=== PATIENT | male | born 1945 | race Two or more races ===

== ENCOUNTER 2020-11-26 11:10 | Emergency (ER) | payer MEDICARE, MEDICAID, SELFPAY ==
[2020-11-26 11:24] VITALS: BP 137/68; PULSE 73; RESP 16; TEMP 37.2; O2SAT 99; BMI 25.0
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
== END 2020-11-26 12:02 | disposition home or self-care (01) ==
LOC: HO.ED 11:59
PROVIDERS: Emergency Provider Emergency Medicine
DX: H10.89 Other conjunctivitis (principal)
CPT/HCPCS: 99283

== ENCOUNTER 2020-12-14 00:34 | Inpatient (IN) | payer MEDICARE, MEDICAID, SELFPAY ==
[2020-12-14] VITALS (8 sets, daily range): BP systolic 135–165; BP diastolic 55–82; PULSE 62–74; RESP 18–21; TEMP 36.4–37.4; O2SAT 97–99; BMI 22.4
--- NOTE | ~2020-12-14 | CT_ITS ---
EXAMINATION: CT ABDOMEN AND PELVIS WITH CONTRAST CLINICAL INFORMATION: Lower abdominal pain. COMPARISON: Ultrasound abdomen 07/25/2017. TECHNIQUE: Multidetector volumetric images were obtained from the superior aspect of the liver through the pubic symphysis following administration 85 mL of Omnipaque 350 intravenous contrast. Sagittal and coronal reformatted images were obtained on the technologist's workstation. Oral contrast: No This CT examination was performed using dose optimization techniques as appropriate, variously including the following: *Automated exposure control *Adjustment of mA and/or kV according to patient size (this includes techniques or standardized protocols for targeted exams where dose is matched to indication/reason for exam; i.e. extremities or head) *Use of iterative reconstruction technique DLP: 358 mGy-cm FINDINGS: LUNG BASES: The visualized lung bases are unremarkable. LIVER, GALLBLADDER, AND BILIARY TREE: The liver is normal in size, shape, and attenuation. There are multiple hypodense liver lesions measuring water density consistent with cysts. The largest right hepatic lobe cyst measures 1.6 cm axial image 18/3. The gallbladder is unremarkable with no evidence of radiopaque gallstones, gallbladder wall thickening, or obvious pericholecystic inflammatory changes. PANCREAS: Unremarkable. SPLEEN: Unremarkable. ADRENAL GLANDS: Unremarkable. KIDNEYS AND URETERS: The kidneys are normal in size, shape, and attenuation. No hydronephrosis, hydroureter, or calculi seen. No perinephric stranding. There is a 5 mm hypodense nodule upper pole cortex right kidney. BLADDER: Unremarkable. GASTROINTESTINAL TRACT: There is significant stool seen throughout the colon suggestive of severe constipation. There are multiple dilated small bowel loops with air-fluid levels, most likely secondary to constipation. The small bowel feces sign. No inflammatory process seen in the abdomen. There is no free air or free fluid. The appendix is normal caliber. ABDOMINAL WALL: No significant hernia is appreciated. LYMPH NODES: Normal. VASCULAR: Mild atherosclerotic changes of abdominal aorta are noted. No aneurysmal dilatation. PELVIC VISCERA: The prostate gland is enlarged with hyperdense appearing central gland. OSSEOUS STRUCTURES: There is mild ventral spondylosis L3-L4 L2-L3 disc levels. Bilateral facet joint arthropathy seen at L3-L4 and L4-L5 disc levels. CT/CT abdomen pelvis w con IMPRESSION: Small bowel obstruction most likely secondary to significant constipation. There is no free air or free fluid seen. The appendix is normal caliber. Multiple liver cysts.
[2020-12-14] MEDS: 0.9 % Sodium Chloride 1,000 ML 999 ML IVCONT (00:50)
--- NOTE | 2020-12-14 00:58 | ED_ITS ---
HPI - Abdominal Pain General Chief Complaint: Abdominal Pain Stated Complaint: ABD PAIN ,VOMITING Time Seen by Provider: 12/14/20 00:57 Related Data Home Medications Medication Instructions Recorded Confirmed Unobtainable 12/14/20 12/14/20 Allergies Allergy/AdvReac Type Severity Reaction Status Date / Time No Known Allergies Allergy Unknown NONE Verified 12/14/20 00:42 [No Known Allergies*] Physical Exam Vital Signs: Vital Signs: Last Vital Signs Temp 99.4 F 12/14/20 05:53 Pulse 70 12/14/20 05:53 Resp 18 12/14/20 05:53 BP 145/65 H 12/14/20 05:53 Pulse Ox 97 12/14/20 05:53 Body Mass Index 22.4 Course Reevaluation(s) Reevaluation #1: Patient with acute small-bowel obstruction etiology not very clear patient never had any surgery in the past NG tube was tried 3 times patient pull it out immediately refusing us to put the NG tube. Patient vomited 2-3 times in the ER case discussed Dr. Fuchs will admit patient to surgical service Time: 05:36 MDM - Abdominal Pain Differential Diagnosis Differential diagnosis: Likely abdominal pain and small bowel obstruction Medical Records Attestation: I reviewed the patient's medical records. Lab Data Attestation: I reviewed the patient's lab results. Result diagrams: 12/14/20 01:29 12/14/20 01:29 Labs: Lab Results 12/14/20 Range/Units 01:29 WBC 11.2 H (4.8-10.8) X10*3/uL RBC 4.43 L (4.60-5.80) X10*6/uL Hgb 14.2 (14.0-18.0) g/dl Hct 42.9 (42-52) % MCV 96.8 (80-98) fL MCH 32.1 (27.0-33.0) pg MCHC 33.1 (31.0-36.0) g/dl RDW 13.3 (11.0-16.0) % Plt Count 235 (160-400) X10*3/uL MPV 11.2 (9.4-12.4) fL Immature Gran % (Auto) 0.4 (0.0-0.4) % Neut % (Auto) 85.9 H (45-73) % Lymph % (Auto) 7.4 L (20-40) % [place] % (Auto) 5.0 (2-11) % Eos % (Auto) 0.9 (0-4) % Baso % (Auto) 0.4 (0-2) % Lymph # (Auto) 0.8 L (1.2-4.9) X10*3/uL [place] # (Auto) 0.6 (0.1-1.2) X10*3/uL Eos # (Auto) 0.1 (0.0-0.4) X10*3/uL Baso # (Auto) 0.1 (0.0-0.2) X10*3/uL Abs Immat Gran (auto) 0.04 H (0.00-0.03) X10*3/uL Absolute Neuts (auto) 9.6 H (2.0-8.3) X10*3/uL Absolute Nucleated RBC 0.000 (0.0-0.012) X10*3/uL Nucleated RBC % (auto) 0.0 (0.0-0.2) /100WBC Discharge Plan Discharge Clinical Impression: SBO (small bowel obstruction) Patient Disposition: Admitted As Inpatient [facility] Past Medical History Medical History No known health problems Social History Social History Alcohol intake: never Smoking Status: Current every day smoker Smoked in Last 30 Days: Yes Use of substances other than those prescribed or required for medical reasons: No Advance Directives: No
[2020-12-14] MEDS: ondansetron HCL 4 MG/2 ML VIAL IVPUSH (01:00)
[2020-12-14] MEDS: Famotidine/PF 20 MG/2 ML VIAL IVPUSH (01:00)
[2020-12-14] MEDS: Lidocaine HCl 4 % Laryng-O-Jet 4 ML 1 APPL TOPICAL (05:50)
--- NOTE | 2020-12-14 06:01 | PC.NURSE ---
pt comes from home via ems for abdominal pain with vomiting after eating melon. alert and oriented. japanese speaker only. per md, line and lab completed. ct abdomen done with contrast. ct confirmed sbo. ng tube unable to put in. 2 RNs and 1 MD tired but pt fighting and pull off tube right away. per md, okay not to put in. Hospitalist team will take over. pt to be NPO. unable to get home med info. pt had a vomiting episode x3 while attempting to put ng tube. coffee ground emesis seen with odor. pt sleeping comfortable. rr even and unlabored. vss. awaiting for hospitalist eval. will continue to monitor.
[2020-12-14 06:13] LABS: MANUAL DIFF FLAG NO
[2020-12-14 06:15] LABS: Basophils Absolute Auto 0.1 X10*3/uL (0.0-0.2); Basophils Percent Auto 0.4 % (0-2); Eosinophils Absolute Auto 0.1 X10*3/uL (0.0-0.4); Eosinophils Percent Auto 0.9 % (0-4); Hematocrit 42.9 % (42-52); Hemoglobin 14.2 g/dl (14.0-18.0); Imm Gran Abs Auto 0.04 X10*3/uL (0.00-0.03); Imm Gran Pct Auto 0.4 % (0.0-0.4); Lymphocytes Absolute Auto 0.8 X10*3/uL (1.2-4.9); Lymphocytes Percent Auto 7.4 % (20-40); Mean Corpuscular HGB Conc 33.1 g/dl (31.0-36.0); Mean Corpuscular Hemoglobin 32.1 pg (27.0-33.0); Mean Corpuscular Volume 96.8 fL (80-98); Mean Platelet Volume 11.2 fL (9.4-12.4); Monocytes Absolute Auto 0.6 X10*3/uL (0.1-1.2); Neutrophils Absolute Auto 9.6 X10*3/uL (2.0-8.3); Neutrophils Percent Auto 85.9 % (45-73); Platelet Count 235 X10*3/uL (160-400); Red Blood Count 4.43 X10*6/uL (4.60-5.80); Red Cell Distribution Width 13.3 % (11.0-16.0); White Blood Count 11.2 X10*3/uL (4.8-10.8)
[2020-12-14 06:19] LABS: COVID-19 Test Negative (Negative); IDNOW Serial# 9DD0AD1C
[2020-12-14 06:40] LABS: Anion Gap 15 (12-20); Blood Urea Nitrogen 19 mg/dL (9-16); Carbon Dioxide 30 mmol/L (22-29); Chloride 99 mmol/L (96-108); Potassium 5.1 mmol/L (3.3-5.1); Sodium 139 mmol/L (135-145)
[2020-12-14 06:41] LABS: Alanine Aminotransferase 15 U/L (0-40); Albumin Level 4.6 g/dL (3.5-5.0); Alkaline Phosphatase 49 U/L (39-117); Aspartate Amino Transferase 20 U/L (5-37); Bilirubin Direct 0.2 mg/dL (0.0-0.5); Bilirubin Total 0.3 mg/dL (0.0-1.0); Creatinine Clr Calc Pharmacy 62.1; Estimated Glomerular Filt Rate > 60; Glucose Random 162 mg/dL (60-115); Lipase 21 U/L (8-78); Total Protein 7.2 g/dL (6.5-8.0)
[2020-12-14 06:48] LABS: Calcium 9.4 mg/dL (8.4-10.2)
--- NOTE | 2020-12-14 06:53 | PC.NURSE ---
REPORT TAKEN FROM TOREY RN PT ADMITTED FOR SBO, PER PREVIOUS SHIFT RN, HAS REMOVED NG TUBE MULTIPLE TIMES. PT APPEARS TO BE SLEEPING IN SITTING POSITION, RR EVEN/UNLABORED. NO OBVIOUS SIGNS OF DISTRESS. AWAITING BED ASSIGNMENT. WCTM.
--- NOTE | 2020-12-14 07:05 | PC.NURSE ---
REPORT GIVEN TO S3 TAVARES OLIVO
--- NOTE | 2020-12-14 07:15 | PC.NURSE ---
PT AMBULATED TO AND FROM BATHROOM W STEADY GAIT.
[2020-12-14] MEDS: Dextrose 5 % and Lactated Ring 1,000 ML 125 ML IVCONT ×3 (07:48→23:02)
[2020-12-14] MEDS: 0.9 % Sodium Chloride Flush 3 ML SYRINGE IVFLUSH (07:49)
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
--- NOTE | 2020-12-14 12:10 | MHC.CM.PN ---
CM met with patient at the bedside with a staff interpreter who reports he lives alone and is independent. Patient states he has a HCP friend Christiano Mares [phone], copy requested. Discussed discharge plan, home no services. Patient will need transport home. IMM addressed with patient using human resources associate. CM will continue to follow patient for discharge needs.
--- NOTE | 2020-12-14 13:24 | PC.NURSE ---
Pt admitted 0730, denies pain, no nausea or vomiting. tolerated 100% clear liquid lunch. continues to deny pain. slept in naps
--- NOTE | 2020-12-14 16:29 | PM.EVENT ---
Event Note Date of Service: 12/14/20 Event Note: Continues to deny abdominal pain Has had no nausea or vomiting says he feels well Tolerating clear liquids CT images reviewed again - diffuse dilatation of small bowel loops, question of transition in the left lower quadrant No inflammatory changes seen Good air distally including the colon and rectum Clinical exam at this time does not suggest small-bowel obstruction Keep on clear liquids for now
[2020-12-15 03:46] VITALS: BP 147/75; PULSE 63; RESP 18; TEMP 36.6; O2SAT 99
[2020-12-15 06:16] LABS: MANUAL DIFF FLAG NO
[2020-12-15 06:23] LABS: Basophils Percent Auto 0.4 % (0-2); Eosinophils Absolute Auto 0.5 X10*3/uL (0.0-0.4); Eosinophils Percent Auto 6.7 % (0-4); Hematocrit 36.6 % (42-52); Hemoglobin 12.1 g/dl (14.0-18.0); Imm Gran Abs Auto 0.02 X10*3/uL (0.00-0.03); Imm Gran Pct Auto 0.3 % (0.0-0.4); Lymphocytes Absolute Auto 1.4 X10*3/uL (1.2-4.9); Lymphocytes Percent Auto 20.8 % (20-40); Mean Corpuscular HGB Conc 33.1 g/dl (31.0-36.0); Mean Corpuscular Hemoglobin 32.1 pg (27.0-33.0); Mean Corpuscular Volume 97.1 fL (80-98); Mean Platelet Volume 10.9 fL (9.4-12.4); Monocytes Absolute Auto 0.6 X10*3/uL (0.1-1.2); Monocytes Percent Auto 8.3 % (2-11); Neutrophils Absolute Auto 4.4 X10*3/uL (2.0-8.3); Neutrophils Percent Auto 63.5 % (45-73); Platelet Count 203 X10*3/uL (160-400); Red Blood Count 3.77 X10*6/uL (4.60-5.80); Red Cell Distribution Width 13.4 % (11.0-16.0); White Blood Count 6.9 X10*3/uL (4.8-10.8)
[2020-12-15 06:53] LABS: Anion Gap 8 (12-20); Blood Urea Nitrogen 10 mg/dL (9-16); Calcium 8.3 mg/dL (8.4-10.2); Carbon Dioxide 30 mmol/L (22-29); Chloride 106 mmol/L (96-108); Creatinine Clr Calc Pharmacy 75.3; Estimated Glomerular Filt Rate > 60; Glucose Random 133 mg/dL (60-115); Potassium 4.6 mmol/L (3.3-5.1); Sodium 139 mmol/L (135-145)
[2020-12-15 07:49] VITALS: BP 140/73; PULSE 60; RESP 17; TEMP 36.3; O2SAT 98
[2020-12-15] MEDS: Dextrose 5 % and Lactated Ring 1,000 ML 125 ML IVCONT ×2 (09:17→23:10)
--- NOTE | 2020-12-15 11:20 | PM.PNGS ---
Subjective Subjective Date of Service: 12/15/20 <Karen Alvarado PA-C - Last Filed: 12/16/20 12:46> 12/16/20 <Pako Fuchs MD - Last Filed: 12/16/20 13:49> Interval history: LATE ENTRY FROM 12/15/20. Feels well. Had some mild pain but relieved with medication. Tolerating clears. Denies nausea. Now passing flatus. Feels hungry and wants a sandwich. <Karen Alvarado PA-C - Last Filed: 12/16/20 12:46> Physical Exam Vital Signs: Vital Signs: Last Vital Signs Temp 97.4 F 12/15/20 07:49 Pulse 60 12/15/20 07:49 Resp 17 12/15/20 07:49 BP 140/73 H 12/15/20 07:49 Pulse Ox 98 12/15/20 07:49 Body Mass Index 22.4 <Karen Alvarado PA-C - Last Filed: 12/16/20 12:46> Const: General: comfortable, no acute distress and alert <Karen Alvarado PA-C - Last Filed: 12/16/20 12:46> Orientation/consciousness: patient oriented x3 <Karen Alvarado PA-C - Last Filed: 12/16/20 12:46> Eyes: Sclerae: sclerae normal <Karen Alvarado PA-C - Last Filed: 12/16/20 12:46> Resp: Effort & Inspection: normal respiratory effort <Karen Alvarado PA-C - Last Filed: 12/16/20 12:46> GI: Inspection: Yes normal to inspection and No distended <Karen Alvarado PA-C - Last Filed: 12/16/20 12:46> Palpation (GI): Soft to palpation, nontender, no guarding, not rigid and No Rebound tenderness present <KEVIN Downs Last Filed: 12/16/20 12:46> Percussion: Yes normal to percussion <Karen Alvarado PA-C - Last Filed: 12/16/20 12:46> Skin: Other: normal color, warm and dry <Karen Alvarado PA-C - Last Filed: 12/16/20 12:46> General skin exam: no rashes or lesions noted <Karen Alvarado PA-C - Last Filed: 12/16/20 12:46> Neuro: General: patient oriented x3 <Karen Alvarado PA-C - Last Filed: 12/16/20 12:46> Extrem: General: Yes no clubbing, cyanosis or edema <Karen Alvarado PA-C - Last Filed: 12/16/20 12:46> Progress Note: A&P Assessment and plan (1) Ileus: Status: Acute <Karen Alvarado PA-C - Last Filed: 12/16/20 12:46> Assessment and Plan: Appears resolved. He is tolerating clears and passing flatus. VSS. Abd exam very benign, soft, NTND. Will advance to solid diet. Home possibly tomorrow if tolerating. Patient comfortable with plan. <Karen Alvarado PA-C - Last Filed: 12/16/20 12:46> Late entry: Patient seen and examined, abdominal pain is much improved is abdomen is soft and nontender. Agree with the above assessment and plan. Advanced to regular diet. <Pako Fuchs MD - Last Filed: 12/16/20 13:49> Fall Risk Details Current Medications: Current Medications Generic Name Dose Route Start Last Admin Trade Name Freq PRN Reason Stop Dose Admin Acetaminophen 650 mg 12/14/20 07:03 Acetaminophen 325 Mg Tablet PO Q6H PRN Pain, Mild (Pain Scale 1-3) Hydromorphone HCl 0.5 mg 12/14/20 07:03 Hydromorphone Hcl 0.5 Mg/0.5 Ml Syringe IVPUSH Q4H PRN Pain, Severe (Pain Scale 7-10) Dextrose/Lactated Ringer's 1,000 mls @ 125 mls/hr 12/14/20 07:03 12/15/20 09:17 D5lr IVCONT 125 mls/hr .Q8H KELLY Administration Ondansetron HCl 4 mg 12/14/20 07:03 Ondansetron Hcl 4 Mg/2 Ml Vial IVPUSH Q8H PRN Nausea and Vomiting Sodium Chloride 3 ml 12/14/20 08:00 12/15/20 08:20 0.9 % Sodium Chloride Flush 3 Ml Syringe IVFLUSH Not Given QSHIFT [facility] <Karen Alvarado PA-C - Last Filed: 12/16/20 12:46> Time Spent With Patient Time: Total time spent is greater than 50% in coordination of care (as documented) at patient's floor/unit and/or counseling patient: <Karen Alvarado PA-C - Last Filed: 12/16/20 12:46> Time with patient: less than 15 minutes <Karen Alvarado PA-C - Last Filed: 12/16/20 12:46>
[2020-12-15 11:40] VITALS: BP 143/65; PULSE 63; RESP 19; TEMP 36.4; O2SAT 100
[2020-12-15 16:00] VITALS: BP 150/75; PULSE 65; RESP 18; TEMP 36.7; O2SAT 99
[2020-12-15 19:26] VITALS: BP 147/71; PULSE 69; RESP 20; TEMP 36.2; O2SAT 96
[2020-12-15 23:47] VITALS: BP 124/61; PULSE 58; RESP 18; TEMP 36.4; O2SAT 96
[2020-12-16 03:48] VITALS: BP 137/67; PULSE 56; RESP 18; TEMP 36.8; O2SAT 97
[2020-12-16 07:54] VITALS: BP 146/77; PULSE 62; RESP 19; TEMP 36.6; O2SAT 100
--- NOTE | 2020-12-16 08:04 | PM.PNGS ---
Subjective Subjective Date of Service: 12/16/20 Interval history: Patient feels much improved with no further nausea or vomiting. He is tolerating the regular diet without increased symptoms. His bowels are moving as well. He feels ready for discharge to home. Physical Exam Vital Signs: Vital Signs: Last Vital Signs Temp 97.8 F 12/16/20 07:54 Pulse 62 12/16/20 07:54 Resp 19 12/16/20 07:54 BP 146/77 H 12/16/20 07:54 Pulse Ox 100 12/16/20 07:54 Body Mass Index 22.4 Const: General: no acute distress, alert and awake Neck: Neck: Yes normal visual inspection, Yes full ROM and Yes no JVD Resp: Other: Breathing comfortably on room air, no respiratory distress GI: Other: Soft, flat, nondistended, nontender, no rebound, no tympany Skin: Other: Warm, dry, no rash Extrem: General: Yes no clubbing, cyanosis or edema Progress Note: A&P Assessment and plan (1) SBO (small bowel obstruction): Problem details: Resolving Status: Acute Assessment and Plan: 75-year-old male patient presenting with a partial small-bowel obstruction. Patient has no prior history of abdominal surgery and is never undergone a colonoscopy. His symptoms have now resolved and he is tolerating a regular diet. He will need follow-up with gastroenterology for a colonoscopy. He may be discharged to home today with follow-up in our office in approximately 1-2 weeks. Fall Risk Details Current Medications: Current Medications Generic Name Dose Route Start Last Admin Trade Name Freq PRN Reason Stop Dose Admin Acetaminophen 650 mg 12/14/20 07:03 Acetaminophen 325 Mg Tablet PO Q6H PRN Pain, Mild (Pain Scale 1-3) Hydromorphone HCl 0.5 mg 12/14/20 07:03 Hydromorphone Hcl 0.5 Mg/0.5 Ml Syringe IVPUSH Q4H PRN Pain, Severe (Pain Scale 7-10) Dextrose/Lactated Ringer's 1,000 mls @ 125 mls/hr 12/14/20 07:03 12/16/20 07:24 D5lr IVCONT Infused .Q8H KELLY Infusion Ondansetron HCl 4 mg 12/14/20 07:03 Ondansetron Hcl 4 Mg/2 Ml Vial IVPUSH Q8H PRN Nausea and Vomiting Oxycodone HCl 5 mg 12/15/20 11:24 Oxycodone Hcl Immed Release 5 Mg Tablet PO Q4H PRN Pain, Moderate (Pain Scale 4-6 Sodium Chloride 3 ml 12/14/20 08:00 12/16/20 07:24 0.9 % Sodium Chloride Flush 3 Ml Syringe IVFLUSH Not Given QSHIFT KELLY Time Spent With Patient Time: Total time spent is greater than 50% in coordination of care (as documented) at patient's floor/unit and/or counseling patient: Time with patient: 15 - 24 minutes
--- NOTE | 2020-12-16 08:18 | MHC.CM.PN ---
PATIENT IS RETURNING HOME WITH NO NEED FOR SERVICES. RN AWARE OF PLAN. IMM 12/14 IN CHART.
--- NOTE | 2020-12-16 12:46 | P.DS_ITS ---
DS: Providers Provider Date of Service: 12/16/20 Date of admission: 12/14/20 05:25 Primary care physician: Unknown Physician DS: Diagnosis Discharge Diagnosis (1) Ileus: Status: Acute DS: Medications Discharge Medications Home Medications: Home Medications Medication Instructions Recorded Confirmed No Known Home Meds 12/14/20 12/14/20 DS: Summary Hospital Course Hospital Course: BRIEF HPI: Hieu Dixon is a 75 year old male with no reported significant PMH who presented to the ED last night with complaints of abdominal pain and vomiting. He reports he ate melon last night and soon after developed strong pain in his lower abdomen. This was followed by nausea and multiple episodes of vomiting. He denies a similar episode of pain before. He reports his last BM was yesterday and was passing flatus up to this point. He denies any surgery on his abdomen. Due to the severity of the pain he presented to the ED for evaluation. CT scan of the abdomen/pelvis was obtained which revealed dilated small bowel loops with a possible transition point in the left abdomen. HOSPITAL COURSE: The patient was admitted to the surgical service for further treatment of the PSBO versus ileus. He felt much improved at that time and denied any abdominal pain. He was clinically appearing well and with a benign abdominal exam. He was started on clear liquids. The following day he was tolerating clears without N/V or abdominal pain. He was passing flatus. He was advanced to a solid diet. He began to move his bowels. He felt ready for discharge the following day. On the day of discharge, he was tolerating a solid diet without any symptoms and had good GI function. His abdomen remained benign. He was discharged to home on 12/16/20 in stable condition. He will need follow-up with gastroenterology for a colonoscopy and follow-up with Dr. Fuchs in office in approximately 1-2 weeks. Status at Discharge Functional status at discharge: independent ambulation Overall status at discharge: patient is back to baseline Time Spent with Patient Time attestation: Total time spent providing and/or coordinating discharge services: Discharge coordination time: Less than 30 minutes Physical Exam Vital Signs: Vital Signs: Last Vital Signs Temp 97.8 F 12/16/20 07:54 Pulse 62 12/16/20 07:54 Resp 19 12/16/20 07:54 BP 146/77 H 12/16/20 07:54 Pulse Ox 100 12/16/20 07:54 Body Mass Index 22.4 Const: General: comfortable, no acute distress and alert O rientation/consciousness: patient oriented x3 Eyes: Sclerae: sclerae normal Resp: Effort & Inspection: normal respiratory effort GI: Inspection: Yes normal to inspection and No distended Palpation (GI): Soft to palpation, nontender, no guarding and not rigid Skin: General skin exam: no rashes or lesions noted Neuro: General: patient oriented x3 Extrem: General: Yes no clubbing, cyanosis or edema Discharge Plan Discharge Patient Disposition: Home, Self-Care Referrals: Vijay Ryan MD [Physician] - 1 Week (needs colonoscopy) Pako Fuchs MD [Physician] - 2 Weeks Physician,Unknown [Primary Care Provider] - Discharge Medications: Continued No Known Home Meds RF: 0 Discharge Orders: Discharge Order (Routine); Ordered 12/16/20 Ordered By: Pako Fuchs Diet: advance to usual diet Activity on Discharge: As tolerated Stand Alone Forms: Patient Portal Discharge page Care Plan Goals: Return to normal diet Health Concerns: Recent partial small-bowel obstruction, no previous colonoscopy Plan of Treatment: Follow-up recommended with gastroenterology to arrange colonoscopy Discharge Date/Time: 12/16/20 09:29
== END 2020-12-16 09:29 | disposition home or self-care (01) | DRG 390 ==
LOC: HO.ED 05:17 → HO.EDOVER 05:31 → HO.IMC 06:30 → HO.S3 13:37
PROVIDERS: Internal Medicine; Admitting Provider Surgery; Emergency Provider Emergency Medicine; PCP Internal Medicine Geriatric Medicine; Visit Provider Surgery
DX: K56.7 Ileus, unspecified (principal); K56.600 Partial intestinal obstruction, unspecified as to cause; Z20.822 Contact with and (suspected) exposure to COVID-19
CPT/HCPCS: 36415; 74177; 80048; 80076; 83690; 85025; 87635; 96374; 96375; 99285; J2405; Q9967

== ENCOUNTER 2021-08-14 16:34 | Emergency (ER) | payer MEDICARE, MEDICAID, SELFPAY ==
--- NOTE | 2021-08-14 17:46 | ED.GENADULT ---
HPI - General Adult General Chief complaint: Skin/Abscess/Foreign Body Stated complaint: mild headache Time Seen by Provider: 08/14/21 17:06 Source: patient Mode of arrival: ambulatory Limitations: no limitations History of Present Illness HPI narrative: Patient presents to ED for generalized pruritus. Patient denies any chest pain, shortness of breath, abdominal pain, nausea, vomiting, fever, chills, rashes, swelling of lips, slurred speech, facial droop, paralysis of extremities, or any recent trauma. Patient denies any medical problems. Patient states since living in a hotel he has had generalized pruritus and may be positive for bug bites. 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 Patient lives on his own and has no family. Patient unaware of any medical problems. Patient denies any alcohol or drug abuse. Patient is not suicidal or homicidal ideation Related Data Previous Rx's Medication Instructions Recorded diphenhydramine HCl 25 mg capsule 25 mg PO Q6H PRN 10 Days #30 cap 08/14/21 (Benadryl) hydrocortisone 1 % topical cream 1 appl TOPICAL BID PRN 14 Days 08/14/21 #28.4 g Allergies Allergy/AdvReac Type Severity Reaction Status Date / Time No Known Allergies Allergy Unknown NONE Verified 12/14/20 00:42 [No Known Allergies*] Review of Systems Review of Systems: Yes all other systems are reviewed and are negative Constitutional: Constitutional: Reports as per HPI and Reports no additional constitutional complaints Eyes: Eyes: Reports as per HPI and Reports no additional eye complaints ENT: Reports system reviewed and no additional complaints, except as documented and Reports as per HPI Cardiovascular: Cardiovascular: Reports as per HPI and Reports no additional cardiovascular complaints Respiratory: Respiratory: Reports as per HPI and Reports no additional respiratory complaints Gastrointestinal: Gastrointestinal: Reports as per HPI and Reports no additional gastrointestinal complaints Genitourinary: Genitourinary: Reports no additional male genitourinary complaints and Reports as per HPI Musculoskeletal: Musculoskeletal: Reports no additional musculoskeletal complaints and Reports as per HPI Integumentary/Breasts: Comments: Pruritus Neurologic: Reports system reviewed and no additional complaints, except as documented and Reports as per HPI Psychiatric: Psychiatric: Reports no additional psychiatric complaints and Reports as per HPI [facility] Past Medical History Medical History (Updated 08/15/21 @ 00:02 by Background Daemon) Ileus No known health problems Social History Social History Household Members: None Housing: Apartment Alcohol intake: never Advance Directives: No Advance Directives Information Provided: No service: No Current occupational status: retired Physical Exam Vital Signs: Vital Signs: Last Vital Signs Pulse 61 08/14/21 17:54 Resp 13 08/14/21 17:54 BP 118/61 08/14/21 17:54 Pulse Ox 100 08/14/21 17:54 Body Mass Index 25.0 Const: General: cooperative, healthy appearing, comfortable, no acute distress, well developed, alert, awake and Physically active Orientation/consciousness: patient oriented x3 HENMT: Other: Negative for lip swelling, tongue swelling, or uvular swelling. Negative for eyes of facial swelling. Head: Yes normal to inspection, Yes No palpable skull fracture present, Yes normocephalic, Yes atraumatic, Yes abrasion, No Acrocyanosis present, No West's sign, No contusion, No cranial bruits, No hematoma, No laceration, No occipital foramen tenderness, No palpable skull fracture, No raccoon eyes, No scalp lesion, No scalp tenderness, No Temporal artery tenderness present and No periorbital ecchymosis Neck: Neck: Yes normal visual inspection, Yes full ROM, Yes no lymphadenopathy, Yes no meningeal signs, Yes trachea midline, Yes supple, No anterior neck swelling and No tender Chest: Chest palpation & inspection: normal inspection of the chest and normal palpation of entire chest wall Resp: Effort & Inspection: normal respiratory effort and able to speak in complete sentences Auscultation: clear to auscultation bilaterally Cardio: Jugular venous distension: no JVD Heart sounds: S1 normal heart sound present and S2 normal heart sound present GI: Inspection: Yes normal to inspection and No abdominal wall ecchymosis Palpation (GI): Soft to palpation, not firm, nontender, no guarding and not rigid : General: No CVA tenderness and Yes no CVA tenderness Back/Spine/Pelvis: Back: no CVA tenderness, No CVA tenderness and No back tenderness Skin: Other: Negative for rash General skin exam: no rashes or lesions noted and elasticity normal Neuro: General: patient oriented x3, gait normal, no meningeal signs and CN's II-XI intact bilaterally Cranial nerves: Yes CN's II-XII intact bilaterally Extrem: General: Yes normal to inspection and Yes full ROM Psych: Appearance: grossly normal, well kempt and not disheveled Course Course Course Narrative: Patient will have labs drawn. Patient evaluated by rifle case repairer Tierney. Reevaluation(s) Reevaluation #1: gathering worker tierney evaluated patient and states that patient is safe for discharge once medically cleared. 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 Patient looks well fed and is clean. Patient labs are normal. Patient will be discharged with hydrocortisone cream and Benadryl. Patient informed to change in his bed sheets and change his clothes due to possibility of bug bites causing pruritus although there is no rash. Time: 22:21 Medical Decision Making [facility] Narrative Medical decision making narrative: Pruritus Lab Data Result diagrams: 08/14/21 17:57 08/14/21 17:57 Labs: Lab Results 08/14/21 08/14/21 Range/Units 17:57 17:57 WBC 5.4 (4.8-10.8) X10*3/uL RBC 4.30 L (4.60-5.80) X10*6/uL Hgb 13.9 L (14.0-18.0) g/dl Hct 41.7 L (42.0-52.0) % MCV 97.0 (80.0-98.0) fL MCH 32.3 (27.0-33.0) pg MCHC 33.3 (31.0-36.0) g/dl RDW 13.6 (11.0-16.0) % Plt Count 171 (160-400) X10*3/uL MPV 11.0 (9.4-12.4) fL Immature Gran % (Auto) 0.2 (0.0-0.4) % Neut % (Auto) 54.7 (45-73) % Lymph % (Auto) 25.0 (20-40) % Prairie % (Auto) 10.6 (2-11) % Eos % (Auto) 8.6 H (0-4) % Baso % (Auto) 0.9 (0-2) % Lymph # (Auto) 1.3 (1.2-4.9) X10*3/uL Prairie # (Auto) 0.6 (0.1-1.2) X10*3/uL Eos # (Auto) 0.5 H (0.0-0.4) X10*3/uL Baso # (Auto) 0.1 (0.0-0.2) X10*3/uL Abs Immat Gran (auto) 0.01 (0.00-0.03) X10*3/uL Absolute Neuts (auto) 2.9 (2.0-8.3) x10*3/uL Absolute Nucleated RBC 0.000 (0.0-0.012) X10*3/uL Nucleated RBC % (auto) 0.0 (0.0-0.2) /100WBC Sodium 140 (135-145) mmol/L Potassium 5.0 (3.3-5.1) mmol/L Chloride 102 (96-108) mmol/L Carbon Dioxide 32 H (22-29) mmol/L Anion Gap 11 L (12-20) BUN 16 D (9-16) mg/dL Creatinine 1.06 (0.5-1.4) mg/dL Estim Creat Clear Calc 51.5 Estimated GFR > 60 Random Glucose 124 H (60-115) mg/dL Calcium 9.3 D (8.4-10.2) mg/dL Magnesium 2.3 (1.6-2.6) mg/dL Total Bilirubin 0.5 (0.0-1.0) mg/dL AST 19 (5-37) U/L ALT 15 (0-40) U/L Alkaline Phosphatase 45 (39-117) U/L Total Creatine Kinase 124 (38-174) U/L Total Protein 6.6 (6.5-8.0) g/dL Albumin 4.2 (3.5-5.0) g/dL Lipase 46 (8-78) U/L Discharge Plan Discharge Clinical Impression: Pruritus Patient Disposition: Home, Self-Care Instructions: Itchy Skin (ED) Additional Instructions: Whelan an?lisis de penny volvi? a la normalidad. Whelan prurito puede deberse a chinches, cambie las s?caden y lave la ropa. Se le reji? de roddy con Benadryl e hidrocortisona en crema. Sterling un seguimiento con whelan proveedor de atenci?n primaria. Regrese al servicio de urgencias si tiene dolor de pecho, dificultad para respirar, dolor abdominal, dolor de nelson, mareos, hinchaz?n de los labios, hinchaz?n de la lengua, hinchaz?n de la ?vula, sensaci?n de cierre de la garganta, sarpullido o cualquier otro s?ntoma preocupante. Prescriptions: New diphenhydramine HCl [Benadryl] 25 mg capsule 25 mg PO Q6H PRN (Reason: itching) 10 Days Qty: 30 RF: 0 hydrocortisone 1 % cream 1 appl topical BID PRN (Reason: itching) 14 Days Qty: 28.4 RF: 0 Interventions: ED Discharge Assessment Last Done: 08/14/21 23:05 Discharge Date/Time: 08/14/21 23:06 Print Language: Turkish
[2021-08-14 17:52] VITALS: BMI 25.0
[2021-08-14 17:54] VITALS: BP 118/61; PULSE 61; RESP 13; O2SAT 100
[2021-08-14 18:00] LABS: MANUAL DIFF FLAG NO
[2021-08-14 18:02] LABS: Basophils Absolute Auto 0.1 X10*3/uL (0.0-0.2); Basophils Percent Auto 0.9 % (0-2); Eosinophils Absolute Auto 0.5 X10*3/uL (0.0-0.4); Eosinophils Percent Auto 8.6 % (0-4); Hematocrit 41.7 % (42.0-52.0); Hemoglobin 13.9 g/dl (14.0-18.0); Imm Gran Abs Auto 0.01 X10*3/uL (0.00-0.03); Imm Gran Pct Auto 0.2 % (0.0-0.4); Lymphocytes Absolute Auto 1.3 X10*3/uL (1.2-4.9); Mean Corpuscular HGB Conc 33.3 g/dl (31.0-36.0); Mean Corpuscular Hemoglobin 32.3 pg (27.0-33.0); Monocytes Absolute Auto 0.6 X10*3/uL (0.1-1.2); Monocytes Percent Auto 10.6 % (2-11); Neutrophils Absolute Auto 2.9 x10*3/uL (2.0-8.3); Neutrophils Percent Auto 54.7 % (45-73); Platelet Count 171 X10*3/uL (160-400); Red Cell Distribution Width 13.6 % (11.0-16.0); White Blood Count 5.4 X10*3/uL (4.8-10.8)
[2021-08-14 18:29] LABS: Alanine Aminotransferase 15 U/L (0-40); Albumin Level 4.2 g/dL (3.5-5.0); Alkaline Phosphatase 45 U/L (39-117); Anion Gap 11 (12-20); Aspartate Amino Transferase 19 U/L (5-37); Bilirubin Total 0.5 mg/dL (0.0-1.0); Blood Urea Nitrogen 16 mg/dL (9-16); Calcium 9.3 mg/dL (8.4-10.2); Carbon Dioxide 32 mmol/L (22-29); Chloride 102 mmol/L (96-108); Creatinine Clr Calc Pharmacy 51.5; Estimated Glomerular Filt Rate > 60; Glucose Random 124 mg/dL (60-115); Lipase 46 U/L (8-78); Magnesium 2.3 mg/dL (1.6-2.6); Sodium 140 mmol/L (135-145); Total Protein 6.6 g/dL (6.5-8.0)
--- NOTE | 2021-08-14 18:32 | MHC.CM.ED ---
Met with CM patient with medical center representative, as pt is Irish speaking only. Pt was BIBA for generalized puritis. CM met with patient at request of Freddy KRAMER. Pt [address] [facility]. Pt states that several people help him and are working to get him an apartment. They provide food. Pt cannot tell CM who helps him or the name of the organization, just that it's a program. Pt tells CM that he feels safe at home. PCP is [facility]. 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 States he got the vaccine at the [facility]. No HCP on file. Pt work-up is pending. CM called [facility] to obtain the address where the patient was picked up. Pt feels safe to go home. Freddy Su aware of above. CM to follow for d/c needs.
== END 2021-08-14 23:06 | disposition home or self-care (01) ==
PROVIDERS: Physician Assistant; Emergency Provider Internal Medicine
DX: L29.9 Pruritus, unspecified (principal); R51.9 Headache, unspecified; Z79.899 Other long term (current) drug therapy
CPT/HCPCS: 36415; 80053; 82550; 83690; 83735; 85025; 99283

== ENCOUNTER 2021-08-20 19:35 | Emergency (ER) | payer MEDICARE, MEDICAID, SELFPAY ==
[2021-08-20 19:46] VITALS: BP 132/74; PULSE 72; RESP 18; TEMP 36.6; O2SAT 98; BMI 25.9
--- NOTE | 2021-08-20 19:54 | ED_ITS ---
HPI - Psych General Chief Complaint: Psychiatric Symptoms Stated Complaint: bugs crawling up his body Time Seen by Provider: 08/20/21 19:43 Source: patient and EMS Mode of arrival: EMS Limitations: no limitations History of Present Illness HPI Narrative: 76 y/o male with history of diabetes on no medications who has not been to a doctor in years presents to the ER via EMS from the [place] where he lives for evaluation of the sensation of bugs and animals crawling up his legs and on his head. Patient reports he cannot recall when this started but has been going on for ?a long time. ?He states he has memory issues. He lives home alone in a motel. The employee of the motel is 1 the called 911 for him to get a ?whole-body evaluation ?for the sensation of bugs and animals crawling all over his body. When asked this has been happening for years he says yes. It has been worsening. When he feels the bugs he has the urge to walk outside in the cold and get the bugs come off him. He admits to never seeing the bugs but the sensation persists. He denies any alcohol or drug use. He is on no medications. MD complaint: anxiety and hallucinations Onset (ago): unknown Duration: intermittent History of same: Yes Relieving factors: none Exacerbating factors: none Associated psychiatric symptoms: other (Tactile hallucinations and severe anxiety) Associated symptoms: confusion (Memory issues) Treatments prior to arrival: none Related Data Previous Rx's Medication Instructions Recorded diphenhydramine HCl 25 mg capsule 25 mg PO Q6H PRN 10 Days #30 cap 08/14/21 (Benadryl) hydrocortisone 1 % topical cream 1 appl TOPICAL BID PRN 14 Days 08/14/21 #28.4 g Allergies Allergy/AdvReac Type Severity Reaction Status Date / Time No Known Allergies Allergy Unknown NONE Verified 12/14/20 00:42 [No Known Allergies*] Review of Systems Review of Systems: Constitutional: No Fever, No Chills ENT/Mouth: No sore throat, No Rhinorrhea, No Swallowing Difficulty Eyes: No Eye Pain, No Swelling, No Redness, no vision changes Cardiovascular: No Chest Pain, No SOB, No Orthopnea, No Edema Respiratory: No Cough, No Sputum, No Wheezing, No dyspnea Gastrointestinal: No Nausea, No Vomiting, No Diarrhea, No abdominal Pain, No Hematochezia, No Melena Genitourinary: No Dysuria, No Urinary Frequency, No Hematuria Musculoskeletal: No joint pain, No Myalgias Skin: No Skin Lesions, No rash Neuro: No Weakness, No Numbness, No Dizziness, No Headache Psych: + Anxiety/Panic, + Depression, no suicidal thoughts, no homicidal thoughts, no audio or visual hallucinations. Heme/Lymph: No Bruising, No Lymphadenopathy PMFSH Past Medical History Medical History (Updated 08/20/21 @ 21:16 by NIA Cruz) Ileus No known health problems Social History Social History Household Members: None Housing: Apartment Alcohol intake: never Advance Directives: No service: No Current occupational status: retired Physical Exam 2 Vital Signs: Vital Signs: Last Vital Signs Temp 98 F 08/20/21 19:46 Pulse 72 08/20/21 19:46 Resp 18 08/20/21 19:46 BP 132/74 08/20/21 19:46 Pulse Ox 98 08/20/21 19:46 Body Mass Index 25.9 Appearance: Alert elderly male sitting up in no distress, orientedX3. Eyes: Pupils equal, round and reactive to light. ENT: Pharynx normal. Neck: Normal inspection. Neck supple. CVS: Normal heart rate and rhythm. Pulses normal. Respiratory: No respiratory distress. Breath sounds normal. Abdomen: Soft and nontender. +BS x4 Skin: Skin warm and dry. Normal skin color. Normal skin turgor. No rashes. No bugs visualized. No excoriations Extremities: No lower extremity edema. Neuro: Oriented X 3. No motor deficit. No sensory deficit. Cranial nerves II- XII were intact, ambulates with steady gait. Course Course Course Narrative: 76-year-old male with history of untreated diabetes per his report and no other medical problems presents to the ER with worsening anxiety and tactile hallucinations of bugs crawling on his legs and head. He admits to not seeing them but can feel them. I found that this has been going on for years but is worsening as of late. He denies any alcohol or substance abuse. Will get lab workup and have him see PHN. He is agreeable. He wants to get help. Reevaluation(s) Reevaluation #1: Medical workup is unremarkable. He is medically cleared to be seen by CHRISTOPH kaufman. Will place and physician observation at this time. Physician observation started at 9:15pm. Patient placed in physician observation because patient is awaiting [facility] evaluation for the possible need of inpatient psych admission. At the time observation was started patient's vital signs were stable. Patient is alert and oriented. Neuro exam is non-focal. CV: RRR and lungs are clear. Will continue to monitor. [facility] - Psych Lab Data Result diagrams: 08/20/21 20:21 08/20/21 20:21 Labs: Lab Results 08/20/21 08/20/21 08/20/21 Range/Units 20: 20: 20:21 WBC 7.0 (4.8-10.8) X10*3/uL RBC 4.18 L (4.60-5.80) X10*6/uL Hgb 13.4 L (14.0-18.0) g/dl Hct 40.3 L (42.0-52.0) % MCV 96.4 (80.0-98.0) fL MCH 32.1 (27.0-33.0) pg MCHC 33.3 (31.0-36.0) g/dl RDW 13.1 (11.0-16.0) % Plt Count 170 (160-400) X10*3/uL MPV 11.2 (9.4-12.4) fL Immature Gran % (Auto) 0.1 (0.0-0.4) % Neut % (Auto) 58.9 (45-73) % Lymph % (Auto) 27.1 (20-40) % [place] % (Auto) 8.4 (2-11) % Eos % (Auto) 4.6 H (0-4) % Baso % (Auto) 0.9 (0-2) % Lymph # (Auto) 1.9 (1.2-4.9) X10*3/uL [place] # (Auto) 0.6 (0.1-1.2) X10*3/uL Eos # (Auto) 0.3 (0.0-0.4) X10*3/uL Baso # (Auto) 0.1 (0.0-0.2) X10*3/uL Abs Immat Gran (auto) 0.01 (0.00-0.03) X10*3/uL Absolute Neuts (auto) 4.1 (2.0-8.3) x10*3/uL Absolute Nucleated RBC 0.000 (0.0-0.012) X10*3/uL Nucleated RBC % (auto) 0.0 (0.0-0.2) /100WBC Sodium 138 (135-145) mmol/L Potassium 4.2 (3.3-5.1) mmol/L Chloride 103 (96-108) mmol/L Carbon Dioxide 31 H (22-29) mmol/L Anion Gap 8 L (12-20) BUN 19 H (9-16) mg/dL Creatinine 1.23 (0.5-1.4) mg/dL Estim Creat Clear Calc 47.7 Estimated GFR 57 Random Glucose 108 (60-115) mg/dL Calcium 9.3 (8.4-10.2) mg/dL Magnesium 2.2 (1.6-2.6) mg/dL Total Bilirubin 0.5 (0.0-1.0) mg/dL Direct Bilirubin 0.2 (0.0-0.5) mg/dL AST 18 (5-37) U/L ALT 12 (0-40) U/L Alkaline Phosphatase 45 (39-117) U/L Total Protein 6.6 (6.5-8.0) g/dL Albumin 4.3 (3.5-5.0) g/dL Urine Color Urine Appearance Urine pH (5.0-8.0) Ur Specific [place] (1.005-1.025) Urine Protein (NEG-TRACE) MG/DL Urine Glucose (UA) (NEG) MG/DL Urine Ketones (NEG) MG/DL Urine Blood (NEG) Urine Nitrite (NEG) Ur Leukocyte Esterase (NEG) Urine RBC (0) /HPF Urine WBC (0-4) /HPF Ur Squamous Epith Cells /LPF Amorphous Sediment /LPF Urine Bacteria /LPF Urine Mucus /LPF Urine Opiates Screen (Not Detect) Urine Fentanyl Screen (Not Detect) Ur Barbiturates Screen (Not Detect) Ur Phencyclidine Scrn (Not Detect) Ur Amphetamines Screen (Not Detect) U Benzodiazepines Scrn (Not Detect) Urine Cocaine Screen (Not Detect) U Marijuana (THC) Screen (Not Detect) Ethyl Alcohol mg/dL COVID-19 (RUSTY) Negative (Negative) COVID-19 Clin Com See Note 08/20/21 08/20/21 08/20/21 Range/Units 20:21 20:23 20:23 WBC (4.8-10.8) X10*3/uL RBC (4.60-5.80) X10*6/uL Hgb (14.0-18.0) g/dl Hct (42.0-52.0) % MCV (80.0-98.0) fL MCH (27.0-33.0) pg MCHC (31.0-36.0) g/dl RDW (11.0-16.0) % Plt Count (160-400) X10*3/uL MPV (9.4-12.4) fL Immature Gran % (Auto) (0.0-0.4) % Neut % (Auto) (45-73) % Lymph % (Auto) (20-40) % [place] % (Auto) (2-11) % Eos % (Auto) (0-4) % Baso % (Auto) (0-2) % Lymph # (Auto) (1.2-4.9) X10*3/uL [place] # (Auto) (0.1-1.2) X10*3/uL Eos # (Auto) (0.0-0.4) X10*3/uL Baso # (Auto) (0.0-0.2) X10*3/uL Abs Immat Gran (auto) (0.00-0.03) X10*3/uL Absolute Neuts (auto) (2.0-8.3) x10*3/uL Absolute Nucleated RBC (0.0-0.012) X10*3/uL Nucleated RBC % (auto) (0.0-0.2) /100WBC Sodium (135-145) mmol/L Potassium (3.3-5.1) mmol/L Chloride (96-108) mmol/L Carbon Dioxide (22-29) mmol/L Anion Gap (12-20) BUN (9-16) mg/dL Creatinine (0.5-1.4) mg/dL Estim Creat Clear Calc Estimated GFR Random Glucose (60-115) mg/dL Calcium (8.4-10.2) mg/dL Magnesium (1.6-2.6) mg/dL Total Bilirubin (0.0-1.0) mg/dL Direct Bilirubin (0.0-0.5) mg/dL AST (5-37) U/L ALT (0-40) U/L Alkaline Phosphatase (39-117) U/L Total Protein (6.5-8.0) g/dL Albumin (3.5-5.0) g/dL Urine Color YELLOW Urine Appearance CLEAR Urine pH 6.5 (5.0-8.0) Ur Specific [place] 1.020 (1.005-1.025) Urine Protein NEG (NEG-TRACE) MG/DL Urine Glucose (UA) NEG (NEG) MG/DL Urine Ketones NEG (NEG) MG/DL Urine Blood 2+ H (NEG) Urine Nitrite NEG (NEG) Ur Leukocyte Esterase NEG (NEG) Urine RBC 5-9 H (0) /HPF Urine WBC 0 (0-4) /HPF Ur Squamous Epith Cells 1+ /LPF Amorphous Sediment TRACE /LPF Urine Bacteria TRACE /LPF Urine Mucus 1+ /LPF Urine Opiates Screen Not Detected (Not Detect) Urine Fentanyl Screen Not Detected (Not Detect) Ur Barbiturates Screen Not Detected (Not Detect) Ur Phencyclidine Scrn Not Detected (Not Detect) Ur Amphetamines Screen Not Detected (Not Detect) U Benzodiazepines Scrn Not Detected (Not Detect) Urine Cocaine Screen Not Detected (Not Detect) U Marijuana (THC) Screen Not Detected (Not Detect) Ethyl Alcohol < 10 mg/dL COVID-19 ([facility]) (Negative) COVID-19 Clin Com Discharge Plan Discharge Clinical Impression: Anxiety, Tactile hallucinations Prescriptions: No Action diphenhydramine HCl [Benadryl] 25 mg capsule 25 mg PO Q6H PRN (Reason: itching) 10 Days Qty: 30 RF: 0 hydrocortisone 1 % cream 1 appl topical BID PRN (Reason: itching) 14 Days Qty: 28.4 RF: 0
--- NOTE | 2021-08-20 20:04 | PC.NURSE ---
pt with note in pocket that reads he feels like little animals are running up and down heat to toe, he would like a full body check-up with phone number listed
[2021-08-20 20:28] LABS: MANUAL DIFF FLAG NO
[2021-08-20 20:30] LABS: Basophils Absolute Auto 0.1 X10*3/uL (0.0-0.2); Basophils Percent Auto 0.9 % (0-2); Eosinophils Absolute Auto 0.3 X10*3/uL (0.0-0.4); Eosinophils Percent Auto 4.6 % (0-4); Hematocrit 40.3 % (42.0-52.0); Hemoglobin 13.4 g/dl (14.0-18.0); Imm Gran Abs Auto 0.01 X10*3/uL (0.00-0.03); Imm Gran Pct Auto 0.1 % (0.0-0.4); Lymphocytes Absolute Auto 1.9 X10*3/uL (1.2-4.9); Lymphocytes Percent Auto 27.1 % (20-40); Mean Corpuscular HGB Conc 33.3 g/dl (31.0-36.0); Mean Corpuscular Hemoglobin 32.1 pg (27.0-33.0); Mean Corpuscular Volume 96.4 fL (80.0-98.0); Mean Platelet Volume 11.2 fL (9.4-12.4); Monocytes Absolute Auto 0.6 X10*3/uL (0.1-1.2); Monocytes Percent Auto 8.4 % (2-11); Neutrophils Absolute Auto 4.1 x10*3/uL (2.0-8.3); Neutrophils Percent Auto 58.9 % (45-73); Platelet Count 170 X10*3/uL (160-400); Red Blood Count 4.18 X10*6/uL (4.60-5.80); Red Cell Distribution Width 13.1 % (11.0-16.0)
[2021-08-20 20:31] LABS: Appearance Urine CLEAR; Color Urine YELLOW; Glucose Urine UA NEG (NEG); Leukocyte Esterase Urine NEG (NEG); Nitrite Urine NEG (NEG); PH 6.5 (5.0-8.0); UACC Culture Trigger NO; Urine Blood 2+ (NEG); Urine Ketones NEG (NEG); Urine Protein NEG (NEG-TRACE)
[2021-08-20 20:38] LABS: Bacteria Urine TRACE /LPF; Mucus Urine 1+ /LPF; Squamous Epithelial Cell Urine 1+ /LPF; WBC Urine 0 /HPF (0-4)
[2021-08-20 20:39] LABS: Amorphous Sediment Urine TRACE /LPF
[2021-08-20 20:49] LABS: COVID-19 Test Negative (Negative)
[2021-08-20 20:52] LABS: Ethanol < 10 mg/dL
[2021-08-20 20:53] LABS: Amphetamine Screen Urine Not Detected (Not Detect); Barbiturates, Urine Not Detected (Not Detect); Benzodiazepines Screen Urine Not Detected (Not Detect); Cannabinoid Screen Urine Not Detected (Not Detect); Cocaine Screen Urine Not Detected (Not Detect); Fentanyl, urine Not Detected (Not Detect); Opiate Screen Urine Not Detected (Not Detect); Phencyclidine Screen Urine Not Detected (Not Detect)
[2021-08-20 20:57] LABS: Alanine Aminotransferase 12 U/L (0-40); Albumin Level 4.3 g/dL (3.5-5.0); Alkaline Phosphatase 45 U/L (39-117); Anion Gap 8 (12-20); Aspartate Amino Transferase 18 U/L (5-37); Bilirubin Direct 0.2 mg/dL (0.0-0.5); Bilirubin Total 0.5 mg/dL (0.0-1.0); Blood Urea Nitrogen 19 mg/dL (9-16); Calcium 9.3 mg/dL (8.4-10.2); Carbon Dioxide 31 mmol/L (22-29); Chloride 103 mmol/L (96-108); Creatinine Clr Calc Pharmacy 47.7; Estimated Glomerular Filt Rate 57; Glucose Random 108 mg/dL (60-115); Magnesium 2.2 mg/dL (1.6-2.6); Potassium 4.2 mmol/L (3.3-5.1); Sodium 138 mmol/L (135-145); Total Protein 6.6 g/dL (6.5-8.0)
--- NOTE | 2021-08-20 22:29 | PC.NURSE ---
pt referred to N for eval. N contacted for expected time of arrival and informed t/w they have no clinicians this evening. CARE team notified and asked to see the pt and CARE team also will have no clinicians after 11 pm . pt will be seen tomorrow.
--- NOTE | 2021-08-20 22:33 | PC.NURSE ---
pt sleeping this time, pt breathing even and unlabored
[2021-08-20 22:48] VITALS: RESP 15
--- NOTE | 2021-08-21 01:49 | PC.NURSE ---
[facility] called to confirm the receipt of referral, per N no referral was made, referral was sent once again/confirmed by Aranza at 0150, patient is currently appears sleeping, no distress observed/reported, will continue to monitor.
[2021-08-21 02:14] VITALS: BP 136/76; PULSE 63; RESP 16; TEMP 36.6; O2SAT 96
--- NOTE | 2021-08-21 06:41 | PC.NURSE ---
Patient slept through the night, no distress observed/reported, behavior calm and quiet, patient continues to report that he has bugs on his head, patient is delusional, VSS, independent ambulation, [facility] referral completed and confirmed by Aranza, patient will be assessed in the morning, will continue to monitor.
--- NOTE | 2021-08-21 07:37 | PC.NURSE ---
patient appears to remain at rest at present respirations are even and unlabored, patient appears in no distress
[2021-08-21 09:13] VITALS: BP 147/62; PULSE 62; RESP 16; TEMP 36.7; O2SAT 100
== END 2021-08-21 17:51 | disposition home or self-care (01) ==
PROVIDERS: Physician Assistant; Emergency Provider Emergency Medicine
DX: F41.9 Anxiety disorder, unspecified (principal); R44.2 Other hallucinations; E11.9 Type 2 diabetes mellitus without complications; Z20.822 Contact with and (suspected) exposure to COVID-19
CPT/HCPCS: 36415; 80048; 80076; 80307; 81001; 82077; 83735; 85025; 87635; 99284

== ENCOUNTER 2021-09-20 14:50 | Inpatient (IN) | payer MEDICARE, MEDICAID, SELFPAY ==
--- NOTE | ~2021-09-20 | XR_ITS ---
EXAMINATION: XR CHEST CLINICAL INFORMATION: Unknown metal for MRI. COMPARISON: Chest radiograph dated 02/08/2012. TECHNIQUE: 2 views of the chest were obtained. FINDINGS: No radiopaque foreign body. No airspace consolidation. No pleural effusion or pneumothorax. Stable cardiomediastinal silhouette. No acute osseous abnormality. XR/XR chest 2V IMPRESSION: No radiopaque foreign body. No acute cardiopulmonary findings.
--- NOTE | ~2021-09-20 | MR_ITS ---
EXAMINATION: MR BRAIN WITHOUT CONTRAST CLINICAL INFORMATION: Dementia versus mass. COMPARISON: Head CT dated 09/13/2019. TECHNIQUE: Multiplanar, multisequence imaging of the brain was performed without contrast. FINDINGS: No diffusion abnormalities are identified to suggest an acute or subacute infarct. The ventricles are normal in size. No mass effect or midline shift is seen. Nonspecific mild scattered white matter signal changes noted. No extra-axial fluid collections are seen. The brainstem and cerebellum are normal. The gradient refocused acquisition is normal. The craniovertebral junction, marrow signal, and midline structures are normal. The major intracranial flow voids at the level of the [place] of [place] are preserved. The dural venous sinus flow voids are maintained. There is a mild amount of fluid in the right mastoid air cells. Mild to moderate ethmoid sinus mucosal thickening noted. MR/MR head/brain wo con IMPRESSION: No acute intracranial process. Nonspecific mild scattered white matter signal changes which may be due to microangiopathy.
--- NOTE | ~2021-09-20 | MR_ITS ---
EXAMINATION: MR CERVICAL SPINE WITHOUT CONTRAST CLINICAL INFORMATION: Evaluate for cervical radiculopathy. COMPARISON: Remote CT scan of the cervical spine 04/19/2010. TECHNIQUE: MRI of the cervical spine was obtained using routine sequences without contrast. FINDINGS: VERTEBRAL BODIES AND PARASPINAL SOFT TISSUES: There is straightening of the normal cervical lordosis. There is a mild retrolisthesis of C3 on C4. There is multilevel narrowing of intervertebral disc height at C4-C5, C5-C6 and C6-C7. There are prominent anterior flowing osteophytes with fatty signal at C4-C5 and C5-C6. Vertebral body heights are maintained and no fractures are demonstrated. There are degenerative endplate contour changes with edema at C7-T1, particularly toward the left. There are no acute fractures. Overall, marrow signal is homogenous. The regional soft tissues are unremarkable. CERVICOMEDULLARY JUNCTION AND VISUALIZED POSTERIOR FOSSA: The craniocervical and posterior fossa structures are normal. Accounting for artifact, spinal cord signal appears normal. SPINAL LEVELS: C2-C3: There is a small soft disc protrusion posteriorly. There is no spinal cord compression or central stenosis. The neural foramina are patent bilaterally. C3-C4: There is mild right facet arthropathy. There is a broad-based posterior soft disc protrusion which effaces CSF ventral to the spinal cord with mild flattening of the cord. There is mild to moderate central stenosis. There are uncovertebral osteophytes, and there is mild bilateral foraminal narrowing. C4-C5: The facet joints appear normal. There is a small posterior disc protrusion which effaces CSF ventral to the spinal cord, but there is no spinal cord compression or central stenosis. The neural foramina are patent bilaterally. C5-C6: There is a posterior disc osteophyte complex which is most prominent to the left of midline with effacement of CSF ventral to the spinal cord. There is no spinal cord compression, but there is mild central stenosis. There are uncovertebral osteophytes and there is mild bilateral foraminal narrowing. C6-C7: The facet joints appear normal. There is a broad-based posterior disc protrusion which effaces CSF around the spinal cord and compresses the cord. There is moderate to severe central stenosis. There are uncovertebral osteophytes, and there is severe left and moderate right foraminal narrowing. C7-T1: There is mild bilateral facet arthropathy. There is a broad-based posterior disc protrusion which effaces CSF ventral to the spinal cord with minimal flattening of the cord. There is mild central stenosis. There are uncovertebral osteophytes and there is moderate bilateral foraminal narrowing. MR/MR cervical spine wo con IMPRESSION: 1. At C6-C7 there is a broad-based posterior disc protrusion with compression of the cord and there is moderate to severe central stenosis. There is severe left and moderate right foraminal narrowing. 2. At C3-C4 there is a broad-based posterior soft disc protrusion with mild flattening of the cord and there is mild to moderate central stenosis. There is mild bilateral foraminal narrowing. 3. At C5-C6 there is a posterior disc osteophyte complex with effacement of CSF ventral to the spinal cord but there is no spinal cord compression. There is mild central stenosis. Mild bilateral foraminal narrowing. 4. At C7-T1 there is a broad-based posterior disc protrusion. There is mild central stenosis is moderate bilateral foraminal narrowing. 5. There are prominent flowing osteophytes with fatty signal anteriorly at C4-C5 and C5-C6.
--- NOTE | ~2021-09-20 | XR_ITS ---
EXAMINATION: XR SKULL CLINICAL INFORMATION: Pre-MRI screening COMPARISON: None TECHNIQUE: 2 views of the skull were obtained. FINDINGS: No radiopaque foreign body is seen. Visualized sinuses are well aerated and unremarkable. Patient has extension of this. No acute bony abnormality. XR/XR skull <4V IMPRESSION: No radiopaque foreign body.
--- NOTE | 2021-09-20 15:07 | ED_ITS ---
HPI - Psych General Chief Complaint: Psychiatric Symptoms <NIA Cruz Last Filed: 09/20/21 22:28> Stated Complaint: SECTION 12, HALLUCINATIONS, SI <NIA Cruz Last Filed: 09/20/21 22:28> Time Seen by Provider: 09/20/21 15:00 <NIA Cruz Last Filed: 09/20/21 22:28> Source: patient, EMS and old records reviewed <NIA Cruz Last Filed: 09/20/21 22:28> Mode of arrival: EMS <NIA Cruz Last Filed: 09/20/21 22:28> Limitations: no limitations <NIA Cruz Last Filed: 09/20/21 22:28> History of Present Illness HPI Narrative: 76-year-old male with a history of diabetes not on medications, history of chronic delusions with sensation of bugs and animals crawling all over his body with recent ER visits in August for the same who presents to the ER via EMS with ongoing tactile hallucinations and new suicidal thoughts. When patient was seen in the emergency room in August he was seen by crisis team, determined to have assistance at home however he is known to reside in a hotel alone and has no living family. He has not been to a doctor in years. He reports the bugs crawling all over his body is negative want to cut his hands off so he stops itching. It is so severe he does wants to . He was treated with a trial of cortisone and Benadryl with no improvement in the itching sensation. <NIA Cruz Last Filed: 09/20/21 22:28> MD complaint: suicidal ideation, anxiety and hallucinations <NIA Cruz Last Filed: 09/20/21 22:28> Onset (ago): unknown <NIA Cruz Last Filed: 09/20/21:28> Duration: constant <NIA Cruz Last Filed: 09/20/21 22:28> History of same: Yes <NIA Cruz Last Filed: 09/20/21 22:28> Relieving factors: none <NIA Cruz Last Filed: 09/20/21 22:28> Exacerbating factors: none <NIA Cruz - Last Filed: 09/20/21 22:28> Related Data Home Medications: Home Medications Medication Instructions Recorded Confirmed cyanocobalamin (vitamin B-12) 1 tab PO DAILY 09/20/21 09/20/21 1,000 mcg tablet <NIA Cruz - Last Filed: 09/20/21 22:28> Allergies/Adverse Reactions: Allergies Allergy/AdvReac Type Severity Reaction Status Date / Time No Known Allergies Allergy Unknown NONE Verified 12/14/20 00:42 [No Known Allergies*] <NIA Cruz - Last Filed: 09/20/21 22:28> Review of Systems Review of Systems: Constitutional: No Fever, No Chills ENT/Mouth: No sore throat, No Rhinorrhea, No Swallowing Difficulty Cardiovascular: No Chest Pain, No SOB, No Orthopnea, No Edema Respiratory: No Cough, No Sputum, No Wheezing, No dyspnea Gastrointestinal: No Nausea, No Vomiting, No Diarrhea, No abdominal Pain Musculoskeletal: No joint pain, No Myalgias Skin: + Skin Lesions, No rash Neuro: No Weakness, No Numbness, No Dizziness, No Headache Psych: +Anxiety/Panic, + Depression, +SI, No AH, +VH, +tactile hallucinations Heme/Lymph: No Bruising, No Lymphadenopathy Endocrine: No Polyuria, No Polydipsia <NIA Cruz - Last Filed: 09/20/21 22:28> [facility] Past Medical History Medical History: Medical History (Updated 09/20/21 @ 20:32 by NIA Cruz) Ileus No known health problems <NIA Cruz - Last Filed: 09/20/21 22:28> Social History Social History: Social History Household Members: None Housing: Apartment Alcohol intake: never Patient Tobacco Use Status: Tobacco use Unknown Use of substances other than those prescribed or required for medical reasons: Unknown Last Used Substance: Unknown Advance Directives: No Advance Directives Information Provided: Yes service: No Current occupational status: retired <NIA Cruz - Last Filed: 09/20/21 22:28> Physical Exam Vital Signs: Vital Signs: Last Vital Signs Temp 98.0 F 09/21/21 06:39 Pulse 66 09/21/21 06:39 Resp 16 09/21/21 06:39 BP 160/78 H 09/21/21 06:39 Pulse Ox 97 09/21/21 06:39 BMI result Body Mass Index 23.0 <NIA Cruz - Last Filed: 09/20/21 22:28> Vital Signs: Last Vital Signs Temp 98.0 F 09/21/21 06:39 Pulse 66 09/21/21 06:39 Resp 16 09/21/21 06:39 BP 160/78 H 09/21/21 06:39 Pulse Ox 97 09/21/21 06:39 BMI result Body Mass Index 23.0 <Melinda Fuentes NP - Last Filed: 09/21/21 08:16> Appearance: Alert elderly male sitting up in bed. No acute distress. Eyes: Pupils equal, round and reactive to light. ENT: Pharynx normal. Neck: Normal inspection. Neck supple. CVS: Normal heart rate and rhythm. Pulses normal. Respiratory: No respiratory distress. Breath sounds normal. Abdomen: Soft and nontender. +BS x4 Skin: Skin warm and dry. Normal skin color. Normal skin turgor. No rashes. Extremities: No lower extremity edema. No excoriations or bug bites seen Neuro: Oriented X 3. No motor deficit. No sensory deficit. Steady gait. CN II- XII. Psych: conversant, flat affect, poor judgment and insight, fixed and per severating on bugs crawling on him <NIA Cruz - Last Filed: 09/20/21 22:28> Course Course Course Narrative: 76-year-old male presenting to the ER with tactile and visual hallucinations. This is associated with insomnia and inability to care for himself at home. He has been here for this in the past and discharged home with ?support at home.? Patient is not followed by any doctors and has no family. He is currently living in a motel. Anticipate he require inpatient level of care given concerns for his safety. Lab workup and COVID swab ordered for medical clearance. Will have be a chin evaluate him. <NIA Cruz - Last Filed: 09/20/21 22:28> Reevaluation(s) Reevaluation #1: Lab workup is unremarkable. Patient medically cleared at this time. Given report the patient is a Section 12 inpatient bed search as was seen in the community. Will place psychiatric consult for medication recommendations. Will place patient and physician observation at this time. Physician observation started at 8:31. Patient placed in physician observation because patient is awaiting inpatient psych admission. At the time observation was started patient's vital signs were stable. Patient is alert and oriented. Neuro exam is non-focal, fixed on skin issues. CV: RRR and lungs are clear. Will continue to monitor. <NIA Cruz - Last Filed: 09/20/21 22:28> Time: 20:31 <NIA Cruz - Last Filed: 09/20/21 22:28> Reevaluation #2: 09/21 0815 Patient is currently a section 12 bed search. Vital signs reviewed and stable. No complaints per nursing overnight. Respiratory even and labored. Will continue physician observation pending disposition. <Melinda Fuentes NP - Last Filed: 09/21/21 08:16> MDM - Psych Lab Data Result diagrams: : 09/20/21 15:32 09/20/21 15:32 <NIA Cruz - Last Filed: 09/20/21 22:28> Labs: Lab Results 09/20/21 09/20/21 09/20/21 Range/Units 15:22 15:22 15:22 WBC (4.8-10.8) X10*3/uL RBC (4.60-5.80) X10*6/uL Hgb (14.0-18.0) g/dl Hct (42.0-52.0) % MCV (80.0-98.0) fL MCH (27.0-33.0) pg MCHC (31.0-36.0) g/dl RDW (11.0-16.0) % Plt Count (160-400) X10*3/uL MPV (9.4-12.4) fL Immature Gran % (Auto) (0.0-0.4) % Neut % (Auto) (45-73) % Lymph % (Auto) (20-40) % [place] % (Auto) (2-11) % Eos % (Auto) (0-4) % Baso % (Auto) (0-2) % Lymph # (Auto) (1.2-4.9) X10*3/uL [place] # (Auto) (0.1-1.2) X10*3/uL Eos # (Auto) (0.0-0.4) X10*3/uL Baso # (Auto) (0.0-0.2) X10*3/uL Abs Immat Gran (auto) (0.00-0.03) X10*3/uL Absolute Neuts (auto) (2.0-8.3) x10*3/uL Absolute Nucleated RBC (0.0-0.012) X10*3/uL Nucleated RBC % (auto) (0.0-0.2) /100WBC Sodium (135-145) mmol/L Potassium (3.3-5.1) mmol/L Chloride (96-108) mmol/L Carbon Dioxide (22-29) mmol/L Anion Gap (12-20) BUN (9-16) mg/dL Creatinine (0.5-1.4) mg/dL Estim Creat Clear Calc Estimated GFR Random Glucose (60-115) mg/dL Calcium (8.4-10.2) mg/dL Magnesium (1.6-2.6) mg/dL Total Bilirubin (0.0-1.0) mg/dL Direct Bilirubin (0.0-0.5) mg/dL AST (5-37) U/L ALT (0-40) U/L Alkaline Phosphatase (39-117) U/L Total Protein (6.5-8.0) g/dL Albumin (3.5-5.0) g/dL Urine Color YELLOW Urine Appearance CLEAR Urine pH 6.0 (5.0-8.0) Ur Specific [place] <= 1.005 (1.005-1.025) Urine Protein NEG (NEG-TRACE) MG/DL Urine Glucose (UA) NEG (NEG) MG/DL Urine Ketones NEG (NEG) MG/DL Urine Blood 1+ H (NEG) Urine Nitrite NEG (NEG) Ur Leukocyte Esterase NEG (NEG) Urine RBC 0-2 (0) /HPF Urine WBC 0 (0-4) /HPF Ur Squamous Epith Cells TRACE /LPF Urine Bacteria TRACE /LPF Urine Opiates Screen Not Detected (Not Detect) Urine Fentanyl Screen Not Detected (Not Detect) Ur Barbiturates Screen Not Detected (Not Detect) Ur Phencyclidine Scrn Not Detected (Not Detect) Ur Amphetamines Screen Not Detected (Not Detect) U Benzodiazepines Scrn Not Detected (Not Detect) Urine Cocaine Screen Not Detected (Not Detect) U Marijuana (THC) Screen Not Detected (Not Detect) Ethyl Alcohol mg/dL COVID-19 (RUSTY) Negative (Negative) COVID-19 Clin Com See Note 09/20/21 09/20/21 09/20/21 Range/Units 15:32 15:32 15:32 WBC 5.7 (4.8-10.8) X10*3/uL RBC 4.36 L (4.60-5.80) X10*6/uL Hgb 13.9 L (14.0-18.0) g/dl Hct 41.8 L (42.0-52.0) % MCV 95.9 (80.0-98.0) fL MCH 31.9 (27.0-33.0) pg MCHC 33.3 (31.0-36.0) g/dl RDW 12.9 (11.0-16.0) % Plt Count 190 (160-400) X10*3/uL MPV 11.3 (9.4-12.4) fL Immature Gran % (Auto) 0.2 (0.0-0.4) % Neut % (Auto) 60.5 (45-73) % Lymph % (Auto) 24.2 (20-40) % [place] % (Auto) 9.1 (2-11) % Eos % (Auto) 4.9 H (0-4) % Baso % (Auto) 1.1 (0-2) % Lymph # (Auto) 1.4 (1.2-4.9) X10*3/uL [place] # (Auto) 0.5 (0.1-1.2) X10*3/uL Eos # (Auto) 0.3 (0.0-0.4) X10*3/uL Baso # (Auto) 0.1 (0.0-0.2) X10*3/uL Abs Immat Gran (auto) 0.01 (0.00-0.03) X10*3/uL Absolute Neuts (auto) 3.5 (2.0-8.3) x10*3/uL Absolute Nucleated RBC 0.000 (0.0-0.012) X10*3/uL Nucleated RBC % (auto) 0.0 (0.0-0.2) /100WBC Sodium 139 (135-145) mmol/L Potassium 4.8 (3.3-5.1) mmol/L Chloride 104 (96-108) mmol/L Carbon Dioxide 29 (22-29) mmol/L Anion Gap 11 L (12-20) BUN 13 (9-16) mg/dL Creatinine 1.09 (0.5-1.4) mg/dL Estim Creat Clear Calc 46.4 Estimated GFR > 60 Random Glucose 117 H (60-115) mg/dL Calcium 10.2 D (8.4-10.2) mg/dL Magnesium 2.2 (1.6-2.6) mg/dL Total Bilirubin 0.8 (0.0-1.0) mg/dL Direct Bilirubin 0.3 (0.0-0.5) mg/dL AST 21 (5-37) U/L ALT 13 (0-40) U/L Alkaline Phosphatase 43 (39-117) U/L Total Protein 7.2 (6.5-8.0) g/dL Albumin 4.6 (3.5-5.0) g/dL Urine Color Urine Appearance Urine pH (5.0-8.0) Ur Specific [place] (1.005-1.025) Urine Protein (NEG-TRACE) MG/DL Urine Glucose (UA) (NEG) MG/DL Urine Ketones (NEG) MG/DL Urine Blood (NEG) Urine Nitrite (NEG) Ur Leukocyte Esterase (NEG) Urine RBC (0) /HPF Urine WBC (0-4) /HPF Ur Squamous Epith Cells /LPF Urine Bacteria /LPF Urine Opiates Screen (Not Detect) Urine Fentanyl Screen (Not Detect) Ur Barbiturates Screen (Not Detect) Ur Phencyclidine Scrn (Not Detect) Ur Amphetamines Screen (Not Detect) U Benzodiazepines Scrn (Not Detect) Urine Cocaine Screen (Not Detect) U Marijuana (THC) Screen (Not Detect) Ethyl Alcohol < 10 mg/dL COVID-19 (RUSTY) (Negative) COVID-19 Clin Com <NIA Cruz - Last Filed: 09/20/21 22:28> Lab Results 09/20/21 09/20/21 09/20/21 Range/Units 15:22 15:22 15:22 WBC (4.8-10.8) X10*3/uL RBC (4.60-5.80) X10*6/uL Hgb (14.0-18.0) g/dl Hct (42.0-52.0) % MCV (80.0-98.0) fL MCH (27.0-33.0) pg MCHC (31.0-36.0) g/dl RDW (11.0-16.0) % Plt Count (160-400) X10*3/uL MPV (9.4-12.4) fL Immature Gran % (Auto) (0.0-0.4) % Neut % (Auto) (45-73) % Lymph % (Auto) (20-40) % [place] % (Auto) (2-11) % Eos % (Auto) (0-4) % Baso % (Auto) (0-2) % Lymph # (Auto) (1.2-4.9) X10*3/uL [place] # (Auto) (0.1-1.2) X10*3/uL Eos # (Auto) (0.0-0.4) X10*3/uL Baso # (Auto) (0.0-0.2) X10*3/uL Abs Immat Gran (auto) (0.00-0.03) X10*3/uL Absolute Neuts (auto) (2.0-8.3) x10*3/uL Absolute Nucleated RBC (0.0-0.012) X10*3/uL Nucleated RBC % (auto) (0.0-0.2) /100WBC Sodium (135-145) mmol/L Potassium (3.3-5.1) mmol/L Chloride (96-108) mmol/L Carbon Dioxide (22-29) mmol/L Anion Gap (12-20) BUN (9-16) mg/dL Creatinine (0.5-1.4) mg/dL Estim Creat Clear Calc Estimated GFR Random Glucose (60-115) mg/dL Calcium (8.4-10.2) mg/dL Magnesium (1.6-2.6) mg/dL Total Bilirubin (0.0-1.0) mg/dL Direct Bilirubin (0.0-0.5) mg/dL AST (5-37) U/L ALT (0-40) U/L Alkaline Phosphatase (39-117) U/L Total Protein (6.5-8.0) g/dL Albumin (3.5-5.0) g/dL Urine Color YELLOW Urine Appearance CLEAR Urine pH 6.0 (5.0-8.0) Ur Specific [place] <= 1.005 (1.005-1.025) Urine Protein NEG (NEG-TRACE) MG/DL Urine Glucose (UA) NEG (NEG) MG/DL Urine Ketones NEG (NEG) MG/DL Urine Blood 1+ H (NEG) Urine Nitrite NEG (NEG) Ur Leukocyte Esterase NEG (NEG) Urine RBC 0-2 (0) /HPF Urine WBC 0 (0-4) /HPF Ur Squamous Epith Cells TRACE /LPF Urine Bacteria TRACE /LPF Urine Opiates Screen Not Detected (Not Detect) Urine Fentanyl Screen Not Detected (Not Detect) Ur Barbiturates Screen Not Detected (Not Detect) Ur Phencyclidine Scrn Not Detected (Not Detect) Ur Amphetamines Screen Not Detected (Not Detect) U Benzodiazepines Scrn Not Detected (Not Detect) Urine Cocaine Screen Not Detected (Not Detect) U Marijuana (THC) Screen Not Detected (Not Detect) Ethyl Alcohol mg/dL COVID-19 (RUSTY) Negative (Negative) COVID-19 Clin Com See Note 09/20/21 09/20/21 09/20/21 Range/Units 15:32 15:32 15:32 WBC 5.7 (4.8-10.8) X10*3/uL RBC 4.36 L (4.60-5.80) X10*6/uL Hgb 13.9 L (14.0-18.0) g/dl Hct 41.8 L (42.0-52.0) % MCV 95.9 (80.0-98.0) fL MCH 31.9 (27.0-33.0) pg MCHC 33.3 (31.0-36.0) g/dl RDW 12.9 (11.0-16.0) % Plt Count 190 (160-400) X10*3/uL MPV 11.3 (9.4-12.4) fL Immature Gran % (Auto) 0.2 (0.0-0.4) % Neut % (Auto) 60.5 (45-73) % Lymph % (Auto) 24.2 (20-40) % [place] % (Auto) 9.1 (2-11) % Eos % (Auto) 4.9 H (0-4) % Baso % (Auto) 1.1 (0-2) % Lymph # (Auto) 1.4 (1.2-4.9) X10*3/uL [place] # (Auto) 0.5 (0.1-1.2) X10*3/uL Eos # (Auto) 0.3 (0.0-0.4) X10*3/uL Baso # (Auto) 0.1 (0.0-0.2) X10*3/uL Abs Immat Gran (auto) 0.01 (0.00-0.03) X10*3/uL Absolute Neuts (auto) 3.5 (2.0-8.3) x10*3/uL Absolute Nucleated RBC 0.000 (0.0-0.012) X10*3/uL Nucleated RBC % (auto) 0.0 (0.0-0.2) /100WBC Sodium 139 (135-145) mmol/L Potassium 4.8 (3.3-5.1) mmol/L Chloride 104 (96-108) mmol/L Carbon Dioxide 29 (22-29) mmol/L Anion Gap 11 L (12-20) BUN 13 (9-16) mg/dL Creatinine 1.09 (0.5-1.4) mg/dL Estim Creat Clear Calc 46.4 Estimated GFR > 60 Random Glucose 117 H (60-115) mg/dL Calcium 10.2 D (8.4-10.2) mg/dL Magnesium 2.2 (1.6-2.6) mg/dL Total Bilirubin 0.8 (0.0-1.0) mg/dL Direct Bilirubin 0.3 (0.0-0.5) mg/dL AST 21 (5-37) U/L ALT 13 (0-40) U/L Alkaline Phosphatase 43 (39-117) U/L Total Protein 7.2 (6.5-8.0) g/dL Albumin 4.6 (3.5-5.0) g/dL Urine Color Urine Appearance Urine pH (5.0-8.0) Ur Specific [place] (1.005-1.025) Urine Protein (NEG-TRACE) MG/DL Urine Glucose (UA) (NEG) MG/DL Urine Ketones (NEG) MG/DL Urine Blood (NEG) Urine Nitrite (NEG) Ur Leukocyte Esterase (NEG) Urine RBC (0) /HPF Urine WBC (0-4) /HPF Ur Squamous Epith Cells /LPF Urine Bacteria /LPF Urine Opiates Screen (Not Detect) Urine Fentanyl Screen (Not Detect) Ur Barbiturates Screen (Not Detect) Ur Phencyclidine Scrn (Not Detect) Ur Amphetamines Screen (Not Detect) U Benzodiazepines Scrn (Not Detect) Urine Cocaine Screen (Not Detect) U Marijuana (THC) Screen (Not Detect) Ethyl Alcohol < 10 mg/dL COVID-19 ([facility]USTY) (Negative) COVID-19 Clin Com <Melinda Fuentes NP - Last Filed: 09/21/21 08:16> Critical Care Time Critical Care Time Critical Care Time: No <NIA Cruz - Last Filed: 09/20/21 22:28> Discharge Plan Discharge Clinical Impression: Tactile hallucinations <NIA Cruz - Last Filed: 09/20/21 22:28> Prescriptions: No Action cyanocobalamin (vitamin B-12) 1,000 mcg tablet 1 tab PO DAILY RF: 0 <NIA Cruz - Last Filed: 09/20/21 22:28>
[2021-09-20 15:11] VITALS: BP 151/70; BP 167/80; PULSE 69; PULSE 70; RESP 16; TEMP 36.6; O2SAT 96; O2SAT 98; BMI 23.0
--- NOTE | 2021-09-20 15:29 | PHA.MEDREC ---
Pharmacy Consult ? Medication Reconciliation Pharmacy has completed the medication reconciliation.
[2021-09-20 15:36] LABS: MANUAL DIFF FLAG NO
[2021-09-20 15:38] LABS: Basophils Absolute Auto 0.1 X10*3/uL (0.0-0.2); Basophils Percent Auto 1.1 % (0-2); Eosinophils Absolute Auto 0.3 X10*3/uL (0.0-0.4); Eosinophils Percent Auto 4.9 % (0-4); Hematocrit 41.8 % (42.0-52.0); Hemoglobin 13.9 g/dl (14.0-18.0); Imm Gran Abs Auto 0.01 X10*3/uL (0.00-0.03); Imm Gran Pct Auto 0.2 % (0.0-0.4); Lymphocytes Absolute Auto 1.4 X10*3/uL (1.2-4.9); Lymphocytes Percent Auto 24.2 % (20-40); Mean Corpuscular HGB Conc 33.3 g/dl (31.0-36.0); Mean Corpuscular Hemoglobin 31.9 pg (27.0-33.0); Mean Corpuscular Volume 95.9 fL (80.0-98.0); Mean Platelet Volume 11.3 fL (9.4-12.4); Monocytes Absolute Auto 0.5 X10*3/uL (0.1-1.2); Monocytes Percent Auto 9.1 % (2-11); Neutrophils Absolute Auto 3.5 x10*3/uL (2.0-8.3); Neutrophils Percent Auto 60.5 % (45-73); Platelet Count 190 X10*3/uL (160-400); Red Blood Count 4.36 X10*6/uL (4.60-5.80); Red Cell Distribution Width 12.9 % (11.0-16.0); White Blood Count 5.7 X10*3/uL (4.8-10.8)
[2021-09-20 15:46] LABS: COVID-19 Test Negative (Negative)
[2021-09-20 15:48] LABS: Amphetamine Screen Urine Not Detected (Not Detect); Barbiturates, Urine Not Detected (Not Detect); Benzodiazepines Screen Urine Not Detected (Not Detect); Cannabinoid Screen Urine Not Detected (Not Detect); Cocaine Screen Urine Not Detected (Not Detect); Fentanyl, urine Not Detected (Not Detect); Opiate Screen Urine Not Detected (Not Detect); Phencyclidine Screen Urine Not Detected (Not Detect)
[2021-09-20 15:50] LABS: Appearance Urine CLEAR; Color Urine YELLOW; Glucose Urine UA NEG (NEG); Leukocyte Esterase Urine NEG (NEG); Nitrite Urine NEG (NEG); Specific Gravity - Urine <= 1.005 (1.005-1.025); UACC Culture Trigger NO; Urine Blood 1+ (NEG); Urine Ketones NEG (NEG); Urine Protein NEG (NEG-TRACE)
[2021-09-20 15:54] LABS: Alanine Aminotransferase 13 U/L (0-40); Albumin Level 4.6 g/dL (3.5-5.0); Alkaline Phosphatase 43 U/L (39-117); Anion Gap 11 (12-20); Aspartate Amino Transferase 21 U/L (5-37); Bilirubin Direct 0.3 mg/dL (0.0-0.5); Bilirubin Total 0.8 mg/dL (0.0-1.0); Blood Urea Nitrogen 13 mg/dL (9-16); Calcium 10.2 mg/dL (8.4-10.2); Carbon Dioxide 29 mmol/L (22-29); Chloride 104 mmol/L (96-108); Creatinine Clr Calc Pharmacy 46.4; Estimated Glomerular Filt Rate > 60; Glucose Random 117 mg/dL (60-115); Magnesium 2.2 mg/dL (1.6-2.6); Potassium 4.8 mmol/L (3.3-5.1); Sodium 139 mmol/L (135-145); Total Protein 7.2 g/dL (6.5-8.0)
[2021-09-20 15:57] LABS: Ethanol < 10 mg/dL
[2021-09-20 16:25] LABS: Bacteria Urine TRACE /LPF; RBC Urine 0-2 /HPF (0); Squamous Epithelial Cell Urine TRACE /LPF; WBC Urine 0 /HPF (0-4)
[2021-09-20] MEDS: diphenhydrAMINE HCL 25 MG TABLET 50 MG PO (20:28)
[2021-09-21 06:39] VITALS: BP 160/78; PULSE 66; RESP 16; TEMP 36.7; O2SAT 97
--- NOTE | 2021-09-21 06:41 | PC.NURSE ---
Patient slept through the night, no distress observed/reported, patient requested medication for sleep, Benadryl 50 mg administered at 2027 with positive effect, patient was screened by Seth in the community, disposition section 12 inpatient bed search, behavior cooperative and non concerning, medication compliant, will continue to monitor.
--- NOTE | 2021-09-21 07:24 | PC.NURSE ---
patient appears to remain asleep at present, respirations are even and unlabored patient appears in no distress
--- NOTE | 2021-09-21 12:06 | PC.NURSE ---
encouraged to wear eladio top in milieu, patient presently refusing.
--- NOTE | 2021-09-21 19:00 | PC.NURSE ---
pt ambulating freely in pod, interacts approprialty with staff. meal tray tolerated.
--- NOTE | 2021-09-21 19:01 | PM.PSYCN ---
History of Present Illness Date of Service: 09/21/21 Chief Complaint: SECTION 12, HALLUCINATIONS, SI Reason for Consult: Medication Requesting physician: Giovanna Dickens Sources of Information: patient interviewed, chart reviewed and crisis/core team assessment reviewed HPI Narrative: Pt is a 76 y.o. male who presented to [facility] ED on 09/20/21 reporting tactile hallucinations. Pt reporting feeling plagued by a physical sensation of bugs crawling all over his body with recent ED visits in 08/27 with similar presentation. Today pt reports worsening sx of suicidal thoughts and poor sleep due to tactile hallucinations. Pt reported he wants to cut his hands off so he stops itching and went as far as holding a knife to his arm but did not engage in SIB. He has no OP psych providers and saw PCP who prescribed a trial of cortisone and Benadryl, with no relief. Utox negative and pt denies illicit substance use or alcohol abuse. [facility] crisis eval was done and pt is a voluntary bed search. I evaluated the pt this evening and upon interview he reports he does not know when the tactile hallucinations started but that he feels like he has bugs ?moving all through my legs, all the time? and feels like they are ?touching my hair.? Sensation are worse x 2 weeks, exacerbated at night. Says he has been unable to work, sleep, or function at baseline due to this sensation. He denies A/VH. He denies mood sx. Denies anxiety but does say he is ?nervous? that the sensation will not go away. Denies pain. Nervous. Energy is okay. Denies issues with memory or cognitive changes, however per crisis eval he has CHD services and staff reported he has been repeating himself x 2 weeks. He is able to attend to basic ADLs and hygiene is good. Pt is tearful discussing his sx and says he would like to be able to sleep. Past Psychiatric History: -Pt has remote hx of OP psych services at [facility] 2015 - 2016. -Hx of previous crisis eval 08/21/21 due to delusions of bug coming out of his body. Disposition was current providers. Per crisis eval, pt has a hx of SI, anxiety, and depression. No reported history of any inpatient psychiatric hospitalizations, CCS, or PHP. Medical Evaluation Reviewed: Yes Personal & Social History: -Pt resides at a [employer] [facility] Medical History (Updated 09/22/21 @ 09:19 by Ann Osborn NP) Ileus No known health problems Diagnostics Vital Signs (24Hr): Vital Signs - 24 hr 09/21/21 06:39 Temperature 98.0 F Pulse Rate 66 Respiratory Rate 16 Blood Pressure 160/78 H Pulse Oximetry 97 BMI result Body Mass Index 23.0 Labs Results: 09/20/21 15:32 09/20/21 15:32 Labs: Laboratory Results - last 48 hr 09/20/21 09/20/21 09/20/21 15:22 15:22 15:22 WBC RBC Hgb Hct MCV MCH MCHC RDW Plt Count MPV Immature Gran % (Auto) Neut % (Auto) Lymph % (Auto) [place] % (Auto) Eos % (Auto) Baso % (Auto) Lymph # (Auto) [place] # (Auto) Eos # (Auto) Baso # (Auto) Abs Immat Gran (auto) Absolute Neuts (auto) Absolute Nucleated RBC Nucleated RBC % (auto) Sodium Potassium Chloride Carbon Dioxide Anion Gap BUN Creatinine Estim Creat Clear Calc Estimated GFR Random Glucose Calcium Magnesium Total Bilirubin Direct Bilirubin AST ALT Alkaline Phosphatase Total Protein Albumin Urine Color YELLOW Urine Appearance CLEAR Urine pH 6.0 Ur Specific Goldsmith <= 1.005 Urine Protein NEG Urine Glucose (UA) NEG Urine Ketones NEG Urine Blood 1+ H Urine Nitrite NEG Ur Leukocyte Esterase NEG Urine RBC 0-2 Urine WBC 0 Ur Squamous Epith Cells TRACE Urine Bacteria TRACE Urine Opiates Screen Not Detected Urine Fentanyl Screen Not Detected Ur Barbiturates Screen Not Detected Ur Phencyclidine Scrn Not Detected Ur Amphetamines Screen Not Detected U Benzodiazepines Scrn Not Detected Urine Cocaine Screen Not Detected U Marijuana (THC) Screen Not Detected Ethyl Alcohol COVID-19 (RUSTY) Negative COVID-19 Clin Com See Note 09/20/21 09/20/21 09/20/21 15:32 15:32 15:32 WBC 5.7 RBC 4.36 L Hgb 13.9 L Hct 41.8 L MCV 95.9 MCH 31.9 MCHC 33.3 RDW 12.9 Plt Count 190 MPV 11.3 Immature Gran % (Auto) 0.2 Neut % (Auto) 60.5 Lymph % (Auto) 24.2 [place] % (Auto) 9.1 Eos % (Auto) 4.9 H Baso % (Auto) 1.1 Lymph # (Auto) 1.4 [place] # (Auto) 0.5 Eos # (Auto) 0.3 Baso # (Auto) 0.1 Abs Immat Gran (auto) 0.01 Absolute Neuts (auto) 3.5 Absolute Nucleated RBC 0.000 Nucleated RBC % (auto) 0.0 Sodium 139 Potassium 4.8 Chloride 104 Carbon Dioxide 29 Anion Gap 11 L BUN 13 Creatinine 1.09 Estim Creat Clear Calc 46.4 Estimated GFR > 60 Random Glucose 117 H Calcium 10.2 D Magnesium 2.2 Total Bilirubin 0.8 Direct Bilirubin 0.3 AST 21 ALT 13 Alkaline Phosphatase 43 Total Protein 7.2 Albumin 4.6 Urine Color Urine Appearance Urine pH Ur Specific Goldsmith Urine Protein Urine Glucose (UA) Urine Ketones Urine Blood Urine Nitrite Ur Leukocyte Esterase Urine RBC Urine WBC Ur Squamous Epith Cells Urine Bacteria Urine Opiates Screen Urine Fentanyl Screen Ur Barbiturates Screen Ur Phencyclidine Scrn Ur Amphetamines Screen U Benzodiazepines Scrn Urine Cocaine Screen U Marijuana (THC) Screen Ethyl Alcohol < 10 COVID-19 (RUSTY) COVID-19 Clin Com Mental Status Exam Mental Status Exam Narrative: A&Ox3. In hospital attire, well groomed, normal body habitus. Good eye contact, attentive. No Tics or Tremors. No abnormal involuntary movements. Calm, cooperative, engaged. Non-pressured speech, spontaneous with regular rate and rhythm, normal volume and prosody. No prolonged speech latency or dysarthria. Mood is ?nervous,? affect is tearful at times. Denies SI/SIB/HI upon inquiry. Denies A/VH. Endorses tactile hallucinations. Denies delusional thought content. Thoughts are coherent, organized. No known cognitive or memory impairment. Insight/ Judgment fair and adequate. Medications Medications Current Medications Pharmacy Consult (Consult Rx Perform Med Rec) 1 each MISCELLANE ONCE PRN PRN Reason: Consult order Allergies Allergies Allergy/AdvReac Type Severity Reaction Status Date / Time No Known Allergies Allergy Unknown NONE Verified 12/14/20 00:42 [No Known Allergies*] Assessment & Plan Assessment & Plan (1) Tactile hallucinations: Status: Acute Code(s): R44.2 - Other hallucinations (2) BARBARA (generalized anxiety disorder): Status: Acute Code(s): F41.1 - Generalized anxiety disorder Assessment and Plan: Pt is a 76 y.o. male who presented to [facility] ED on 09/20/21 reporting tactile hallucinations. Pt reporting feeling plagued by a physical sensation of bugs crawling all over his body with recent ED visits in 08/27 with similar presentation. Pt is denying mood sx or A/VH. Denies delusional thought content/ paranoia. No hx of manic or hypomanic episodes endorsed. No substance or alcohol abuse. Pt is clearly distressed over sx and is tearful, reports increasingly poor sleep. Has had lack of benefit on PO benadryl or hydrocortisone. Plan: Start zyprexa 2.5 mg QHS and may repeat 1x to target poor sleep, anxious distress, and tactile hallucination. -Continue monitoring medically. Patient is currently medically cleared. -Consult requested for med management -Patient cannot leave AGAINST MEDICAL ADVICE. -Care Team evaluation for bed search. Patient will be a CV initial treatments ordered collateral history needed ? I spent minutes with the patient and/or on the patient floor today, greater than?50% of which was spent counseling/coordinating care.
--- NOTE | 2021-09-21 19:41 | MHC.CARE ---
CARE team and psych provider met with pt to check in. Provider ordered meds for pt and pt was receptive to this. Pt preseverates on tactile hallucinations and how this is causing him discomfort and can't sleep. Pt reports he is very depressed and was tearful throughout evaluation. He reports I am sad, I don't have anyone, I just want to get back to work . Unclear it pt works.
[2021-09-21] MEDS: OLANZapine 2.5 MG TABLET PO (19:47)
[2021-09-21 21:33] VITALS: BP 132/78; PULSE 74; TEMP 36.2; O2SAT 96
[2021-09-21] MEDS: diphenhydrAMINE HCL 25 MG TABLET 50 MG PO (21:35)
--- NOTE | 2021-09-22 | ECG_ITS ---
Test Reason : MED CLEARANCE Blood Pressure : / mmHG Vent. Rate : 064 BPM Atrial Rate : 064 BPM P-R Int : 288 ms QRS Dur : 092 ms QT Int : 376 ms P-R-T Axes : 026 054 038 degrees QTc Int : 387 ms Sinus rhythm with 1st degree A-V block Minimal voltage criteria for LVH, may be normal variant ( Sokolow-Macdonald ) Nonspecific T wave abnormality Abnormal ECG When compared with ECG of 13-SEP-2019 19:00, Non-specific change in ST segment in Anterior leads Nonspecific T wave abnormality now evident in Inferior leads Nonspecific T wave abnormality, worse in Lateral leads Referred By: Ann Osborn Electronically Signed By:MARKOS NELSON MD
--- NOTE | 2021-09-22 06:32 | PC.NURSE ---
Patient slept through the night, patient received first dose olanzapine 2.5 mg at 1946 without any effect, requested Benadryl, at 2134 received Benadryl 50 mg with effect, VS at baseline, disposition section 12 inpatient bed search, will continue to monitor.
[2021-09-22 06:42] VITALS: BP 127/74; PULSE 78; RESP 16; TEMP 36.3; O2SAT 98
--- NOTE | 2021-09-22 07:29 | PC.NURSE ---
patient appears to remain at rest at present, respirations even and unlabored, patient appears in no distress.
[2021-09-22 08:51] VITALS: BP 125/71; PULSE 67; RESP 17; TEMP 36.6; O2SAT 98
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
[2021-09-22 21:37] VITALS: BP 166/76; PULSE 68; RESP 16; TEMP 36.2; O2SAT 100
[2021-09-22 21:39] VITALS: BMI 22.4
--- NOTE | 2021-09-23 02:28 | PC.ADMIT ---
Pt is a single 76-yr old Dutch speaking homeless male admitted from the ED to the floor by 2105 on a wheelchair for tactile hallucination. He is CV legal status and on routine 15 minutes check. No known allergy or any reported medical history. COVID-19 negative. Negative drug screen. He has both upper and lower dentures. He was alert and oriented to person and place. He stated that he understands time when written. At the time of this admission, patient was on hospital attire, had a bright affect, cooperative, and making eye contact. He reported being unable to sleep. Patient was not observed showing any signs of tactile hallucination. He denied SI/HI/hallucination.Tobacco cessation started per policy. Most of the interview was done with skip miner blasting cart. No trauma history reported.
[2021-09-23] MEDS: traZODone HCL 50 MG TABLET PO ×2 (03:10→22:50)
[2021-09-23] MEDS: diphenhydrAMINE HCL 25 MG TABLET 50 MG PO ×2 (03:20→22:50)
[2021-09-23] MEDS: OLANZapine 5 MG TABLET PO ×2 (03:21→22:50)
[2021-09-23 09:04] LABS: Cholesterol 173 mg/dL; HDL Cholesterol 49 mg/dL; LDL Cholesterol Calculated 112 mg/dl; Magnesium 2.1 mg/dL (1.6-2.6); Triglycerides 61 mg/dL
[2021-09-23 09:17] VITALS: BP 157/72; PULSE 61; RESP 16; TEMP 36.3; O2SAT 100
[2021-09-23 09:25] LABS: Free T4 (Free Thyroxine) 1.04 ng/dL (0.71-1.85); Thyroid Stimulating Hormone 2.17 uIU/mL (0.32-4.0)
[2021-09-23] MEDS: Cyanocobalamin (Vitamin B-12) 1,000 MCG TABLET 1000 MCG PO (10:09)
[2021-09-23] MEDS: Mineral Oil/Petrolatum,White 106 GM Tube 1 APPL TOPICAL ×2 (10:12→22:51)
--- NOTE | 2021-09-23 11:38 | P.PNPSI_ITS ---
Subjective Subjective Date of Service: 09/23/21 Reason For Visit: Tactile Hallucinations Subjective Notes: Conditional Voluntary Interim History: The patient was assessed in Qatari and he complained of tactile hallucinations that has bothered him last night. He denies suicidal ideation, he has been cooperative and pleasant. We discussed treatment options and he agreed to continue Zyprexa and Benadryl Mental Status Exam Mental Status Exam Patient Appearance: Unkempt Patient Orientation: Person Level of Consciousness: Alert Patient Behavior: Cooperative and Passive Mood Description: Depressed Affect Description: Constricted Ability to Follow Directions: Good Speech Pattern: Clear Hallucinations: Tactile Delusions: Not Present Thought Process: Distracted Thought Content: positive for Circumstantial and positive for Poverty of Content Judgement: Fair Diagnostics Vital Signs (24Hr): Vital Signs - 24 hr 09/22/21 21:37 09/23/21 09:17 Temperature 97.2 F 97.4 F Pulse Rate 68 61 Respiratory Rate 16 16 Blood Pressure 166/76 H 157/72 H Pulse Oximetry 100 100 BMI result Body Mass Index 22.4 Labs Results: 09/20/21 15:32 09/20/21 15:32 Labs: Laboratory Results - last 48 hr 09/23/21 08:08 Magnesium 2.1 Triglycerides 61 Cholesterol 173 LDL Cholesterol, Calc 112 HDL Cholesterol 49 TSH 2.17 Free T4 1.04 Medications Medications Current Medications Acetaminophen (Acetaminophen 325 Mg Tablet) 650 mg PO Q6H PRN PRN Reason: Headache/Pain Mild Scale (1-3) Al Hydroxide/Mg Hydroxide (Magnesium Hydrox/Alum Hydrox 30 Ml Oral.Susp) 30 ml PO Q6H PRN PRN Reason: Heartburn/Nausea Cyanocobalamin (Cyanocobalamin (Vitamin B-12) 1,000 Mcg Tablet) 1,000 mcg PO DAILY [facility] Last Admin: 09/23/21 10:09 Dose: 1,000 mcg Documented by: Diphenhydramine HCl (Diphenhydramine Hcl 25 Mg Tablet) 50 mg PO BEDTIME [facility] Last Admin: 09/23/21 03:20 Dose: 50 mg Documented by: Magnesium Hydroxide (Milk Of Magnesia 30 Ml Oral.Susp) 30 ml PO DAILY PRN PRN Reason: Constipation Multi-Ingred Cream/Lotion/Oil/Oint (Mineral Oil/Petrolatum,White 106 Gm Tube) 1 appl TOPICAL BID [facility] Last Admin: 12/18/21 10:12 Dose: 1 appl Documented by: Olanzapine (Olanzapine 5 Mg Tablet) 5 mg PO BEDTIME [facility]LLY Last Admin: 09/23/21 03:21 Dose: 5 mg Documented by: Trazodone HCl (Trazodone Hcl 50 Mg Tablet) 50 mg PO BEDTIME PRN PRN Reason: Insomnia Last Admin: 09/23/21 03:10 Dose: 50 mg Documented by: Allergies Allergies Allergy/AdvReac Type Severity Reaction Status Date / Time No Known Allergies Allergy Unknown NONE Verified 12/14/20 00:42 [No Known Allergies*] Assessment & Plan Assessment & Plan (1) BARBARA (generalized anxiety disorder): Status: Acute Code(s): F41.1 - Generalized anxiety disorder (2) Tactile hallucinations: Status: Acute Code(s): R44.2 - Other hallucinations Assessment and Plan: Pt is a 76 y.o. male who presented to [facility] ED on 09/20/21 reporting tactile hallucinations. Pt reporting feeling plagued by a physical sensation of bugs crawling all over his body with recent ED visits in 08/27 with similar presentation. Pt is denying mood sx or A/VH. Denies delusional thought content/ paranoia. No hx of manic or hypomanic episodes endorsed. No substance or alcohol abuse. Pt is clearly distressed over sx and is tearful, reports increasingly poor sleep. Has had lack of benefit on PO benadryl or hydrocortisone. Plan: Increase zyprexa to 5 mg QHS (started in [facility] ED at 2.5 mg on 09/21) to target poor sleep, anxious distress, and tactile hallucination. Continue benadryl 50 mg QHS, as pt is now saying this mildly helps and he would like to continue. I suspect pt has undiagnosed dementia process that may be contributing to hallucinations, would benefit from MOCA assessment, possible MRI. Monitor response to medications. Monitor for safety in the milieu. Discharge on stabilization. Patient seen. Chart reviewed. Discussed with team. Obtain collateral contact info?as needed I spent minutes with the patient and/or on the patient floor today, greater than?50% of which was spent counseling/coordinating care. Reason for contiued inpatient stay Substantial Risk for: harm to self, inability to function, rapid decompensation and med/psych decompensation
--- NOTE | 2021-09-23 11:43 | P.CNNE_ITS ---
History of Present Illness Data of Consult Service Date: 09/23/21 Primary Care Provider: Unknown Physician HPI Reason for consult: Bugs crawling all over 76 yr man with 1+ month h/o bugs crawling all over , inability to sleep and suicidal ideation.. It is unclear if it is just paresthesia or he is convinced there are bugs inside and sees them etc. 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 c/o dizziness, headache GI: No c/o Nausea, Vomiting, diarrhea, constipation or heartburn -Denies hx of seizures -Denies hx of TBI/ concussion -Denies hx of cardiac issues PMFSH Past Medical History Medical History (Updated 09/22/21 @ 20:47 by Brennan Jacobs MD) Ileus No known health problems Social History Social History Household Members: None Housing: Homeless Do you presently have visiting nurse or other home services: No Alcohol intake: never Patient Tobacco Use Status: Current everyday Tobacco user Tobacco use type: Cigarette Smoked in Last 30 Days: Yes e-Cigarette/Vaping Use: Never Used Patient Interested in Nicotine Replacement: Yes Patient Given Instructions on How to Stop Smoking: Yes Date Education Initiated: 09/22/21 Second Hand Smoke Exposure: Yes Use of substances other than those prescribed or required for medical reasons: No Last Used Substance: Unknown Currently Displaying Signs/Symptoms of Drug Intoxication Withdrawal: No Have you been hit, kicked, punched, or otherwise hurt by someone within the past year? If so, by whom?: No Do you feel safe in your current relationship?: No Current Relationship Is there a partner from a previous relationship who is making you feel unsafe now?: No Are you made to feel afraid or neglected: No Spiritual Healthcare Practices: None Restorationism Healthcare Practices: Reads the bible Cultural Healthcare Practices: None Advance Directives: No Advance Directives Information Provided: No Advance Directives on File: No Do you have thoughts of harming others: None Do you have a plan to hurt others: No Plan Recently lost weight without trying: Yes How much weight loss: Unsure Eating poorly because of decreased appetite: Yes Nutrition screen score: 5 Nutrition Risks: No Nutritional Risk Poor oral hygiene: Yes service: No Current occupational status: retired Meds Allergies Allergy/AdvReac Type Severity Reaction Status Date / Time No Known Allergies Allergy Unknown NONE Verified 12/14/20 00:42 [No Known Allergies*] Active Medications: Current Medications Acetaminophen (Acetaminophen 325 Mg Tablet) 650 mg PO Q6H PRN PRN Reason: Headache/Pain Mild Scale (1-3) Al Hydroxide/Mg Hydroxide (Magnesium Hydrox/Alum Hydrox 30 Ml Oral.Susp) 30 ml PO Q6H PRN PRN Reason: Heartburn/Nausea Cyanocobalamin (Cyanocobalamin (Vitamin B-12) 1,000 Mcg Tablet) 1,000 mcg PO DAILY KELLY Last Admin: 09/23/21 10:09 Dose: 1,000 mcg Documented by: Diphenhydramine HCl (Diphenhydramine Hcl 25 Mg Tablet) 50 mg PO BEDTIME KELLY Last Admin: 09/23/21 03:20 Dose: 50 mg Documented by: Magnesium Hydroxide (Milk Of Magnesia 30 Ml Oral.Susp) 30 ml PO DAILY PRN PRN Reason: Constipation Multi-Ingred Cream/Lotion/Oil/Oint (Mineral Oil/Petrolatum,White 106 Gm Tube) 1 appl TOPICAL BID KELLY Last Admin: 09/23/21 10:12 Dose: 1 appl Documented by: Olanzapine (Olanzapine 5 Mg Tablet) 5 mg PO BEDTIME KELLY Last Admin: 09/23/21 03:21 Dose: 5 mg Documented by: Trazodone HCl (Trazodone Hcl 50 Mg Tablet) 50 mg PO BEDTIME PRN PRN Reason: Insomnia Last Admin: 09/23/21 03:10 Dose: 50 mg Documented by: Home Medications Medication Instructions Recorded Confirmed Last Taken Type cyanocobalamin (vitamin B-12) 1 tab PO DAILY 09/20/21 09/20/21 Unknown History 1,000 mcg tablet Physical Exam Vital Signs: Vital Signs: Last Vital Signs Temp 97.4 F 09/23/21 09:17 Pulse 61 09/23/21 09:17 Resp 16 09/23/21 09:17 BP 157/72 H 09/23/21 09:17 Pulse Ox 100 09/23/21 09:17 BMI result Body Mass Index 22.4 Neuro: Other: normal neuro exam Results Labs CBC & Chem 7: 09/20/21 15:32 09/20/21 15:32 Assessment and Plan (1) BARBARA (generalized anxiety disorder): Status: Acute (2) Tactile hallucinations: Status: Acute it is unclear if he has itching and crawling paresthesia or actually believes there are bugs inside doing this. Recom.: Gabapentin 300mg hs and hydroxyzine 25 mg tid. Control sugar. OP nerve conduction study of one arm and one leg Pt is a 76 y.o. male who presented to [facility] on 09/20/21 reporting tactile hallucinations. Pt reporting feeling plagued by a physical sensation of bugs crawling all over his body with recent ED visits in 08/27 with similar presentation. Pt is denying mood sx or A/VH. Denies delusional thought content/ paranoia. No hx of manic or hypomanic episodes endorsed. No substance or alcohol abuse. Pt is clearly distressed over sx and is tearful, reports increasingly poor sleep. Has had lack of benefit on PO benadryl or hydrocortisone. Plan: Increase zyprexa to 5 mg QHS (started in [facility] at 2.5 mg on 09/21) to target poor sleep, anxious distress, and tactile hallucination. Continue benadryl 50 mg QHS, as pt is now saying this mildly helps and he would like to continue. I suspect pt has undiagnosed dementia process that may be contributing to hallucinations, would benefit from MOCA assessment, possible MRI. Monitor response to medications. Monitor for safety in the milieu. Discharge on stabilization. Patient seen. Chart reviewed. Discussed with team. Obtain collateral contact info?as needed Procedures Date of Service Date of Service: 09/23/21
[2021-09-23 22:00] VITALS: RESP 16
[2021-09-23 22:37] VITALS: BP 135/61; PULSE 73; TEMP 36.7; O2SAT 98
[2021-09-24 06:00] VITALS: BP 167/74; PULSE 60; RESP 18; TEMP 36.6; O2SAT 100
--- NOTE | 2021-09-24 06:18 | PC.NURSE ---
Pt woke at approx. 0615 stating that the floor in his room was dirty. He reported seeing bugs on the floor and stated that they would crawl and jump on him and bite him. Pt reassured there were no bugs in his room or on the floor and housekeeping would be in in the morning to clean. Pt returned to bed.
[2021-09-24] MEDS: Mineral Oil/Petrolatum,White 106 GM Tube 1 APPL TOPICAL ×2 (09:04→20:46)
[2021-09-24] MEDS: Cyanocobalamin (Vitamin B-12) 1,000 MCG TABLET 1000 MCG PO (09:09)
--- NOTE | 2021-09-24 11:01 | HO.PSYCHPN ---
Subjective Subjective Date of Service: 09/24/21 Reason For Visit: Tactile Hallucinations Interim History: The patient has been isolative, nursing staffed reported that he has complained of bugs on the floor and still having formication. On interview, he reported improvement of itchiness, feeling better. But mostly in his bed isolative. Mental Status Exam Mental Status Exam Patient Appearance: Disheveled and Unkempt Patient Orientation: Person Level of Consciousness: Awake Patient Behavior: Passive Mood Description: Withdrawn Affect Description: Constricted Ability to Follow Directions: Good Speech Pattern: Clear Hallucinations: Tactile Delusions: Paranoid Ideation Thought Process: Distracted Thought Content: positive for Circumstantial Judgement: Fair Diagnostics Vital Signs (24Hr): Vital Signs - 24 hr 09/23/21 22:00 09/23/21 22:37 09/24/21 06:00 Temperature 98.0 F 97.9 F Pulse Rate 73 60 Respiratory Rate 16 18 Blood Pressure 135/61 167/74 H Pulse Oximetry 98 100 BMI result Body Mass Index 22.4 Labs Results: 09/20/21 15:32 09/20/21 15:32 Labs: Laboratory Results - last 48 hr 09/23/21 08:08 Magnesium 2.1 Triglycerides 61 Cholesterol 173 LDL Cholesterol, Calc 112 HDL Cholesterol 49 TSH 2.17 Free T4 1.04 Medications Medications Current Medications Acetaminophen (Acetaminophen 325 Mg Tablet) 650 mg PO Q6H PRN PRN Reason: Headache/Pain Mild Scale (1-3) Al Hydroxide/Mg Hydroxide (Magnesium Hydrox/Alum Hydrox 30 Ml Oral.Susp) 30 ml PO Q6H PRN PRN Reason: Heartburn/Nausea Cyanocobalamin (Cyanocobalamin (Vitamin B-12) 1,000 Mcg Tablet) 1,000 mcg PO DAILY [facility] Last Admin: 09/24/21 09:09 Dose: 1,000 mcg Documented by: Diphenhydramine HCl (Diphenhydramine Hcl 25 Mg Tablet) 50 mg PO BEDTIME [facility] Last Admin: 09/23/21 22:50 Dose: 50 mg Documented by: Magnesium Hydroxide (Milk Of Magnesia 30 Ml Oral.Susp) 30 ml PO DAILY PRN PRN Reason: Constipation Multi-Ingred Cream/Lotion/Oil/Oint (Mineral Oil/Petrolatum,White 106 Gm Tube) 1 appl TOPICAL BID [facility] Last Admin: 09/24/21 09:04 Dose: 1 appl Documented by: Olanzapine (Olanzapine 5 Mg Tablet) 5 mg PO BEDTIME KELLY Last Admin: 09/23/21 22:50 Dose: 5 mg Documented by: Trazodone HCl (Trazodone Hcl 50 Mg Tablet) 50 mg PO BEDTIME PRN PRN Reason: Insomnia Last Admin: 09/23/21 22:50 Dose: 50 mg Documented by: Allergies Allergies Allergy/AdvReac Type Severity Reaction Status Date / Time No Known Allergies Allergy Unknown NONE Verified 12/14/20 00:42 [No Known Allergies*] Assessment & Plan Assessment & Plan (1) BARBARA (generalized anxiety disorder): Status: Acute Code(s): F41.1 - Generalized anxiety disorder (2) Tactile hallucinations: Status: Acute Code(s): R44.2 - Other hallucinations Assessment and Plan: it is unclear if he has itching and crawling paresthesia or actually believes there are bugs inside doing this. Recom.: Gabapentin 300mg hs and hydroxyzine 25 mg tid. Control sugar. OP nerve conduction study of one arm and one leg Assessment and Plan: Pt is a 76 y.o. male who presented to [facility] on 09/20/21 reporting tactile hallucinations. Pt reporting feeling plagued by a physical sensation of bugs crawling all over his body with recent ED visits in 08/27 with similar presentation. Pt is denying mood sx or A/VH. Denies delusional thought content/ paranoia. No hx of manic or hypomanic episodes endorsed. No substance or alcohol abuse. Pt is clearly distressed over sx and is tearful, reports increasingly poor sleep. Has had lack of benefit on PO benadryl or hydrocortisone. Plan: Increase zyprexa to 5 mg QHS (started in [facility] at 2.5 mg on 09/21) to target poor sleep, anxious distress, and tactile hallucination. Continue benadryl 50 mg QHS, as pt is now saying this mildly helps and he would like to continue. I suspect pt has undiagnosed dementia process that may be contributing to hallucinations, would benefit from MOCA assessment, possible MRI. Monitor response to medications. Monitor for safety in the milieu. Discharge on stabilization. Patient seen. Chart reviewed. Discussed with team. Obtain collateral contact info?as needed I spent minutes with the patient and/or on the patient floor today, greater than?50% of which was spent counseling/coordinating care. Reason for contiued inpatient stay Substantial Risk for: inability to function, rapid decompensation and med/psych decompensation
[2021-09-24 18:00] VITALS: BP 164/74; PULSE 73; RESP 16; TEMP 36.8; O2SAT 98
[2021-09-24] MEDS: diphenhydrAMINE HCL 25 MG TABLET 50 MG PO (19:34)
[2021-09-24] MEDS: OLANZapine 5 MG TABLET PO ×2 (19:34→20:46)
[2021-09-24] MEDS: traZODone HCL 50 MG TABLET PO (19:34)
[2021-09-25] MEDS: traZODone HCL 50 MG TABLET PO ×2 (00:06→21:40)
[2021-09-25] MEDS: HaloperidoL 5 MG TABLET PO (02:24)
[2021-09-25 04:21] LABS: Folate 13.9 ng/mL (> or = 4.0); Vitamin B12 303 pg/mL (200-900)
[2021-09-25] MEDS: Cyanocobalamin (Vitamin B-12) 1,000 MCG TABLET 1000 MCG PO (08:29)
[2021-09-25 08:31] VITALS: BP 148/71; PULSE 74; RESP 16; TEMP 36.5; O2SAT 94
--- NOTE | 2021-09-25 14:18 | HO.PSYCHPN ---
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 pt reports he feels as if things were crawling inside his legs, as well as in his hands and arms B/L. he does not believe there is anything there, but he has this sensation. likewise for the top of his head and his forearms and hands. he has bladder and bowel control. he has a substantial drinking history. he reports he has been experiencing these symptoms for 10 years or so. he is tangential. 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 per staff, poor sleep. slept only about one hour last night. c/o cockroaches in his room. eating well. took scheduled and PRN zyprexa. Mental Status Exam Mental Status Exam Narrative: A&Ox3. In hospital attire, well groomed, normal body habitus. Good eye contact, attentive. No Tics or Tremors. No abnormal involuntary movements. Calm, cooperative, engaged. mildly pressured speech, spontaneous with regular rate and rhythm, normal volume and prosody. increased amount and decreased latency. No dysarthria. affect is full range, hyper-intense, non-labile. Endorses tactile hallucinations. thoughts are tangential spontaneously but is able to answer questions directly as well. Diagnostics Vital Signs (24Hr): Vital Signs - 24 hr 09/24/21 18:00 09/25/21 08:31 Temperature 98.3 F 97.7 F Pulse Rate 73 74 Respiratory Rate 16 16 Blood Pressure 164/74 H 148/71 H Pulse Oximetry 98 94 BMI result Body Mass Index 22.4 Labs Results: 09/20/21 15:32 09/20/21 15:32 Labs: Laboratory Results - last 48 hr 09/23/21 08:08 Vitamin B12 303 Folate 13.9 Medications Medications Current Medications Acetaminophen (Acetaminophen 325 Mg Tablet) 650 mg PO Q6H PRN PRN Reason: Headache/Pain Mild Scale (1-3) Al Hydroxide/Mg Hydroxide (Magnesium Hydrox/Alum Hydrox 30 Ml Oral.Susp) 30 ml PO Q6H PRN PRN Reason: Heartburn/Nausea Cyanocobalamin (Cyanocobalamin (Vitamin B-12) 1,000 Mcg Tablet) 1,000 mcg PO DAILY KELLY Last Admin: 09/25/21 08:29 Dose: 1,000 mcg Documented by: Diphenhydramine HCl (Diphenhydramine Hcl 25 Mg Tablet) 50 mg PO BEDTIME KELLY Last Admin: 09/24/21 19:34 Dose: 50 mg Documented by: Gabapentin (Gabapentin 100 Mg Capsule) 100 mg PO TID KELLY Lorazepam (Lorazepam 1 Mg Tablet) 1 mg PO DAILY PRN PRN Reason: anxiety for procedure Magnesium Hydroxide (Milk Of Magnesia 30 Ml Oral.Susp) 30 ml PO DAILY PRN PRN Reason: Constipation Multi-Ingred Cream/Lotion/Oil/Oint (Mineral Oil/Petrolatum,White 106 Gm Tube) 1 appl TOPICAL BID KELLY Last Admin: 09/25/21 08:34 Dose: Not Given Documented by: Nicotine Polacrilex (Nicotine Polacrilex 2 Mg Gum) 2 mg BUCCAL Q1H PRN PRN Reason: nicotine craving Olanzapine (Olanzapine 5 Mg Tablet) 5 mg PO BEDTIME KELLY Last Admin: 09/24/21 19:34 Dose: 5 mg Documented by: Trazodone HCl (Trazodone Hcl 50 Mg Tablet) 50 mg PO BEDTIME PRN PRN Reason: Insomnia Last Admin: 09/25/21 00:06 Dose: 50 mg Documented by: Allergies Allergies Allergy/AdvReac Type Severity Reaction Status Date / Time No Known Allergies Allergy Unknown NONE Verified 12/14/20 00:42 [No Known Allergies*] Assessment & Plan Assessment & Plan (1) BARBARA (generalized anxiety disorder): Status: Acute Code(s): F41.1 - Generalized anxiety disorder (2) Tactile hallucinations: Status: Acute Code(s): R44.2 - Other hallucinations Assessment and Plan: it is unclear if he has itching and crawling paresthesia or actually believes there are bugs inside doing this. Recom.: Gabapentin 300mg hs and hydroxyzine 25 mg tid. Control sugar. OP nerve conduction study of one arm and one leg Assessment and Plan: Pt is a 76 y.o. male who presented to [facility] on 09/20/21 reporting tactile hallucinations. Pt reporting feeling plagued by a physical sensation of bugs crawling all over his body with recent ED visits in 08/27 with similar presentation. Pt is denying mood sx or A/VH. Denies delusional thought content/ paranoia. No hx of manic or hypomanic episodes endorsed. No substance or alcohol abuse. Pt is clearly distressed over sx and is tearful, reports increasingly poor sleep. Has had lack of benefit on PO benadryl or hydrocortisone. Plan: Increase zyprexa to 5 mg QHS (started in [facility] at 2.5 mg on 09/21) to target poor sleep, anxious distress, and tactile hallucination. Continue benadryl 50 mg QHS, as pt is now saying this mildly helps and he would like to continue. I suspect pt has undiagnosed dementia process that may be contributing to hallucinations, would benefit from MOCA assessment MRI pending. 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 Monitor response to medications. Monitor for safety in the milieu. Discharge on stabilization. Patient seen. Chart reviewed. Discussed with team. Obtain collateral contact info?as needed I spent minutes with the patient and/or on the patient floor today, greater than?50% of which was spent counseling/coordinating care. Reason for contiued inpatient stay Substantial Risk for: inability to function and med/psych decompensation
--- NOTE | 2021-09-25 14:38 | MHC.CLN ---
NUTRITION CONSULT FOR WEIGHT LOSS. SIGNIFICANT WEIGHT LOSS X 10 MONTHS, -20.7%. ASKED VIA BLANKET WASHER IF HE WOULD LIKE ENSURE. AGREES TO TRY. ADDING ENSURE TID TO PROVIDE 1050 KCAL, 39 G PROTEIN. CONTINUE TO FOLLOW INTAKE.
[2021-09-25] MEDS: Gabapentin 100 MG CAPSULE PO ×2 (14:40→21:39)
[2021-09-25 14:41] VITALS: BMI 22.4
[2021-09-25 18:26] VITALS: BP 200/84; PULSE 74; RESP 16; TEMP 36.9; O2SAT 100
[2021-09-25 21:39] VITALS: BP 145/75; PULSE 75
[2021-09-25] MEDS: OLANZapine 5 MG TABLET PO ×2 (21:39)
[2021-09-25] MEDS: cloNIDine HCL 0.1 MG TABLET PO (21:39)
[2021-09-25] MEDS: diphenhydrAMINE HCL 25 MG TABLET 50 MG PO (21:40)
[2021-09-25] MEDS: Nicotine Polacrilex 2 MG GUM BUCCAL (22:02)
[2021-09-26] MEDS: traZODone HCL 50 MG TABLET PO ×2 (00:30→21:52)
[2021-09-26 01:09] VITALS: BP 140/80; PULSE 78
[2021-09-26] MEDS: cloNIDine HCL 0.1 MG TABLET PO (01:09)
[2021-09-26] MEDS: clonazePAM 0.5 MG TABLET PO ×2 (01:48→11:58)
[2021-09-26 02:18] VITALS: BP 110/56; PULSE 115; RESP 18; O2SAT 96
[2021-09-26 11:50] VITALS: BP 144/65; PULSE 73; RESP 18; TEMP 36.7; O2SAT 99
[2021-09-26] MEDS: Gabapentin 100 MG CAPSULE PO ×3 (11:54→21:52)
[2021-09-26] MEDS: Cyanocobalamin (Vitamin B-12) 1,000 MCG TABLET 1000 MCG PO (11:54)
--- NOTE | 2021-09-26 14:39 | HO.PSYCHPN ---
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 pt found sleeping in his bed. rousable, but somnolent. states the sensations in his legs and hands are better. reports he is sleeping well at night. MD informs him that it appears he does not need klonopin but that the addition of depakote to his HS meds is warranted due to reports he has not slept most of 2 nights and his bizarre behaviors. per staff, slept about 3 hours last night. seeing snakes. spending time aroudn exit doors saying he needs to go to work. needs frequent redirection. pleasant but hallucinating. Mental Status Exam Mental Status Exam Narrative: A&Ox3. In hospital attire, well groomed, normal body habitus. somnolent, inattentive. No Tics or Tremors; some fasciculations of the neck muscles. No abnormal involuntary movements. Calm, cooperative. dearth of speech. moderate dysarthria. affect is constricted. tactile hallucinations improved. Diagnostics Vital Signs (24Hr): Vital Signs - 24 hr 09/25/21 18:26 09/25/21 21:39 09/26/21 01:09 Temperature 98.4 F Pulse Rate 74 75 78 Respiratory Rate 16 Blood Pressure 200/84 H 145/75 H 140/80 H Pulse Oximetry 100 09/26/21 02:18 09/26/21 11:50 Temperature 98.0 F Pulse Rate 115 H 73 Respiratory Rate 18 18 Blood Pressure 110/56 L 144/65 H Pulse Oximetry 96 99 BMI result Body Mass Index 22.4 Labs Results: 09/20/21 15:32 09/20/21 15:32 Labs: Laboratory Results - last 48 hr 09/23/21 08:08 Vitamin B12 303 Folate 13.9 Imaging Radiology Impressions: ITS Impressions Chest X-Ray 09/25/21 18:56 IMPRESSION: No radiopaque foreign body. No acute cardiopulmonary findings. Skull X-Ray 09/25/21 18:56 IMPRESSION: No radiopaque foreign body. Brain MRI 09/25/21 19:30 IMPRESSION: No acute intracranial process. Nonspecific mild scattered white matter signal changes which may be due to microangiopathy. Medications Medications Current Medications Acetaminophen (Acetaminophen 325 Mg Tablet) 650 mg PO Q6H PRN PRN Reason: Headache/Pain Mild Scale (1-3) Al Hydroxide/Mg Hydroxide (Magnesium Hydrox/Alum Hydrox 30 Ml Oral.Susp) 30 ml PO Q6H PRN PRN Reason: Heartburn/Nausea Clonazepam (Clonazepam 0.5 Mg Tablet) 0.5 mg PO BEDTIME PRN PRN Reason: anxiety, insomnia Last Admin: 09/26/21 01:48 Dose: 0.5 mg Documented by: Cyanocobalamin (Cyanocobalamin (Vitamin B-12) 1,000 Mcg Tablet) 1,000 mcg PO DAILY KELLY Last Admin: 09/26/21 11:54 Dose: 1,000 mcg Documented by: Diphenhydramine HCl (Diphenhydramine Hcl 25 Mg Tablet) 50 mg PO BEDTIME KELLY Last Admin: 09/25/21 21:40 Dose: 50 mg Documented by: Gabapentin (Gabapentin 100 Mg Capsule) 100 mg PO TID [facility] Last Admin: 09/26/21 11:54 Dose: 100 mg Documented by: Magnesium Hydroxide (Milk Of Magnesia 30 Ml Oral.Susp) 30 ml PO DAILY PRN PRN Reason: Constipation Multi-Ingred Cream/Lotion/Oil/Oint (Mineral Oil/Petrolatum,White 106 Gm Tube) 1 appl TOPICAL BID [facility] Last Admin: 09/26/21 11:52 Dose: Not Given Documented by: Nicotine Polacrilex (Nicotine Polacrilex 2 Mg Gum) 2 mg BUCCAL Q1H PRN PRN Reason: nicotine craving Last Admin: 09/25/21 22:02 Dose: 2 mg Documented by: Olanzapine (Olanzapine 5 Mg Tablet) 5 mg PO BEDTIME KELLY Last Admin: 09/25/21 21:39 Dose: 5 mg Documented by: Olanzapine (Olanzapine 5 Mg Tablet) 5 mg PO BID PRN PRN Reason: psychosis, agitation, anxiety Last Admin: 09/25/21 21:39 Dose: 5 mg Documented by: Trazodone HCl (Trazodone Hcl 50 Mg Tablet) 50 mg PO BEDTIME PRN PRN Reason: Insomnia Last Admin: 09/26/21 00:30 Dose: 50 mg Documented by: Allergies Allergies Allergy/AdvReac Type Severity Reaction Status Date / Time No Known Allergies Allergy Unknown NONE Verified 12/14/20 00:42 [No Known Allergies*] Assessment & Plan Assessment & Plan (1) BARBARA (generalized anxiety disorder): Status: Acute Code(s): F41.1 - Generalized anxiety disorder (2) Tactile hallucinations: Status: Acute Code(s): R44.2 - Other hallucinations Assessment and Plan: it is unclear if he has itching and crawling paresthesia or actually believes there are bugs inside doing this. Recom.: Gabapentin 300mg hs and hydroxyzine 25 mg tid. Control sugar. OP nerve conduction study of one arm and one leg Assessment and Plan: Pt is a 76 y.o. male who presented to [facility] on 09/20/21 reporting tactile hallucinations. Pt reporting feeling plagued by a physical sensation of bugs crawling all over his body with recent ED visits in 08/27 with similar presentation. Pt is denying mood sx or A/VH. Denies delusional thought content/ paranoia. No hx of manic or hypomanic episodes endorsed. No substance or alcohol abuse. Pt is clearly distressed over sx and is tearful, reports increasingly poor sleep. Has had lack of benefit on PO benadryl or hydrocortisone. Plan: Increase zyprexa to 5 mg QHS (started in [facility] at 2.5 mg on 09/21) to target poor sleep, anxious distress, and tactile hallucination. Continue benadryl 50 mg QHS, as pt is now saying this mildly helps and he would like to continue. I suspect pt has undiagnosed dementia process that may be contributing to hallucinations, would benefit from MOCA assessment MRI showing possible microvascular disease. 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 will cut olanzapine and anti-cholinergics other than gabapentin for the time being to decrease likelihood of delirium or exacerbation if LBD. I spent minutes with the patient and/or on the patient floor today, greater than?50% of which was spent counseling/coordinating care. Reason for contiued inpatient stay Substantial Risk for: inability to function and rapid decompensation
[2021-09-26 21:45] VITALS: BP 144/78; PULSE 76; RESP 18; TEMP 36.4; O2SAT 97
[2021-09-26] MEDS: Divalproex Sodium ER 500 MG TAB.ER.24H PO (21:52)
[2021-09-27 09:21] VITALS: BP 141/65; PULSE 68; RESP 16; TEMP 36.6; O2SAT 96
[2021-09-27] MEDS: Gabapentin 100 MG CAPSULE PO ×3 (09:28→20:10)
[2021-09-27] MEDS: Cyanocobalamin (Vitamin B-12) 1,000 MCG TABLET 1000 MCG PO (09:28)
--- NOTE | 2021-09-27 13:32 | P.PNPSI_ITS ---
Subjective Subjective Date of Service: 09/27/21 Reason For Visit: Tactile Hallucinations Interim History: pt seen in his room, sleeping, easily rousable. motor vehicle parts interpreter present. pt appears far more clear and less pressured/agitated than during previous evaluations. he reports the sensations in his extremities and on his head are resolving, and that he has not seen any snakes recently. he has no complaints. he is amenable to neurologist visit. cogwheeling rigidity unclear - some volitional resistance may have been occurring. gait does not appear festinating, pt is not unsteady on his feet. Mental Status Exam Mental Status Exam Narrative: A&Ox3. In hospital attire, well groomed, normal body habitus. easily rousable, attentive. No Tics or Tremors. No abnormal involuntary movements. Calm, cooperative. responsive to inquiries. moderate dysarthria. affect is constricted. tactile hallucinations improved, visual hallucinations as well. Diagnostics Vital Signs (24Hr): Vital Signs - 24 hr 09/26/21 21:45 09/27/21 09:21 Temperature 97.6 F 97.8 F Pulse Rate 76 68 Respiratory Rate 18 16 Blood Pressure 144/78 H 141/65 H Pulse Oximetry 97 96 BMI result Body Mass Index 22.4 Labs Results: 09/20/21 15:32 09/20/21 15:32 Imaging Radiology Impressions: ITS Impressions Chest X-Ray 09/25/21 18:56 IMPRESSION: No radiopaque foreign body. No acute cardiopulmonary findings. Skull X-Ray 09/25/21 18:56 IMPRESSION: No radiopaque foreign body. Brain MRI 09/25/21 19:30 IMPRESSION: No acute intracranial process. Nonspecific mild scattered white matter signal changes which may be due to microangiopathy. Medications Medications Current Medications Acetaminophen (Acetaminophen 325 Mg Tablet) 650 mg PO Q6H PRN PRN Reason: Headache/Pain Mild Scale (1-3) Al Hydroxide/Mg Hydroxide (Magnesium Hydrox/Alum Hydrox 30 Ml Oral.Susp) 30 ml PO Q6H PRN PRN Reason: Heartburn/Nausea Cyanocobalamin (Cyanocobalamin (Vitamin B-12) 1,000 Mcg Tablet) 1,000 mcg PO DAILY [facility] Last Admin: 09/27/21 09:28 Dose: 1,000 mcg Documented by: Divalproex Sodium (Divalproex Sodium Er 500 Mg Tab.Er.24h) 500 mg PO BEDTIME [facility] Last Admin: 09/26/21 21:52 Dose: 500 mg Documented by: Gabapentin (Gabapentin 100 Mg Capsule) 100 mg PO TID [facility] Last Admin: 09/27/21 09:28 Dose: 100 mg Documented by: Magnesium Hydroxide (Milk Of Magnesia 30 Ml Oral.Susp) 30 ml PO DAILY PRN PRN Reason: Constipation Multi-Ingred Cream/Lotion/Oil/Oint (Mineral Oil/Petrolatum,White 106 Gm Tube) 1 appl TOPICAL BID [facility] Last Admin: 09/27/21 09:29 Dose: Not Given Documented by: Nicotine Polacrilex (Nicotine Polacrilex 2 Mg Gum) 2 mg BUCCAL Q1H PRN PRN Reason: nicotine craving Last Admin: 09/25/21 22:02 Dose: 2 mg Documented by: Olanzapine (Olanzapine 5 Mg Tablet) 5 mg PO BID PRN PRN Reason: psychosis, agitation, anxiety Last Admin: 09/25/21 21:39 Dose: 5 mg Documented by: Trazodone HCl (Trazodone Hcl 50 Mg Tablet) 50 mg PO BEDTIME PRN PRN Reason: Insomnia Last Admin: 09/26/21 21:52 Dose: 50 mg Documented by: Allergies Allergies Allergy/AdvReac Type Severity Reaction Status Date / Time No Known Allergies Allergy Unknown NONE Verified 12/14/20 00:42 [No Known Allergies*] Assessment & Plan Assessment & Plan (1) BARBARA (generalized anxiety disorder): Status: Acute Code(s): F41.1 - Generalized anxiety disorder (2) Tactile hallucinations: Status: Acute Code(s): R44.2 - Other hallucinations Assessment and Plan: it is unclear if he has itching and crawling paresthesia or actually believes there are bugs inside doing this. Recom.: Gabapentin 300mg hs and hydroxyzine 25 mg tid. Control sugar. OP nerve conduction study of one arm and one leg. seem to have improved with DC oz zyprexa and addition of VPA at HS. Assessment and Plan: Pt is a 76 y.o. male who presented to [facility] on 09/20/21 reporting tactile hallucinations. Pt reporting feeling plagued by a physical sensation of bugs crawling all over his body with recent ED visits in 08/27 with similar presentation. Pt is denying mood sx or A/VH. Denies delusional thought content/ paranoia. No hx of manic or hypomanic episodes endorsed. No substance or alcohol abuse. Pt is clearly distressed over sx and is tearful, reports increasingly poor sleep. Has had lack of benefit on PO benadryl or hydrocortisone. Plan: Increase zyprexa to 5 mg QHS (started in [facility] at 2.5 mg on 09/21) to target poor sleep, anxious distress, and tactile hallucination. Continue sharla adryl 50 mg QHS, as pt is now saying this mildly helps and he would like to continue. I suspect pt has undiagnosed dementia process that may be contributing to hallucinations, would benefit from MOCA assessment MRI showing possible microvascular disease. 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 will cut olanzapine and anti-cholinergics other than gabapentin for the time being to decrease likelihood of delirium or exacerbation if LBD. DC of olanzapine and addition of VPA seems to have resulted in better orientation, resolution of VH, improvement of paresthesias. asking neuro to see pt for R/O LBD. I spent minutes with the patient and/or on the patient floor today, greater than?50% of which was spent counseling/coordinating care. Reason for contiued inpatient stay Substantial Risk for: inability to function and rapid decompensation
[2021-09-27 19:45] VITALS: BP 135/63; PULSE 76; RESP 14; TEMP 36.7; O2SAT 97
[2021-09-27] MEDS: Mineral Oil/Petrolatum,White 106 GM Tube 1 APPL TOPICAL (20:09)
[2021-09-27] MEDS: Divalproex Sodium ER 500 MG TAB.ER.24H PO (20:10)
[2021-09-27] MEDS: traZODone HCL 50 MG TABLET PO (20:10)
[2021-09-27] MEDS: OLANZapine 5 MG TABLET PO (20:10)
[2021-09-28 06:00] VITALS: BP 134/63; PULSE 82; RESP 16; TEMP 36.7; O2SAT 98
[2021-09-28] MEDS: Gabapentin 100 MG CAPSULE PO ×3 (10:18→20:48)
[2021-09-28] MEDS: Cyanocobalamin (Vitamin B-12) 1,000 MCG TABLET 1000 MCG PO (10:18)
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
[2021-09-28 13:00] VITALS: BMI 23.1
--- NOTE | 2021-09-28 15:03 | HO.PSYCHPN ---
Subjective Subjective Date of Service: 09/28/21 Reason For Visit: Tactile Hallucinations Interim History: seen with canal equipment maintenance supervisor. reports sensations in his legs much improved. still feels like (and seems to believe) that lice are jumping around on his head. denies VH. feeling well enough to discharge from the hospital and return to the hotel where he was living. informed we will need some more time to help him find housing and services. seemed to have a very difficult time keeping track of the uses of various small bottles of liquids despite multiple explanations. no other complaints or requests. per staff, variably expressing having seen VH or not. periods of confusion. got trazodone and zyprexa at 850. Mental Status Exam Mental Status Exam Narrative: awake well groomed, normal body habitus. attentive. No Tics or Tremors. No abnormal involuntary movements. Calm, cooperative. responsive to inquiries. moderate dysarthria. affect is flexible. tactile hallucinations improved in legs, visual hallucinations resolved. Diagnostics Vital Signs (24Hr): Vital Signs - 24 hr 09/27/21 19:45 09/28/21 06:00 Temperature 98.0 F 98.0 F Pulse Rate 76 82 Respiratory Rate 14 16 Blood Pressure 135/63 134/63 Pulse Oximetry 97 98 BMI result Body Mass Index 23.1 Labs Results: 09/20/21 15:32 09/20/21 15:32 Imaging Radiology Impressions: ITS Impressions Chest X-Ray 09/25/21 18:56 IMPRESSION: No radiopaque foreign body. No acute cardiopulmonary findings. Skull X-Ray 09/25/21 18:56 IMPRESSION: No radiopaque foreign body. Brain MRI 09/25/21 19:30 IMPRESSION: No acute intracranial process. Nonspecific mild scattered white matter signal changes which may be due to microangiopathy. Medications Medications Current Medications Acetaminophen (Acetaminophen 325 Mg Tablet) 650 mg PO Q6H PRN PRN Reason: Headache/Pain Mild Scale (1-3) Al Hydroxide/Mg Hydroxide (Magnesium Hydrox/Alum Hydrox 30 Ml Oral.Susp) 30 ml PO Q6H PRN PRN Reason: Heartburn/Nausea Cyanocobalamin (Cyanocobalamin (Vitamin B-12) 1,000 Mcg Tablet) 1,000 mcg PO DAILY [facility] Last Admin: 09/28/21 10:18 Dose: 1,000 mcg Documented by: Divalproex Sodium (Divalproex Sodium Er 500 Mg Tab.Er.24h) 500 mg PO BEDTIME [facility] Last Admin: 09/27/21 20:10 Dose: 500 mg Documented by: Gabapentin (Gabapentin 100 Mg Capsule) 100 mg PO TID [facility] Last Admin: 09/28/21 14:41 Dose: 100 mg Documented by: Magnesium Hydroxide (Milk Of Magnesia 30 Ml Oral.Susp) 30 ml PO DAILY PRN PRN Reason: Constipation Multi-Ingred Cream/Lotion/Oil/Oint (Mineral Oil/Petrolatum,White 106 Gm Tube) 1 appl TOPICAL BID [facility] Last Admin: 09/28/21 10:18 Dose: Not Given Documented by: Nicotine Polacrilex (Nicotine Polacrilex 2 Mg Gum) 2 mg BUCCAL Q1H PRN PRN Reason: nicotine craving Last Admin: 09/25/21 22:02 Dose: 2 mg Documented by: Olanzapine (Olanzapine 5 Mg Tablet) 5 mg PO BID PRN PRN Reason: psychosis, agitation, anxiety Last Admin: 09/27/21 20:10 Dose: 5 mg Documented by: Trazodone HCl (Trazodone Hcl 50 Mg Tablet) 50 mg PO BEDTIME PRN PRN Reason: Insomnia Last Admin: 09/27/21 20:10 Dose: 50 mg Documented by: Allergies Allergies Allergy/AdvReac Type Severity Reaction Status Date / Time No Known Allergies Allergy Unknown NONE Verified 12/14/20 00:42 [No Known Allergies*] Assessment & Plan Assessment & Plan (1) Tactile hallucinations: Status: Acute Code(s): R44.2 - Other hallucinations Assessment and Plan: Pt is a 76 y.o. male who presented to [facility] on 09/20/21 reporting tactile hallucinations. Pt reporting feeling plagued by a physical sensation of bugs crawling all over his body with recent ED visits in 08/27 with similar presentation. Pt is denying mood sx or A/VH. Denies delusional thought content/ paranoia. No hx of manic or hypomanic episodes endorsed. No substance or alcohol abuse. Pt is clearly distressed over sx and is tearful, reports increasingly poor sleep. Has had lack of benefit on PO benadryl or hydrocortisone. Plan: Increase zyprexa to 5 mg QHS (started in [facility] at 2.5 mg on 12/16) to target poor sleep, anxious distress, and tactile hallucination. Continue benadryl 50 mg QHS, as pt is now saying this mildly helps and he would like to continue. I suspect pt has undiagnosed dementia process that may be contributing to hallucinations, would benefit from MOCA assessment MRI showing possible microvascular disease. 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 will cut olanzapine and anti-cholinergics other than gabapentin for the time being to decrease likelihood of delirium or exacerbation if LBD. DC of olanzapine and addition of VPA seems to have resulted in better orientation, resolution of VH, improvement of paresthesias.? neuro saw pt for R/O LBD (see their assessment below). will reinstate zyprexa 2.5 mg at HS after review of neurology consult findings. neuro-recommended labs and imaging ordered 09/28. B12/folate, TSH/T4 WNL. per neuro eval 09/28: 76 years old man with new onset of what has been described as tactile hallucinations. He has been talking about uncomfortable bug crawling type of feeling or itching on his body and head. Hallucination was 1 way to describe this. Sometime patients with so-called neurodermatitis can also present this way with itching cause but no obvious physical reason. His overall presentation was not typical of Lewy body dementia. Some other rapidly progressive dementia as could be a consideration but a diagnosis was not possible at this time. In this category, 1 Creutz-Feldt Neel disease but his MRI, which can help in this condition to make a diagnosis, did not reveal any such finding. Apparently he has responded well to Zyprexa and my recommendations would be continue relatively small dose of an antipsychotic like Zyprexa. Clinical follow-up should continue to help refine diagnosis further during next 6-12 months. A brief dementia workup including serum B12 level, test for syphilis and Lyme, sed rate and MICHELLE are also recommended. There is no obvious indication of an infection and I am not suggesting CSF analysis at this time other than that, he has significant findings of lower motor neuron pathology in upper extremities, especially in left upper extremity, with relative hyper reflexia of knees. 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 An MRI of cervical spine is recommended for further evaluation. I spent minutes with the patient and/or on the patient floor today, greater than?50% of which was spent counseling/coordinating care. Reason for contiued inpatient stay Substantial Risk for: inability to function
--- NOTE | 2021-09-28 15:04 | MHC.CLN ---
F/U VARIABLE INTAKE. CONTINUE REGULAR DIET AND ENSURE SUPPLEMENT TID.
[2021-09-28 16:34] LABS: Estimated Average Glucose 117 mg/dL; Hemoglobin A1c % 5.7 %
[2021-09-28 17:12] LABS: Erythrocyte Sedimentation Rate 5 MM/HR (0-15)
[2021-09-28 18:00] VITALS: BP 158/86; PULSE 90; RESP 16; TEMP 37.7; O2SAT 100
[2021-09-28] MEDS: OLANZapine 2.5 MG TABLET PO (20:48)
[2021-09-28] MEDS: Divalproex Sodium ER 500 MG TAB.ER.24H PO (20:48)
[2021-09-28] MEDS: Mineral Oil/Petrolatum,White 106 GM Tube 1 APPL TOPICAL (20:48)
[2021-09-28 22:34] VITALS: BP 147/58; PULSE 83; RESP 16; TEMP 37.3; O2SAT 99
--- NOTE | 2021-09-29 08:12 | HO.PSYCHPN ---
Subjective Subjective Date of Service: 09/29/21 Reason For Visit: Tactile Hallucinations Subjective Notes: Conditional Voluntary Interim History: Patient was seen and discussed in rounds today. Records were reviewed. He continues to struggle with anxiety, cognitive issues in deficits. He was seen by neurologist an MRI was ordered for workup of dementia to rule out Lewy body dementia. He has been med compliant. Attending some groups. He has been exhibiting some possible signs of paranoia. He is more social interactive. He denies any hallucinations. He is med compliant. He denies any side effects. No changes were made today Review of Systems Review of Systems Yes all other systems are reviewed and are negative Mental Status Exam Mental Status Exam Narrative: Patient was seen in rounds today. He is alert, pleasant and minimally interactive. Some speech issues observed. He denies any auditory or visual hallucinations which were present earlier. No SI. No HI. Reports of some cognitive deficits but was not examined formally. Judgment is intact. Diagnostics Vital Signs (24Hr): Vital Signs - 24 hr 09/28/21 18:00 09/28/21 22:34 Temperature 99.9 F 99.2 F Pulse Rate 90 83 Respiratory Rate 16 16 Blood Pressure 158/86 H 147/58 H Pulse Oximetry 100 99 BMI result Body Mass Index 23.1 Labs Results: 09/20/21 15:32 09/20/21 15:32 Labs: Laboratory Results - last 48 hr 09/28/21 09/28/21 16:06 16:06 ESR 5 Estimat Average Glucose 117 Hemoglobin A1c % 5.7 Imaging Radiology Impressions: ITS Impressions Chest X-Ray 09/25/21 18:56 IMPRESSION: No radiopaque foreign body. No acute cardiopulmonary findings. Skull X-Ray 09/25/21 18:56 IMPRESSION: No radiopaque foreign body. Brain MRI 09/25/21 19:30 IMPRESSION: No acute intracranial process. Nonspecific mild scattered white matter signal changes which may be due to microangiopathy. Cervical Spine MRI 09/28/21 20:25 IMPRESSION: 1. At C6-C7 there is a broad-based posterior disc protrusion with compression of the cord and there is moderate to severe central stenosis. There is severe left and moderate right foraminal narrowing. 2. At C3-C4 there is a broad-based posterior soft disc protrusion with mild flattening of the cord and there is mild to moderate central stenosis. There is mild bilateral foraminal narrowing. 3. At C5-C6 there is a posterior disc osteophyte complex with effacement of CSF ventral to the spinal cord but there is no spinal cord compression. There is mild central stenosis. Mild bilateral foraminal narrowing. 4. At C7-T1 there is a broad-based posterior disc protrusion. There is mild central stenosis is moderate bilateral foraminal narrowing. 5. There are prominent flowing osteophytes with fatty signal anteriorly at C4-C5 and C5-C6. Medications Medications Current Medications Acetaminophen (Acetaminophen 325 Mg Tablet) 650 mg PO Q6H PRN PRN Reason: Headache/Pain Mild Scale (1-3) Al Hydroxide/Mg Hydroxide (Magnesium Hydrox/Alum Hydrox 30 Ml Oral.Susp) 30 ml PO Q6H PRN PRN Reason: Heartburn/Nausea Cyanocobalamin (Cyanocobalamin (Vitamin B-12) 1,000 Mcg Tablet) 1,000 mcg PO DAILY [facility] Last Admin: 09/28/21 10:18 Dose: 1,000 mcg Documented by: Divalproex Sodium (Divalproex Sodium Er 500 Mg Tab.Er.24h) 500 mg PO BEDTIME [facility] Last Admin: 09/28/21 20:48 Dose: 500 mg Documented by: Gabapentin (Gabapentin 100 Mg Capsule) 100 mg PO TID [facility] Last Admin: 09/28/21 20:48 Dose: 100 mg Documented by: Magnesium Hydroxide (Milk Of Magnesia 30 Ml Oral.Susp) 30 ml PO DAILY PRN PRN Reason: Constipation Multi-Ingred Cream/Lotion/Oil/Oint (Mineral Oil/Petrolatum,White 106 Gm Tube) 1 appl TOPICAL BID [facility] Last Admin: 09/28/21 20:48 Dose: 1 appl Documented by: Nicotine Polacrilex (Nicotine Polacrilex 2 Mg Gum) 2 mg BUCCAL Q1H PRN PRN Reason: nicotine craving Last Admin: 09/25/21 22:02 Dose: 2 mg Documented by: Olanzapine (Olanzapine 5 Mg Tablet) 5 mg PO BID PRN PRN Reason: psychosis, agitation, anxiety Last Admin: 09/27/21 20:10 Dose: 5 mg Documented by: Olanzapine (Olanzapine 2.5 Mg Tablet) 2.5 mg PO BEDTIME [facility] Last Admin: 09/28/21 20:48 Dose: 2.5 mg Documented by: Trazodone HCl (Trazodone Hcl 50 Mg Tablet) 50 mg PO BEDTIME PRN PRN Reason: Insomnia Last Admin: 09/27/21 20:10 Dose: 50 mg Documented by: Allergies Allergies Allergy/AdvReac Type Severity Reaction Status Date / Time No Known Allergies Allergy Unknown NONE Verified 12/14/20 00:42 [No Known Allergies*] Assessment & Plan Assessment & Plan (1) Tactile hallucinations: Status: Acute Code(s): R44.2 - Other hallucinations Assessment and Plan: Pt is a 76 y.o. male who presented to [facility] ED on 09/20/21 reporting tactile hallucinations. Pt reporting feeling plagued by a physical sensation of bugs crawling all over his body with recent ED visits in 08/27 with similar presentation. Pt is denying mood sx or A/VH. Denies delusional thought content/ paranoia. No hx of manic or hypomanic episodes endorsed. No substance or alcohol abuse. Pt is clearly distressed over sx and is tearful, reports increasingly poor sleep. Has had lack of benefit on PO benadryl or hydrocortisone. Plan: Increase zyprexa to 5 mg QHS (started in [facility] ED at 2.5 mg on 09/21) to target poor sleep, anxious distress, and tactile hallucination. Continue benadryl 50 mg QHS, as pt is now saying this mildly helps and he would like to continue. I suspect pt has undiagnosed dementia process that may be contributing to hallucinations, would benefit from MOCA assessment MRI showing possible microvascular disease. 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 will cut olanzapine and anti-cholinergics other than gabapentin for the time being to decrease likelihood of delirium or exacerbation if LBD. DC of olanzapine and addition of VPA seems to have resulted in better orientation, resolution of VH, improvement of paresthesias.? neuro saw pt for R/O LBD (see their assessment below). will reinstate zyprexa 2.5 mg at HS after review of neurology consult findings. neuro-recommended labs and imaging ordered 09/28. B12/folate, TSH/T4 WNL. per neuro eval 09/28: 76 years old man with new onset of what has been described as tactile hallucinations. He has been talking about uncomfortable bug crawling type of feeling or itching on his body and head. Hallucination was 1 way to describe this. Sometime patients with so-called neurodermatitis can also present this way with itching cause but no obvious physical reason. His overall presentation was not typical of Lewy body dementia. Some other rapidly progressive dementia as could be a consideration but a diagnosis was not possible at this time. In this category, 1 Creutz-Feldt Neel disease but his MRI, which can help in this condition to make a diagnosis, did not reveal any such finding. Apparently he has responded well to Zyprexa and my recommendations would be continue relatively small dose of an antipsychotic like Zyprexa. Clinical follow-up should continue to help refine diagnosis further during next 6-12 months. A brief dementia workup including serum B12 level, test for syphilis and Lyme, sed rate and MICHELLE are also recommended. There is no obvious indication of an infection and I am not suggesting CSF analysis at this time other than that, he has significant findings of lower motor neuron pathology in upper extremities, especially in left upper extremity, with relative hyper reflexia of knees. 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 An MRI of cervical spine is recommended for further evaluation. 09/29: Showing signs of improvement. Continue current regimen. No changes were made today I spent minutes with the patient and/or on the patient floor today, greater than?50% of which was spent counseling/coordinating care. Reason for contiued inpatient stay Substantial Risk for: other
--- NOTE | 2021-09-29 08:20 | HO.PSYCHPN ---
Subjective Subjective Reason For Visit: Tactile Hallucinations Diagnostics Vital Signs (24Hr): Vital Signs - 24 hr 09/28/21 18:00 09/28/21 22:34 Temperature 99.9 F 99.2 F Pulse Rate 90 83 Respiratory Rate 16 16 Blood Pressure 158/86 H 147/58 H Pulse Oximetry 100 99 BMI result Body Mass Index 23.1 Labs Results: 09/20/21 15:32 09/20/21 15:32 Labs: Laboratory Results - last 48 hr 09/28/21 09/28/21 16:06 16:06 ESR 5 Estimat Average Glucose 117 Hemoglobin A1c % 5.7 Imaging Radiology Impressions: ITS Impressions Chest X-Ray 09/25/21 18:56 IMPRESSION: No radiopaque foreign body. No acute cardiopulmonary findings. Skull X-Ray 09/25/21 18:56 IMPRESSION: No radiopaque foreign body. Brain MRI 09/25/21 19:30 IMPRESSION: No acute intracranial process. Nonspecific mild scattered white matter signal changes which may be due to microangiopathy. Cervical Spine MRI 09/28/21 20:25 IMPRESSION: 1. At C6-C7 there is a broad-based posterior disc protrusion with compression of the cord and there is moderate to severe central stenosis. There is severe left and moderate right foraminal narrowing. 2. At C3-C4 there is a broad-based posterior soft disc protrusion with mild flattening of the cord and there is mild to moderate central stenosis. There is mild bilateral foraminal narrowing. 3. At C5-C6 there is a posterior disc osteophyte complex with effacement of CSF ventral to the spinal cord but there is no spinal cord compression. There is mild central stenosis. Mild bilateral foraminal narrowing. 4. At C7-T1 there is a broad-based posterior disc protrusion. There is mild central stenosis is moderate bilateral foraminal narrowing. 5. There are prominent flowing osteophytes with fatty signal anteriorly at C4-C5 and C5-C6. Medications Medications Current Medications Acetaminophen (Acetaminophen 325 Mg Tablet) 650 mg PO Q6H PRN PRN Reason: Headache/Pain Mild Scale (1-3) Al Hydroxide/Mg Hydroxide (Magnesium Hydrox/Alum Hydrox 30 Ml Oral.Susp) 30 ml PO Q6H PRN PRN Reason: Heartburn/Nausea Cyanocobalamin (Cyanocobalamin (Vitamin B-12) 1,000 Mcg Tablet) 1,000 mcg PO DAILY [facility] Last Admin: 09/28/21 10:18 Dose: 1,000 mcg Documented by: Divalproex Sodium (Divalproex Sodium Er 500 Mg Tab.Er.24h) 500 mg PO BEDTIME [facility] Last Admin: 09/28/21 20:48 Dose: 500 mg Documented by: Gabapentin (Gabapentin 100 Mg Capsule) 100 mg PO TID [facility] Last Admin: 09/28/21 20:48 Dose: 100 mg Documented by: Magnesium Hydroxide (Milk Of Magnesia 30 Ml Oral.Susp) 30 ml PO DAILY PRN PRN Reason: Constipation Multi-Ingred Cream/Lotion/Oil/Oint (Mineral Oil/Petrolatum,White 106 Gm Tube) 1 appl TOPICAL BID [facility]CLUD[facility] Last Admin: 09/28/21 20:48 Dose: 1 appl Documented by: Nicotine Polacrilex (Nicotine Polacrilex 2 Mg Gum) 2 mg BUCCAL Q1H PRN PRN Reason: nicotine craving Last Admin: 09/25/21 22:02 Dose: 2 mg Documented by: Olanzapine (Olanzapine 5 Mg Tablet) 5 mg PO BID PRN PRN Reason: psychosis, agitation, anxiety Last Admin: 09/27/21 20:10 Dose: 5 mg Documented by: Olanzapine (Olanzapine 2.5 Mg Tablet) 2.5 mg PO BEDTIME [facility]CLUD[facility] Last Admin: 09/28/21 20:48 Dose: 2.5 mg Documented by: Trazodone HCl (Trazodone Hcl 50 Mg Tablet) 50 mg PO BEDTIME PRN PRN Reason: Insomnia Last Admin: 09/27/21 20:10 Dose: 50 mg Documented by: Allergies Allergies Allergy/AdvReac Type Severity Reaction Status Date / Time No Known Allergies Allergy Unknown NONE Verified 12/14/20 00:42 [No Known Allergies*] Assessment & Plan Assessment & Plan (1) Tactile hallucinations: Status: Acute Code(s): R44.2 - Other hallucinations Assessment and Plan: Pt is a 76 y.o. male who presented to [facility] ED on 09/20/21 reporting tactile hallucinations. Pt reporting feeling plagued by a physical sensation of bugs crawling all over his body with recent ED visits in 08/27 with similar presentation. Pt is denying mood sx or A/VH. Denies delusional thought content/ paranoia. No hx of manic or hypomanic episodes endorsed. No substance or alcohol abuse. Pt is clearly distressed over sx and is tearful, reports increasingly poor sleep. Has had lack of benefit on PO benadryl or hydrocortisone. Plan: Increase zyprexa to 5 mg QHS (started in [facility] ED at 2.5 mg on 09/21) to target poor sleep, anxious distress, and tactile hallucination. Continue benadryl 50 mg QHS, as pt is now saying this mildly helps and he would like to continue. I suspect pt has undiagnosed dementia process that may be contributing to hallucinations, would benefit from MOCA assessment MRI showing possible microvascular disease. 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 will cut olanzapine and anti-cholinergics other than gabapentin for the time being to decrease likelihood of delirium or exacerbation if LBD. DC of olanzapine and addition of VPA seems to have resulted in better orientation, resolution of VH, improvement of paresthesias.? neuro saw pt for R/O LBD (see their assessment below). will reinstate zyprexa 2.5 mg at HS after review of neurology consult findings. neuro-recommended labs and imaging ordered 09/28. B12/folate, TSH/T4 WNL. per neuro eval 09/28: 76 years old man with new onset of what has been described as tactile hallucinations. He has been talking about uncomfortable bug crawling type of feeling or itching on his body and head. Hallucination was 1 way to describe this. Sometime patients with so-called neurodermatitis can also present this way with itching cause but no obvious physical reason. His overall presentation was not typical of Lewy body dementia. Some other rapidly progressive dementia as could be a consideration but a diagnosis was not possible at this time. In this category, 1 Creutz-Feldt Neel disease but his MRI, which can help in this condition to make a diagnosis, did not reveal any such finding. Apparently he has responded well to Zyprexa and my recommendations would be continue relatively small dose of an antipsychotic like Zyprexa. Clinical follow-up should continue to help refine diagnosis further during next 6-12 months. A brief dementia workup including serum B12 level, test for syphilis and Lyme, sed rate and MICHELLE are also recommended. There is no obvious indication of an infection and I am not suggesting CSF analysis at this time other than that, he has significant findings of lower motor neuron pathology in upper extremities, especially in left upper extremity, with relative hyper reflexia of knees. 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 An MRI of cervical spine is recommended for further evaluation. 09/29: Showing signs of improvement. Continue current regimen. No changes were made today I spent minutes with the patient and/or on the patient floor today, greater than?50% of which was spent counseling/coordinating care.
[2021-09-29 08:27] LABS: Syphilis Screen Nonreactive (Nonreactive)
[2021-09-29] MEDS: Cyanocobalamin (Vitamin B-12) 1,000 MCG TABLET 1000 MCG PO (09:12)
[2021-09-29] MEDS: Gabapentin 100 MG CAPSULE PO ×3 (09:12→21:27)
[2021-09-29 09:15] VITALS: BP 178/77; PULSE 76; RESP 18; TEMP 36.8; O2SAT 98
[2021-09-29 10:00] VITALS: BP 179/79; PULSE 76
[2021-09-29 10:55] VITALS: BP 179/79; PULSE 76
[2021-09-29] MEDS: cloNIDine HCL 0.1 MG TABLET PO (10:55)
[2021-09-29 12:00] VITALS: BP 116/56; PULSE 71
--- NOTE | 2021-09-29 13:53 | MHC.CLN ---
F/U VARIABLE INTAKE. CONTINUE REGULAR DIET AND ENSURE SUPPLEMENT TID. RD TO FOLLOW WEEKLY.
[2021-09-29 18:00] VITALS: BP 128/74; PULSE 104; TEMP 36.7; O2SAT 97
[2021-09-29] MEDS: OLANZapine 2.5 MG TABLET PO (21:27)
[2021-09-29] MEDS: Divalproex Sodium ER 500 MG TAB.ER.24H PO (21:27)
[2021-09-30 08:00] VITALS: BP 164/72; PULSE 73; TEMP 36; O2SAT 99
--- NOTE | 2021-09-30 08:49 | P.PNPSI_ITS ---
Subjective Subjective Date of Service: 09/30/21 Reason For Visit: Tactile Hallucinations Subjective Notes: Conditional Voluntary Medical Problems Affecting Mental Status: No Interim History: Patient was seen in rounds today. He was laying in bed. Minimally interactive. Soft-spoken speech. Good eye contact. Affect is constricted. Continues to be quite isolative and in bed a lot. Appears to be less depressed. Soft. He is med compliant. He continues to have some visual hallucinations. He is social with Ukrainian-speaking patient's. No complaints or side effects. No changes were made Medication Compliance: Yes Side effects from medications: No Attending Groups: No Review of Systems Review of Systems Yes all other systems are reviewed and are negative Diagnostics Vital Signs (24Hr): Vital Signs - 24 hr 09/29/21 09:15 09/29/21 10:00 09/29/21 10:55 Temperature 98.3 F Pulse Rate 76 76 76 Respiratory Rate 18 Blood Pressure 178/77 H 179/79 H 179/79 H Pulse Oximetry 98 09/29/21 12:00 09/29/21 18:00 Temperature 98.0 F Pulse Rate 71 104 H Respiratory Rate Blood Pressure 116/56 L 128/74 Pulse Oximetry 97 BMI result Body Mass Index 23.1 Labs Results: 09/20/21 15:32 09/20/21 15:32 Labs: Laboratory Results - last 48 hr 09/28/21 09/28/21 09/28/21 16:06 16:06 16:06 ESR 5 Estimat Average Glucose 117 Hemoglobin A1c % 5.7 T.pallidum Ab (EIA) Nonreactive Imaging Radiology Impressions: ITS Impressions Chest X-Ray 09/25/21 18:56 IMPRESSION: No radiopaque foreign body. No acute cardiopulmonary findings. Skull X-Ray 09/25/21 18:56 IMPRESSION: No radiopaque foreign body. Brain MRI 09/25/21 19:30 IMPRESSION: No acute intracranial process. Nonspecific mild scattered white matter signal changes which may be due to microangiopathy. Cervical Spine MRI 09/28/21 20:25 IMPRESSION: 1. At C6-C7 there is a broad-based posterior disc protrusion with compression of the cord and there is moderate to severe central stenosis. There is severe left and moderate right foraminal narrowing. 2. At C3-C4 there is a broad-based posterior soft disc protrusion with mild flattening of the cord and there is mild to moderate central stenosis. There is mild bilateral foraminal narrowing. 3. At C5-C6 there is a posterior disc osteophyte complex with effacement of CSF ventral to the spinal cord but there is no spinal cord compression. There is mild central stenosis. Mild bilateral foraminal narrowing. 4. At C7-T1 there is a broad-based posterior disc protrusion. There is mild central stenosis is moderate bilateral foraminal narrowing. 5. There are prominent flowing osteophytes with fatty signal anteriorly at C4-C5 and C5-C6. Medications Medications Current Medications Acetaminophen (Acetaminophen 325 Mg Tablet) 650 mg PO Q6H PRN PRN Reason: Headache/Pain Mild Scale (1-3) Al Hydroxide/Mg Hydroxide (Magnesium Hydrox/Alum Hydrox 30 Ml Oral.Susp) 30 ml PO Q6H PRN PRN Reason: Heartburn/Nausea Clonidine HCl (Clonidine Hcl 0.1 Mg Tablet) 0.1 mg PO BID PRN; Protocol PRN Reason: SBP >145 Last Admin: 09/29/21 10:55 Dose: 0.1 mg Documented by: Cyanocobalamin (Cyanocobalamin (Vitamin B-12) 1,000 Mcg Tablet) 1,000 mcg PO DAILY [facility] Last Admin: 09/29/21 09:12 Dose: 1,000 mcg Documented by: Divalproex Sodium (Divalproex Sodium Er 500 Mg Tab.Er.24h) 500 mg PO BEDTIME [facility] Last Admin: 09/29/21 21:27 Dose: 500 mg Documented by: Gabapentin (Gabapentin 100 Mg Capsule) 100 mg PO TID [facility] Last Admin: 09/29/21 21:27 Dose: 100 mg Documented by: Magnesium Hydroxide (Milk Of Magnesia 30 Ml Oral.Susp) 30 ml PO DAILY PRN PRN Reason: Constipation Multi-Ingred Cream/Lotion/Oil/Oint (Mineral Oil/Petrolatum,White 106 Gm Tube) 1 appl TOPICAL BID [facility] Last Admin: 09/30/21 02:10 Dose: Not Given Documented by: Nicotine Polacrilex (Nicotine Polacrilex 2 Mg Gum) 2 mg BUCCAL Q1H PRN PRN Reason: nicotine craving Last Admin: 09/25/21 22:02 Dose: 2 mg Documented by: Olanzapine (Olanzapine 5 Mg Tablet) 5 mg PO BID PRN PRN Reason: psychosis, agitation, anxiety Last Admin: 09/27/21 20:10 Dose: 5 mg Documented by: Olanzapine (Olanzapine 2.5 Mg Tablet) 2.5 mg PO BEDTIME [facility] Last Admin: 09/29/21 21:27 Dose: 2.5 mg Documented by: Trazodone HCl (Trazodone Hcl 50 Mg Tablet) 50 mg PO BEDTIME PRN PRN Reason: Insomnia Last Admin: 09/27/21 20:10 Dose: 50 mg Documented by: Allergies Allergies Allergy/AdvReac Type Severity Reaction Status Date / Time No Known Allergies Allergy Unknown NONE Verified 12/14/20 00:42 [No Known Allergies*] Assessment & Plan Assessment & Plan (1) Tactile hallucinations: Status: Acute Code(s): R44.2 - Other hallucinations Assessment and Plan: Pt is a 76 y.o. male who presented to [facility] ED on 09/20/21 reporting tactile h allucinations. Pt reporting feeling plagued by a physical sensation of bugs crawling all over his body with recent ED visits in 08/27 with similar presentation. Pt is denying mood sx or A/VH. Denies delusional thought content/ paranoia. No hx of manic or hypomanic episodes endorsed. No substance or alcohol abuse. Pt is clearly distressed over sx and is tearful, reports increasingly poor sleep. Has had lack of benefit on PO benadryl or hydrocortisone. Plan: Increase zyprexa to 5 mg QHS (started in [facility] ED at 2.5 mg on 09/21) to target poor sleep, anxious distress, and tactile hallucination. Continue benadryl 50 mg QHS, as pt is now saying this mildly helps and he would like to continue. I suspect pt has undiagnosed dementia process that may be contributing to hallucinations, would benefit from MOCA assessment MRI showing possible microvascular disease. 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 will cut olanzapine and anti-cholinergics other than gabapentin for the time being to decrease likelihood of delirium or exacerbation if LBD. DC of olanzapine and addition of VPA seems to have resulted in better orientation, resolution of VH, improvement of paresthesias.? neuro saw pt for R/O LBD (see their assessment below). will reinstate zyprexa 2.5 mg at HS after review of neurology consult findings. neuro-recommended labs and imaging ordered 09/28. B12/folate, TSH/T4 WNL. per neuro eval 09/28: 76 years old man with new onset of what has been described as tactile hallucina tions. He has been talking about uncomfortable bug crawling type of feeling or itching on his body and head. Hallucination was 1 way to describe this. Sometime patients with so-called neurodermatitis can also present this way with itching cause but no obvious physical reason. His overall presentation was not typical of Lewy body dementia. Some other rapidly progressive dementia as could be a consideration but a diagnosis was not possible at this time. In this category, 1 Creutz-Feldt Neel disease but his MRI, which can help in this condition to make a diagnosis, did not reveal any such finding. Apparently he has responded well to Zyprexa and my recommendations would be continue relat ively small dose of an antipsychotic like Zyprexa. Clinical follow-up should continue to help refine diagnosis further during next 6-12 months. A brief dementia workup including serum B12 level, test for syphilis and Lyme, sed rate and MICHELLE are also recommended. There is no obvious indication of an infection and I am not suggesting CSF analysis at this time other than that, he has significant findings of lower motor neuron pathology in upper extremities, especially in left upper extremity, with relative hyper reflexia of knees. 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 An MRI of cervical spine is recommended for further evaluation. 09/29: Showing signs of improvement. Continue current regimen. No changes were made today 09/30: Continue current plans and regimen I spent minutes with the patient and/or on the patient floor today, greater than?50% of which was spent counseling/coordinating care. Reason for contiued inpatient stay Substantial Risk for: other
[2021-09-30] MEDS: Gabapentin 100 MG CAPSULE PO ×3 (09:13→22:55)
[2021-09-30] MEDS: Mineral Oil/Petrolatum,White 106 GM Tube 1 APPL TOPICAL (09:13)
[2021-09-30] MEDS: Cyanocobalamin (Vitamin B-12) 1,000 MCG TABLET 1000 MCG PO (09:13)
[2021-09-30] MEDS: Divalproex Sodium ER 500 MG TAB.ER.24H PO (22:55)
[2021-09-30] MEDS: OLANZapine 2.5 MG TABLET PO (22:55)
[2021-09-30 23:12] VITALS: BP 174/75; PULSE 71; TEMP 36.8; O2SAT 100
--- NOTE | 2021-10-01 09:24 | HO.PSYCHPN ---
Subjective Subjective Date of Service: 10/01/21 Reason For Visit: Tactile Hallucinations Medical Problems Affecting Mental Status: No (Was seen in rounds today. He continues to be mostly isolative in his room.) Interim History: Patient was seen in rounds today. Discussed in rounds and records were reviewed. He continues to be mostly isolative in his room. He is med compliant. Eating and sleeping adequately. No longer having tactile hallucinations. No changes were made today and current regimen is maintained Medication Compliance: Yes Side effects from medications: No Review of Systems Review of Systems Yes all other systems are reviewed and are negative Mental Status Exam Mental Status Exam Narrative: Patient was seen in rounds today. He is alert, pleasant and minimally interactive. Some speech issues observed. He denies any auditory or visual hallucinations which were present earlier. No SI. No HI. Reports of some cognitive deficits but was not examined formally. Judgment is intact. Diagnostics Vital Signs (24Hr): Vital Signs - 24 hr 09/30/21 23:12 Temperature 98.3 F Pulse Rate 71 Blood Pressure 174/75 H Pulse Oximetry 100 BMI result Body Mass Index 23.1 Labs Results: 09/20/21 15:32 09/20/21 15:32 Imaging Radiology Impressions: ITS Impressions Chest X-Ray 09/25/21 18:56 IMPRESSION: No radiopaque foreign body. No acute cardiopulmonary findings. Skull X-Ray 09/25/21 18:56 IMPRESSION: No radiopaque foreign body. Brain MRI 09/25/21 19:30 IMPRESSION: No acute intracranial process. Nonspecific mild scattered white matter signal changes which may be due to microangiopathy. Cervical Spine MRI 09/28/21 20:25 IMPRESSION: 1. At C6-C7 there is a broad-based posterior disc protrusion with compression of the cord and there is moderate to severe central stenosis. There is severe left and moderate right foraminal narrowing. 2. At C3-C4 there is a broad-based posterior soft disc protrusion with mild flattening of the cord and there is mild to moderate central stenosis. There is mild bilateral foraminal narrowing. 3. At C5-C6 there is a posterior disc osteophyte complex with effacement of CSF ventral to the spinal cord but there is no spinal cord compression. There is mild central stenosis. Mild bilateral foraminal narrowing. 4. At C7-T1 there is a broad-based posterior disc protrusion. There is mild central stenosis is moderate bilateral foraminal narrowing. 5. There are prominent flowing osteophytes with fatty signal anteriorly at C4-C5 and C5-C6. Medications Medications Current Medications Acetaminophen (Acetaminophen 325 Mg Tablet) 650 mg PO Q6H PRN PRN Reason: Headache/Pain Mild Scale (1-3) Al Hydroxide/Mg Hydroxide (Magnesium Hydrox/Alum Hydrox 30 Ml Oral.Susp) 30 ml PO Q6H PRN PRN Reason: Heartburn/Nausea Clonidine HCl (Clonidine Hcl 0.1 Mg Tablet) 0.1 mg PO BID PRN; Protocol PRN Reason: SBP >145 Last Admin: 09/29/21 10:55 Dose: 0.1 mg Documented by: Cyanocobalamin (Cyanocobalamin (Vitamin B-12) 1,000 Mcg Tablet) 1,000 mcg PO DAILY [facility] Last Admin: 09/30/21 09:13 Dose: 1,000 mcg Documented by: Divalproex Sodium (Divalproex Sodium Er 500 Mg Tab.Er.24h) 500 mg PO BEDTIME KELLY Last Admin: 09/30/21 22:55 Dose: 500 mg Documented by: Gabapentin (Gabapentin 100 Mg Capsule) 100 mg PO TID [facility] Last Admin: 09/30/21 22:55 Dose: 100 mg Documented by: Magnesium Hydroxide (Milk Of Magnesia 30 Ml Oral.Susp) 30 ml PO DAILY PRN PRN Reason: Constipation Multi-Ingred Cream/Lotion/Oil/Oint (Mineral Oil/Petrolatum,White 106 Gm Tube) 1 appl TOPICAL BID [facility] Last Admin: 10/01/21 00:40 Dose: Not Given Documented by: Nicotine Polacrilex (Nicotine Polacrilex 2 Mg Gum) 2 mg BUCCAL Q1H PRN PRN Reason: nicotine craving Last Admin: 09/25/21 22:02 Dose: 2 mg Documented by: Olanzapine (Olanzapine 5 Mg Tablet) 5 mg PO BID PRN PRN Reason: psychosis, agitation, anxiety Last Admin: 09/27/21 20:10 Dose: 5 mg Documented by: Olanzapine (Olanzapine 2.5 Mg Tablet) 2.5 mg PO BEDTIME KELLY Last Admin: 09/30/21 22:55 Dose: 2.5 mg Documented by: Trazodone HCl (Trazodone Hcl 50 Mg Tablet) 50 mg PO BEDTIME PRN PRN Reason: Insomnia Last Admin: 09/27/21 20:10 Dose: 50 mg Documented by: Allergies Allergies Allergy/AdvReac Type Severity Reaction Status Date / Time No Known Allergies Allergy Unknown NONE Verified 12/14/20 00:42 [No Known Allergies*] Assessment & Plan Assessment & Plan (1) Tactile hallucinations: Status: Acute Code(s): R44.2 - Other hallucinations Assessment and Plan: Pt is a 76 y.o. male who presented to [facility] ED on 09/20/21 reporting tactile hallucinations. Pt reporting feeling plagued by a physical sensation of bugs crawling all over his body with recent ED visits in 08/27 with similar presentation. Pt is denying mood sx or A/VH. Denies delusional thought content/ paranoia. No hx of manic or hypomanic episodes endorsed. No substance or alcohol abuse. Pt is clearly distressed over sx and is tearful, reports increasingly poor sleep. Has had lack of benefit on PO benadryl or hydrocortisone. Plan: Increase zyprexa to 5 mg QHS (started in [facility] at 2.5 mg on 09/21) to target poor sleep, anxious distress, and tactile hallucination. Continue benadryl 50 mg QHS, as pt is now saying this mildly helps and he would like to continue. I suspect pt has undiagnosed dementia process that may be contributing to hallucinations, would benefit from MOCA assessment MRI showing possible microvascular disease. 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 will cut olanzapine and anti-cholinergics other than gabapentin for the time being to decrease likelihood of delirium or exacerbation if LBD. DC of olanzapine and addition of VPA seems to have resulted in better orientation, resolution of VH, improvement of paresthesias.? neuro saw pt for R/O LBD (see their assessment below). will reinstate zyprexa 2.5 mg at HS after review of neurology consult findings. neuro-recommended labs and imaging ordered 09/28. B12/folate, TSH/T4 WNL. per neuro eval 09/28: 76 years old man with new onset of what has been described as tactile hallucinations. He has been talking about uncomfortable bug crawling type of feeling or itching on his body and head. Hallucination was 1 way to describe this. Sometime patients with so-called neurodermatitis can also present this way with itching cause but no obvious physical reason. His overall presentation was not typical of Lewy body dementia. Some other rapidly progressive dementia as could be a consideration but a diagnosis was not possible at this time. In this category, 1 Creutz-Feldt Neel disease but his MRI, which can help in this condition to make a diagnosis, did not reveal any such finding. Apparently he has responded well to Zyprexa and my recommendations would be continue relatively small dose of an antipsychotic like Zyprexa. Clinical follow-up should continue to help refine diagnosis further during next 6-12 months. A brief dementia workup including serum B12 level, test for syphilis and Lyme, sed rate and MICHELLE are also recommended. There is no obvious indication of an infection and I am not suggesting CSF analysis at this time other than that, he has significant findings of lower motor neuron pathology in upper extremities, especially in left upper extremity, with relative hyper reflexia of knees. 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 An MRI of cervical spine is recommended for further evaluation. 09/29: Showing signs of improvement. Continue current regimen. No changes were made today 09/30: Continue current plans and regimen 10/01: Continue current regimen and plans I spent minutes with the patient and/or on the patient floor today, greater than?50% of which was spent counseling/coordinating care. Reason for contiued inpatient stay Substantial Risk for: other
[2021-10-01 09:45] VITALS: BP 144/66; PULSE 72; RESP 16; TEMP 36.8; O2SAT 99
[2021-10-01] MEDS: Cyanocobalamin (Vitamin B-12) 1,000 MCG TABLET 1000 MCG PO (10:42)
[2021-10-01] MEDS: Gabapentin 100 MG CAPSULE PO ×3 (10:42→21:01)
[2021-10-01] MEDS: Mineral Oil/Petrolatum,White 106 GM Tube 1 APPL TOPICAL (12:22)
[2021-10-01 18:00] VITALS: BP 166/72; PULSE 88; RESP 18; TEMP 36.9; O2SAT 100
[2021-10-01] MEDS: OLANZapine 2.5 MG TABLET PO (21:01)
[2021-10-01] MEDS: Divalproex Sodium ER 500 MG TAB.ER.24H PO (21:01)
[2021-10-01 22:02] LABS: Anti Nuclear Antibody Screen NEGATIVE (NEGATIVE)
--- NOTE | 2021-10-02 08:49 | P.PNPSI_ITS ---
Subjective Subjective Date of Service: 10/02/21 Reason For Visit: Tactile Hallucinations Subjective Notes: 3 Day Interim History: Pt presents with bright affect, reports feeling much better than whe he first came in that he is no longer experiencing leg pain/discomfort, which pt had attributed to thinking there were bugs crawling on his skin. Pt denies symptoms of depression and anxiety. Pt reports living in hotel which he claimes he does not have to pay. he reports having very limited social supports. He reports there is one friend who is close to him. There has been significant concerns in terms of pt ability to care for himself due to cognitive impairments. Today we completed MOCA, pt scored /30- significant impairment in executive function, naming, attention, language repetition, fluency, abstraction and orientation. Pt does not know the year or month. Medication Compliance: Yes Side effects from medications: No Attending Groups: No Review of Systems Review of Systems Yes all other systems are reviewed and are negative Mental Status Exam Mental Status Exam Narrative: Pt is wearing hospital gown, ambulating on his own, steady gait, no acute distress. Pt is cooperative and friendly, easily engages in conversation with this science writer. Speech is clear, normal rate/rhythm, soft spoken, spontaneous. TP: mostly linear. TC: no signs of psychosis. Mood: good, affect is bright, congruent, non labile. AH/VH: none. Insight/judgment: limited x 2. MOCA on 10/02- 06/05 most impairment in executive function, naming, attention, or ientation, language repetition/fluency and abstraction. Diagnostics Vital Signs (24Hr): Vital Signs - 24 hr 10/02/21 09:10 10/02/21 09:11 10/02/21 10:30 Temperature 97.8 F Pulse Rate 88 88 76 Respiratory Rate 18 Blood Pressure 180/91 H 180/91 H 165/74 H Pulse Oximetry 100 10/02/21 14:36 10/02/21 18:00 Temperature 97.9 F Pulse Rate 78 76 Respiratory Rate 18 Blood Pressure 121/65 156/76 H Pulse Oximetry 98 BMI result Body Mass Index 23.1 Labs Results: 09/20/21 15:32 10/02/21 11:48 Labs: Laboratory Results - last 48 hr 09/28/21 09/28/21 10/02/21 16:06 16:06 11:48 Sodium 141 Potassium 4.7 Chloride 100 Carbon Dioxide 37 H Anion Gap 9 L BUN 23 H D Creatinine 1.03 Estim Creat Clear Calc 49.1 Estimated GFR > 60 Random Glucose 149 H Calcium 10.2 Iron 111 TIBC 305 % Saturation 36 Unsat Iron Binding 194 Total Bilirubin 0.4 AST 24 ALT 28 Alkaline Phosphatase 44 Total Protein 7.1 Albumin 4.3 MICHELLE Screen NEGATIVE MICHELLE Titer TNP MICHELLE Titer 2 TNP MICHELLE Titer 3 TNP MICHELLE Pattern TNP MICHELLE Pattern 2 TNP MICHELLE Pattern 3 TNP Lyme Screen IgG & IgM <0.90 Imaging Radiology Impressions: ITS Impressions Chest X-Ray 09/25/21 18:56 IMPRESSION: No radiopaque foreign body. No acute cardiopulmonary findings. Skull X-Ray 09/25/21 18:56 IMPRESSION: No radiopaque foreign body. Brain MRI 09/25/21 19:30 IMPRESSION: No acute intracranial process. Nonspecific mild scattered white matter signal changes which may be due to microangiopathy. Cervical Spine MRI 09/28/21 20:25 IMPRESSION: 1. At C6-C7 there is a broad-based posterior disc protrusion with compression of the cord and there is moderate to severe central stenosis. There is severe left and moderate right foraminal narrowing. 2. At C3-C4 there is a broad-based posterior soft disc protrusion with mild flattening of the cord and there is mild to moderate central stenosis. There is mild bilateral foraminal narrowing. 3. At C5-C6 there is a posterior disc osteophyte complex with effacement of CSF ventral to the spinal cord but there is no spinal cord compression. There is mild central stenosis. Mild bilateral foraminal narrowing. 4. At C7-T1 there is a broad-based posterior disc protrusion. There is mild central stenosis is moderate bilateral foraminal narrowing. 5. There are prominent flowing osteophytes with fatty signal anteriorly at C4-C5 and C5-C6. Medications Medications Current Medications Acetaminophen (Acetaminophen 325 Mg Tablet) 650 mg PO Q6H PRN PRN Reason: Headache/Pain Mild Scale (1-3) Al Hydroxide/Mg Hydroxide (Magnesium Hydrox/Alum Hydrox 30 Ml Oral.Susp) 30 ml PO Q6H PRN PRN Reason: Heartburn/Nausea Amlodipine Besylate (Amlodipine Besylate 2.5 Mg Tablet) 2.5 mg PO DAILY KELLY; Protocol Last Admin: 10/02/21 10:30 Dose: 2.5 mg Documented by: Clonidine HCl (Clonidine Hcl 0.1 Mg Tablet) 0.1 mg PO BID PRN; Protocol PRN Reason: SBP >145 Last Admin: 10/02/21 09:11 Dose: 0.1 mg Documented by: Cyanocobalamin (Cyanocobalamin (Vitamin B-12) 1,000 Mcg Tablet) 1,000 mcg PO DAILY [facility] Last Admin: 10/02/21 09:12 Dose: 1,000 mcg Documented by: Divalproex Sodium (Divalproex Sodium Er 500 Mg Tab.Er.24h) 500 mg PO BEDTIME KELLY Last Admin: 10/02/21 22:28 Dose: 500 mg Documented by: Gabapentin (Gabapentin 100 Mg Capsule) 100 mg PO TID [facility] Last Admin: 10/02/21 22:28 Dose: 100 mg Documented by: Magnesium Hydroxide (Milk Of Magnesia 30 Ml Oral.Susp) 30 ml PO DAILY PRN PRN Reason: Constipation Multi-Ingred Cream/Lotion/Oil/Oint (Mineral Oil/Petrolatum,White 106 Gm Tube) 1 appl TOPICAL BID [facility] Last Admin: 10/02/21 22:28 Dose: 1 appl Documented by: Nicotine Polacrilex (Nicotine Polacrilex 2 Mg Gum) 2 mg BUCCAL Q1H PRN PRN Reason: nicotine craving Last Admin: 09/25/21 22:02 Dose: 2 mg Documented by: Olanzapine (Olanzapine 5 Mg Tablet) 5 mg PO BID PRN PRN Reason: psychosis, agitation, anxiety Last Admin: 09/27/21 20:10 Dose: 5 mg Documented by: Olanzapine (Olanzapine 2.5 Mg Tablet) 2.5 mg PO BEDTIME [facility] Last Admin: 10/02/21 22:28 Dose: 2.5 mg Documented by: Trazodone HCl (Trazodone Hcl 50 Mg Tablet) 50 mg PO BEDTIME PRN PRN Reason: Insomnia Last Admin: 09/27/21 20:10 Dose: 50 mg Documented by: Allergies Allergies Allergy/AdvReac Type Severity Reaction Status Date / Time No Known Allergies Allergy Unknown NONE Verified 12/14/20 00:42 [No Known Allergies*] Assessment & Plan Assessment & Plan (1) Tactile hallucinations: Status: Acute Code(s): R44.2 - Other hallucinations Assessment and Plan: Pt is a 76 y.o. male who presented to [facility] ED on 09/20/21 reporting tactile hallucinations. Pt reporting feeling plagued by a physical sensation of bugs crawling all over his body with recent ED visits in 08/27 with similar presentation. Pt is denying mood sx or A/VH. Denies delusional thought content/ paranoia. No hx of manic or hypomanic episodes endorsed. No substance or alcohol abuse. Pt is clearly distressed over sx and is tearful, reports increasingly poor sleep. Has had lack of benefit on PO benadryl or hydrocortisone. Plan: Increase zyprexa to 5 mg QHS (started in [facility] at 2.5 mg on 09/21) to target poor sleep, anxious distress, and tactile hallucination. Continue benadryl 50 mg QHS, as pt is now saying this mildly helps and he would like to continue. I suspect pt has undiagnosed dementia process that may be contributing to hallucinations, would benefit from MOCA assessment MRI showing possible microvascular disease. 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 will cut olanzapine and anti-cholinergics other than gabapentin for the time being to decrease likelihood of delirium or exacerbation if LBD. DC of olanzapine and addition of VPA seems to have resulted in better shellie entation, resolution of VH, improvement of paresthesias.? neuro saw pt for R/O LBD (see their assessment below). will reinstate zyprexa 2.5 mg at HS after review of neurology consult findings. neuro-recommended labs and imaging ordered 09/28. B12/folate, TSH/T4 WNL. per neuro eval 09/28: 76 years old man with new onset of what has been described as tactile hallucinations. He has been talking about uncomfortable bug crawling type of feeling or itching on his body and head. Hallucination was 1 way to describe this. Sometime patients with so-called neurodermatitis can also present this way with itching cause but no obvious physical reason. His overall presentation was not typical of Lewy body dementia. Some other rapidly progressive dementia as could be a consideration but a diagnosis was not possible at this time. In this category, 1 Creutz-Feldt Neel disease but his MRI, which can help in this condition to make a diagnosis, did not reveal any such finding. Apparently he has responded well to Zyprexa and my recommendations would be continue relatively small dose of an antipsychotic like Zyprexa. Clinical follow-up should continue to help refine diagnosis further during next 6-12 months. A brief dementia workup including serum B12 level, test for syphilis and Lyme, sed rate and MICHELLE are also recommended. There is no obvious indication of an infection and I am not suggesting CSF analysis at this time other than that, he has significant findings of lower motor neuron pathology in upper extremities, especially in left upper extremity, with relative hyper reflexia of knees. 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 An MRI of cervical spine is recommended for further evaluation. 09/29: Showing signs of improvement. Continue current regimen. No changes were made today 09/30: Continue current plans and regimen 10/01: Continue current regimen and plans 10/02: pt with significant memory/cognitive impairments. MOCA today 06/05, severe impairments in executive function, orientation, language repetition, naming, attention, abstraction. Pt mood stable and no signs of psychosis to consider invalid results or not adequate effort. I spent minutes with the patient and/or on the patient floor today, greater than?50% of which was spent counseling/coordinating care. Reason for contiued inpatient stay Substantial Risk for: inability to function
[2021-10-02 09:10] VITALS: BP 180/91; PULSE 88; RESP 18; TEMP 36.6; O2SAT 100
[2021-10-02 09:11] VITALS: BP 180/91; PULSE 88
[2021-10-02] MEDS: cloNIDine HCL 0.1 MG TABLET PO (09:11)
[2021-10-02] MEDS: Gabapentin 100 MG CAPSULE PO ×3 (09:11→22:28)
[2021-10-02] MEDS: Cyanocobalamin (Vitamin B-12) 1,000 MCG TABLET 1000 MCG PO (09:12)
[2021-10-02 10:30] VITALS: BP 165/74; PULSE 76
[2021-10-02] MEDS: amLODIPine Besylate 2.5 MG TABLET PO (10:30)
[2021-10-02 12:17] LABS: Alanine Aminotransferase 28 U/L (0-40); Albumin Level 4.3 g/dL (3.5-5.0); Alkaline Phosphatase 44 U/L (39-117); Anion Gap 9 (12-20); Aspartate Amino Transferase 24 U/L (5-37); Blood Urea Nitrogen 23 mg/dL (9-16); Calcium 10.2 mg/dL (8.4-10.2); Carbon Dioxide 37 mmol/L (22-29); Chloride 100 mmol/L (96-108); Creatinine Clr Calc Pharmacy 49.1; Estimated Glomerular Filt Rate > 60; Glucose Random 149 mg/dL (60-115); Iron 111 mcg/dL (45-160); Percent Iron Saturation 36 % (15-50); Potassium 4.7 mmol/L (3.3-5.1); Sodium 141 mmol/L (135-145); Total Iron Binding Capacity 305 mcg/dL (228-428); Total Protein 7.1 g/dL (6.5-8.0); Unsaturated Iron Binding 194 ug/dL
[2021-10-02 12:24] LABS: Bilirubin Total 0.4 mg/dL (0.0-1.0)
[2021-10-02 14:36] VITALS: BP 121/65; PULSE 78
[2021-10-02 17:45] LABS: Lyme Abs Screen <0.90 index
[2021-10-02 18:00] VITALS: BP 156/76; PULSE 76; RESP 18; TEMP 36.6; O2SAT 98
[2021-10-02] MEDS: OLANZapine 2.5 MG TABLET PO (22:28)
[2021-10-02] MEDS: Mineral Oil/Petrolatum,White 106 GM Tube 1 APPL TOPICAL (22:28)
[2021-10-02] MEDS: Divalproex Sodium ER 500 MG TAB.ER.24H PO (22:28)
--- NOTE | 2021-10-03 08:39 | HO.PSYCHPN ---
Subjective Subjective Date of Service: 10/03/21 Reason For Visit: Tactile Hallucinations Subjective Notes: Conditional Voluntary Interim History: Pt continues to present with bright affect. Pt reports he is not depressed nor anxious. He reports leg pain/discomfort subsided. Less rumination on having bugs crawling on legs. Pt reports eating and sleeping well. He is intermittently visible in the unit. No behavioral concerns. Medication Compliance: Yes Side effects from medications: No Review of Systems Review of Systems Yes all other systems are reviewed and are negative Mental Status Exam Mental Status Exam Narrative: Pt is wearing hospital gown, ambulating on his own, steady gait, no acute distress. Pt is cooperative and friendly, easily engages in conversation with this race and sports book writer. Speech is clear, normal rate/rhythm, soft spoken, spontaneous. TP: mostly linear. TC: no signs of psychosis. Mood: good, affect is bright, congruent, non labile. AH/VH: none. Insight/judgment: limited x 2. MOCA on 10/02- 06/05 most impairment in executive function, naming, attention, orientation, language repetition/fluency and abstraction. Diagnostics Vital Signs (24Hr): Vital Signs - 24 hr 10/03/21 09:27 10/03/21 20:52 Temperature 98.2 F 98.2 F Pulse Rate 82 82 Respiratory Rate 17 Blood Pressure 149/67 H 177/74 H Pulse Oximetry 99 99 BMI result Body Mass Index 23.1 Labs Results: 09/20/21 15:32 10/02/21 11:48 Labs: Laboratory Results - last 48 hr 09/28/21 09/28/21 10/02/21 16:06 16:06 11:48 Sodium 141 Potassium 4.7 Chloride 100 Carbon Dioxide 37 H Anion Gap 9 L BUN 23 H D Creatinine 1.03 Estim Creat Clear Calc 49.1 Estimated GFR > 60 Random Glucose 149 H Calcium 10.2 Iron 111 TIBC 305 % Saturation 36 Unsat Iron Binding 194 Total Bilirubin 0.4 AST 24 ALT 28 Alkaline Phosphatase 44 Total Protein 7.1 Albumin 4.3 MICHELLE Titer TNP MICHELLE Titer 2 TNP MICHELLE Titer 3 TNP MICHELLE Pattern TNP MICHELLE Pattern 2 TNP MICHELLE Pattern 3 TNP Lyme Screen IgG & IgM <0.90 Lyme Progressive Test TNP Imaging Radiology Impressions: ITS Impressions Chest X-Ray 09/25/21 18:56 IMPRESSION: No radiopaque foreign body. No acute cardiopulmonary findings. Skull X-Ray 09/25/21 18:56 IMPRESSION: No radiopaque foreign body. Brain MRI 09/25/21 19:30 IMPRESSION: No acute intracranial process. Nonspecific mild scattered white matter signal changes which may be due to microangiopathy. Cervical Spine MRI 09/28/21 20:25 IMPRESSION: 1. At C6-C7 there is a broad-based posterior disc protrusion with compression of the cord and there is moderate to severe central stenosis. There is severe left and moderate right foraminal narrowing. 2. At C3-C4 there is a broad-based posterior soft disc protrusion with mild flattening of the cord and there is mild to moderate central stenosis. There is mild bilateral foraminal narrowing. 3. At C5-C6 there is a posterior disc osteophyte complex with effacement of CSF ventral to the spinal cord but there is no spinal cord compression. There is mild central stenosis. Mild bilateral foraminal narrowing. 4. At C7-T1 there is a broad-based posterior disc protrusion. There is mild central stenosis is moderate bilateral foraminal narrowing. 5. There are prominent flowing osteophytes with fatty signal anteriorly at C4-C5 and C5-C6. Medications Medications Current Medications Acetaminophen (Acetaminophen 325 Mg Tablet) 650 mg PO Q6H PRN PRN Reason: Headache/Pain Mild Scale (1-3) Al Hydroxide/Mg Hydroxide (Magnesium Hydrox/Alum Hydrox 30 Ml Oral.Susp) 30 ml PO Q6H PRN PRN Reason: Heartburn/Nausea Amlodipine Besylate (Amlodipine Besylate 2.5 Mg Tablet) 2.5 mg PO DAILY KELLY; Protocol Last Admin: 10/03/21 09:27 Dose: 2.5 mg Documented by: Clonidine HCl (Clonidine Hcl 0.1 Mg Tablet) 0.1 mg PO BID PRN; Protocol PRN Reason: SBP >145 Last Admin: 10/02/21 09:11 Dose: 0.1 mg Documented by: Cyanocobalamin (Cyanocobalamin (Vitamin B-12) 1,000 Mcg Tablet) 1,000 mcg PO DAILY [facility] Last Admin: 10/03/21 09:28 Dose: 1,000 mcg Documented by: Divalproex Sodium (Divalproex Sodium Er 500 Mg Tab.Er.24h) 500 mg PO BEDTIME [facility] Last Admin: 10/03/21 20:45 Dose: 500 mg Documented by: Gabapentin (Gabapentin 100 Mg Capsule) 100 mg PO TID [facility] Last Admin: 10/03/21 20:45 Dose: 100 mg Documented by: Magnesium Hydroxide (Milk Of Magnesia 30 Ml Oral.Susp) 30 ml PO DAILY PRN PRN Reason: Constipation Multi-Ingred Cream/Lotion/Oil/Oint (Mineral Oil/Petrolatum,White 106 Gm Tube) 1 appl TOPICAL BID KELLY Last Admin: 10/03/21 20:47 Dose: 1 appl Documented by: Nicotine Polacrilex (Nicotine Polacrilex 2 Mg Gum) 2 mg BUCCAL Q1H PRN PRN Reason: nicotine craving Last Admin: 09/25/21 22:02 Dose: 2 mg Documented by: Olanzapine (Olanzapine 5 Mg Tablet) 5 mg PO BID PRN PRN Reason: psychosis, agitation, anxiety Last Admin: 09/27/21 20:10 Dose: 5 mg Documented by: Olanzapine (Olanzapine 2.5 Mg Tablet) 2.5 mg PO BEDTIME [facility] Last Admin: 10/03/21 20:45 Dose: 2.5 mg Documented by: Trazodone HCl (Trazodone Hcl 50 Mg Tablet) 50 mg PO BEDTIME PRN PRN Reason: Insomnia Last Admin: 09/27/21 20:10 Dose: 50 mg Documented by: Allergies Allergies Allergy/AdvReac Type Severity Reaction Status Date / Time No Known Allergies Allergy Unknown NONE Verified 12/14/20 00:42 [No Known Allergies*] Assessment & Plan Assessment & Plan (1) Tactile hallucinations: Status: Acute Code(s): R44.2 - Other hallucinations Assessment and Plan: Pt is a 76 y.o. male who presented to [facility] ED on 09/20/21 reporting tactile hallucinations. Pt reporting feeling plagued by a physical sensation of bugs crawling all over his body with recent ED visits in 08/27 with similar presentation. Pt is denying mood sx or A/VH. Denies delusional thought content/ paranoia. No hx of manic or hypomanic episodes endorsed. No substance or alcohol abuse. Pt is clearly distressed over sx and is tearful, reports increasingly poor sleep. Has had lack of benefit on PO benadryl or hydrocortisone. Plan: Increase zyprexa to 5 mg QHS (started in [facility] ED at 2.5 mg on 09/21) to target poor sleep, anxious distress, and tactile hallucination. Continue benadryl 50 mg QHS, as pt is now saying this mildly helps and he would like to continue. I suspect pt has undiagnosed dementia process that may be contributing to hallucinations, would benefit from MOCA assessment MRI showing possible microvascular disease. 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 will cut olanzapine and anti-cholinergics other than gabapentin for the time being to decrease likelihood of delirium or exacerbation if LBD. DC of olanzapine and addition of VPA seems to have resulted in better orientation, resolution of VH, improvement of paresthesias.? neuro saw pt for R/O LBD (see their assessment below). will reinstate zyprexa 2.5 mg at HS after review of neurology consult findings. neuro-recommended labs and imaging ordered 09/28. B12/folate, TSH/T4 WNL. per neuro eval 09/28: 76 years old man with new onset of what has been described as tactile hallucinations. He has been talking about uncomfortable bug crawling type of feeling or itching on his body and head. Hallucination was 1 way to describe this. Sometime patients with so-called neurodermatitis can also present this way with itching cause but no obvious physical reason. His overall presentation was not typical of Lewy body dementia. Some other rapidly progressive dementia as could be a consideration but a diagnosis was not possible at this time. In this category, 1 Creutz-Feldt Neel disease but his MRI, which can help in this condition to make a diagnosis, did not reveal any such finding. Apparently he has responded well to Zyprexa and my recommendations would be continue relatively small dose of an antipsychotic like Zyprexa. Clinical follow-up should continue to help refine diagnosis further during next 6-12 months. A brief dementia workup including serum B12 level, test for syphilis and Lyme, sed rate and MICHELLE are also recommended. There is no obvious indication of an infection and I am not suggesting CSF analysis at this time other than that, he has significant findings of lower motor neuron pathology in upper extremities, especially in left upper extremity, with relative hyper reflexia of knees. 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 An MRI of cervical spine is recommended for further evaluation. 09/29: Showing signs of improvement. Continue current regimen. No changes were made today 09/30: Continue current plans and regimen 10/01: Continue current regimen and plans 10/02: pt with significant memory/cognitive impairments. MOCA today 06/05, severe impairments in executive function, orientation, language repetition, naming, attention, abstraction. Pt mood stable and no signs of psychosis to consider invalid results or not adequate effort. I spent minutes with the patient and/or on the patient floor today, greater than?50% of which was spent counseling/coordinating care. Reason for contiued inpatient stay Substantial Risk for: inability to function
[2021-10-03 09:27] VITALS: BP 149/67; PULSE 82; RESP 17; TEMP 36.8; O2SAT 99
[2021-10-03] MEDS: amLODIPine Besylate 2.5 MG TABLET PO (09:27)
[2021-10-03] MEDS: Cyanocobalamin (Vitamin B-12) 1,000 MCG TABLET 1000 MCG PO (09:28)
[2021-10-03] MEDS: Gabapentin 100 MG CAPSULE PO ×3 (09:28→20:45)
[2021-10-03] MEDS: Divalproex Sodium ER 500 MG TAB.ER.24H PO (20:45)
[2021-10-03] MEDS: OLANZapine 2.5 MG TABLET PO (20:45)
[2021-10-03] MEDS: Mineral Oil/Petrolatum,White 106 GM Tube 1 APPL TOPICAL (20:47)
[2021-10-03 20:52] VITALS: BP 177/74; PULSE 82; TEMP 36.8; O2SAT 99
[2021-10-04 09:00] VITALS: BP 163/77; PULSE 74; RESP 16; TEMP 36.3; O2SAT 98
[2021-10-04 09:04] VITALS: BP 163/77; PULSE 74
[2021-10-04] MEDS: amLODIPine Besylate 2.5 MG TABLET PO (09:04)
[2021-10-04] MEDS: Gabapentin 100 MG CAPSULE PO ×2 (09:04→14:35)
[2021-10-04] MEDS: Cyanocobalamin (Vitamin B-12) 1,000 MCG TABLET 1000 MCG PO (09:04)
[2021-10-04] MEDS: Mineral Oil/Petrolatum,White 106 GM Tube 1 APPL TOPICAL ×2 (09:09→20:57)
--- NOTE | 2021-10-04 15:08 | HO.PSYCHPN ---
Subjective Subjective Date of Service: 10/04/21 Reason For Visit: Tactile Hallucinations Subjective Notes: Conditional Voluntary Interim History: Pt seen in cafeteria. Pt pleasant on approach. Pt reports he is not depressed nor anxious. He reports leg pain/discomfort subsided. Less rumination on having bugs crawling on legs. Pt reports eating and sleeping well. He is intermittently visible in the unit. No behavioral concerns. Collateral from rn case mgr from temporary housing- pt awaiting bed at [facility]. He can return there and rn case mgr will continue working on housing and they offer transportation for appointment. Medication Compliance: Yes Review of Systems Review of Systems Yes all other systems are reviewed and are negative Mental Status Exam Mental Status Exam Narrative: Pt is wearing hospital gown, ambulating on his own, steady gait, no acute distress. Pt is cooperative and friendly, easily engages in conversation with this director underwriter sales. Speech is clear, normal rate/rhythm, soft spoken, spontaneous. TP: mostly linear. TC: no signs of psychosis. Mood: good, affect is bright, congruent, non labile. AH/VH: none. Insight/judgment: limited x 2. MOCA on 10/02- 06/05 most impairment in executive function, naming, attention, orientation, language repetition/fluency and abstraction. Diagnostics Vital Signs (24Hr): Vital Signs - 24 hr 10/03/21 20:52 10/04/21 09:00 10/04/21 09:04 Temperature 98.2 F 97.3 F Pulse Rate 82 74 74 Respiratory Rate 16 Blood Pressure 177/74 H 163/77 H 163/77 H Pulse Oximetry 99 98 BMI result Body Mass Index 23.1 Labs Results: 09/20/21 15:32 10/02/21 11:48 Labs: Laboratory Results - last 48 hr 09/28/21 16:06 Lyme Screen IgG & IgM <0.90 Lyme Progressive Test TNP Imaging Radiology Impressions: ITS Impressions Chest X-Ray 09/25/21 18:56 IMPRESSION: No radiopaque foreign body. No acute cardiopulmonary findings. Skull X-Ray 09/25/21 18:56 IMPRESSION: No radiopaque foreign body. Brain MRI 09/25/21 19:30 IMPRESSION: No acute intracranial process. Nonspecific mild scattered white matter signal changes which may be due to microangiopathy. Cervical Spine MRI 09/28/21 20:25 IMPRESSION: 1. At C6-C7 there is a broad-based posterior disc protrusion with compression of the cord and there is moderate to severe central stenosis. There is severe left and moderate right foraminal narrowing. 2. At C3-C4 there is a broad-based posterior soft disc protrusion with mild flattening of the cord and there is mild to moderate central stenosis. There is mild bilateral foraminal narrowing. 3. At C5-C6 there is a posterior disc osteophyte complex with effacement of CSF ventral to the spinal cord but there is no spinal cord compression. There is mild central stenosis. Mild bilateral foraminal narrowing. 4. At C7-T1 there is a broad-based posterior disc protrusion. There is mild central stenosis is moderate bilateral foraminal narrowing. 5. There are prominent flowing osteophytes with fatty signal anteriorly at C4-C5 and C5-C6. Medications Medications Current Medications Acetaminophen (Acetaminophen 325 Mg Tablet) 650 mg PO Q6H PRN PRN Reason: Headache/Pain Mild Scale (1-3) Al Hydroxide/Mg Hydroxide (Magnesium Hydrox/Alum Hydrox 30 Ml Oral.Susp) 30 ml PO Q6H PRN PRN Reason: Heartburn/Nausea Amlodipine Besylate (Amlodipine Besylate 2.5 Mg Tablet) 2.5 mg PO DAILY KELLY; Protocol Last Admin: 10/04/21 09:04 Dose: 2.5 mg Documented by: Clonidine HCl (Clonidine Hcl 0.1 Mg Tablet) 0.1 mg PO BID PRN; Protocol PRN Reason: SBP >145 Last Admin: 10/02/21 09:11 Dose: 0.1 mg Documented by: Cyanocobalamin (Cyanocobalamin (Vitamin B-12) 1,000 Mcg Tablet) 1,000 mcg PO DAILY KELLY Last Admin: 10/04/21 09:04 Dose: 1,000 mcg Documented by: Divalproex Sodium (Divalproex Sodium Er 500 Mg Tab.Er.24h) 500 mg PO BEDTIME [facility] Last Admin: 10/03/21 20:45 Dose: 500 mg Documented by: Gabapentin (Gabapentin 100 Mg Capsule) 100 mg PO TID KELLY Last Admin: 10/04/21 14:35 Dose: 100 mg Documented by: Magnesium Hydroxide (Milk Of Magnesia 30 Ml Oral.Susp) 30 ml PO DAILY PRN PRN Reason: Constipation Multi-Ingred Cream/Lotion/Oil/Oint (Mineral Oil/Petrolatum,White 106 Gm Tube) 1 appl TOPICAL BID KELLY Last Admin: 10/04/21 09:09 Dose: 1 appl Documented by: Nicotine Polacrilex (Nicotine Polacrilex 2 Mg Gum) 2 mg BUCCAL Q1H PRN PRN Reason: nicotine craving Last Admin: 09/25/21 22:02 Dose: 2 mg Documented by: Olanzapine (Olanzapine 5 Mg Tablet) 5 mg PO BID PRN PRN Reason: psychosis, agitation, anxiety Last Admin: 09/27/21 20:10 Dose: 5 mg Documented by: Olanzapine (Olanzapine 2.5 Mg Tablet) 2.5 mg PO BEDTIME KE[facility] Last Admin: 10/03/21 20:45 Dose: 2.5 mg Documented by: Trazodone HCl (Trazodone Hcl 50 Mg Tablet) 50 mg PO BEDTIME PRN PRN Reason: Insomnia Last Admin: 09/27/21 20:10 Dose: 50 mg Documented by: Allergies Allergies Allergy/AdvReac Type Severity Reaction Status Date / Time No Known Allergies Allergy Unknown NONE Verified 12/14/20 00:42 [No Known Allergies*] Assessment & Plan Assessment & Plan (1) Tactile hallucinations: Status: Acute Code(s): R44.2 - Other hallucinations Assessment and Plan: Pt is a 76 y.o. male who presented to [facility] ED on 09/20/21 reporting tactile hallucinations. Pt reporting feeling plagued by a physical sensation of bugs crawling all over his body with recent ED visits in 08/27 with similar presentation. Pt is denying mood sx or A/VH. Denies delusional thought content/ paranoia. No hx of manic or hypomanic episodes endorsed. No substance or alcohol abuse. Pt is clearly distressed over sx and is tearful, reports increasingly poor sleep. Has had lack of benefit on PO benadryl or hydrocortisone. Plan: Increase zyprexa to 5 mg QHS (started in [facility] at 2.5 mg on 09/21) to target poor sleep, anxious distress, and tactile hallucination. Continue benadryl 50 mg QHS, as pt is now saying this mildly helps and he would like to continue. I suspect pt has undiagnosed dementia process that may be contributing to hallucinations, would benefit from MOCA assessment MRI showing possible microvascular disease. 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 will cut olanzapine and anti-cholinergics other than gabapentin for the time being to decrease likelihood of delirium or exacerbation if LBD. DC of olanzapine and addition of VPA seems to have resulted in better orientation, resolution of VH, improvement of paresthesias.? neuro saw pt for R/O LBD (see their assessment below). will reinstate zyprexa 2.5 mg at HS after review of neurology consult findings. neuro-recommended labs and imaging ordered 09/28. B12/folate, TSH/T4 WNL. per neuro eval 09/28: 76 years old man with new onset of what has been described as tactile hallucinations. He has been talking about uncomfortable bug crawling type of feeling or itching on his body and head. Hallucination was 1 way to describe this. Sometime patients with so-called neurodermatitis can also present this way with itching cause but no obvious physical reason. His overall presentation was not typical of Lewy body dementia. Some other rapidly progressive dementia as could be a consideration but a diagnosis was not possible at this time. In this category, 1 Creutz-Feldt Neel disease but his MRI, which can help in this condition to make a diagnosis, did not reveal any such finding. Apparently he has responded well to Zyprexa and my recommendations would be continue relatively small dose of an antipsychotic like Zyprexa. Clinical follow-up should continue to help refine diagnosis further during next 6-12 months. A brief dementia workup including serum B12 level, test for syphilis and Lyme, sed rate and MICHELLE are also recommended. There is no obvious indication of an infection and I am not suggesting CSF analysis at this time other than that, he has significant findings of lower motor neuron pathology in upper extremities, especially in left upper extremity, with relative hyper reflexia of knees. 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 An MRI of cervical spine is recommended for further evaluation. 09/29: Showing signs of improvement. Continue current regimen. No changes were made today 09/30: Continue current plans and regimen 10/01: Continue current regimen and plans 10/02: pt with significant memory/cognitive impairments. MOCA today 06/05, severe impairments in executive function, orientation, language repetition, naming, attention, abstraction. Pt mood stable and no signs of psychosis to consider invalid results or not adequate effort. I spent minutes with the patient and/or on the patient floor today, greater than?50% of which was spent counseling/coordinating care. Reason for contiued inpatient stay Substantial Risk for: inability to function
[2021-10-04 18:00] VITALS: BP 138/67; PULSE 84; RESP 14; TEMP 36.7; O2SAT 97
[2021-10-04] MEDS: OLANZapine 2.5 MG TABLET PO (20:57)
[2021-10-04] MEDS: Gabapentin 100 MG CAPSULE 200 MG PO (20:58)
[2021-10-04] MEDS: Divalproex Sodium ER 500 MG TAB.ER.24H PO (20:58)
[2021-10-05 07:00] VITALS: BMI 23.4
[2021-10-05 08:19] LABS: Alanine Aminotransferase 28 U/L (0-40); Albumin Level 3.8 g/dL (3.5-5.0); Alkaline Phosphatase 35 U/L (39-117); Anion Gap 9 (12-20); Aspartate Amino Transferase 20 U/L (5-37); Bilirubin Total 0.2 mg/dL (0.0-1.0); Blood Urea Nitrogen 27 mg/dL (9-16); Calcium 9.6 mg/dL (8.4-10.2); Carbon Dioxide 32 mmol/L (22-29); Chloride 103 mmol/L (96-108); Creatinine Clr Calc Pharmacy 53.8; Estimated Glomerular Filt Rate > 60; Glucose Random 114 mg/dL (60-115); Potassium 4.3 mmol/L (3.3-5.1); Sodium 140 mmol/L (135-145)
[2021-10-05 09:27] VITALS: BP 120/62; PULSE 72; RESP 16; TEMP 36.5; O2SAT 97
[2021-10-05 09:57] VITALS: BP 120/62; PULSE 72
[2021-10-05] MEDS: amLODIPine Besylate 5 MG TABLET PO (09:57)
[2021-10-05] MEDS: Gabapentin 100 MG CAPSULE 200 MG PO ×2 (09:58→20:42)
[2021-10-05] MEDS: Cyanocobalamin (Vitamin B-12) 1,000 MCG TABLET 1000 MCG PO (09:58)
[2021-10-05 10:32] LABS: Methylmalonic Acid 117 nmol/L (87-318)
--- NOTE | 2021-10-05 14:27 | P.PNPSI_ITS ---
Subjective Subjective Date of Service: 10/05/21 Reason For Visit: Tactile Hallucinations Subjective Notes: Conditional Voluntary Interim History: Pt is pleasant on approach. Pt reports that he is doing well. His affect is bright. 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 Pt seemed pleased about this. Pt also informed that he will be picked up by leather case finisher next Saturday. pt denies symptoms of depression and anxiety. Pt denies bugs crawling down his legs or in head. BP- more stable, SBP<140. Pt denies headaches, no tingling sensation as he had reported before. Medication Compliance: Yes Side effects from medications: No Attending Groups: No Review of Systems Review of Systems Yes all other systems are reviewed and are negative Mental Status Exam Mental Status Exam Narrative: Pt is wearing hospital gown, ambulating on his own, steady gait, no acute distress. Pt is cooperative and friendly, easily engages in conversation with this data analyst report writer. Speech is clear, normal rate/rhythm, soft spoken, spontaneous. TP: mostly linear. TC: no signs of psychosis. Mood: good, affect is bright, congruent, non labile. AH/VH: none. Insight/judgment: limited x 2. MOCA on 10/02- 06/05 most impairment in executive function, naming, attention, orientation, language repetition/fluency and abstraction. Diagnostics Vital Signs (24Hr): Vital Signs - 24 hr 10/04/21 18:00 10/05/21 09:27 10/05/21 09:57 Temperature 98.0 F 97.7 F Pulse Rate 84 72 72 Respiratory Rate 14 16 Blood Pressure 138/67 120/62 120/62 Pulse Oximetry 97 97 BMI result Body Mass Index 23.4 Labs Results: 09/20/21 15:32 10/05/21 07:37 Labs: Laboratory Results - last 48 hr 10/02/21 10/05/21 11:48 07:37 Sodium 140 Potassium 4.3 Chloride 103 Carbon Dioxide 32 H Anion Gap 9 L BUN 27 H Creatinine 0.94 Estim Creat Clear Calc 53.8 Estimated GFR > 60 Random Glucose 114 Calcium 9.6 Total Bilirubin 0.2 AST 20 ALT 28 Alkaline Phosphatase 35 L D Total Protein 6.0 L Albumin 3.8 Methylmalonic Acid 117 Imaging Radiology Impressions: ITS Impressions Chest X-Ray 09/25/21 18:56 IMPRESSION: No radiopaque foreign body. No acute cardiopulmonary findings. Skull X-Ray 09/25/21 18:56 IMPRESSION: No radiopaque foreign body. Brain MRI 09/25/21 19:30 IMPRESSION: No acute intracranial process. Nonspecific mild scattered white matter signal changes which may be due to microangiopathy. Cervical Spine MRI 09/28/21 20:25 IMPRESSION: 1. At C6-C7 there is a broad-based posterior disc protrusion with compression of the cord and there is moderate to severe central stenosis. There is severe left and moderate right foraminal narrowing. 2. At C3-C4 there is a broad-based posterior soft disc protrusion with mild flattening of the cord and there is mild to moderate central stenosis. There is mild bilateral foraminal narrowing. 3. At C5-C6 there is a posterior disc osteophyte complex with effacement of CSF ventral to the spinal cord but there is no spinal cord compression. There is mild central stenosis. Mild bilateral foraminal narrowing. 4. At C7-T1 there is a broad-based posterior disc protrusion. There is mild central stenosis is moderate bilateral foraminal narrowing. 5. There are prominent flowing osteophytes with fatty signal anteriorly at C4-C5 and C5-C6. Medications Medications Current Medications Acetaminophen (Acetaminophen 325 Mg Tablet) 650 mg PO Q6H PRN PRN Reason: Headache/Pain Mild Scale (1-3) Al Hydroxide/Mg Hydroxide (Magnesium Hydrox/Alum Hydrox 30 Ml Oral.Susp) 30 ml PO Q6H PRN PRN Reason: Heartburn/Nausea Amlodipine Besylate (Amlodipine Besylate 5 Mg Tablet) 5 mg PO DAILY [facility]; Protocol Last Admin: 10/05/21 09:57 Dose: 5 mg Documented by: Clonidine HCl (Clonidine Hcl 0.1 Mg Tablet) 0.1 mg PO BID PRN; Protocol PRN Reason: SBP >170 Cyanocobalamin (Cyanocobalamin (Vitamin B-12) 1,000 Mcg Tablet) 1,000 mcg PO DAILY [facility] Last Admin: 10/05/21 09:58 Dose: 1,000 mcg Documented by: Divalproex Sodium (Divalproex Sodium Er 500 Mg Tab.Er.24h) 500 mg PO BEDTIME [facility] Last Admin: 10/04/21 20:58 Dose: 500 mg Documented by: Gabapentin (Gabapentin 100 Mg Capsule) 200 mg PO BID [facility] Last Admin: 10/05/21 09:58 Dose: 200 mg Documented by: Magnesium Hydroxide (Milk Of Magnesia 30 Ml Oral.Susp) 30 ml PO DAILY PRN PRN Reason: Constipation Multi-Ingred Cream/Lotion/Oil/Oint (Mineral Oil/Petrolatum,White 106 Gm Tube) 1 appl TOPICAL BID [facility] Last Admin: 10/04/21 20:57 Dose: 1 appl Documented by: Nicotine Polacrilex (Nicotine Polacrilex 2 Mg Gum) 2 mg BUCCAL Q1H PRN PRN Reason: nicotine craving Last Admin: 09/25/21 22:02 Dose: 2 mg Documented by: Olanzapine (Olanzapine 5 Mg Tablet) 5 mg PO BID PRN PRN Reason: psychosis, agitation, anxiety Last Admin: 09/27/21 20:10 Dose: 5 mg Documented by: Olanzapine (Olanzapine 2.5 Mg Tablet) 2.5 mg PO BEDTIME KELLY Last Admin: 10/04/21 20:57 Dose: 2.5 mg Documented by: Trazodone HCl (Trazodone Hcl 50 Mg Tablet) 50 mg PO BEDTIME PRN PRN Reason: Insomnia Last Admin: 09/27/21 20:10 Dose: 50 mg Documented by: Allergies Allergies Allergy/AdvReac Type Severity Reaction Status Date / Time No Known Allergies Allergy Unknown NONE Verified 12/14/20 00:42 [No Known Allergies*] Assessment & Plan Assessment & Plan (1) Tactile hallucinations: Status: Acute Code(s): R44.2 - Other hallucinations Assessment and Plan: Pt is a 76 y.o. male who [place] [facility] [place] reporting tactile hallucinations. Pt reporting feeling plagued by a physical sensation of bugs crawling all over his body with recent ED visits in 08/27 with similar presentation. Pt is denying mood sx or A/VH. Denies delusional thought content/ paranoia. No hx of manic or hypomanic episodes endorsed. No substance or alcohol abuse. Pt is clearly distressed over sx and is tearful, reports increasingly po or sleep. Has had lack of benefit on PO benadryl or hydrocortisone. Plan: Increase zyprexa to 5 mg QHS (started in [facility] at 2.5 mg on 09/21) to target poor sleep, anxious distress, and tactile hallucination. Continue benadryl 50 mg QHS, as pt is now saying this mildly helps and he would like to continue. I suspect pt has undiagnosed dementia process that may be contributing to hallucinations, would benefit from MOCA assessment MRI showing possible microvascular disease. 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 will cut olanzapine and anti-cholinergics other than gabapentin for the time being to decrease likelihood of delirium or exacerbation if LBD. DC of olanzapine and addition of VPA seems to have resulted in better orientation, resolution of VH, improvement of paresthesias.? neuro saw pt for R/O LBD (see their assessment below). will reinstate zyprexa 2.5 mg at HS after review of neurology consult findings. neuro-recommended labs and imaging ordered 09/28. B12/folate, TSH/T4 WNL. per neuro eval 09/28: 76 years old man with new onset of what has been described as tactile hallucinations. He has been talking about uncomfortable bug crawling type of feeling or itching on his body and head. Hallucination was 1 way to describe this. Sometime patients with so-called neurodermatitis can also present this way with itching cause but no obvious physical reason. His overall presentation was not typical of Lewy body dementia. Some other rapidly progressive dementia as could be a consideration but a diagnosis was not possible at this time. In this category, 1 Creutz-Feldt Neel disease but his MRI, which can help in this condition to make a diagnosis, did not reveal any such finding. Apparently he has responded well to Zyprexa and my recommendations would be continue relatively small dose of an antipsychotic like Zyprexa. Clinical follow-up should continue to help refine diagnosis further during next 6-12 months. A brief dementia workup including serum B12 level, test for syphilis and Lyme, sed rate and MICHELLE are also recommended. There is no obvious indication of an infection and I am not suggesting CSF analysis at this time other than that, he has significant findings of lower motor neuron pathology in upper extremities, especially in left upper extremity, with relative hyper reflexia of knees. 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 An MRI of cervical spine is recommended for further evaluation. 09/29: Showing signs of improvement. Continue current regimen. No changes were made today 09/30: Continue current plans and regimen 10/01: Continue current regimen and plans 10/02: pt with significant memory/cognitive impairments. MOCA today 06/05, severe impairments in executive function, orientation, language repetition, naming, attention, abstraction. Pt mood stable and no signs of psychosis to consider invalid results or not adequate effort. I spent minutes with the patient and/or on the patient floor today, greater than?50% of which was spent counseling/coordinating care. Reason for contiued inpatient stay Substantial Risk for: inability to function
[2021-10-05] MEDS: Mineral Oil/Petrolatum,White 106 GM Tube 1 APPL TOPICAL (17:51)
[2021-10-05 18:00] VITALS: BP 136/62; PULSE 78; TEMP 36.7; O2SAT 99
[2021-10-05] MEDS: Divalproex Sodium ER 500 MG TAB.ER.24H PO (20:42)
[2021-10-05] MEDS: OLANZapine 2.5 MG TABLET PO (20:42)
[2021-10-06 08:00] VITALS: BP 142/67; PULSE 74; TEMP 36.3; O2SAT 99
[2021-10-06 09:07] VITALS: BP 142/67; PULSE 74
[2021-10-06] MEDS: Cyanocobalamin (Vitamin B-12) 1,000 MCG TABLET 1000 MCG PO (09:07)
[2021-10-06] MEDS: amLODIPine Besylate 5 MG TABLET PO (09:07)
[2021-10-06] MEDS: Mineral Oil/Petrolatum,White 106 GM Tube 1 APPL TOPICAL ×2 (09:08→20:51)
[2021-10-06] MEDS: Gabapentin 100 MG CAPSULE 200 MG PO ×2 (09:08→20:50)
--- NOTE | 2021-10-06 12:50 | MHC.CLN ---
F/U SHOWS FAVORABLE WEIGHT GAIN X 2 WEEKS, +5.7#, 4.5%. CONTINUE REGULAR DIET AND SUPPLEMENT TID.
[2021-10-06 20:39] VITALS: BP 121/67; PULSE 74; RESP 16; TEMP 36.3; O2SAT 97
[2021-10-06] MEDS: OLANZapine 2.5 MG TABLET PO (20:50)
[2021-10-06] MEDS: Divalproex Sodium ER 500 MG TAB.ER.24H PO (20:50)
--- NOTE | 2021-10-06 22:12 | HO.PSYCHPN ---
Subjective Subjective Date of Service: 10/06/21 Reason For Visit: Tactile Hallucinations Subjective Notes: Conditional Voluntary Interim History: pt calm cooperative pleasant no complaints on exam Medication Compliance: Yes Attending Groups: No Mental Status Exam Mental Status Exam Narrative: Patient superficially come when seen not overly anxious or depressed not aggressive not overly depressed no SI no hallucinations cooperative Diagnostics Vital Signs (24Hr): Vital Signs - 24 hr 10/06/21 08:00 10/06/21 09:07 10/06/21 20:39 Temperature 97.3 F 97.4 F Pulse Rate 74 74 74 Respiratory Rate 16 Blood Pressure 142/67 H 142/67 H 121/67 Pulse Oximetry 99 97 BMI result Body Mass Index 23.4 Labs Results: 09/20/21 15:32 10/05/21 07:37 Labs: Laboratory Results - last 48 hr 10/02/21 10/05/21 11:48 07:37 Sodium 140 Potassium 4.3 Chloride 103 Carbon Dioxide 32 H Anion Gap 9 L BUN 27 H Creatinine 0.94 Estim Creat Clear Calc 53.8 Estimated GFR > 60 Random Glucose 114 Calcium 9.6 Total Bilirubin 0.2 AST 20 ALT 28 Alkaline Phosphatase 35 L D Total Protein 6.0 L Albumin 3.8 Methylmalonic Acid 117 Imaging Radiology Impressions: ITS Impressions Chest X-Ray 09/25/21 18:56 IMPRESSION: No radiopaque foreign body. No acute cardiopulmonary findings. Skull X-Ray 09/25/21 18:56 IMPRESSION: No radiopaque foreign body. Brain MRI 09/25/21 19:30 IMPRESSION: No acute intracranial process. Nonspecific mild scattered white matter signal changes which may be due to microangiopathy. Cervical Spine MRI 09/28/21 20:25 IMPRESSION: 1. At C6-C7 there is a broad-based posterior disc protrusion with compression of the cord and there is moderate to severe central stenosis. There is severe left and moderate right foraminal narrowing. 2. At C3-C4 there is a broad-based posterior soft disc protrusion with mild flattening of the cord and there is mild to moderate central stenosis. There is mild bilateral foraminal narrowing. 3. At C5-C6 there is a posterior disc osteophyte complex with effacement of CSF ventral to the spinal cord but there is no spinal cord compression. There is mild central stenosis. Mild bilateral foraminal narrowing. 4. At C7-T1 there is a broad-based posterior disc protrusion. There is mild central stenosis is moderate bilateral foraminal narrowing. 5. There are prominent flowing osteophytes with fatty signal anteriorly at C4-C5 and C5-C6. Medications Medications Current Medications Acetaminophen (Acetaminophen 325 Mg Tablet) 650 mg PO Q6H PRN PRN Reason: Headache/Pain Mild Scale (1-3) Al Hydroxide/Mg Hydroxide (Magnesium Hydrox/Alum Hydrox 30 Ml Oral.Susp) 30 ml PO Q6H PRN PRN Reason: Heartburn/Nausea Amlodipine Besylate (Amlodipine Besylate 5 Mg Tablet) 5 mg PO DAILY [facility]; Protocol Last Admin: 10/06/21 09:07 Dose: 5 mg Documented by: Cyanocobalamin (Cyanocobalamin (Vitamin B-12) 1,000 Mcg Tablet) 1,000 mcg PO DAILY [facility] Last Admin: 10/06/21 09:07 Dose: 1,000 mcg Documented by: Divalproex Sodium (Divalproex Sodium Er 500 Mg Tab.Er.24h) 500 mg PO BEDTIME KELLY Last Admin: 10/06/21 20:50 Dose: 500 mg Documented by: Gabapentin (Gabapentin 100 Mg Capsule) 200 mg PO BID [facility] Last Admin: 10/06/21 20:50 Dose: 200 mg Documented by: Magnesium Hydroxide (Milk Of Magnesia 30 Ml Oral.Susp) 30 ml PO DAILY PRN PRN Reason: Constipation Multi-Ingred Cream/Lotion/Oil/Oint (Mineral Oil/Petrolatum,White 106 Gm Tube) 1 appl TOPICAL BID [facility] Last Admin: 10/06/21 20:51 Dose: 1 appl Documented by: Nicotine Polacrilex (Nicotine Polacrilex 2 Mg Gum) 2 mg BUCCAL Q1H PRN PRN Reason: nicotine craving Last Admin: 09/25/21 22:02 Dose: 2 mg Documented by: Olanzapine (Olanzapine 5 Mg Tablet) 5 mg PO BID PRN PRN Reason: psychosis, agitation, anxiety Last Admin: 09/27/21 20:10 Dose: 5 mg Documented by: Olanzapine (Olanzapine 2.5 Mg Tablet) 2.5 mg PO BEDTIME KELLY Last Admin: 10/06/21 20:50 Dose: 2.5 mg Documented by: Trazodone HCl (Trazodone Hcl 50 Mg Tablet) 50 mg PO BEDTIME PRN PRN Reason: Insomnia Last Admin: 09/27/21 20:10 Dose: 50 mg Documented by: Allergies Allergies Allergy/AdvReac Type Severity Reaction Status Date / Time No Known Allergies Allergy Unknown NONE Verified 12/14/20 00:42 [No Known Allergies*] Assessment & Plan Assessment & Plan (1) Tactile hallucinations: Status: Acute Code(s): R44.2 - Other hallucinations Assessment and Plan: Pt is a 76 y.o. male who presented to [facility] [place] [facility] on 09/20/21 reporting tactile hallucinations. Pt reporting feeling plagued by a physical sensation of bugs crawling all over his body with recent ED visits in 08/27 with similar presentation. Pt is denying mood sx or A/VH. Denies delusional thought content/ paranoia. No hx of manic or hypomanic episodes endorsed. No substance or alcohol abuse. Pt is clearly distressed over sx and is tearful, reports increasingly poor sleep. Has had lack of benefit on PO benadryl or hydrocortisone. Plan: Increase zyprexa to 5 mg QHS (started in [facility] at 2.5 mg on 09/21) to target poor sleep, anxious distress, and tactile hallucination. Continue benadryl 50 mg QHS, as pt is now saying this mildly helps and he would like to continue. I suspect pt has undiagnosed dementia process that may be contributing to hallucinations, would benefit from MOCA assessment MRI showing possible microvascular disease. 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 will cut olanzapine and anti-cholinergics other than gabapentin for the time being to decrease likelihood of delirium or exacerbation if LBD. DC of olanzapine and addition of VPA seems to have resulted in better orientation, resolution of VH, improvement of paresthesias.? neuro saw pt for R/O LBD (see their assessment below). will reinstate zyprexa 2.5 mg at HS after review of neurology consult findings. neuro-recommended labs and imaging ordered 09/28. B12/folate, TSH/T4 WNL. per neuro eval 09/28: 76 years old man with new onset of what has been described as tactile hallucinations. He has been talking about uncomfortable bug crawling type of feeling or itching on his body and head. Hallucination was 1 way to describe this. Sometime patients with so-called neurodermatitis can also present this way with itching cause but no obvious physical reason. His overall presentation was not typical of Lewy body dementia. Some other rapidly progressive dementia as could be a consideration but a diagnosis was not possible at this time. In this category, 1 Creutz-Feldt Neel disease but his MRI, which can help in this condition to make a diagnosis, did not reveal any such finding. Apparently he has responded well to Zyprexa and my recommendations would be continue relatively small dose of an antipsychotic like Zyprexa. Clinical follow-up should continue to help refine diagnosis further during next 6-12 months. A brief dementia workup including serum B12 level, test for syphilis and Lyme, sed rate and MICHELLE are also recommended. There is no obvious indication of an infection and I am not suggesting CSF analysis at this time other than that, he has significant findings of lower motor neuron pathology in upper extremities, especially in left upper extremity, with relative hyper reflexia of knees. 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 An MRI of cervical spine is recommended for further evaluation. 09/29: Showing signs of improvement. Continue current regimen. No changes were made today 09/30: Continue current plans and regimen 10/01: Continue current regimen and plans 10/02: pt with significant memory/cognitive impairments. MOCA today 06/05, severe impairments in executive function, orientation, language naming, attention, abstraction. Pt mood stable and no signs of psychosis to consider invalid results or not adequate effort. 10/06/2021 Patient seen in psychiatric follow-up chart reviewed patient was seen patient had significant findings on cervical MRI unclear if these have been followed up will try and clarify continue olanzapine and Depakote I spent minutes with the patient and/or on the patient floor today, greater than?50% of which was spent counseling/coordinating care. Reason for contiued inpatient stay Substantial Risk for: inability to function and rapid decompensation
[2021-10-07 09:00] VITALS: BP 148/65; PULSE 65; RESP 16; TEMP 36.6; O2SAT 98
[2021-10-07 09:01] VITALS: BP 148/65; PULSE 95
[2021-10-07] MEDS: Gabapentin 100 MG CAPSULE 200 MG PO ×2 (09:01→20:29)
[2021-10-07] MEDS: Cyanocobalamin (Vitamin B-12) 1,000 MCG TABLET 1000 MCG PO (09:01)
[2021-10-07] MEDS: amLODIPine Besylate 5 MG TABLET PO (09:01)
[2021-10-07] MEDS: Mineral Oil/Petrolatum,White 106 GM Tube 1 APPL TOPICAL ×2 (10:00→20:29)
--- NOTE | 2021-10-07 17:16 | HO.PSYCHPN ---
Subjective Subjective Date of Service: 10/07/21 Reason For Visit: Tactile Hallucinations Subjective Notes: Conditional Voluntary Interim History: Case reviewed with nursing staff chart reviewed patient seen Patient has been calm cooperative generally some complaints of tongue heaviness no swallowing problems. Not grossly agitated. Has been out of his room more. Mental Status Exam Mental Status Exam Narrative: Patient superficially calm when seen not overly anxious or depressed not aggressive not overly depressed no SI vague hallucinations cooperative not aggressive impulsive no self-harming thoughts of or thoughts of harm to others Diagnostics Vital Signs (24Hr): Vital Signs - 24 hr 10/06/21 20:39 10/07/21 09:00 10/07/21 09:01 Temperature 97.4 F 97.9 F Pulse Rate 74 65 95 Respiratory Rate 16 16 Blood Pressure 121/67 148/65 H 148/65 H Pulse Oximetry 97 98 BMI result Body Mass Index 23.4 Labs Results: 09/20/21 15:32 10/05/21 07:37 Imaging Radiology Impressions: ITS Impressions Chest X-Ray 09/25/21 18:56 IMPRESSION: No radiopaque foreign body. No acute cardiopulmonary findings. Skull X-Ray 09/25/21 18:56 IMPRESSION: No radiopaque foreign body. Brain MRI 09/25/21 19:30 IMPRESSION: No acute intracranial process. Nonspecific mild scattered white matter signal changes which may be due to microangiopathy. Cervical Spine MRI 09/28/21 20:25 IMPRESSION: 1. At C6-C7 there is a broad-based posterior disc protrusion with compression of the cord and there is moderate to severe central stenosis. There is severe left and moderate right foraminal narrowing. 2. At C3-C4 there is a broad-based posterior soft disc protrusion with mild flattening of the cord and there is mild to moderate central stenosis. There is mild bilateral foraminal narrowing. 3. At C5-C6 there is a posterior disc osteophyte complex with effacement of CSF ventral to the spinal cord but there is no spinal cord compression. There is mild central stenosis. Mild bilateral foraminal narrowing. 4. At C7-T1 there is a broad-based posterior disc protrusion. There is mild central stenosis is moderate bilateral foraminal narrowing. 5. There are prominent flowing osteophytes with fatty signal anteriorly at C4-C5 and C5-C6. Medications Medications Current Medications Acetaminophen (Acetaminophen 325 Mg Tablet) 650 mg PO Q6H PRN PRN Reason: Headache/Pain Mild Scale (1-3) Al Hydroxide/Mg Hydroxide (Magnesium Hydrox/Alum Hydrox 30 Ml Oral.Susp) 30 ml PO Q6H PRN PRN Reason: Heartburn/Nausea Amlodipine Besylate (Amlodipine Besylate 5 Mg Tablet) 5 mg PO DAILY [facility]; Protocol Last Admin: 10/07/21 09:01 Dose: 5 mg Documented by: Cyanocobalamin (Cyanocobalamin (Vitamin B-12) 1,000 Mcg Tablet) 1,000 mcg PO DAILY [facility] Last Admin: 10/07/21 09:01 Dose: 1,000 mcg Documented by: Divalproex Sodium (Divalproex Sodium Er 500 Mg Tab.Er.24h) 500 mg PO BEDTIME [facility] Last Admin: 10/06/21 20:50 Dose: 500 mg Documented by: Gabapentin (Gabapentin 100 Mg Capsule) 200 mg PO BID [facility] Last Admin: 10/07/21 09:01 Dose: 200 mg Documented by: Magnesium Hydroxide (Milk Of Magnesia 30 Ml Oral.Susp) 30 ml PO DAILY PRN PRN Reason: Constipation Multi-Ingred Cream/Lotion/Oil/Oint (Mineral Oil/Petrolatum,White 106 Gm Tube) 1 appl TOPICAL BID [facility] Last Admin: 10/07/21 10:00 Dose: 1 appl Documented by: Nicotine Polacrilex (Nicotine Polacrilex 2 Mg Gum) 2 mg BUCCAL Q1H PRN PRN Reason: nicotine craving Last Admin: 09/25/21 22:02 Dose: 2 mg Documented by: Olanzapine (Olanzapine 5 Mg Tablet) 5 mg PO BID PRN PRN Reason: psychosis, agitation, anxiety Last Admin: 09/27/21 20:10 Dose: 5 mg Documented by: Olanzapine (Olanzapine 2.5 Mg Tablet) 2.5 mg PO BEDTIME [facility] Last Admin: 10/06/21 20:50 Dose: 2.5 mg Documented by: Trazodone HCl (Trazodone Hcl 50 Mg Tablet) 50 mg PO BEDTIME PRN PRN Reason: Insomnia Last Admin: 09/27/21 20:10 Dose: 50 mg Documented by: Allergies Allergies Allergy/AdvReac Type Severity Reaction Status Date / Time No Known Allergies Allergy Unknown NONE Verified 12/14/20 00:42 [No Known Allergies*] Assessment & Plan Assessment & Plan (1) Tactile hallucinations: Status: Acute Code(s): R44.2 - Other hallucinations Assessment and Plan: Pt is a 76 y.o. male who presented to [facility] ED on 09/20/21 reporting tactile hallucinations. Pt reporting feeling plagued by a physical sensation of bugs crawling all over his body with recent ED visits in 08/27 with similar presentation. Pt is denying mood sx or A/VH. Denies delusional thought content/ paranoia. No hx of manic or hypomanic episodes endorsed. No substance or alcohol abuse. Pt is clearly distressed over sx and is tearful, reports increasingly poor sleep. Has had lack of benefit on PO benadryl or hydrocortisone. Plan: Increase zyprexa to 5 mg QHS (started in [facility] ED at 2.5 mg on 09/21) to target poor sleep, anxious distress, and tactile hallucination. Continue benadryl 50 mg QHS, as pt is now saying this mildly helps and he would like to continue. I suspect pt has undiagnosed dementia process that may be contributing to hallucinations, would benefit from MOCA assessment MRI showing possible microvascular disease. 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 will cut olanzapine and anti-cholinergics other than gabapentin for the time being to decrease likelihood of delirium or exacerbation if LBD. DC of olanzapine and addition of VPA seems to have resulted in better orientation, resolution of VH, improvement of paresthesias.? neuro saw pt for R/O LBD (see their assessment below). will reinstate zyprexa 2.5 mg at HS after review of neurology consult findings. neuro-recommended labs and imaging ordered 09/28. B12/folate, TSH/T4 WNL. per neuro eval 09/28: 76 years old man with new onset of what has been described as tactile hallucinations. He has been talking about uncomfortable bug crawling type of feeling or itching on his body and head. Hallucination was 1 way to describe this. Sometime patients with so-called neurodermatitis can also present this way with itching cause but no obvious physical reason. His overall presentation was not typical of Lewy body dementia. Some other rapidly progressive dementia as could be a consideration but a diagnosis was not possible at this time. In this category, 1 Creutz-Feldt Neel disease but his MRI, which can help in this condition to make a diagnosis, did not reveal any such finding. Apparently he has responded well to Zyprexa and my recommendations would be continue relatively small dose of an antipsychotic like Zyprexa. Clinical follow-up should continue to help refine diagnosis further during next 6-12 months. A brief dementia workup including serum B12 level, test for syphilis and Lyme, sed rate and MICHELLE are also recommended. There is no obvious indication of an infection and I am not suggesting CSF analysis at this time other than that, he has significant findings of lower motor neuron pathology in upper extremities, especially in left upper extremity, with relative hyper reflexia of knees. 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 An MRI of cervical spine is recommended for further evaluation. 09/29: Showing signs of improvement. Continue current regimen. No changes were made today 09/30: Continue current plans and regimen 10/01: Continue current regimen and plans 10/02: pt with significant memory/cognitive impairments. MOCA today 06/05, severe impairments in executive function, orientation, language naming, attention, abstraction. Pt mood stable and no signs of psychosis to consider invalid results or not adequate effort. 10/06/2021 Patient seen in psychiatric follow-up chart reviewed patient was seen patient had significant findings on cervical MRI unclear if these have been followed up will try and clarify continue olanzapine and Depakote 10/07/2021 Continue plan of care. Case reviewed briefly with Dr. Jeffrey. Check Depakote level check fasting blood sugar good contribute to current symptoms. Cervical MRI not commented on by Neurology ambulating independently Need to clarify discharge plans living situation I spent minutes with the patient and/or on the patient floor today, greater than?50% of which was spent counseling/coordinating care. Reason for contiued inpatient stay Substantial Risk for: rapid decompensation and med/psych decompensation
[2021-10-07 20:26] VITALS: BP 133/65; PULSE 75; RESP 18; TEMP 36.8; O2SAT 98
[2021-10-07] MEDS: OLANZapine 2.5 MG TABLET PO (20:29)
[2021-10-07] MEDS: Divalproex Sodium ER 500 MG TAB.ER.24H PO (20:29)
[2021-10-08] MEDS: traZODone HCL 50 MG TABLET PO (01:11)
[2021-10-08 06:00] VITALS: BP 138/67; PULSE 75; RESP 16; TEMP 36.6; O2SAT 99
[2021-10-08 09:04] LABS: Glucose, Whole Blood 91 mg/dL (60-115)
[2021-10-08 09:36] VITALS: BP 138/67; PULSE 75
[2021-10-08] MEDS: Gabapentin 100 MG CAPSULE 200 MG PO ×2 (09:36→20:41)
[2021-10-08] MEDS: amLODIPine Besylate 5 MG TABLET PO (09:36)
[2021-10-08] MEDS: Mineral Oil/Petrolatum,White 106 GM Tube 1 APPL TOPICAL ×2 (09:37→20:45)
[2021-10-08] MEDS: Cyanocobalamin (Vitamin B-12) 1,000 MCG TABLET 1000 MCG PO (09:37)
--- NOTE | 2021-10-08 14:28 | HO.PSYCHPN ---
Subjective Subjective Date of Service: 10/08/21 Reason For Visit: Tactile Hallucinations Subjective Notes: Conditional Voluntary Interim History: PT oob more social with peers ambulating minimal parry no physical complaints feels better on olanzapine Medication Compliance: Yes Side effects from medications: No Review of Systems see cervical mri Mental Status Exam Mental Status Exam Narrative: Patient superficially calm when seen not overly anxious or depressed not aggressive not overly depressed no SI vague hallucinations cooperative not aggressive impulsive no self-harming thoughts of or thoughts of harm to others knows name 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 No acute cardiopulmonary findings. Skull X-Ray 09/25/21 18:56 IMPRESSION: No radiopaque foreign body. Brain MRI 09/25/21 19:30 IMPRESSION: No acute intracranial process. Nonspecific mild scattered white matter signal changes which may be due to microangiopathy. Cervical Spine MRI 09/28/21 20:25 IMPRESSION: 1. At C6-C7 there is a broad-based posterior disc protrusion with compression of the cord and there is moderate to severe central stenosis. There is severe left and moderate right foraminal narrowing. 2. At C3-C4 there is a broad-based posterior soft disc protrusion with mild flattening of the cord and there is mild to moderate central stenosis. There is mild bilateral foraminal narrowing. 3. At C5-C6 there is a posterior disc osteophyte complex with effacement of CSF ventral to the spinal cord but there is no spinal cord compression. There is mild central stenosis. Mild bilateral foraminal narrowing. 4. At C7-T1 there is a broad-based posterior disc protrusion. There is mild central stenosis is moderate bilateral foraminal narrowing. 5. There are prominent flowing osteophytes with fatty signal anteriorly at C4-C5 and C5-C6. Medications Medications Current Medications Acetaminophen (Acetaminophen 325 Mg Tablet) 650 mg PO Q6H PRN PRN Reason: Headache/Pain Mild Scale (1-3) Al Hydroxide/Mg Hydroxide (Magnesium Hydrox/Alum Hydrox 30 Ml Oral.Susp) 30 ml PO Q6H PRN PRN Reason: Heartburn/Nausea Amlodipine Besylate (Amlodipine Besylate 5 Mg Tablet) 5 mg PO DAILY [facility]; Protocol Last Admin: 10/08/21 09:36 Dose: 5 mg Documented by: Cyanocobalamin (Cyanocobalamin (Vitamin B-12) 1,000 Mcg Tablet) 1,000 mcg PO DAILY [facility] Last Admin: 10/08/21 09:37 Dose: 1,000 mcg Documented by: Divalproex Sodium (Divalproex Sodium Er 500 Mg Tab.Er.24h) 500 mg PO BEDTIME [facility] Last Admin: 10/07/21 20:29 Dose: 500 mg Documented by: Gabapentin (Gabapentin 100 Mg Capsule) 200 mg PO BID [facility] Last Admin: 10/08/21 09:36 Dose: 200 mg Documented by: Magnesium Hydroxide (Milk Of Magnesia 30 Ml Oral.Susp) 30 ml PO DAILY PRN PRN Reason: Constipation Multi-Ingred Cream/Lotion/Oil/Oint (Mineral Oil/Petrolatum,White 106 Gm Tube) 1 appl TOPICAL BID [facility] Last Admin: 10/08/21 09:37 Dose: 1 appl Documented by: Nicotine Polacrilex (Nicotine Polacrilex 2 Mg Gum) 2 mg BUCCAL Q1H PRN PRN Reason: nicotine craving Last Admin: 09/25/21 22:02 Dose: 2 mg Documented by: Olanzapine (Olanzapine 5 Mg Tablet) 5 mg PO BID PRN PRN Reason: psychosis, agitation, anxiety Last Admin: 09/27/21 20:10 Dose: 5 mg Documented by: Olanzapine (Olanzapine 2.5 Mg Tablet) 2.5 mg PO BEDTIME [facility] Last Admin: 10/07/21 20:29 Dose: 2.5 mg Documented by: Trazodone HCl (Trazodone Hcl 50 Mg Tablet) 50 mg PO BEDTIME PRN PRN Reason: Insomnia Last Admin: 10/08/21 01:11 Dose: 50 mg Documented by: Allergies Allergies Allergy/AdvReac Type Severity Reaction Status Date / Time No Known Allergies Allergy Unknown NONE Verified 12/14/20 00:42 [No Known Allergies*] Assessment & Plan Assessment & Plan (1) Tactile hallucinations: Status: Acute Code(s): R44.2 - Other hallucinations Assessment and Plan: Pt is a 76 y.o. male who presented to [facility] ED on 09/20/21 reporting tactile hallucinations. Pt reporting feeling plagued by a physical sensation of bugs crawling all over his body with recent ED visits in 08/27 with similar presentation. Pt is denying mood sx or A/VH. Denies delusional thought content/ paranoia. No hx of manic or hypomanic episodes endorsed. No substance or alcohol abuse. Pt is clearly distressed over sx and is tearful, reports increasingly poor sleep. Has had lack of benefit on PO benadryl or hydrocortisone. Plan: Increase zyprexa to 5 mg QHS (started in [facility] at 2.5 mg on 09/21) to target poor sleep, anxious distress, and tactile hallucination. Continue benadryl 50 mg QHS, as pt is now saying this mildly helps and he would like to continue. I suspect pt has undiagnosed dementia process that may be contributing to hallucinations, would benefit from MOCA assessment MRI showing possible microvascular disease. 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 will cut olanzapine and anti-cholinergics other than gabapentin for the time being to decrease likelihood of delirium or exacerbation if LBD. DC of olanzapine and addition of VPA seems to have resulted in better orientation, resolution of VH, improvement of paresthesias.? neuro saw pt for R/O LBD (see their assessment below). will reinstate zyprexa 2.5 mg at HS after review of neurology consult findings. neuro-recommended labs and imaging ordered 09/28. B12/folate, TSH/T4 WNL. per neuro eval 09/28: 76 years old man with new onset of what has been described as tactile hallucinations. He has been talking about uncomfortable bug crawling type of feeling or itching on his body and head. Hallucination was 1 way to describe this. Sometime patients with so-called neurodermatitis can also present this way with itching cause but no obvious physical reason. His overall presentation was not typical of Lewy body dementia. Some other rapidly progressive dementia as could be a consideration but a diagnosis was not possible at this time. In this category, 1 Creutz-Feldt Neel disease but his MRI, which can help in this condition to make a diagnosis, did not reveal any such finding. Apparently he has responded well to Zyprexa and my recommendations would be continue relatively small dose of an antipsychotic like Zyprexa. Clinical follow-up should continue to help refine diagnosis further during next 6-12 months. A brief dementia workup including serum B12 level, test for syphilis and Lyme, sed rate and MICHELLE are also recommended. There is no obvious indication of an infection and I am not suggesting CSF analysis at this time other than that, he has significant findings of lower motor neuron pathology in upper extremities, especially in left upper extremity, with relative hyper reflexia of knees. 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 An MRI of cervical spine is recommended for further evaluation. 09/29: Showing signs of improvement. Continue current regimen. No changes were made today 09/30: Continue current plans and regimen 10/01: Continue current regimen and plans 10/02: pt with significant memory/cognitive impairments. MOCA today 06/05, severe impairments in executive function, orientation, language naming, attention, abstraction. Pt mood stable and no signs of psychosis to consider invalid results or not adequate effort. 10/06/2021 Patient seen in psychiatric follow-up chart reviewed patient was seen patient had significant findings on cervical MRI unclear if these have been followed up will try and clarify continue olanzapine and Depakote 10/07/2021 Continue plan of care. Case reviewed briefly with Dr. Jeffrey. Check Depakote level check fasting blood sugar good contribute to current symptoms. Cervical MRI not commented on by Neurology ambulating independently Need to clarify discharge plans living situation 10/08/21 Pt seems like improving future oriented I spent minutes with the patient and/or on the patient floor today, greater than?50% of which was spent counseling/coordinating care. Reason for contiued inpatient stay Substantial Risk for: rapid decompensation and med/psych decompensation
[2021-10-08 18:00] VITALS: BP 126/65; PULSE 76; RESP 16; TEMP 36.7; O2SAT 96
[2021-10-08] MEDS: OLANZapine 2.5 MG TABLET PO (20:41)
[2021-10-08] MEDS: Divalproex Sodium ER 500 MG TAB.ER.24H PO (20:41)
[2021-10-09 06:00] VITALS: BP 163/73; PULSE 73; RESP 18; TEMP 36.8; O2SAT 99
[2021-10-09 07:59] VITALS: BP 163/74; PULSE 73
[2021-10-09] MEDS: amLODIPine Besylate 5 MG TABLET PO (07:59)
[2021-10-09] MEDS: Cyanocobalamin (Vitamin B-12) 1,000 MCG TABLET 1000 MCG PO (08:00)
[2021-10-09] MEDS: Gabapentin 100 MG CAPSULE 200 MG PO (08:00)
[2021-10-09] MEDS: Mineral Oil/Petrolatum,White 106 GM Tube 1 APPL TOPICAL (08:02)
[2021-10-09 08:15] LABS: Glucose, Whole Blood 123 mg/dL (60-115)
[2021-10-09 09:15] LABS: Valproate 46.8 mcg/mL (50.0-100.0)
--- NOTE | 2021-10-09 10:41 | P.DS_ITS ---
DS: Providers Provider Date of Service: 10/09/21 Date of admission: 09/22/21 20:06 Primary care physician: Unknown Physician Consults: 09/27/21 13:31 Consult to Neurology Routine Consulting Provider: [facility] Reason for consultation: concern for LBD; diagnostic evaluation, please. Has provider been notified: No DS: Diagnosis Discharge Diagnosis (1) Tactile hallucinations: Status: Acute DS: Medications Discharge Medications Home Medications: Previous Rx's Medication Instructions Recorded amlodipine 5 mg tablet 5 mg PO DAILY #30 tab 10/09/21 cyanocobalamin (vitamin B-12) 1,000 mcg PO DAILY #30 tab 10/09/21 1,000 mcg tablet (Vitamin B-12) divalproex 500 mg tablet,extended 500 mg PO BEDTIME #30 tab 10/09/21 release 24 hr gabapentin 100 mg capsule 200 mg PO BID #120 cap 10/09/21 olanzapine 2.5 mg tablet 2.5 mg PO BEDTIME #30 tab 10/09/21 trazodone 50 mg tablet 50 mg PO BEDTIME PRN #30 tab 10/09/21 Mental Status Exam Mental Status Exam Narrative: Pt is wearing hospital gown, ambulating on his own, steady gait, no acute distress. Pt is cooperative and friendly, easily engages in conversation with this process description writer. Speech is clear, normal rate/rhythm, soft spoken, spontaneous. TP: mostly linear. TC: no signs? of psychosis. Mood: good, affect is bright, congruent, non labile. AH/VH: none. Insight/judgment: limited x 2. MOCA on 10/02- 06/05 most impairment in executive function, naming, attention, or ientation, language repetition/fluency and abstraction Data Data Completed and Pending Completed studies during hospitalization [Text1]: 09/28/21 10/02/21 10/02/21 16:06 11:48 11:48 Sodium 141 Potassium 4.7 Chloride 100 Carbon Dioxide 37 H Anion Gap 9 L BUN 23 H D Creatinine 1.03 Estim Creat Clear Calc 49.1 Estimated GFR > 60 POC Glucose Random Glucose 149 H Calcium 10.2 Iron 111 TIBC 305 % Saturation 36 Unsat Iron Binding 194 Total Bilirubin 0.4 AST 24 ALT 28 Alkaline Phosphatase 44 Total Protein 7.1 Albumin 4.3 Methylmalonic Acid 117 Valproic Acid Lyme Screen IgG & IgM <0.90 Lyme Progressive Test TNP 10/05/21 10/08/21 10/09/21 07:37 09:00 08:10 Sodium 140 Potassium 4.3 Chloride 103 Carbon Dioxide 32 H Anion Gap 9 L BUN 27 H Creatinine 0.94 Estim Creat Clear Calc 53.8 Estimated GFR > 60 POC Glucose 91 123 H Random Glucose 114 Calcium 9.6 Iron TIBC % Saturation Unsat Iron Binding Total Bilirubin 0.2 AST 20 ALT 28 Alkaline Phosphatase 35 L D Total Protein 6.0 L Albumin 3.8 Methylmalonic Acid Valproic Acid Lyme Screen IgG & IgM Lyme Progressive Test 10/09/21 08:31 Sodium Potassium Chloride Carbon Dioxide Anion Gap BUN Creatinine Estim Creat Clear Calc Estimated GFR POC Glucose Random Glucose Calcium Iron TIBC % Saturation Unsat Iron Binding Total Bilirubin AST ALT Alkaline Phosphatase Total Protein Albumin Methylmalonic Acid Valproic Acid 46.8 L Lyme Screen IgG & IgM Lyme Progressive Test Imaging Diagnostic Imaging Impressions Chest X-Ray 09/25/21 18:56 IMPRESSION: No radiopaque foreign body. No acute cardiopulmonary findings. Skull X-Ray 09/25/21 18:56 IMPRESSION: No radiopaque foreign body. Brain MRI 09/25/21 19:30 IMPRESSION: No acute intracranial process. Nonspecific mild scattered white matter signal changes which may be due to microangiopathy. Cervical Spine MRI 09/28/21 20:25 IMPRESSION: 1. At C6-C7 there is a broad-based posterior disc protrusion with compression of the cord and there is moderate to severe central stenosis. There is severe left and moderate right foraminal narrowing. 2. At C3-C4 there is a broad-based posterior soft disc protrusion with mild flattening of the cord and there is mild to moderate central stenosis. There is mild bilateral foraminal narrowing. 3. At C5-C6 there is a posterior disc osteophyte complex with effacement of CSF ventral to the spinal cord but there is no spinal cord compression. There is mild central stenosis. Mild bilateral foraminal narrowing. 4. At C7-T1 there is a broad-based posterior disc protrusion. There is mild central stenosis is moderate bilateral foraminal narrowing. 5. There are prominent flowing osteophytes with fatty signal anteriorly at C4-C5 and C5-C6. DS: Summary Hospital Course Hospital Course: HPI: Mr. Dixon is a 76 year-old male [place] Speaking only who presented to [facility] on 09/20/21 reporting feeling plagued by a physical sensation of bugs crawling all over his body with recent ED visits in 08/27 with similar presentation. Pt reported that due to unberable pain he was having suicidal thoughts and poor sleep. Pt reported he wanted to cut his hands off so he stops itching and went as far as holding a knife to his arm but did not engage in SIB. Utox negative and pt denies illicit substance use or alcohol abuse.? HOSPITAL COURSE Mr. Dixon was admitted on a CV and placed on 15 minutes checks for safety. On the unit, pt reported sensation of bugs crawling on both legs but he denied seeing the bugs. Pt did have cervical MRI which showed c7-T1 moderate to severe central stenosis- started on Gabapentin which pt reported significantly decreased his pain/physical discomfort on bilat lower extremities and neck-head. It was noted that pt had significant memory/cognitive impairments. MOCA was completed and he scored 6/30- most difficulties on executive function, visual spatial, naming, language repetition and fluency, recall after 5 minutes (0/5), orientation, abstraction. It was clear that pt's ability to retain information, manage medications or finances is very impaired. After discussing risks, benefits and alternative treatment options, pt was also started on depakote and olanzapine for mood as initialy it was thought pt had delusional/psychotic process, but I suspect it is more related to his own explanation for pain he was suffering rather than him seeing things that were not there. His affect gradually brighten. He was sleeping through the night. He denied symptoms of depression or anxiety. He did not appear internally preoccupied. He did not show any signs of aggression towards self or others. He denied suicidal or homicidal ideation. He is currently working with test case developer from [facility], agency that currently provides housing for pt at [facility] they contract with. His test case developer is Karin. She is working with pt along with [facility] to find PATI for him. Staff at [facility] informed of cognitive impairments and advised to support pt managing medications. Status at Discharge Cognitive/behavioral status at discharge: Pt with bright affect, denies pain. He is sleeping and eating well. No SI/HI. No signs of psychosis or delusional content. No signs of aggression towards self or others. Pt will return to [place] [id number] where he is working with [facility] test case developer Karin to assist him with [facility] placement. Cognitively severely impaired. Functional status at discharge: independent ambulation Overall status at discharge: patient is progressing back to baseline Time Spent with Patient Time attestation: Total time spent providing and/or coordinating discharge services: Discharge Plan Discharge Patient Disposition: Home, Self-Care Discharge Diagnosis: Major Neurocognitive Disorder BARBARA Referrals: Karin - [facility] [Other] - 1 Week (Please follow up with your vice president industrial relations regarding appointments and housing referrals. ) [facility] [Physician] - 1 Week (Follow up within 1 week of dsicharge) Discharge Medications: New amlodipine 5 mg Tablet 5 mg PO DAILY Qty: 30 0RF Protocol: Hold for SBP< HOLD for SBP < : 90 divalproex 500 mg Tablet Extended Release 24 Hr 500 mg PO BEDTIME Qty: 30 0RF gabapentin 100 mg capsule 200 mg PO BID Qty: 120 0RF trazodone 50 mg Tablet 50 mg PO BEDTIME PRN (Reason: Insomnia) Qty: 30 0RF cyanocobalamin (vitamin B-12) [Vitamin B-12] 1,000 mcg Tablet 1,000 mcg PO DAILY Qty: 30 0RF olanzapine 2.5 mg Tablet 2.5 mg PO BEDTIME Qty: 30 0RF Discontinued cyanocobalamin (vitamin B-12) 1,000 mcg tablet 1 tab PO DAILY 0RF No Action gabapentin 300 mg capsule 300 mg PO BID Qty: 60 0RF Discharge Orders: Discharge Order (Routine); Ordered 10/09/21 Ordered By: Kaylee Perea Diet: regular diet Activity on Discharge: As tolerated Stand Alone Forms: Patient Portal Discharge page, Community Support Care Plan Goals: Maintain mood No SI/HI No signs of aggression towards self or others. Needs support for medication management and finances and finding safe place to live. Health Concerns: Follow up with PCP- better control of HTN Plan of Treatment: 1. Take medications as prescribed with support of VNA or disability case manager 2. Go to nearest ED or call 911 in event of emergency Assessment: No signs of psychosis. No SI/HI. No signs of aggression towards self or others. Underlying neurocognitive impairment and needs support with managing medications, finances Discharge Date/Time: 10/09/21 12:50
--- NOTE | 2021-10-09 11:21 | PC.NURSE ---
Patient is pleasant and cooperative upon approach. Patient is in a cheerful mood with congruent affect. Patient's speech is coherent and clear. Patient states looking forward to getting out of here. I am appreciative of the care I got here. I feel loved . Patient denies SI/HI/AH/VH. Patient reports feeling safe and ready for discharge. Patient denies complaints at this time.
== END 2021-10-09 12:50 | disposition home or self-care (01) | DRG 880 ==
LOC: HO.ED 09-22 20:47 → HO.PADLT16 09-22 20:50
PROVIDERS: Physician Assistant; Psychiatry & Neurology Psychiatry; Admitting Provider Registered Nurse; Emergency Provider Emergency Medicine; Visit Provider Social Worker
DX: F41.1 Generalized anxiety disorder (principal); R45.851 Suicidal ideations; R44.2 Other hallucinations; F01.50 Vascular dementia, unspecified severity, without behavioral disturbance, psychotic disturbance, mood disturbance, and anxiety; Z20.822 Contact with and (suspected) exposure to COVID-19; Z59.02 Unsheltered homelessness; F17.210 Nicotine dependence, cigarettes, uncomplicated; Z71.6 Tobacco abuse counseling; Z79.899 Other long term (current) drug therapy
CPT/HCPCS: 36415; 70250; 70551; 71046; 72141; 80048; 80053; 80061; 80076; 80164; 80307; 81001; 82077; 82607; 82746; 82947; 83036; 83540; 83735; 83921; 84439; 84443; 85025; 85652; 86038; 86039; 86617; 86618; 86780; 87635; 93005; 99285; Q0163

== ENCOUNTER 2021-10-15 17:04 | Emergency (ER) | payer MEDICARE, MEDICAID, SELFPAY ==
[2021-10-15 17:13] VITALS: PULSE 68; RESP 16; TEMP 36.1; O2SAT 99; BMI 25.8
== END 2021-10-15 22:13 | disposition left against medical advice (07) ==
PROVIDERS: Emergency Provider Emergency Medicine
DX: L29.9 Pruritus, unspecified (principal); R44.2 Other hallucinations; F17.200 Nicotine dependence, unspecified, uncomplicated
CPT/HCPCS: 99282; 99283

== ENCOUNTER 2021-10-17 09:33 | Emergency (ER) | payer MEDICARE, MEDICAID, SELFPAY ==
--- NOTE | 2021-10-17 09:44 | ECG_ITS ---
Test Reason : Med clearance Blood Pressure : / mmHG Vent. Rate : 068 BPM Atrial Rate : 068 BPM P-R Int : 304 ms QRS Dur : 090 ms QT Int : 396 ms P-R-T Axes : 000 033 059 degrees QTc Int : 421 ms Sinus rhythm with 1st degree A-V block Minimal voltage criteria for LVH, may be normal variant ( Sokolow-Macdonald Abnormal ECG When compared with ECG of 22-SEP-2021 17:27, No significant changes seen Referred By: Valentina Holly Electronically Signed By:CHELY MAYORGA
[2021-10-17 09:46] VITALS: BP 140/64; PULSE 73; RESP 18; TEMP 36.6; O2SAT 100
[2021-10-17 09:50] VITALS: BP 140/64; PULSE 73; RESP 18; TEMP 36.6; BMI 26.6
--- NOTE | 2021-10-17 09:57 | ED_ITS ---
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 He also reports that he seen nuances hanging all over his motel [address] room. Although he denies any SI/HI or thoughts of self injury. He denies any drug or alcohol usage. He denies any recent travel. He reports that he is vaccinated to the flu and to the COVID vaccine. He denies any fevers, chills, dizziness, headache, neck pain/stiffness, trouble swallowing or breathing, sore throat, cough, chest pain or shortness of breath, dyspnea on exertion, orthopnea, palpitations, nausea/vomiting/diarrhea or constipation, abdominal pain, back eladio n, rashes, weakness or any other symptoms complaints or concerns at this time. <NIA oLyd Last Filed: 10/17/21 17:06> MD complaint: hallucinations <NIA Loyd Last Filed: 10/17/21 17:06> Onset (ago): day(s) <NIA Loyd Last Filed: 10/17/21 17:06> Duration: constant and getting worse <NIA Loyd Last Filed: 10/17/21 17:06> History of same: Yes <NIA Loyd Last Filed: 10/17/21 17:06> Relieving factors: none <NIA Loyd Last Filed: 10/17/21 17:06> Exacerbating factors: none <NIA Loyd Last Filed: 10/17/21 17:06> Context: not taking psychiatric medications <NIA Loyd Last Filed: 10/17/21 17:06> Associated psychiatric symptoms: racing thoughts, visual hallucinations and delusions <NIA Loyd Last Filed: 10/17/21 17:06> Associated symptoms: denies other symptoms <NIA Loyd Last Filed: 10/17/21 17:06> Treatments prior to arrival: none <NIA Loyd Last Filed: 10/17/21 17:06> Related Data Home Medications: Previous Rx's Medication Instructions Recorded amlodipine 5 mg tablet 5 mg PO DAILY #30 tab 10/09/21 cyanocobalamin (vitamin B-12) 1,000 mcg PO DAILY #30 tab 10/09/21 1,000 mcg tablet (Vitamin B-12) divalproex 500 mg tablet,extended 500 mg PO BEDTIME #30 tab 10/09/21 release 24 hr gabapentin 100 mg capsule 200 mg PO BID #120 cap 10/09/21 olanzapine 2.5 mg tablet 2.5 mg PO BEDTIME #30 tab 10/09/21 trazodone 50 mg tablet 50 mg PO BEDTIME PRN #30 tab 10/09/21 <NIA Loyd Last Filed: 10/17/21 17:06> Allergies/Adverse Reactions: Allergies Allergy/AdvReac Type Severity Reaction Status Date / Time No Known Allergies Allergy Unknown NONE Verified 12/14/20 00:42 [No Known Allergies*] <NIA Loyd Last Filed: 10/17/21 17:06> Review of Systems Review of Systems: Constitutional : No Fever, No Chills ENT/Mouth : No Ear Pain, No Nasal Congestion, No sore throat Eyes: No Eye Pain, No Swelling, No Redness Cardiovascular : No Chest Pain, No SOB Respiratory : No Cough, No Sputum, No Dyspnea Gastrointestinal : No ingestions, No Nausea, No Vomiting, No Diarrhea, No Hematochezia, No Melena Genitourinary : No Dysuria, No Urinary Frequency, No Hematuria Musculoskeletal : No Myalgias Skin : No Skin Lesions, No rash Neuro : No Weakness, No Numbness, No Paresthesias, No Dizziness, No Headache Psych : + Anxiety with associated visual hallucinations and delusions, No Depression, No SI, No thoughts of self injury, No HI, No auditory hallucinations Heme/Lymph: No Lymphadenopathy Endocrine : No Polyuria, No Polydipsia <NIA Loyd - Last Filed: 10/17/21 17:06> Yes all other systems are reviewed and are negative <NIA Loyd - Last Filed: 10/17/21 17:06> [facility] Past Medical History Attestation statement: The following information was validated with the patient. <NIA Loyd - Last Filed: 10/17/21 17:06> Medical History: Medical History Ileus No known health problems <NIA Loyd - Last Filed: 10/17/21 17:06> Social History Social History: Social History Household Members: None Housing: Homeless Do you presently have visiting nurse or other home services: No Alcohol intake: never Patient Tobacco Use Status: Current everyday Tobacco user Tobacco use type: Cigarette e-Cigarette/Vaping Use: Never Used Second Hand Smoke Exposure: Yes Advance Directives: No Advance Directives Information Provided: No service: No Current occupational status: retired Sexual orientation: Px. was not available when called for this assessment, info is N/A <NIA Loyd - Last Filed: 10/17/21 17:06> Physical Exam Vital Signs: Vital Signs: Last Vital Signs Temp 98.0 F 10/18/21 06:33 Pulse 65 10/18/21 06:33 Resp 16 10/18/21 06:33 BP 140/61 H 10/18/21 06:33 Pulse Ox 99 10/18/21 06:33 BMI result Body Mass Index 26.6 vital signs have been reviewed as normal and appeared to be correct. Blood pressure 140/64. Heart rate normal. Respiration rate normal. Temperature normal. Oxygen saturation normal. <NIA Loyd - Last Filed: 10/17/21 17:06> Vital Signs: Last Vital Signs Temp 98.0 F 10/18/21 06:33 Pulse 65 10/18/21 06:33 Resp 16 10/18/21 06:33 BP 140/61 H 10/18/21 06:33 Pulse Ox 99 10/18/21 06:33 BMI result Body Mass Index 26.6 <NIA Hernandez - Last Filed: 10/17/21 18:06> Vital Signs: Last Vital Signs Temp 98.0 F 10/18/21 06:33 Pulse 65 10/18/21 06:33 Resp 16 10/18/21 06:33 BP 140/61 H 10/18/21 06:33 Pulse Ox 99 10/18/21 06:33 BMI result Body Mass Index 26.6 <NIA Feliz - Last Filed: 10/18/21 11:03> Appearance: Alert. Oriented X3. No acute distress. Head: Normal external exam. Normocephalic. Atraumatic. No West signs noted. No raccoon eyes noted Eyes: PERRLA. EOMI. Conjunctiva and sclera normal. Eyelids normal. ENT: EAC normal. TM's Normal. Pharynx normal. Uvula midline. Moist mucous membranes. No trismus noted. No drooling noted. No muffled voice noted. Neck: Normal inspection. Neck supple. FROM. No adenopathy. Thyroid Normal. No meningeal signs. No neck mass noted. CVS: Normal heart rate and rhythm. Heart sound normal. No murmurs noted. Pulses normal throughout. Respiratory: No respiratory distress. Painless inspiration. Breath sounds normal. No wheezes/rales/rhonchi noted. Chest nontender. No accessory muscle usage noted or decreased air movement noted. Abdomen: Soft and nontender. Bowel sounds normal in all 4 quadrants. No distention noted. No organomegaly noted. No visible injury noted. Back: No CVA tenderness. Full range of motion noted. Skin: Skin warm and dry. Normal skin color. Normal skin turgor. No rashes/lesions/lacerations noted. Extremities: No lower extremity edema. Extremities exhibit normal range of motion. Extremities nontender. Neuro: Oriented X 3. No motor deficit. No sensory deficit. Reflexes normal. Psych: Appearance grossly normal, well-kept, mental status normal, speech and movement normal, speech clear, normal affect. Is cooperative. Normal thought process. Normal thought content. Normal good insight. Judgment good. 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 He also reports that he seen nuances hanging all over his motel [place] room. He reports that he is vaccinated to the flu and to the COVID vaccine. Plan: Labs, EKG, COVID swab, UA, drugs of abuse screen then re-evaluate. <NIA Loyd - Last Filed: 10/17/21 17:06> Reevaluation(s) Reevaluation #1: - labs reviewed and patient with mild baseline anemia similar compared to prior. Carbon dioxide 31. BUN 18. Anion gap 7. Random glucose 116. Alkaline phosphate 38 which is similar when compared to prior. Valproic acid less than 2 this confirms that the patient is not taking his medication. Ethanol level less than 10. Patient negative for COVID. Otherwise all other labs are within normal limits. EKG is within normal limits no acute ischemic changes are noted. In similar compared to prior. - therefore at this time patient is medically cleared and placed in physician observation because the patient is more time to be evaluated by crisis for possible inpatient psychiatric is the patient. Will continue to monitor. At this time patient remains neuro intact no focal neuro deficits are noted Lungs clear to auscultation. CV RRR. Abdomen is soft nontender. Will continue to monitor as patient awaits crisis evaluation. <NIA Loyd - Last Filed: 10/17/21 17:06> Time: 11:38 <NIA Loyd - Last Filed: 10/17/21 17:06> Reevaluation #2: At this time patient will remain in physician observation behavioral Health evaluated the patient, he is not meeting inpatient criteria. However he is not safe for discharge his home was condemned he has no place to live, he needs medication re-evaluation, at this time he will be PT/Case Management. In a psych consult will be put in. He is denying suicidal and homicidal ideation at this time. <NIA Hernandez - Last Filed: 10/17/21 18:06> Time: 18:06 <NIA Hernandez - Last Filed: 10/17/21 18:06> Reevaluation #3: Physician observation continued. Vital signs stable, no complaints overnight, respirations unlabored. Patient is pending Case Management placement and psychiatry consult. Labs reviewed, patient noncompliant with medications <NIA Feliz - Last Filed: 10/18/21 11:03> Time: 11:02 <NIA Feliz - Last Filed: 10/18/21 11:03> MDM - Psych Medical Records Attestation: I reviewed the patient's medical records. <NIA Loyd - Last Filed: 10/17/21 17:06> Lab Data Attestation: I reviewed the patient's lab results. <NIA Loyd - Last Filed: 10/17 17:06> Result diagrams: : 10/17/21 10:14 10/17/21 10:14 <NIA Loyd - Last Filed: 10/17/21 17:06> Labs: Lab Results 10/17/21 10/17/21 10/17/21 Range/Units 10:14 10:14 10:14 WBC 6.7 (4.8-10.8) X10*3/uL RBC 4.13 L (4.60-5.80) X10*6/uL Hgb 13.1 L (14.0-18.0) g/dl Hct 39.2 L (42.0-52.0) % MCV 94.9 (80.0-98.0) fL MCH 31.7 (27.0-33.0) pg MCHC 33.4 (31.0-36.0) g/dl RDW 13.4 (11.0-16.0) % Plt Count 222 (160-400) X10*3/uL MPV 11.0 (9.4-12.4) fL Immature Gran % (Auto) 0.2 (0.0-0.4) % Neut % (Auto) 63.5 (45-73) % Lymph % (Auto) 20.5 (20-40) % [place] % (Auto) 8.9 (2-11) % Eos % (Auto) 6.3 H (0-4) % Baso % (Auto) 0.6 (0-2) % Lymph # (Auto) 1.4 (1.2-4.9) X10*3/uL [place] # (Auto) 0.6 (0.1-1.2) X10*3/uL Eos # (Auto) 0.4 (0.0-0.4) X10*3/uL Baso # (Auto) 0.0 (0.0-0.2) X10*3/uL Abs Immat Gran (auto) 0.01 (0.00-0.03) X10*3/uL Absolute Neuts (auto) 4.2 (2.0-8.3) x10*3/uL Absolute Nucleated RBC 0.000 (0.0-0.012) X10*3/uL Nucleated RBC % (auto) 0.0 (0.0-0.2) /100WBC Hold Purple Top PT 12.0 (9.9-13.0) SEC INR 1.1 (0.9-1.1) Sodium 139 (135-145) mmol/L Potassium 4.2 (3.3-5.1) mmol/L Chloride 105 (96-108) mmol/L Carbon Dioxide 31 H (22-29) mmol/L Anion Gap 7 L (12-20) BUN 18 H (9-16) mg/dL Creatinine 0.99 (0.5-1.4) mg/dL Estim Creat Clear Calc 59.3 Estimated GFR > 60 Random Glucose 116 H (60-115) mg/dL Calcium 9.5 (8.4-10.2) mg/dL Magnesium 2.1 (1.6-2.6) mg/dL Total Bilirubin 0.4 (0.0-1.0) mg/dL AST 21 (5-37) U/L ALT 28 (0-40) U/L Alkaline Phosphatase 38 L (39-117) U/L Total Protein 6.5 (6.5-8.0) g/dL Albumin 3.9 (3.5-5.0) g/dL Urine Opiates Screen (Not Detect) Urine Fentanyl Screen (Not Detect) Ur Barbiturates Screen (Not Detect) Valproic Acid (50.0-100.0) mcg/mL Ur Phencyclidine Scrn (Not Detect) Ur Amphetamines Screen (Not Detect) U Benzodiazepines Scrn (Not Detect) Urine Cocaine Screen (Not Detect) U Marijuana (THC) Screen (Not Detect) Ethyl Alcohol mg/dL COVID-19 ([facility]) (Negative) COVID-19 Clin Com 10/17/21 10/17/21 10/17/21 Range/Units 10:14 10:14 10:14 WBC (4.8-10.8) X10*3/uL RBC (4.60-5.80) X10*6/uL Hgb (14.0-18.0) g/dl Hct (42.0-52.0) % MCV (80.0-98.0) fL MCH (27.0-33.0) pg MCHC (31.0-36.0) g/dl RDW (11.0-16.0) % Plt Count (160-400) X10*3/uL MPV (9.4-12.4) fL Immature Gran % (Auto) (0.0-0.4) % Neut % (Auto) (45-73) % Lymph % (Auto) (20-40) % [place] % (Auto) (2-11) % Eos % (Auto) (0-4) % Baso % (Auto) (0-2) % Lymph # (Auto) (1.2-4.9) X10*3/uL [place] # (Auto) (0.1-1.2) X10*3/uL Eos # (Auto) (0.0-0.4) X10*3/uL Baso # (Auto) (0.0-0.2) X10*3/uL Abs Immat Gran (auto) (0.00-0.03) X10*3/uL Absolute Neuts (auto) (2.0-8.3) x10*3/uL Absolute Nucleated RBC (0.0-0.012) X10*3/uL Nucleated RBC % (auto) (0.0-0.2) /100WBC Hold Purple Top SEE NOTE PT (9.9-13.0) SEC INR (0.9-1.1) Sodium (135-145) mmol/L Potassium (3.3-5.1) mmol/L Chloride (96-108) mmol/L Carbon Dioxide (22-29) mmol/L Anion Gap (12-20) BUN (9-16) mg/dL Creatinine (0.5-1.4) mg/dL Estim Creat Clear Calc Estimated GFR Random Glucose (60-115) mg/dL Calcium (8.4-10.2) mg/dL Magnesium (1.6-2.6) mg/dL Total Bilirubin (0.0-1.0) mg/dL AST (5-37) U/L ALT (0-40) U/L Alkaline Phosphatase (39-117) U/L Total Protein (6.5-8.0) g/dL Albumin (3.5-5.0) g/dL Urine Opiates Screen (Not Detect) Urine Fentanyl Screen (Not Detect) Ur Barbiturates Screen (Not Detect) Valproic Acid (50.0-100.0) mcg/mL Ur Phencyclidine Scrn (Not Detect) Ur Amphetamines Screen (Not Detect) U Benzodiazepines Scrn (Not Detect) Urine Cocaine Screen (Not Detect) U Marijuana (THC) Screen (Not Detect) Ethyl Alcohol < 10 mg/dL COVID-19 ([facility]) Negative (Negative) COVID-19 Clin Com See Note 10/17/21 10/17/21 Range/Units 10:14 21:55 WBC (4.8-10.8) X10*3/uL RBC (4.60-5.80) X10*6/uL Hgb (14.0-18.0) g/dl Hct (42.0-52.0) % MCV (80.0-98.0) fL MCH (27.0-33.0) pg MCHC (31.0-36.0) g/dl RDW (11.0-16.0) % Plt Count (160-400) X10*3/uL MPV (9.4-12.4) fL Immature Gran % (Auto) (0.0-0.4) % Neut % (Auto) (45-73) % Lymph % (Auto) (20-40) % [place] % (Auto) (2-11) % Eos % (Auto) (0-4) % Baso % (Auto) (0-2) % Lymph # (Auto) (1.2-4.9) X10*3/uL [place] # (Auto) (0.1-1.2) X10*3/uL Eos # (Auto) (0.0-0.4) X10*3/uL Baso # (Auto) (0.0-0.2) X10*3/uL Abs Immat Gran (auto) (0.00-0.03) X10*3/uL Absolute Neuts (auto) (2.0-8.3) x10*3/uL Absolute Nucleated RBC (0.0-0.012) X10*3/uL Nucleated RBC % (auto) (0.0-0.2) /100WBC Hold Purple Top PT (9.9-13.0) SEC INR (0.9-1.1) Sodium (135-145) mmol/L Potassium (3.3-5.1) mmol/L Chloride (96-108) mmol/L Carbon Dioxide (22-29) mmol/L Anion Gap (12-20) BUN (9-16) mg/dL Creatinine (0.5-1.4) mg/dL Estim Creat Clear Calc Estimated GFR Random Glucose (60-115) mg/dL Calcium (8.4-10.2) mg/dL Magnesium (1.6-2.6) mg/dL Total Bilirubin (0.0-1.0) mg/dL AST (5-37) U/L ALT (0-40) U/L Alkaline Phosphatase (39-117) U/L Total Protein (6.5-8.0) g/dL Albumin (3.5-5.0) g/dL Urine Opiates Screen Not Detected (Not Detect) Urine Fentanyl Screen Not Detected (Not Detect) Ur Barbiturates Screen Not Detected (Not Detect) Valproic Acid < 2.0 L (50.0-100.0) mcg/mL Ur Phencyclidine Scrn Not Detected (Not Detect) Ur Amphetamines Screen Not Detected (Not Detect) U Benzodiazepines Scrn Not Detected (Not Detect) Urine Cocaine Screen Not Detected (Not Detect) U Marijuana (THC) Screen Not Detected (Not Detect) Ethyl Alcohol mg/dL COVID-19 ([facility]) (Negative) COVID-19 Clin Com <NIA Loyd - Last Filed: 10/17/21 17:06> Lab Results 10/17/21 10/17/21 10/17/21 Range/Units 10:14 10:14 10:14 WBC 6.7 (4.8-10.8) X10*3/uL RBC 4.13 L (4.60-5.80) X10*6/uL Hgb 13.1 L (14.0-18.0) g/dl Hct 39.2 L (42.0-52.0) % MCV 94.9 (80.0-98.0) fL MCH 31.7 (27.0-33.0) pg MCHC 33.4 (31.0-36.0) g/dl RDW 13.4 (11.0-16.0) % Plt Count 222 (160-400) X10*3/uL MPV 11.0 (9.4-12.4) fL Immature Gran % (Auto) 0.2 (0.0-0.4) % Neut % (Auto) 63.5 (45-73) % Lymph % (Auto) 20.5 (20-40) % [place] % (Auto) 8.9 (2-11) % Eos % (Auto) 6.3 H (0-4) % Baso % (Auto) 0.6 (0-2) % Lymph # (Auto) 1.4 (1.2-4.9) X10*3/uL [place] # (Auto) 0.6 (0.1-1.2) X10*3/uL Eos # (Auto) 0.4 (0.0-0.4) X10*3/uL Baso # (Auto) 0.0 (0.0-0.2) X10*3/uL Abs Immat Gran (auto) 0.01 (0.00-0.03) X10*3/uL Absolute Neuts (auto) 4.2 (2.0-8.3) x10*3/uL Absolute Nucleated RBC 0.000 (0.0-0.012) X10*3/uL Nucleated RBC % (auto) 0.0 (0.0-0.2) /100WBC Hold Purple Top PT 12.0 (9.9-13.0) SEC INR 1.1 (0.9-1.1) Sodium 139 (135-145) mmol/L Potassium 4.2 (3.3-5.1) mmol/L Chloride 105 (96-108) mmol/L Carbon Dioxide 31 H (22-29) mmol/L Anion Gap 7 L (12-20) BUN 18 H (9-16) mg/dL Creatinine 0.99 (0.5-1.4) mg/dL Estim Creat Clear Calc 59.3 Estimated GFR > 60 Random Glucose 116 H (60-115) mg/dL Calcium 9.5 (8.4-10.2) mg/dL Magnesium 2.1 (1.6-2.6) mg/dL Total Bilirubin 0.4 (0.0-1.0) mg/dL AST 21 (5-37) U/L ALT 28 (0-40) U/L Alkaline Phosphatase 38 L (39-117) U/L Total Protein 6.5 (6.5-8.0) g/dL Albumin 3.9 (3.5-5.0) g/dL Urine Opiates Screen (Not Detect) Urine Fentanyl Screen (Not Detect) Ur Barbiturates Screen (Not Detect) Valproic Acid (50.0-100.0) mcg/mL Ur Phencyclidine Scrn (Not Detect) Ur Amphetamines Screen (Not Detect) U Benzodiazepines Scrn (Not Detect) Urine Cocaine Screen (Not Detect) U Marijuana (THC) Screen (Not Detect) Ethyl Alcohol mg/dL COVID-19 ([facility]) (Negative) COVID-19 Clin Com 10/17/21 10/17/21 10/17/21 Range/Units 10:14 10:14 10:14 WBC (4.8-10.8) X10*3/uL RBC (4.60-5.80) X10*6/uL Hgb (14.0-18.0) g/dl Hct (42.0-52.0) % MCV (80.0-98.0) fL MCH (27.0-33.0) pg MCHC (31.0-36.0) g/dl RDW (11.0-16.0) % Plt Count (160-400) X10*3/uL MPV (9.4-12.4) fL Immature Gran % (Auto) (0.0-0.4) % Neut % (Auto) (45-73) % Lymph % (Auto) (20-40) % [place] % (Auto) (2-11) % Eos % (Auto) (0-4) % Baso % (Auto) (0-2) % Lymph # (Auto) (1.2-4.9) X10*3/uL [place] # (Auto) (0.1-1.2) X10*3/uL Eos # (Auto) (0.0-0.4) X10*3/uL Baso # (Auto) (0.0-0.2) X10*3/uL Abs Immat Gran (auto) (0.00-0.03) X10*3/uL Absolute Neuts (auto) (2.0-8.3) x10*3/uL Absolute Nucleated RBC (0.0-0.012) X10*3/uL Nucleated RBC % (auto) (0.0-0.2) /100WBC Hold Purple Top SEE NOTE PT (9.9-13.0) SEC INR (0.9-1.1) Sodium (135-145) mmol/L Potassium (3.3-5.1) mmol/L Chloride (96-108) mmol/L Carbon Dioxide (22-29) mmol/L Anion Gap (12-20) BUN (9-16) mg/dL Creatinine (0.5-1.4) mg/dL Estim Creat Clear Calc Estimated GFR Random Glucose (60-115) mg/dL Calcium (8.4-10.2) mg/dL Magnesium (1.6-2.6) mg/dL Total Bilirubin (0.0-1.0) mg/dL AST (5-37) U/L ALT (0-40) U/L Alkaline Phosphatase (39-117) U/L Total Protein (6.5-8.0) g/dL Albumin (3.5-5.0) g/dL Urine Opiates Screen (Not Detect) Urine Fentanyl Screen (Not Detect) Ur Barbiturates Screen (Not Detect) Valproic Acid (50.0-100.0) mcg/mL Ur Phencyclidine Scrn (Not Detect) Ur Amphetamines Screen (Not Detect) U Benzodiazepines Scrn (Not Detect) Urine Cocaine Screen (Not Detect) U Marijuana (THC) Screen (Not Detect) Ethyl Alcohol < 10 mg/dL COVID-19 ([facility]) Negative (Negative) COVID-19 Clin Com See Note 10/17/21 10/17/21 Range/Units 10:14 21:55 WBC (4.8-10.8) X10*3/uL RBC (4.60-5.80) X10*6/uL Hgb (14.0-18.0) g/dl Hct (42.0-52.0) % MCV (80.0-98.0) fL MCH (27.0-33.0) pg MCHC (31.0-36.0) g/dl RDW (11.0-16.0) % Plt Count (160-400) X10*3/uL MPV (9.4-12.4) fL Immature Gran % (Auto) (0.0-0.4) % Neut % (Auto) (45-73) % Lymph % (Auto) (20-40) % [place] % (Auto) (2-11) % Eos % (Auto) (0-4) % Baso % (Auto) (0-2) % Lymph # (Auto) (1.2-4.9) X10*3/uL [place] # (Auto) (0.1-1.2) X10*3/uL Eos # (Auto) (0.0-0.4) X10*3/uL Baso # (Auto) (0.0-0.2) X10*3/uL Abs Immat Gran (auto) (0.00-0.03) X10*3/uL Absolute Neuts (auto) (2.0-8.3) x10*3/uL Absolute Nucleated RBC (0.0-0.012) X10*3/uL Nucleated RBC % (auto) (0.0-0.2) /100WBC Hold Purple Top PT (9.9-13.0) SEC INR (0.9-1.1) Sodium (135-145) mmol/L Potassium (3.3-5.1) mmol/L Chloride (96-108) mmol/L Carbon Dioxide (22-29) mmol/L Anion Gap (12-20) BUN (9-16) mg/dL Creatinine (0.5-1.4) mg/dL Estim Creat Clear Calc Estimated GFR Random Glucose (60-115) mg/dL Calcium (8.4-10.2) mg/dL Magnesium (1.6-2.6) mg/dL Total Bilirubin (0.0-1.0) mg/dL AST (5-37) U/L ALT (0-40) U/L Alkaline Phosphatase (39-117) U/L Total Protein (6.5-8.0) g/dL Albumin (3.5-5.0) g/dL Urine Opiates Screen Not Detected (Not Detect) Urine Fentanyl Screen Not Detected (Not Detect) Ur Barbiturates Screen Not Detected (Not Detect) Valproic Acid < 2.0 L (50.0-100.0) mcg/mL Ur Phencyclidine Scrn Not Detected (Not Detect) Ur Amphetamines Screen Not Detected (Not Detect) U Benzodiazepines Scrn Not Detected (Not Detect) Urine Cocaine Screen Not Detected (Not Detect) U Marijuana (THC) Screen Not Detected (Not Detect) Ethyl Alcohol mg/dL COVID-19 ([facility]) (Negative) COVID-19 Clin Com <NIA Hernandez - Last Filed: 10/17/21 18:06> Lab Results 10/17/21 10/17/21 10/17/21 Range/Units 10:14 10:14 10:14 WBC 6.7 (4.8-10.8) X10*3/uL RBC 4.13 L (4.60-5.80) X10*6/uL Hgb 13.1 L (14.0-18.0) g/dl Hct 39.2 L (42.0-52.0) % MCV 94.9 (80.0-98.0) fL MCH 31.7 (27.0-33.0) pg MCHC 33.4 (31.0-36.0) g/dl RDW 13.4 (11.0-16.0) % Plt Count 222 (160-400) X10*3/uL MPV 11.0 (9.4-12.4) fL Immature Gran % (Auto) 0.2 (0.0-0.4) % Neut % (Auto) 63.5 (45-73) % Lymph % (Auto) 20.5 (20-40) % [place] % (Auto) 8.9 (2-11) % Eos % (Auto) 6.3 H (0-4) % Baso % (Auto) 0.6 (0-2) % Lymph # (Auto) 1.4 (1.2-4.9) X10*3/uL [place] # (Auto) 0.6 (0.1-1.2) X10*3/uL Eos # (Auto) 0.4 (0.0-0.4) X10*3/uL Baso # (Auto) 0.0 (0.0-0.2) X10*3/uL Abs Immat Gran (auto) 0.01 (0.00-0.03) X10*3/uL Absolute Neuts (auto) 4.2 (2.0-8.3) x10*3/uL Absolute Nucleated RBC 0.000 (0.0-0.012) X10*3/uL Nucleated RBC % (auto) 0.0 (0.0-0.2) /100WBC Hold Purple Top PT 12.0 (9.9-13.0) SEC INR 1.1 (0.9-1.1) Sodium 139 (135-145) mmol/L Potassium 4.2 (3.3-5.1) mmol/L Chloride 105 (96-108) mmol/L Carbon Dioxide 31 H (22-29) mmol/L Anion Gap 7 L (12-20) BUN 18 H (9-16) mg/dL Creatinine 0.99 (0.5-1.4) mg/dL Estim Creat Clear Calc 59.3 Estimated GFR > 60 Random Glucose 116 H (60-115) mg/dL Calcium 9.5 (8.4-10.2) mg/dL Magnesium 2.1 (1.6-2.6) mg/dL Total Bilirubin 0.4 (0.0-1.0) mg/dL AST 21 (5-37) U/L ALT 28 (0-40) U/L Alkaline Phosphatase 38 L (39-117) U/L Total Protein 6.5 (6.5-8.0) g/dL Albumin 3.9 (3.5-5.0) g/dL Urine Opiates Screen (Not Detect) Urine Fentanyl Screen (Not Detect) Ur Barbiturates Screen (Not Detect) Valproic Acid (50.0-100.0) mcg/mL Ur Phencyclidine Scrn (Not Detect) Ur Amphetamines Screen (Not Detect) U Benzodiazepines Scrn (Not Detect) Urine Cocaine Screen (Not Detect) U Marijuana (THC) Screen (Not Detect) Ethyl Alcohol mg/dL COVID-19 ([facility]USTY) (Negative) COVID-19 Clin Com 10/17/21 10/17/21 10/17/21 Range/Units 10:14 10:14 10:14 WBC (4.8-10.8) X10*3/uL RBC (4.60-5.80) X10*6/uL Hgb (14.0-18.0) g/dl Hct (42.0-52.0) % MCV (80.0-98.0) fL MCH (27.0-33.0) pg MCHC (31.0-36.0) g/dl RDW (11.0-16.0) % Plt Count (160-400) X10*3/uL MPV (9.4-12.4) fL Immature Gran % (Auto) (0.0-0.4) % Neut % (Auto) (45-73) % Lymph % (Auto) (20-40) % [place] % (Auto) (2-11) % Eos % (Auto) (0-4) % Baso % (Auto) (0-2) % Lymph # (Auto) (1.2-4.9) X10*3/uL [place] # (Auto) (0.1-1.2) X10*3/uL Eos # (Auto) (0.0-0.4) X10*3/uL Baso # (Auto) (0.0-0.2) X10*3/uL Abs Immat Gran (auto) (0.00-0.03) X10*3/uL Absolute Neuts (auto) (2.0-8.3) x10*3/uL Absolute Nucleated RBC (0.0-0.012) X10*3/uL Nucleated RBC % (auto) (0.0-0.2) /100WBC Hold Purple Top SEE NOTE PT (9.9-13.0) SEC INR (0.9-1.1) Sodium (135-145) mmol/L Potassium (3.3-5.1) mmol/L Chloride (96-108) mmol/L Carbon Dioxide (22-29) mmol/L Anion Gap (12-20) BUN (9-16) mg/dL Creatinine (0.5-1.4) mg/dL Estim Creat Clear Calc Estimated GFR Random Glucose (60-115) mg/dL Calcium (8.4-10.2) mg/dL Magnesium (1.6-2.6) mg/dL Total Bilirubin (0.0-1.0) mg/dL AST (5-37) U/L ALT (0-40) U/L Alkaline Phosphatase (39-117) U/L Total Protein (6.5-8.0) g/dL Albumin (3.5-5.0) g/dL Urine Opiates Screen (Not Detect) Urine Fentanyl Screen (Not Detect) Ur Barbiturates Screen (Not Detect) Valproic Acid (50.0-100.0) mcg/mL Ur Phencyclidine Scrn (Not Detect) Ur Amphetamines Screen (Not Detect) U Benzodiazepines Scrn (Not Detect) Urine Cocaine Screen (Not Detect) U Marijuana (THC) Screen (Not Detect) Ethyl Alcohol < 10 mg/dL COVID-19 (RUSTY) Negative (Negative) COVID-19 Clin Com See Note 10/17/21 10/17/21 Range/Units 10:14 21:55 WBC (4.8-10.8) X10*3/uL RBC (4.60-5.80) X10*6/uL Hgb (14.0-18.0) g/dl Hct (42.0-52.0) % MCV (80.0-98.0) fL MCH (27.0-33.0) pg MCHC (31.0-36.0) g/dl RDW (11.0-16.0) % Plt Count (160-400) X10*3/uL MPV (9.4-12.4) fL Immature Gran % (Auto) (0.0-0.4) % Neut % (Auto) (45-73) % Lymph % (Auto) (20-40) % [place] % (Auto) (2-11) % Eos % (Auto) (0-4) % Baso % (Auto) (0-2) % Lymph # (Auto) (1.2-4.9) X10*3/uL [place] # (Auto) (0.1-1.2) X10*3/uL Eos # (Auto) (0.0-0.4) X10*3/uL Baso # (Auto) (0.0-0.2) X10*3/uL Abs Immat Gran (auto) (0.00-0.03) X10*3/uL Absolute Neuts (auto) (2.0-8.3) x10*3/uL Absolute Nucleated RBC (0.0-0.012) X10*3/uL Nucleated RBC % (auto) (0.0-0.2) /100WBC Hold Purple Top PT (9.9-13.0) SEC INR (0.9-1.1) Sodium (135-145) mmol/L Potassium (3.3-5.1) mmol/L Chloride (96-108) mmol/L Carbon Dioxide (22-29) mmol/L Anion Gap (12-20) BUN (9-16) mg/dL Creatinine (0.5-1.4) mg/dL Estim Creat Clear Calc Estimated GFR Random Glucose (60-115) mg/dL Calcium (8.4-10.2) mg/dL Magnesium (1.6-2.6) mg/dL Total Bilirubin (0.0-1.0) mg/dL AST (5-37) U/L ALT (0-40) U/L Alkaline Phosphatase (39-117) U/L Total Protein (6.5-8.0) g/dL Albumin (3.5-5.0) g/dL Urine Opiates Screen Not Detected (Not Detect) Urine Fentanyl Screen Not Detected (Not Detect) Ur Barbiturates Screen Not Detected (Not Detect) Valproic Acid < 2.0 L (50.0-100.0) mcg/mL Ur Phencyclidine Scrn Not Detected (Not Detect) Ur Amphetamines Screen Not Detected (Not Detect) U Benzodiazepines Scrn Not Detected (Not Detect) Urine Cocaine Screen Not Detected (Not Detect) U Marijuana (THC) Screen Not Detected (Not Detect) Ethyl Alcohol mg/dL COVID-19 (RUSTY) (Negative) COVID-19 Clin Com <NIA Feliz - Last Filed: 10/18/21 11:03> ECG Data Attestation: I personally reviewed and interpreted this ECG as follows: <NIA Loyd - Last Filed: 10/17/21 17:06> ECG interpretation date: 10/17/21 <NIA Loyd - Last Filed: 10/17/21 17:06> ECG interpretation time: 09:55 <NIA Loyd - Last Filed: 10/17/21 17:06> Interpretation: Sinus rhythm with 1st degree AV block with ventricular rate of [address] abnormalities no acute ischemic changes are noted. Similar compared to prior EKG on 09/22/2021. <NIA Loyd - Last Filed: 10/17/21 17:06> Discharge Plan Discharge Clinical Impression: Tactile hallucinations <NIA Loyd Last Filed: 10/17/21 17:06> Patient Disposition: Still a Patient <NIA Loyd Last Filed: 10/17/21 17:06> Prescriptions: No Action amlodipine 5 mg Tablet 5 mg PO DAILY Qty: 30 RF: 0 divalproex 500 mg Tablet Extended Release 24 Hr 500 mg PO BEDTIME Qty: 30 RF: 0 gabapentin 100 mg capsule 200 mg PO BID Qty: 120 RF: 0 trazodone 50 mg Tablet 50 mg PO BEDTIME PRN (Reason: Insomnia) Qty: 30 RF: 0 cyanocobalamin (vitamin B-12) [Vitamin B-12] 1,000 mcg Tablet 1,000 mcg PO DAILY Qty: 30 RF: 0 olanzapine 2.5 mg Tablet 2.5 mg PO BEDTIME Qty: 30 RF: 0 <NIA Loyd - Last Filed: 10/17/21 17:06>
[2021-10-17 10:23] LABS: MANUAL DIFF FLAG NO
[2021-10-17 10:28] LABS: Basophils Percent Auto 0.6 % (0-2); Eosinophils Absolute Auto 0.4 X10*3/uL (0.0-0.4); Eosinophils Percent Auto 6.3 % (0-4); Hematocrit 39.2 % (42.0-52.0); Hemoglobin 13.1 g/dl (14.0-18.0); Imm Gran Abs Auto 0.01 X10*3/uL (0.00-0.03); Imm Gran Pct Auto 0.2 % (0.0-0.4); Lymphocytes Absolute Auto 1.4 X10*3/uL (1.2-4.9); Lymphocytes Percent Auto 20.5 % (20-40); Mean Corpuscular HGB Conc 33.4 g/dl (31.0-36.0); Mean Corpuscular Hemoglobin 31.7 pg (27.0-33.0); Mean Corpuscular Volume 94.9 fL (80.0-98.0); Monocytes Absolute Auto 0.6 X10*3/uL (0.1-1.2); Monocytes Percent Auto 8.9 % (2-11); Neutrophils Absolute Auto 4.2 x10*3/uL (2.0-8.3); Neutrophils Percent Auto 63.5 % (45-73); Platelet Count 222 X10*3/uL (160-400); Red Blood Count 4.13 X10*6/uL (4.60-5.80); Red Cell Distribution Width 13.4 % (11.0-16.0); White Blood Count 6.7 X10*3/uL (4.8-10.8)
[2021-10-17 10:37] LABS: Ethanol < 10 mg/dL
[2021-10-17 10:38] LABS: COVID-19 Test Negative (Negative); IDNOW Serial# 9DD0AD1C
[2021-10-17] MEDS: hydrOXYzine HCL 25 MG TABLET PO (10:39)
[2021-10-17 10:41] LABS: INTERNATIONAL NORM RATIO 1.1 (0.9-1.1)
[2021-10-17 10:43] LABS: Alanine Aminotransferase 28 U/L (0-40); Albumin Level 3.9 g/dL (3.5-5.0); Alkaline Phosphatase 38 U/L (39-117); Anion Gap 7 (12-20); Aspartate Amino Transferase 21 U/L (5-37); Bilirubin Total 0.4 mg/dL (0.0-1.0); Blood Urea Nitrogen 18 mg/dL (9-16); Calcium 9.5 mg/dL (8.4-10.2); Carbon Dioxide 31 mmol/L (22-29); Chloride 105 mmol/L (96-108); Creatinine Clr Calc Pharmacy 59.3; Estimated Glomerular Filt Rate > 60; Glucose Random 116 mg/dL (60-115); Magnesium 2.1 mg/dL (1.6-2.6); Potassium 4.2 mmol/L (3.3-5.1); Sodium 139 mmol/L (135-145); Total Protein 6.5 g/dL (6.5-8.0)
[2021-10-17 10:55] LABS: Valproate < 2.0 mcg/mL (50.0-100.0)
[2021-10-17 11:30] VITALS: BP 136/75; PULSE 66; RESP 18; TEMP 36.4; O2SAT 98
[2021-10-17 12:31] VITALS: BP 123/67; PULSE 61; RESP 16; TEMP 36.9; O2SAT 99
[2021-10-17 14:26] VITALS: BP 143/69; PULSE 66; RESP 18; O2SAT 100
[2021-10-17 16:21] VITALS: BP 126/64; PULSE 63; RESP 17; O2SAT 98
[2021-10-17] MEDS: Acetaminophen 325 MG TABLET 650 MG PO (16:43)
[2021-10-17] MEDS: Cyanocobalamin (Vitamin B-12) 1,000 MCG TABLET 1000 MCG PO (17:34)
[2021-10-17] MEDS: amLODIPine Besylate 5 MG TABLET PO (17:34)
--- NOTE | 2021-10-17 19:33 | MHC.CARE ---
BHN came and evaluated pt. Pt was just d/c from [facility] and presents with similar complaints. Pt reports he does not have any of his medications. He appears confused. BHN reports dispo will be CM and psych consult to review mediations.
[2021-10-17] MEDS: traZODone HCL 50 MG TABLET PO (21:47)
[2021-10-17] MEDS: Divalproex Sodium ER 500 MG TAB.ER.24H PO (21:47)
[2021-10-17] MEDS: Gabapentin 100 MG CAPSULE 200 MG PO (21:47)
[2021-10-17] MEDS: OLANZapine 2.5 MG TABLET PO (21:47)
[2021-10-17 22:19] LABS: Amphetamine Screen Urine Not Detected (Not Detect); Barbiturates, Urine Not Detected (Not Detect); Benzodiazepines Screen Urine Not Detected (Not Detect); Cannabinoid Screen Urine Not Detected (Not Detect); Cocaine Screen Urine Not Detected (Not Detect); Fentanyl, urine Not Detected (Not Detect); Opiate Screen Urine Not Detected (Not Detect); Phencyclidine Screen Urine Not Detected (Not Detect)
--- NOTE | 2021-10-18 05:39 | PC.NURSE ---
Patient slept through the night, no distress observed/reported, BHN referred patient to case management, psych consult to review medication, behavior appropriate and cooperative, medication compliant, VSS, will continue to monitor.
[2021-10-18 06:33] VITALS: BP 140/61; PULSE 65; RESP 16; TEMP 36.7; O2SAT 99
--- NOTE | 2021-10-18 07:18 | PC.NURSE ---
patient appears to remain asleep at present respirations are even and unlabored, patient appears in no distress
[2021-10-18] MEDS: amLODIPine Besylate 5 MG TABLET PO (09:00)
[2021-10-18] MEDS: Cyanocobalamin (Vitamin B-12) 1,000 MCG TABLET 1000 MCG PO (09:04)
[2021-10-18] MEDS: Gabapentin 100 MG CAPSULE 200 MG PO ×2 (09:04→22:28)
[2021-10-18 15:33] VITALS: BP 127/60; PULSE 73; RESP 15; TEMP 37.1; O2SAT 99
--- NOTE | 2021-10-18 15:52 | MHC.CM.ED ---
Received case management consult overnight. Patient was cleared by Seth. Copy of assessment obtained. Patient was recently [place]'d [facility] [place]. Patient is supposed to be active with [facility] and follow up with [facility] [place]. Waiting for psych consult to be completed before trying to figure out safe d/c plan. Continue to monitor for d/c needs.
--- NOTE | 2021-10-18 18:11 | MHC.CARE ---
Pending psych consult to determine discharge planning and if pt needs case management involvement. CM will also call pt's providers to gather additional information and needs.
[2021-10-18] MEDS: OLANZapine 2.5 MG TABLET PO (22:28)
[2021-10-18] MEDS: Divalproex Sodium ER 500 MG TAB.ER.24H PO (22:28)
[2021-10-18] MEDS: traZODone HCL 50 MG TABLET PO (22:28)
--- NOTE | 2021-10-19 05:53 | PC.NURSE ---
Patient slept through the night, no distress observed/reported, BHN referred patient to case management, psych consult reordered to review medication required for supervisor intermediates care bed search, behavior appropriate and cooperative, medication compliant, VSS, will continue to monitor.
[2021-10-19 05:59] VITALS: BP 145/85; PULSE 61; RESP 16; TEMP 36.9; O2SAT 100
--- NOTE | 2021-10-19 07:13 | PC.NURSE ---
Report recieved. PT currenty sleeping, respirations even and unlabored, in no apparent distress. PT is case management bedsearch, awaiting psych consult.
[2021-10-19 08:02] VITALS: BP 148/78; PULSE 62; RESP 14; TEMP 36.4; O2SAT 99
[2021-10-19 08:02] LABS: Appearance Urine CLEAR; Color Urine YELLOW; Glucose Urine UA NEG (NEG); Leukocyte Esterase Urine NEG (NEG); Nitrite Urine NEG (NEG); UACC Culture Trigger NO; Urine Blood TRACE (NEG); Urine Ketones NEG (NEG); Urine Protein NEG (NEG-TRACE)
[2021-10-19 08:18] LABS: RBC Urine 0-2 /HPF (0); Squamous Epithelial Cell Urine TRACE /LPF; WBC Urine 0-2 /HPF (0-4)
[2021-10-19] MEDS: amLODIPine Besylate 5 MG TABLET PO (08:45)
[2021-10-19] MEDS: Cyanocobalamin (Vitamin B-12) 1,000 MCG TABLET 1000 MCG PO (08:45)
[2021-10-19] MEDS: Gabapentin 100 MG CAPSULE 200 MG PO (08:45)
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
--- NOTE | 2021-10-19 11:19 | MHC.CM.ED ---
Received notification from [facility] Care Team that patient will be going home. Patient will need VNA to help with medication compliance. Patient accepted by Nena ALSTON. Nena ALSTON has been given patient's case linermanager fund info: Karin at [phone]. Continue to monitor for d/c needs.
== END 2021-10-19 12:50 | disposition home or self-care (01) ==
PROVIDERS: Physician Assistant Medical; Emergency Provider Emergency Medicine; PCP Internal Medicine Geriatric Medicine
DX: F03.90 Unspecified dementia, unspecified severity, without behavioral disturbance, psychotic disturbance, mood disturbance, and anxiety (principal); M54.10 Radiculopathy, site unspecified; R44.2 Other hallucinations; R07.89 Other chest pain; R06.02 Shortness of breath; F17.210 Nicotine dependence, cigarettes, uncomplicated; Z71.6 Tobacco abuse counseling; Z20.822 Contact with and (suspected) exposure to COVID-19; Z79.899 Other long term (current) drug therapy
CPT/HCPCS: 36415; 80053; 80164; 80307; 81001; 81003; 82077; 83735; 85025; 85610; 87635; 93005; 99285

== ENCOUNTER 2022-01-06 23:17 | Emergency (ER) | payer MEDICARE, MEDICAID, SELFPAY ==
--- NOTE | ~2022-01-06 | CT_ITS ---
EXAMINATION: CT HEAD WITHOUT CONTRAST CT CERVICAL SPINE WITHOUT CONTRAST CLINICAL INFORMATION: Fall. Unresponsive. COMPARISON: 04/19/2010 TECHNIQUE: Multidetector CT imaging of the head and cervical spine was performed without the use of intravenous contrast. Multiplanar reformats are reviewed. This CT examination was performed using dose optimization techniques as appropriate, variously including the following: *Automated exposure control *Adjustment of mA and/or kV according to patient size (this includes techniques or standardized protocols for targeted exams where dose is matched to indication/reason for exam; i.e. extremities or head) *Use of iterative reconstruction technique DLP: 1045 mGy-cm. FINDINGS: There is no evidence of acute intracranial hemorrhage or territorial infarction. No abnormal mass effect or midline shift is seen. Beasley to white matter differentiation is well preserved. No extra-axial fluid collections are identified. The ventricles are normal in size. There is no abnormal attenuation within the brain parenchyma. The osseous structures and soft tissues are normal. Scattered secretions present throughout the paranasal sinuses. Mastoid air cells are clear. Atlantooccipital alignment is maintained. The vertebral bodies and posterior elements align normally. No acute fracture or subluxation. Vertebral body heights are maintained. Bulky anteriorly bridging endplate osteophytes present throughout the cervical spine, with anterior fusion of the vertebral bodies from C4 through C6. Ossification of the posterior longitudinal ligament. The paraspinal soft tissues are unremarkable. The imaged lung apices are clear CT/CT head/brain wo con IMPRESSION: No acute intracranial pathology. No cervical spine fracture or malalignment.
--- NOTE | ~2022-01-06 | CT_ITS ---
EXAMINATION CT CHEST, ABDOMEN AND PELVIS WITHOUT CONTRAST CLINICAL INFORMATION: Fall. Unresponsive. COMPARISON: CT abdomen/pelvis dated 12/14/2020 TECHNIQUE: Multidetector volumetric CT imaging of the chest, abdomen and pelvis was obtained without use of intravenous contrast. Coronal and sagittal reformats were reviewed. Maximal intensity projection images of the chest were created on an workstation, and reviewed. This CT examination was performed using dose optimization techniques as appropriate, variously including the following: *Automated exposure control *Adjustment of mA and/or kV according to patient size (this includes techniques or standardized protocols for targeted exams where dose is matched to indication/reason for exam; i.e. extremities or head) *Use of iterative reconstruction technique DLP: 638 mGy-cm. FINDINGS: CHEST LUNGS/PLEURA: Mild emphysema. No parenchymal consolidation or pneumonitis, contusions or pneumothorax. There is no pleural effusion. No pleural mass or thickening. MEDIASTINUM/GUILLE: Mild cardiomegaly. No pericardial effusion. No mediastinal hematoma or fluid collection. Great vessels normal caliber. No mediastinal or hilar lymphadenopathy. CHEST WALL/AXILLA: Unremarkable. ABDOMEN/PELVIS HEPATOBILIARY: Liver normal in size, contour and morphology. Stable scattered hepatic cysts. No suspicious lesions. No intra or extrahepatic biliary dilation. Gallbladder unremarkable. PANCREAS: Unremarkable. SPLEEN: Unremarkable. ADRENAL GLANDS: Unremarkable. KIDNEYS, URETERS AND BLADDER: Kidneys normal in size, axis and morphology demonstrating symmetric enhancement. No hydronephrosis or urinary calculi. Ureters normal in course and caliber. Bladder grossly unremarkable.. GASTROINTESTINAL TRACT: No intestinal obstruction or inflammation. Sigmoid colonic diverticulosis without PELVIC VISCERA: Prostatomegaly. Seminal vesicles unremarkable. LYMPH NODES: No lymphadenopathy. PERITONEUM/BODY WALL: Unremarkable. VASCULAR STRUCTURES: Aorta is atherosclerotic. No aneurysm. OSSEOUS STRUCTURES No acute or suspicious osseous abnormalities. Degenerative changes present throughout the spine. CT/CT abdomen pelvis wo con IMPRESSION: * No acute findings within the chest, abdomen or pelvis. * Mild emphysema. * Stable benign hepatic cysts. * Sigmoid colonic diverticulosis without evidence of diverticulitis. * Prostatomegaly.
--- NOTE | ~2022-01-06 | CT_ITS ---
EXAMINATION: CT HEAD WITHOUT CONTRAST CT CERVICAL SPINE WITHOUT CONTRAST CLINICAL INFORMATION: Fall. Unresponsive. COMPARISON: 04/19/2010 TECHNIQUE: Multidetector CT imaging of the head and cervical spine was performed without the use of intravenous contrast. Multiplanar reformats are reviewed. This CT examination was performed using dose optimization techniques as appropriate, variously including the following: *Automated exposure control *Adjustment of mA and/or kV according to patient size (this includes techniques or standardized protocols for targeted exams where dose is matched to indication/reason for exam; i.e. extremities or head) *Use of iterative reconstruction technique DLP: 1045 mGy-cm. FINDINGS: There is no evidence of acute intracranial hemorrhage or territorial infarction. No abnormal mass effect or midline shift is seen. Beasley to white matter differentiation is well preserved. No extra-axial fluid collections are identified. The ventricles are normal in size. There is no abnormal attenuation within the brain parenchyma. The osseous structures and soft tissues are normal. Scattered secretions present throughout the paranasal sinuses. Mastoid air cells are clear. Atlantooccipital alignment is maintained. The vertebral bodies and posterior elements align normally. No acute fracture or subluxation. Vertebral body heights are maintained. Bulky anteriorly bridging endplate osteophytes present throughout the cervical spine, with anterior fusion of the vertebral bodies from C4 through C6. Ossification of the posterior longitudinal ligament. The paraspinal soft tissues are unremarkable. The imaged lung apices are clear CT/CT cervical spine wo con IMPRESSION: No acute intracranial pathology. No cervical spine fracture or malalignment.
[2022-01-06 23:24] VITALS: BP 113/76; BP 129/60; PULSE 115; PULSE 61; RESP 14; TEMP 36.4; O2SAT 97; O2SAT 99; BMI 21.1
[2022-01-06] MEDS: Naloxone HCl Nasal 4 MG SPRAY NOSTRILALT (23:30)
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
[2022-01-07 00:02] LABS: MANUAL DIFF FLAG NO
[2022-01-07 00:04] LABS: Basophils Absolute Auto 0.1 X10*3/uL (0.0-0.2); Basophils Percent Auto 0.7 % (0-2); Eosinophils Absolute Auto 0.7 X10*3/uL (0.0-0.4); Eosinophils Percent Auto 9.8 % (0-4); Hematocrit 36.4 % (42.0-52.0); Hemoglobin 11.9 g/dl (14.0-18.0); Imm Gran Abs Auto 0.01 X10*3/uL (0.00-0.03); Imm Gran Pct Auto 0.1 % (0.0-0.4); Lymphocytes Absolute Auto 2.6 X10*3/uL (1.2-4.9); Lymphocytes Percent Auto 36.6 % (20-40); Mean Corpuscular HGB Conc 32.7 g/dl (31.0-36.0); Mean Corpuscular Hemoglobin 31.6 pg (27.0-33.0); Mean Corpuscular Volume 96.6 fL (80.0-98.0); Mean Platelet Volume 11.6 fL (9.4-12.4); Monocytes Absolute Auto 0.4 X10*3/uL (0.1-1.2); Monocytes Percent Auto 5.9 % (2-11); Neutrophils Absolute Auto 3.4 x10*3/uL (2.0-8.3); Neutrophils Percent Auto 46.9 % (45-73); Platelet Count 185 X10*3/uL (160-400); Red Blood Count 3.77 X10*6/uL (4.60-5.80); Red Cell Distribution Width 13.8 % (11.0-16.0); White Blood Count 7.2 X10*3/uL (4.8-10.8)
[2022-01-07 00:09] LABS: Prothrombin Time 11.9 SEC (9.9-13.0)
[2022-01-07 00:21] LABS: Ethanol 213 mg/dL
[2022-01-07 00:31] LABS: Alanine Aminotransferase 19 U/L (0-40); Alkaline Phosphatase 39 U/L (39-117); Anion Gap 12 (12-20); Aspartate Amino Transferase 24 U/L (5-37); Bilirubin Total 0.2 mg/dL (0.0-1.0); Blood Urea Nitrogen 18 mg/dL (9-16); Calcium 9.2 mg/dL (8.4-10.2); Carbon Dioxide 29 mmol/L (22-29); Chloride 107 mmol/L (96-108); Creatinine Clr Calc Pharmacy 54.3; Estimated Glomerular Filt Rate > 60; Glucose Random 102 mg/dL (60-115); Potassium 4.3 mmol/L (3.3-5.1); Sodium 144 mmol/L (135-145); Total Protein 6.6 g/dL (6.5-8.0)
[2022-01-07 01:45] VITALS: BP 111/53; PULSE 58; RESP 13; O2SAT 98
--- NOTE | 2022-01-07 03:30 | PC.NURSE ---
Addendum entered by Drew Finch RN 01/07/22 06:57: The pt is awake, sitting upright, verbal and taking PO food and fluids without difficulty. The pt states he is homeless and does not have anywhere to go once he is discharged. Original Note: I assumed care of Hieu upon his arrival to bed 5 via EMS. He arrived s/p witnessed fall and unresponsive episode. Since he arrived he was administered an additional 4mg INH Narcan in addition to the Narcan administered in the field. Shortly following this the pt opened eyes and was plasant,verbal, oriented and cooperative. he does admit to alcohol use, denies any other substances. Since then he has remained awake and oriented x 3 when verbally stimulated, otherwise resting/sleeping in bed. He has no complaints. He denies any pain. No SOB. Respirations are non-labored. Speech is clear and appropriate - he is primarily gambian speaking and the [facility] medical file clerk has been present to assist. The pt has been notified that he is to metabolize to discharge and verbalizes an understanding. Will continue to monitor Hieu.
[2022-01-07 06:48] VITALS: BP 123/63; PULSE 62; RESP 16; O2SAT 98
== END 2022-01-07 07:49 | disposition home or self-care (01) ==
PROVIDERS: Emergency Provider Student in an Organized Health Care Education/Training Program
DX: R41.82 Altered mental status, unspecified (principal); F10.129 Alcohol abuse with intoxication, unspecified; R10.2 Pelvic and perineal pain; Y90.7 Blood alcohol level of 200-239 mg/100 ml; M54.2 Cervicalgia; G44.309 Post-traumatic headache, unspecified, not intractable; Z79.899 Other long term (current) drug therapy
CPT/HCPCS: 36415; 70450; 71250; 72125; 74176; 80053; 82077; 85025; 85610; 99284

== ENCOUNTER 2022-02-28 21:47 | Emergency (ER) | payer MEDICARE, MEDICAID, SELFPAY ==
--- NOTE | ~2022-02-28 | CT_ITS ---
EXAMINATION: NONCONTRAST HEAD CT NONCONTRAST CERVICAL SPINE CT INDICATION INFORMATION: Head and neck pain, intoxicated COMPARISON: 01/06/2022 TECHNIQUE: Separate noncontrast CT examinations of the head and cervical spine were performed. Coronal head CT images and coronal and sagittal cervical spine images were created at the technologist workstation. DLP: 1080 mGy-cm DOSE LOWERING TECHNIQUES: This CT examination was performed using dose optimization techniques as appropriate, variously including the following: - Automated exposure control - Adjustment of mA and/or kV according to patient size (this includes techniques or standardized protocols for targeted exams were dose is matched to indication/reason for exam; i.e. extremities or head) - Use of iterative reconstruction technique FINDINGS: Head: There is no evidence of acute intracranial hemorrhage or territorial infarction. No abnormal mass-effect or midline shift is seen. Beasley to white matter differentiation is well preserved. No extra-axial fluid collections are identified. The ventricles are normal in size. There is no abnormal attenuation within the brain parenchyma. The osseous structures and soft tissues are normal. There is mucosal thickening of the bilateral ethmoid air cells. The mastoid air cells are well-aerated. Cervical spine: There is degenerative change at the atlantodens articulation. There is anatomic alignment of the vertebral bodies and posterior elements. Vertebral body heights are maintained. Intervertebral disc spaces are relatively well-preserved. There is redemonstration of prominent bulky bridging osteophytes anteriorly, in keeping with diffuse idiopathic skeletal hyperostosis. No evidence of acute fracture. No prevertebral soft tissue swelling. Visualized portions of the lung apices are unremarkable. The thyroid gland is unremarkable. CT/CT cervical spine wo con IMPRESSION: No acute findings identified in the head or cervical spine.
--- NOTE | ~2022-02-28 | CT_ITS ---
EXAMINATION: CT CHEST, ABDOMEN AND PELVIS WITHOUT CONTRAST CLINICAL INFORMATION: Intoxicated, fall, chest pain and abdominal pain COMPARISON: CT chest abdomen and pelvis 01/06/2022 TECHNIQUE: Multidetector volumetric imaging was performed from the thoracic inlet through the pubic symphysis without IV contrast. Sagittal and coronal reformatted images were obtained on the technologist's workstation. This CT examination was performed using dose optimization techniques as appropriate, variously including the following: *Automated exposure control *Adjustment of mA and/or kV according to patient size (this includes techniques or standardized protocols for targeted exams where dose is matched to indication/reason for exam; i.e. extremities or head) *Use of iterative reconstruction technique DLP: 1078 mGy-cm FINDINGS: CHEST: Lung: The lungs are clear without focal opacity or nodule. Mediastinum: The mediastinum is normal. The thyroid is heterogeneous. The central vascular structures are unremarkable. No hilar or mediastinal lymphadenopathy. Pericardium/Pleura: No significant effusion. No pleural mass or thickening. Chest Wall/Axilla: Unremarkable ABDOMEN/PELVIS: Peritoneal Space: No significant free air or free fluid identified. Liver, Gallbladder, Biliary Tree: The liver is normal in size, shape, and attenuation. Again seen are multiple hepatic cysts, unchanged. No worrisome focal hepatic lesion or biliary ductal dilatation is present. The gallbladder is unremarkable with no evidence of radiopaque gallstones, gallbladder wall thickening, or obvious pericholecystic inflammatory changes. Pancreas: Unremarkable Spleen: Unremarkable Adrenal Glands: Unremarkable Kidneys and Ureters: The kidneys are normal in size, shape, and attenuation. No hydronephrosis, hydroureter, or calculi seen. No perinephric stranding. Bladder: Unremarkable Gastrointestinal Tract: The small and large bowel are unremarkable aside from scattered colonic diverticula without diverticulitis. The appendix is unremarkable. Abdominal Wall: No significant hernia is appreciated. Lymph Nodes: No lymphadenopathy. Vascular: The aorta demonstrates calcific atherosclerotic changes without aneurysm... The IVC appears unremarkable. PELVIC VISCERA: Prostate is moderately enlarged. Seminal vesicles are normal. OSSEUS STRUCTURES: Mild degenerative changes are noted in the spine. No bony destructive lesions are seen. CT/CT abdomen pelvis wo con IMPRESSION: No evidence of a traumatic injury in the chest, abdomen or pelvis. Fleischner guidelines were followed.
--- NOTE | 2022-02-28 22:01 | ED_ITS ---
HPI - Alcohol General Chief Complaint: ETOH/Substance Use <NIA Hernandez - Last Filed: 03/01/22 02:28> Stated Complaint: etoh <NIA Hernandez - Last Filed: 03/01/22 02:28> Time Seen by Provider: 02/28/22 21:58 <NIA Hernandez Last Filed: 03/01/22 02:28> Source: EMS <NIA Hernandez - Last Filed: 03/01/22 02:28> Mode of arrival: EMS <NIA Hernandez Last Filed: 03/01/22 02:28> Limitations: altered mental status <NIA Hernandez Last Filed: 03/01/22 02:28> History of Present Illness HPI narrative: 76-year-old male presents to the emergency department via ambulance minimally responsive, EMS was called by a bystander. Suspected alcohol intoxication possible opiate use. Patient is only awake to sternal rub. He smells like alcohol. Unable to answer questions. Patient has a history of alcohol abuse. <NIA Hernandez - Last Filed: 03/01/22 02:28> MD complaint: alcohol intoxication <NIA Hernandez Last Filed: 03/01/22 02:28> Last drink: Just prior to admission <NIA Hernandez Last Filed: 03/01/22 02:28> Chronic alcohol use: Yes <NIA Hernandez Last Filed: 03/01/22 02:28> Previous visits for alcohol intoxication: Yes <NIA Hernandez Last Filed: 03/01/22 02:28> Treatments prior to arrival: none <NIA Hernandez Last Filed: 03/01/22 02:28> Related Data Home Medications: Previous Rx's Medication Instructions Recorded amlodipine 5 mg tablet 5 mg PO DAILY #30 tab 10/09/21 cyanocobalamin (vitamin B-12) 1,000 mcg PO DAILY #30 tab 10/09/21 1,000 mcg tablet (Vitamin B-12) divalproex 500 mg tablet,extended 500 mg PO BEDTIME #30 tab 10/09/21 release 24 hr gabapentin 100 mg capsule 200 mg PO BID #120 cap 10/09/21 olanzapine 2.5 mg tablet 2.5 mg PO BEDTIME #30 tab 10/09/21 trazodone 50 mg tablet 50 mg PO BEDTIME PRN #30 tab 10/09/21 gabapentin 300 mg capsule 300 mg PO BID #60 cap 10/19/21 <NIA Hernandez - Last Filed: 03/01/22 02:28> Allergies/Adverse Reactions: Allergies Allergy/AdvReac Type Severity Reaction Status Date / Time No Known Allergies Allergy Unknown NONE Verified 02/28/22 22:17 [No Known Allergies*] <NIA Hernandez - Last Filed: 03/01/22 02:28> Review of Systems Review of Systems: Yes Unobtainable due to mental status <NIA Hernandez - Last Filed: 03/01/22 02:28> PMFSH Past Medical History Attestation statement: The following information was validated with the patient. <NIA Hernandez - Last Filed: 03/01/22 02:28> Source: old records reviewed and nursing notes reviewed <NIA Hernandez - Last Filed: 03/01/22 02:28> Medical History: Medical History Ileus No known health problems <NIA Hernandez - Last Filed: 03/01/22 02:28> Social History Social History: Social History Household Members: None Housing: Homeless Do you presently have visiting nurse or other home services: No Alcohol intake: current Patient Tobacco Use Status: Never used Tobacco Tobacco use type: Cigarette e-Cigarette/Vaping Use: Never Used Second Hand Smoke Exposure: Yes Advance Directives: No Advance Directives Information Provided: No service: No Current occupational status: retired Sexual orientation: Px. was not available when called for this assessment, info is N/A <NIA Hernandez - Last Filed: 03/01/22 02:28> Physical Exam ED Vital Signs: Vital Signs - 24 hr 02/28/22 22:18 02/28/22 22:39 02/28/22 23:19 Temperature 97.8 F Pulse Rate 55 51 54 Respiratory Rate 18 14 16 Blood Pressure 133/70 133/70 139/64 Pulse Oximetry 96 98 95 03/01/22 02:00 03/01/22 05:20 Temperature 97.8 F 97.8 F Pulse Rate 52 58 Respiratory Rate 16 16 Blood Pressure 150/80 H 166/75 H Pulse Oximetry 97 98 BMI result Body Mass Index 23.1 VSS <NIA Hernandez - Last Filed: 03/01/22 02:28> Vital Signs - 24 hr 02/28/22 22:18 02/28/22 22:39 02/28/22 23:19 Temperature 97.8 F Pulse Rate 55 51 54 Respiratory Rate 18 14 16 Blood Pressure 133/70 133/70 139/64 Pulse Oximetry 96 98 95 03/01/22 02:00 03/01/22 05:20 Temperature 97.8 F 97.8 F Pulse Rate 52 58 Respiratory Rate 16 16 Blood Pressure 150/80 H 166/75 H Pulse Oximetry 97 98 BMI result Body Mass Index 23.1 <Brennan Jacobs MD - Last Filed: 03/01/22 06:31> Appearance: Patient awakes only to sternal rub. No acute distress.? Smells like alcohol Head: Normocephalic, atraumatic, no step-offs or deformities Eyes: Pupils equal, round and reactive to light.? Bilateral pupils pinpoint ENT: Pharynx normal.? Neck: Normal inspection.? Neck supple.? CVS: Normal heart rate and rhythm.? Pulses normal.? Respiratory: No respiratory distress.? Breath sounds normal.? Abdomen: Soft and nontender.? Skin: Skin warm and dry.? Normal skin color.? Normal skin turgor.? Extremities: No lower extremity edema.? No calf ttp. 5/5 strength to bilateral upper and lower extremities Back: No midline tenderness, no C-spine tenderness, full range of motion, no CVA tenderness bilaterally Neuro: Awakes only to sternal rub. Unable to do a full cranial nerve exam. <NIA Hernandez - Last Filed: 03/01/22 02:28> Course Course Course Narrative: 03/01 6:30am awake and ambulating will dc home <Brennan Jacobs MD - Last Filed: 03/01/22 06:31> Reevaluation(s) Reevaluation #1: CBC appears to be at patient's baseline. Chemistry with no acute josé miguel ctrolyte abnormalities requiring intervention. Ethanol of 182. COVID negative. CT fractures, malalignments or subluxations. CT of the head with no acute intracranial pathology. CT of chest the chest, diverticulosis is noted without diverticulitis. Patient much more responsive at this time, sleeping. Urine pending, drugs of abuse screening pending. <NIA Hernandez - Last Filed: 03/01/22 02:28> Time: 23:23 <NIA Hernandez - Last Filed: 03/01/22 02:28> Reevaluation #2: CT of the head, cervical spine without any acute findings. CT of the chest, abdomen and pelvis with no evidence of traumatic injury. Urine pending. <NIA Hernandez - Last Filed: 03/01/22 02:28> Time: 00:34 <NIA Hernandez - Last Filed: 03/01/22 02:28> Reevaluation #3: This time patient will be placed in physician observation to allow more time for patient to sober up and speak to cross country coach is. At time observation was started patient common cooperative, sleeping in the stretcher. With stable vital signs. Will continue to monitor. Sign-out given to Dr. Jacobs. I suspect patient will be discharged home after he is sober and has a safe ride. <NIA Hernandez - Last Filed: 03/01/22 02:28> Time: 01:40 <NIA Hernandez - Last Filed: 03/01/22 02:28> MDM - Alcohol MDM Narrative Medical decision making narrative: 2199 76-year-old male presenting minimally responsive with acute alcohol intoxication. And possible opiate use. Physical examination with patient minimally responsive only responding to sternal sternal rub. Smells like alcohol. Unable to assess cranial nerves. Regular rate and rhythm. Lungs clear. Abdomen soft nontender nondistended. Not following commands. Drowsy. Bilateral pupils are pinpoint. Patient was given Narcan since both pupils were pinpoint and there is suspicion for opiate use. Plan at this time is to obtain a CT of the head, abdomen, pelvis and chest since it is unclear patient had trauma or not. This time is to obtain labs, urine. <NIA Hernandez - Last Filed: 03/01/22 02:28> Medical Records Attestation: I reviewed the patient's medical records. <NIA Hernandez - Last Filed: 03/01/22 02:28> Lab Data Attestation: I reviewed the patient's lab results. <NIA Hernandez - Last Filed: 03/01/22 02:28> Result diagrams: : 02/28/22 22:31 02/28/22 22:31 <NIA Hernandez - Last Filed: 03/01/22 02:28> Labs: Lab Results 02/28/22 02/28/22 02/28/22 Range/Units 22:15 22:31 22:31 WBC 7.2 (4.8-10.8) X10*3/uL RBC 4.28 L (4.60-5.80) X10*6/uL Hgb 13.5 L (14.0-18.0) g/dl Hct 40.7 L (42.0-52.0) % MCV 95.1 (80.0-98.0) fL MCH 31.5 (27.0-33.0) pg MCHC 33.2 (31.0-36.0) g/dl RDW 14.6 (11.0-16.0) % Plt Count 166 (160-400) X10*3/uL MPV 11.3 (9.4-12.4) fL Immature Gran % (Auto) 0.1 (0.0-0.4) % Neut % (Auto) 52.0 (45-73) % Lymph % (Auto) 32.9 (20-40) % [place] % (Auto) 7.8 (2-11) % Eos % (Auto) 6.4 H (0-4) % Baso % (Auto) 0.8 (0-2) % Lymph # (Auto) 2.4 (1.2-4.9) X10*3/uL [place] # (Auto) 0.6 (0.1-1.2) X10*3/uL Eos # (Auto) 0.5 H (0.0-0.4) X10*3/uL Baso # (Auto) 0.1 (0.0-0.2) X10*3/uL Abs Immat Gran (auto) 0.01 (0.00-0.03) X10*3/uL Absolute Neuts (auto) 3.7 (2.0-8.3) x10*3/uL Absolute Nucleated RBC 0.000 (0.0-0.012) X10*3/uL Nucleated RBC % (auto) 0.0 (0.0-0.2) /100WBC Sodium 140 (135-145) mmol/L Potassium 4.3 (3.3-5.1) mmol/L Chloride 109 H (96-108) mmol/L Carbon Dioxide 21 L (22-29) mmol/L Anion Gap 14 (12-20) BUN 10 (9-16) mg/dL Creatinine 0.85 (0.5-1.4) mg/dL Estim Creat Clear Calc 61.9 Estimated GFR > 60 POC Glucose 85 (60-115) mg/dL Random Glucose 86 (60-115) mg/dL Calcium 9.7 (8.4-10.2) mg/dL Magnesium 2.4 (1.6-2.6) mg/dL Total Bilirubin 0.4 (0.0-1.0) mg/dL AST 26 (5-37) U/L ALT 21 (0-40) U/L Alkaline Phosphatase 36 L (39-117) U/L Total Protein 7.1 (6.5-8.0) g/dL Albumin 4.4 (3.5-5.0) g/dL Urine Color Urine Appearance Urine pH (5.0-8.0) Ur Specific [place] (1.005-1.025) Urine Protein (NEG-TRACE) MG/DL Urine Glucose (UA) (NEG) MG/DL Urine Ketones (NEG) MG/DL Urine Blood (NEG) Urine Nitrite (NEG) Ur Leukocyte Esterase (NEG) Urine RBC (0) /HPF Urine WBC (0-4) /HPF Ur Squamous Epith Cells /LPF Urine Bacteria /LPF Urine Mucus /LPF Urine Opiates Screen (Not Detect) Urine Fentanyl Screen (Not Detect) Ur Barbiturates Screen (Not Detect) Ur Phencyclidine Scrn (Not Detect) Ur Amphetamines Screen (Not Detect) U Benzodiazepines Scrn (Not Detect) Urine Cocaine Screen (Not Detect) U Marijuana (THC) Screen (Not Detect) Ethyl Alcohol mg/dL COVID-19 ([facility]) (Negative) COVID-19 Clin Com 02/28/22 02/28/22 03/01/22 Range/Units 22:31 22:31 03:04 WBC (4.8-10.8) X10*3/uL RBC (4.60-5.80) X10*6/uL Hgb (14.0-18.0) g/dl Hct (42.0-52.0) % MCV (80.0-98.0) fL MCH (27.0-33.0) pg MCHC (31.0-36.0) g/dl RDW (11.0-16.0) % Plt Count (160-400) X10*3/uL MPV (9.4-12.4) fL Immature Gran % (Auto) (0.0-0.4) % Neut % (Auto) (45-73) % Lymph % (Auto) (20-40) % [place] % (Auto) (2-11) % Eos % (Auto) (0-4) % Baso % (Auto) (0-2) % Lymph # (Auto) (1.2-4.9) X10*3/uL [place] # (Auto) (0.1-1.2) X10*3/uL Eos # (Auto) (0.0-0.4) X10*3/uL Baso # (Auto) (0.0-0.2) X10*3/uL Abs Immat Gran (auto) (0.00-0.03) X10*3/uL Absolute Neuts (auto) (2.0-8.3) x10*3/uL Absolute Nucleated RBC (0.0-0.012) X10*3/uL Nucleated RBC % (auto) (0.0-0.2) /100WBC Sodium (135-145) mmol/L Potassium (3.3-5.1) mmol/L Chloride (96-108) mmol/L Carbon Dioxide (22-29) mmol/L Anion Gap (12-20) BUN (9-16) mg/dL Creatinine (0.5-1.4) mg/dL Estim Creat Clear Calc Estimated GFR POC Glucose (60-115) mg/dL Random Glucose (60-115) mg/dL Calcium (8.4-10.2) mg/dL Magnesium (1.6-2.6) mg/dL Total Bilirubin (0.0-1.0) mg/dL AST (5-37) U/L ALT (0-40) U/L Alkaline Phosphatase (39-117) U/L Total Protein (6.5-8.0) g/dL Albumin (3.5-5.0) g/dL Urine Color YELLOW Urine Appearance CLEAR Urine pH 5.5 (5.0-8.0) Ur Specific [place] 1.015 (1.005-1.025) Urine Protein NEG (NEG-TRACE) MG/DL Urine Glucose (UA) NEG (NEG) MG/DL Urine Ketones NEG (NEG) MG/DL Urine Blood 2+ H (NEG) Urine Nitrite NEG (NEG) Ur Leukocyte Esterase NEG (NEG) Urine RBC 1-4 (0) /HPF Urine WBC 0-2 (0-4) /HPF Ur Squamous Epith Cells TRACE /LPF Urine Bacteria TRACE /LPF Urine Mucus TRACE /LPF Urine Opiates Screen (Not Detect) Urine Fentanyl Screen (Not Detect) Ur Barbiturates Screen (Not Detect) Ur Phencyclidine Scrn (Not Detect) Ur Amphetamines Screen (Not Detect) U Benzodiazepines Scrn (Not Detect) Urine Cocaine Screen (Not Detect) U Marijuana (THC) Screen (Not Detect) Ethyl Alcohol 182 mg/dL COVID-19 ([facility]USTY) Negative (Negative) COVID-19 Clin Com See Note 03/01/22 Range/Units 03:04 WBC (4.8-10.8) X10*3/uL RBC (4.60-5.80) X10*6/uL Hgb (14.0-18.0) g/dl Hct (42.0-52.0) % MCV (80.0-98.0) fL MCH (27.0-33.0) pg MCHC (31.0-36.0) g/dl RDW (11.0-16.0) % Plt Count (160-400) X10*3/uL MPV (9.4-12.4) fL Immature Gran % (Auto) (0.0-0.4) % Neut % (Auto) (45-73) % Lymph % (Auto) (20-40) % [place] % (Auto) (2-11) % Eos % (Auto) (0-4) % Baso % (Auto) (0-2) % Lymph # (Auto) (1.2-4.9) X10*3/uL [place] # (Auto) (0.1-1.2) X10*3/uL Eos # (Auto) (0.0-0.4) X10*3/uL Baso # (Auto) (0.0-0.2) X10*3/uL Abs Immat Gran (auto) (0.00-0.03) X10*3/uL Absolute Neuts (auto) (2.0-8.3) x10*3/uL Absolute Nucleated RBC (0.0-0.012) X10*3/uL Nucleated RBC % (auto) (0.0-0.2) /100WBC Sodium (135-145) mmol/L Potassium (3.3-5.1) mmol/L Chloride (96-108) mmol/L Carbon Dioxide (22-29) mmol/L Anion Gap (12-20) BUN (9-16) mg/dL Creatinine (0.5-1.4) mg/dL Estim Creat Clear Calc Estimated GFR POC Glucose (60-115) mg/dL Random Glucose (60-115) mg/dL Calcium (8.4-10.2) mg/dL Magnesium (1.6-2.6) mg/dL Total Bilirubin (0.0-1.0) mg/dL AST (5-37) U/L ALT (0-40) U/L Alkaline Phosphatase (39-117) U/L Total Protein (6.5-8.0) g/dL Albumin (3.5-5.0) g/dL Urine Color Urine Appearance Urine pH (5.0-8.0) Ur Specific [place] (1.005-1.025) Urine Protein (NEG-TRACE) MG/DL Urine Glucose (UA) (NEG) MG/DL Urine Ketones (NEG) MG/DL Urine Blood (NEG) Urine Nitrite (NEG) Ur Leukocyte Esterase (NEG) Urine RBC (0) /HPF Urine WBC (0-4) /HPF Ur Squamous Epith Cells /LPF Urine Bacteria /LPF Urine Mucus /LPF Urine Opiates Screen Not Detected (Not Detect) Urine Fentanyl Screen Not Detected (Not Detect) Ur Barbiturates Screen Not Detected (Not Detect) Ur Phencyclidine Scrn Not Detected (Not Detect) Ur Amphetamines Screen Not Detected (Not Detect) U Benzodiazepines Scrn Not Detected (Not Detect) Urine Cocaine Screen Not Detected (Not Detect) U Marijuana (THC) Screen Not Detected (Not Detect) Ethyl Alcohol mg/dL COVID-19 ([facility]) (Negative) COVID-19 Clin Com <NIA Hernandez - Last Filed: 03/01/22 02:28> Lab Results 02/28/22 02/28/22 02/28/22 Range/Units 22:15 22:31 22:31 WBC 7.2 (4.8-10.8) X10*3/uL RBC 4.28 L (4.60-5.80) X10*6/uL Hgb 13.5 L (14.0-18.0) g/dl Hct 40.7 L (42.0-52.0) % MCV 95.1 (80.0-98.0) fL MCH 31.5 (27.0-33.0) pg MCHC 33.2 (31.0-36.0) g/dl RDW 14.6 (11.0-16.0) % Plt Count 166 (160-400) X10*3/uL MPV 11.3 (9.4-12.4) fL Immature Gran % (Auto) 0.1 (0.0-0.4) % Neut % (Auto) 52.0 (45-73) % Lymph % (Auto) 32.9 (20-40) % [place] % (Auto) 7.8 (2-11) % Eos % (Auto) 6.4 H (0-4) % Baso % (Auto) 0.8 (0-2) % Lymph # (Auto) 2.4 (1.2-4.9) X10*3/uL [place] # (Auto) 0.6 (0.1-1.2) X10*3/uL Eos # (Auto) 0.5 H (0.0-0.4) X10*3/uL Baso # (Auto) 0.1 (0.0-0.2) X10*3/uL Abs Immat Gran (auto) 0.01 (0.00-0.03) X10*3/uL Absolute Neuts (auto) 3.7 (2.0-8.3) x10*3/uL Absolute Nucleated RBC 0.000 (0.0-0.012) X10*3/uL Nucleated RBC % (auto) 0.0 (0.0-0.2) /100WBC Sodium 140 (135-145) mmol/L Potassium 4.3 (3.3-5.1) mmol/L Chloride 109 H (96-108) mmol/L Carbon Dioxide 21 L (22-29) mmol/L Anion Gap 14 (12-20) BUN 10 (9-16) mg/dL Creatinine 0.85 (0.5-1.4) mg/dL Estim Creat Clear Calc 61.9 Estimated GFR > 60 POC Glucose 85 (60-115) mg/dL Random Glucose 86 (60-115) mg/dL Calcium 9.7 (8.4-10.2) mg/dL Magnesium 2.4 (1.6-2.6) mg/dL Total Bilirubin 0.4 (0.0-1.0) mg/dL AST 26 (5-37) U/L ALT 21 (0-40) U/L Alkaline Phosphatase 36 L (39-117) U/L Total Protein 7.1 (6.5-8.0) g/dL Albumin 4.4 (3.5-5.0) g/dL Urine Color Urine Appearance Urine pH (5.0-8.0) Ur Specific [place] (1.005-1.025) Urine Protein (NEG-TRACE) MG/DL Urine Glucose (UA) (NEG) MG/DL Urine Ketones (NEG) MG/DL Urine Blood (NEG) Urine Nitrite (NEG) Ur Leukocyte Esterase (NEG) Urine RBC (0) /HPF Urine WBC (0-4) /HPF Ur Squamous Epith Cells /LPF Urine Bacteria /LPF Urine Mucus /LPF Urine Opiates Screen (Not Detect) Urine Fentanyl Screen (Not Detect) Ur Barbiturates Screen (Not Detect) Ur Phencyclidine Scrn (Not Detect) Ur Amphetamines Screen (Not Detect) U Benzodiazepines Scrn (Not Detect) Urine Cocaine Screen (Not Detect) U Marijuana (THC) Screen (Not Detect) Ethyl Alcohol mg/dL COVID-19 ([facility]) (Negative) COVID-19 Clin Com 02/28/22 02/28/22 03/01/22 Range/Units 22:31 22:31 03:04 WBC (4.8-10.8) X10*3/uL RBC (4.60-5.80) X10*6/uL Hgb (14.0-18.0) g/dl Hct (42.0-52.0) % MCV (80.0-98.0) fL MCH (27.0-33.0) pg MCHC (31.0-36.0) g/dl RDW (11.0-16.0) % Plt Count (160-400) X10*3/uL MPV (9.4-12.4) fL Immature Gran % (Auto) (0.0-0.4) % Neut % (Auto) (45-73) % Lymph % (Auto) (20-40) % [place] % (Auto) (2-11) % Eos % (Auto) (0-4) % Baso % (Auto) (0-2) % Lymph # (Auto) (1.2-4.9) X10*3/uL [place] # (Auto) (0.1-1.2) X10*3/uL Eos # (Auto) (0.0-0.4) X10*3/uL Baso # (Auto) (0.0-0.2) X10*3/uL Abs Immat Gran (auto) (0.00-0.03) X10*3/uL Absolute Neuts (auto) (2.0-8.3) x10*3/uL Absolute Nucleated RBC (0.0-0.012) X10*3/uL Nucleated RBC % (auto) (0.0-0.2) /100WBC Sodium (135-145) mmol/L Potassium (3.3-5.1) mmol/L Chloride (96-108) mmol/L Carbon Dioxide (22-29) mmol/L Anion Gap (12-20) BUN (9-16) mg/dL Creatinine (0.5-1.4) mg/dL Estim Creat Clear Calc Estimated GFR POC Glucose (60-115) mg/dL Random Glucose (60-115) mg/dL Calcium (8.4-10.2) mg/dL Magnesium (1.6-2.6) mg/dL Total Bilirubin (0.0-1.0) mg/dL AST (5-37) U/L ALT (0-40) U/L Alkaline Phosphatase (39-117) U/L Total Protein (6.5-8.0) g/dL Albumin (3.5-5.0) g/dL Urine Color YELLOW Urine Appearance CLEAR Urine pH 5.5 (5.0-8.0) Ur Specific [place] 1.015 (1.005-1.025) Urine Protein NEG (NEG-TRACE) MG/DL Urine Glucose (UA) NEG (NEG) MG/DL Urine Ketones NEG (NEG) MG/DL Urine Blood 2+ H (NEG) Urine Nitrite NEG (NEG) Ur Leukocyte Esterase NEG (NEG) Urine RBC 1-4 (0) /HPF Urine WBC 0-2 (0-4) /HPF Ur Squamous Epith Cells TRACE /LPF Urine Bacteria TRACE /LPF Urine Mucus TRACE /LPF Urine Opiates Screen (Not Detect) Urine Fentanyl Screen (Not Detect) Ur Barbiturates Screen (Not Detect) Ur Phencyclidine Scrn (Not Detect) Ur Amphetamines Screen (Not Detect) U Benzodiazepines Scrn (Not Detect) Urine Cocaine Screen (Not Detect) U Marijuana (THC) Screen (Not Detect) Ethyl Alcohol 182 mg/dL COVID-19 ([facility]) Negative (Negative) COVID-19 Clin Com See Note 03/01/22 Range/Units 03:04 WBC (4.8-10.8) X10*3/uL RBC (4.60-5.80) X10*6/uL Hgb (14.0-18.0) g/dl Hct (42.0-52.0) % MCV (80.0-98.0) fL MCH (27.0-33.0) pg MCHC (31.0-36.0) g/dl RDW (11.0-16.0) % Plt Count (160-400) X10*3/uL MPV (9.4-12.4) fL Immature Gran % (Auto) (0.0-0.4) % Neut % (Auto) (45-73) % Lymph % (Auto) (20-40) % [place] % (Auto) (2-11) % Eos % (Auto) (0-4) % Baso % (Auto) (0-2) % Lymph # (Auto) (1.2-4.9) X10*3/uL [place] # (Auto) (0.1-1.2) X10*3/uL Eos # (Auto) (0.0-0.4) X10*3/uL Baso # (Auto) (0.0-0.2) X10*3/uL Abs Immat Gran (auto) (0.00-0.03) X10*3/uL Absolute Neuts (auto) (2.0-8.3) x10*3/uL Absolute Nucleated RBC (0.0-0.012) X10*3/uL Nucleated RBC % (auto) (0.0-0.2) /100WBC Sodium (135-145) mmol/L Potassium (3.3-5.1) mmol/L Chloride (96-108) mmol/L Carbon Dioxide (22-29) mmol/L Anion Gap (12-20) BUN (9-16) mg/dL Creatinine (0.5-1.4) mg/dL Estim Creat Clear Calc Estimated GFR POC Glucose (60-115) mg/dL Random Glucose (60-115) mg/dL Calcium (8.4-10.2) mg/dL Magnesium (1.6-2.6) mg/dL Total Bilirubin (0.0-1.0) mg/dL AST (5-37) U/L ALT (0-40) U/L Alkaline Phosphatase (39-117) U/L Total Protein (6.5-8.0) g/dL Albumin (3.5-5.0) g/dL Urine Color Urine Appearance Urine pH (5.0-8.0) Ur Specific [place] (1.005-1.025) Urine Protein (NEG-TRACE) MG/DL Urine Glucose (UA) (NEG) MG/DL Urine Ketones (NEG) MG/DL Urine Blood (NEG) Urine Nitrite (NEG) Ur Leukocyte Esterase (NEG) Urine RBC (0) /HPF Urine WBC (0-4) /HPF Ur Squamous Epith Cells /LPF Urine Bacteria /LPF Urine Mucus /LPF Urine Opiates Screen Not Detected (Not Detect) Urine Fentanyl Screen Not Detected (Not Detect) Ur Barbiturates Screen Not Detected (Not Detect) Ur Phencyclidine Scrn Not Detected (Not Detect) Ur Amphetamines Screen Not Detected (Not Detect) U Benzodiazepines Scrn Not Detected (Not Detect) Urine Cocaine Screen Not Detected (Not Detect) U Marijuana (THC) Screen Not Detected (Not Detect) Ethyl Alcohol mg/dL COVID-19 ([facility]) (Negative) COVID-19 Clin Com <Brennan Jacobs MD - Last Filed: 03/01/22 06:31> ECG Data ECG #1: Attestation: I personally reviewed and interpreted this ECG as follows: <NIA Hernandez - Last Filed: 03/01/22 02:28> ECG interpretation date: 03/01/22 <NIA Hernandez - Last Filed: 03/01/22 02:28> ECG interpretation time: 01:41 <NIA Hernandez - Last Filed: 03/01/22 02:28> Prior ECG tracings: available for review <NIA Hernandez - Last Filed: 03/01/22 02:28> Interpretation: Ventricular rate of 52, P or prolonged, QRS normal, QT/QTC normal. EKG shows sinus bradycardia with first-degree AV block with premature atrial co mplexes. No ST elevations or inversions concerning for ischemia. No significant changes when compared to EKG from October 2021. <NIA Hernandez - Last Filed: 03/01/22 02:28> Critical Care Time Critical Care Time Critical Care Time: No <NIA Hernandez Last Filed: 03/01/22 02:28> Discharge Plan Discharge Clinical Impression: Alcoholic intoxication <NIA Hernandez - Last Filed: 03/01/22 02:28> Patient Disposition: Still a Patient <NIA Hernandez - Last Filed: 03/01/22 02:28> Prescriptions: No Action gabapentin 300 mg capsule 300 mg PO BID Qty: 60 0RF amlodipine 5 mg Tablet 5 mg PO DAILY Qty: 30 0RF Protocol: Hold for SBP< HOLD for SBP < : 90 divalproex 500 mg Tablet Extended Release 24 Hr 500 mg PO BEDTIME Qty: 30 0RF gabapentin 100 mg capsule 200 mg PO BID Qty: 120 0RF trazodone 50 mg Tablet 50 mg PO BEDTIME PRN (Reason: Insomnia) Qty: 30 0RF cyanocobalamin (vitamin B-12) [Vitamin B-12] 1,000 mcg Tablet 1,000 mcg PO DAILY Qty: 30 0RF olanzapine 2.5 mg Tablet 2.5 mg PO BEDTIME Qty: 30 0RF <NIA Hernandez - Last Filed: 03/01/22 02:28>
[2022-02-28 22:18] VITALS: BP 128/66; BP 133/70; PULSE 54; PULSE 55; RESP 18; O2SAT 96; O2SAT 99; BMI 23.1
[2022-02-28 22:18] LABS: Glucose, Whole Blood 85 mg/dL (60-115)
--- NOTE | 2022-02-28 22:19 | ECG_ITS ---
Test Reason : AMS Blood Pressure : / mmHG Vent. Rate : 052 BPM Atrial Rate : 052 BPM P-R Int : 334 ms QRS Dur : 100 ms QT Int : 478 ms P-R-T Axes : -09 020 025 degrees QTc Int : 444 ms Sinus bradycardia with 1st degree A-V block with Premature atrial complexes Minimal voltage criteria for LVH, may be normal variant ( Sokolow-Macdonald ) Nonspecific T wave abnormality Abnormal ECG When compared with ECG of 17-OCT-2021 09:55, Premature atrial complexes are now Present Nonspecific T wave abnormality now evident in Anterior leads Referred By: Kike Escobar Electronically Signed By:Damon Dela Cruz
[2022-02-28] MEDS: Naloxone HCl Nasal 4 MG SPRAY NOSTRILALT (22:25)
[2022-02-28 22:35] LABS: MANUAL DIFF FLAG NO
[2022-02-28 22:36] LABS: Basophils Absolute Auto 0.1 X10*3/uL (0.0-0.2); Basophils Percent Auto 0.8 % (0-2); Eosinophils Absolute Auto 0.5 X10*3/uL (0.0-0.4); Eosinophils Percent Auto 6.4 % (0-4); Hematocrit 40.7 % (42.0-52.0); Hemoglobin 13.5 g/dl (14.0-18.0); Imm Gran Abs Auto 0.01 X10*3/uL (0.00-0.03); Imm Gran Pct Auto 0.1 % (0.0-0.4); Lymphocytes Absolute Auto 2.4 X10*3/uL (1.2-4.9); Lymphocytes Percent Auto 32.9 % (20-40); Mean Corpuscular HGB Conc 33.2 g/dl (31.0-36.0); Mean Corpuscular Hemoglobin 31.5 pg (27.0-33.0); Mean Corpuscular Volume 95.1 fL (80.0-98.0); Mean Platelet Volume 11.3 fL (9.4-12.4); Monocytes Absolute Auto 0.6 X10*3/uL (0.1-1.2); Monocytes Percent Auto 7.8 % (2-11); Neutrophils Absolute Auto 3.7 x10*3/uL (2.0-8.3); Platelet Count 166 X10*3/uL (160-400); Red Blood Count 4.28 X10*6/uL (4.60-5.80); Red Cell Distribution Width 14.6 % (11.0-16.0); White Blood Count 7.2 X10*3/uL (4.8-10.8)
[2022-02-28 22:39] VITALS: BP 133/70; PULSE 51; RESP 14; O2SAT 98
[2022-02-28 22:51] LABS: COVID-19 Test Negative (Negative)
[2022-02-28 22:53] LABS: Ethanol 182 mg/dL
[2022-02-28 22:57] LABS: Alanine Aminotransferase 21 U/L (0-40); Albumin Level 4.4 g/dL (3.5-5.0); Alkaline Phosphatase 36 U/L (39-117); Anion Gap 14 (12-20); Aspartate Amino Transferase 26 U/L (5-37); Bilirubin Total 0.4 mg/dL (0.0-1.0); Blood Urea Nitrogen 10 mg/dL (9-16); Calcium 9.7 mg/dL (8.4-10.2); Carbon Dioxide 21 mmol/L (22-29); Chloride 109 mmol/L (96-108); Creatinine Clr Calc Pharmacy 61.9; Estimated Glomerular Filt Rate > 60; Glucose Random 86 mg/dL (60-115); Magnesium 2.4 mg/dL (1.6-2.6); Potassium 4.3 mmol/L (3.3-5.1); Sodium 140 mmol/L (135-145); Total Protein 7.1 g/dL (6.5-8.0)
[2022-02-28 23:19] VITALS: BP 139/64; PULSE 54; RESP 16; TEMP 36.6; O2SAT 95
--- NOTE | 2022-02-28 23:20 | PC.NURSE ---
PATIENT CAME ON DRENCH WITH URINE ,CARE WAS GIVEN PATIENT WAS CHANGE INTO HOSPITAL ATTIRE .
[2022-03-01 02:00] VITALS: BP 150/80; PULSE 52; RESP 16; TEMP 36.6; O2SAT 97
--- NOTE | 2022-03-01 02:35 | MHC.CARE ---
CARE Team met with pt briefly. 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 Pt had his blanket over his head and states he cannot talk because he is tired. Pt reports he drank lots of beers tonight. [facility] He denies SI, AH. He appears intoxicated at this time due to slurring words. CARE team recommends pt to be seen by Recovery team later once more sober.
[2022-03-01 03:19] LABS: Appearance Urine CLEAR; Color Urine YELLOW; Glucose Urine UA NEG (NEG); Leukocyte Esterase Urine NEG (NEG); Nitrite Urine NEG (NEG); PH 5.5 (5.0-8.0); Specific Gravity - Urine 1.015 (1.005-1.025); UACC Culture Trigger NO; Urine Blood 2+ (NEG); Urine Ketones NEG (NEG); Urine Protein NEG (NEG-TRACE)
[2022-03-01 03:26] LABS: Amphetamine Screen Urine Not Detected (Not Detect); Barbiturates, Urine Not Detected (Not Detect); Benzodiazepines Screen Urine Not Detected (Not Detect); Cannabinoid Screen Urine Not Detected (Not Detect); Cocaine Screen Urine Not Detected (Not Detect); Fentanyl, urine Not Detected (Not Detect); Opiate Screen Urine Not Detected (Not Detect); Phencyclidine Screen Urine Not Detected (Not Detect)
[2022-03-01 03:34] LABS: Mucus Urine TRACE /LPF; Squamous Epithelial Cell Urine TRACE /LPF
[2022-03-01 03:35] LABS: Bacteria Urine TRACE /LPF; WBC Urine 0-2 /HPF (0-4)
[2022-03-01 05:20] VITALS: BP 166/75; PULSE 58; RESP 16; TEMP 36.6; O2SAT 98
--- NOTE | 2022-03-01 05:52 | PC.NURSE ---
pt a&o, no sob or chest pain. pt awake . drink provided . pt awaiting deposition.
== END 2022-03-01 06:46 | disposition home or self-care (01) ==
PROVIDERS: Physician Assistant; Emergency Provider Emergency Medicine
DX: F10.120 Alcohol abuse with intoxication, uncomplicated (principal); Y90.6 Blood alcohol level of 120-199 mg/100 ml; Z20.822 Contact with and (suspected) exposure to COVID-19; Z79.899 Other long term (current) drug therapy
CPT/HCPCS: 70450; 71250; 72125; 74176; 80053; 80307; 81001; 82077; 82947; 83735; 85025; 87635; 93005; 99284; 99285

== ENCOUNTER 2022-04-03 12:06 | Emergency (ER) | payer MEDICARE, MEDICAID, SELFPAY ==
--- NOTE | ~2022-04-03 | CT_ITS ---
EXAMINATION: CT HEAD WITHOUT CONTRAST CLINICAL INFORMATION: Fall. Loss of consciousness. COMPARISON: CT head 02/28/2022 TECHNIQUE: Contiguous axial imaging was performed from the skull base to vertex without intravenous administration of contrast. Coronal and sagittal reformatted images are performed at CT scanner This CT examination was performed using dose optimization techniques as appropriate, variously including the following: *Automated exposure control *Adjustment of mA and/or kV according to patient size (this includes techniques or standardized protocols for targeted exams where dose is matched to indication/reason for exam; i.e. extremities or head) *Use of iterative reconstruction technique DLP: 654 mGy-cm FINDINGS: There is no evidence of acute intracranial hemorrhage or territorial infarction. No abnormal mass effect or midline shift is seen. [place] to white matter differentiation is well preserved. No extra-axial fluid collections are identified. The ventricles are normal in size. There is no abnormal attenuation within the brain parenchyma. The osseous structures and soft tissues are normal. Scattered mucosal thickening through the ethmoid sinuses. Mastoid air cells and middle ear cavities are normally aerated. CT/CT head/brain wo con IMPRESSION: No acute intracranial pathology.
--- NOTE | 2022-04-03 12:23 | ECG_ITS ---
Test Reason : dizziness Blood Pressure : / mmHG Vent. Rate : 054 BPM Atrial Rate : 054 BPM P-R Int : 348 ms QRS Dur : 102 ms QT Int : 434 ms P-R-T Axes : 080 022 050 degrees QTc Int : 411 ms Sinus bradycardia with 1st degree A-V block Otherwise normal ECG When compared with ECG of 28-FEB-2022 22:26, Premature atrial complexes are no longer Present Nonspecific T wave abnormality no longer evident in Anterolateral leads Referred By: Libby Juarez Electronically Signed By:CHELY MAYORGA
--- NOTE | 2022-04-03 12:25 | ED.SYNCOPE ---
HPI - Syncope General Chief Complaint: Dizziness Stated Complaint: PASSED OUT IN ALLEY,CONFUSED PER WITNESS Time Seen by Provider: 04/03/22 12:18 Source: patient and EMS Mode of arrival: EMS Limitations: no limitations History of Present Illness HPI narrative: Patient comes to the emergency room via EMS. Approximately 1-1/2 hours ago, patient had witnessed near syncopal episode in an alley. Bystanders called EMS. Patient states that he was feeling dizzy, no chest pain or shortness of breath. Patient denies drinking alcohol, states his last drink was approximately a month ago when he fell the last time. Patient states that this time he feels completely back to normal. Related Data Previous Rx's Medication Instructions Recorded amlodipine 5 mg tablet 5 mg PO DAILY #30 tabs 10/09/21 cyanocobalamin (vitamin B-12) 1,000 mcg PO DAILY #30 tabs 10/09/21 1,000 mcg tablet (Vitamin B-12) divalproex 500 mg tablet,extended 500 mg PO BEDTIME #30 tabs 10/09/21 release 24 hr gabapentin 100 mg capsule 200 mg PO BID #120 caps 10/09/21 olanzapine 2.5 mg tablet 2.5 mg PO BEDTIME #30 tabs 10/09/21 trazodone 50 mg tablet 50 mg PO BEDTIME PRN Insomnia #30 10/09/21 tabs gabapentin 300 mg capsule 300 mg PO BID #60 caps 10/19/21 Allergies Allergy/AdvReac Type Severity Reaction Status Date / Time No Known Allergies Allergy Unknown NONE Verified 02/28/22 22:17 [No Known Allergies*] Review of Systems Review of Systems: Constitutional : No Weight loss, No Fever, No Chills, No Night Sweats, No Fatigue, No Malaise ENT/Mouth : No Hearing loss, No Ear Pain, No Nasal Congestion, No Sinus Pain, No Hoarseness, No sore throat, No Rhinorrhea, No Swallowing Difficulty Eyes: No Eye Pain, No Swelling, No Redness, No Foreign Body, No Discharge, No Vision Changes Cardiovascular : No Chest Pain, No SOB, No Dyspnea on Exertion, No Orthopnea, No Edema, No Palpitations Respiratory : No Cough, No Sputum, No Wheezing, No Smoke Exposure, No Dyspnea Gastrointestinal : No Nausea, No Vomiting, No Diarrhea, No Constipation, No abdominal Pain, No Hematochezia, No Melena Genitourinary : no irregular bleeding, No Dysuria, No Urinary Frequency, No Hematuria, No Urinary Incontinence, No Urgency, No Flank Pain, No Urinary Flow Changes, No Hesitancy Musculoskeletal : No joint pain, No Myalgias, No Joint Swelling Skin : No Skin Lesions, No rash Neuro : No Weakness, No Numbness, chronic paresthesias for which she takes gabapentin, 1 near syncopal episode after an episode of dizziness. Psych : No Anxiety/Panic, No Depression, No SI/HI/AH/VH, No Social Issues, Heme/Lymph: No Bruising, No Bleeding,No Lymphadenopathy Endocrine : No Polyuria, No Polydipsia, No Temperature Intolerance [facility] Past Medical History Medical History (Updated 04/03/22 @ 17:40 by Libby Juarez MD) Ileus Major neurocognitive disorder No known health problems Radicular pain of both lower extremities Social History Social History Household Members: None Housing: Homeless Do you presently have visiting nurse or other home services: No Alcohol intake: never Patient Tobacco Use Status: Never used Tobacco Tobacco use type: Cigarette e-Cigarette/Vaping Use: Never Used Second Hand Smoke Exposure: Yes Use of substances other than those prescribed or required for medical reasons: No Advance Directives: No Advance Directives Information Provided: No service: No Current occupational status: retired Sexual orientation: Px. was not available when called for this assessment, info is N/A Physical Exam Vital Signs: Vital Signs: Last Vital Signs Temp 97.7 F 04/03/22 12:40 Pulse 47 L 04/03/22 14:43 Resp 12 04/03/22 14:43 BP 148/64 H 04/03/22 14:43 Pulse Ox 100 04/03/22 14:43 O2 Del Method 04/03/22 14:43 BMI result Body Mass Index 25.7 Const: Other: Appearance: Alert. Oriented X3. No acute distress. Well-appearing Eyes: Pupils equal, round and reactive to light. ENT: Pharynx normal. Neck: Normal inspection. Neck supple. No lymph nodes noted. No crepitus CVS: Normal heart rate and rhythm. Pulses normal. Normal S1 and S2 Respiratory: No respiratory distress. Breath sounds normal. No Wheezing. No rales Abdomen: Soft and nontender. No rigidity. No distention. Skin: Skin warm and dry. Normal skin color. Normal skin turgor. Extremities: No lower extremity edema. No Lacerations. No Rash Neuro: Oriented X 3. No motor deficit. No sensory deficit. Moving all extremities. No slurred speech. CN 2 through 12 grossly intact Psych: calm, cooperative, normal affect, coherent Course Course Course Narrative: Patient's orthostatics are negative, troponin x2 negative, no acute findings on EKG. Patient has been on the monitor for the full length of his stay and patient has not had any arrhythmias. Patient is asymptomatic. It is likely that patient will need a Holter monitor. When patient was walked around the emergency room couple of times, patient was asymptomatic, steady gait unassisted. Patient states that he feels completely back to normal MDM - Syncope Lab Data Result diagrams: 04/03/22 13:11 04/03/22 13:11 Labs: Lab Results 04/03/22 04/03/22 04/03/22 Range/Units 13:10 13:10 13:11 WBC 5.5 (4.8-10.8) X10*3/uL RBC 4.04 L (4.60-5.80) X10*6/uL Hgb 12.8 L (14.0-18.0) g/dl Hct 38.8 L (42.0-52.0) % MCV 96.0 (80.0-98.0) fL MCH 31.7 (27.0-33.0) pg MCHC 33.0 (31.0-36.0) g/dl RDW 14.9 (11.0-16.0) % Plt Count 152 L (160-400) X10*3/uL MPV 11.3 (9.4-12.4) fL Immature Gran % (Auto) 0.2 (0.0-0.4) % Neut % (Auto) 59.2 (45-73) % Lymph % (Auto) 26.7 (20-40) % [place] % (Auto) 8.8 (2-11) % Eos % (Auto) 4.6 H (0-4) % Baso % (Auto) 0.5 (0-2) % Lymph # (Auto) 1.5 (1.2-4.9) X10*3/uL [place] # (Auto) 0.5 (0.1-1.2) X10*3/uL Eos # (Auto) 0.3 (0.0-0.4) X10*3/uL Baso # (Auto) 0.0 (0.0-0.2) X10*3/uL Abs Immat Gran (auto) 0.01 (0.00-0.03) X10*3/uL Absolute Neuts (auto) 3.2 (2.0-8.3) x10*3/uL Absolute Nucleated RBC 0.000 (0.0-0.012) X10*3/uL Nucleated RBC % (auto) 0.0 (0.0-0.2) /100WBC PT (10.0-13.1) SEC INR (0.9-1.1) D-Dimer High Sensitivty NG/ML Sodium (135-145) mmol/L Potassium (3.3-5.1) mmol/L Chloride (96-108) mmol/L Carbon Dioxide (22-29) mmol/L Anion Gap (12-20) BUN (9-16) mg/dL Creatinine (0.5-1.4) mg/dL Estim Creat Clear Calc Estimated GFR Random Glucose (60-115) mg/dL Calcium (8.4-10.2) mg/dL Magnesium (1.6-2.6) mg/dL Total Bilirubin (0.0-1.0) mg/dL Direct Bilirubin (0.0-0.5) mg/dL AST (5-37) U/L ALT (0-40) U/L Alkaline Phosphatase (39-117) U/L Troponin I High Sens (<3.5-35.0) ng/L Total Protein (6.5-8.0) g/dL Albumin (3.5-5.0) g/dL Urine Color Urine Appearance Urine pH (5.0-8.0) Ur Specific [place] (1.005-1.025) Urine Protein (NEG-TRACE) MG/DL Urine Glucose (UA) (NEG) MG/DL Urine Ketones (NEG) MG/DL Urine Blood (NEG) Urine Nitrite (NEG) Ur Leukocyte Esterase (NEG) Urine RBC (0) /HPF Urine WBC (0-4) /HPF Ur Squamous Epith Cells /LPF Urine Bacteria /LPF Urine Opiates Screen (Not Detect) Urine Fentanyl Screen (Not Detect) Ur Barbiturates Screen (Not Detect) Ur Phencyclidine Scrn (Not Detect) Ur Amphetamines Screen (Not Detect) Urine Cocaine Screen (Not Detect) U Marijuana (THC) Screen (Not Detect) Ethyl Alcohol < 10 mg/dL COVID-19 (RUSTY) Negative (Negative) COVID-19 Clin Com See Note 04/03/22 04/03/22 04/03/22 Range/Units 13:11 13:11 13:11 WBC (4.8-10.8) X10*3/uL RBC (4.60-5.80) X10*6/uL Hgb (14.0-18.0) g/dl Hct (42.0-52.0) % MCV (80.0-98.0) fL MCH (27.0-33.0) pg MCHC (31.0-36.0) g/dl RDW (11.0-16.0) % Plt Count (160-400) X10*3/uL MPV (9.4-12.4) fL Immature Gran % (Auto) (0.0-0.4) % Neut % (Auto) (45-73) % Lymph % (Auto) (20-40) % [place] % (Auto) (2-11) % Eos % (Auto) (0-4) % Baso % (Auto) (0-2) % Lymph # (Auto) (1.2-4.9) X10*3/uL [place] # (Auto) (0.1-1.2) X10*3/uL Eos # (Auto) (0.0-0.4) X10*3/uL Baso # (Auto) (0.0-0.2) X10*3/uL Abs Immat Gran (auto) (0.00-0.03) X10*3/uL Absolute Neuts (auto) (2.0-8.3) x10*3/uL Absolute Nucleated RBC (0.0-0.012) X10*3/uL Nucleated RBC % (auto) (0.0-0.2) /100WBC PT 11.1 (10.0-13.1) SEC INR 1.0 (0.9-1.1) D-Dimer High Sensitivty 169 NG/ML Sodium 140 (135-145) mmol/L Potassium 4.7 (3.3-5.1) mmol/L Chloride 104 (96-108) mmol/L Carbon Dioxide 32 H (22-29) mmol/L Anion Gap 9 L (12-20) BUN 17 H D (9-16) mg/dL Creatinine 0.86 (0.5-1.4) mg/dL Estim Creat Clear Calc 60.2 Estimated GFR > 60 Random Glucose 101 (60-115) mg/dL Calcium 9.3 (8.4-10.2) mg/dL Magnesium 2.0 (1.6-2.6) mg/dL Total Bilirubin 0.4 (0.0-1.0) mg/dL Direct Bilirubin 0.2 (0.0-0.5) mg/dL AST 22 (5-37) U/L ALT 17 (0-40) U/L Alkaline Phosphatase 39 (39-117) U/L Troponin I High Sens (<3.5-35.0) ng/L Total Protein 6.7 (6.5-8.0) g/dL Albumin 4.3 (3.5-5.0) g/dL Urine Color Urine Appearance Urine pH (5.0-8.0) Ur Specific [place] (1.005-1.025) Urine Protein (NEG-TRACE) MG/DL Urine Glucose (UA) (NEG) MG/DL Urine Ketones (NEG) MG/DL Urine Blood (NEG) Urine Nitrite (NEG) Ur Leukocyte Esterase (NEG) Urine RBC (0) /HPF Urine WBC (0-4) /HPF Ur Squamous Epith Cells /LPF Urine Bacteria /LPF Urine Opiates Screen (Not Detect) Urine Fentanyl Screen (Not Detect) Ur Barbiturates Screen (Not Detect) Ur Phencyclidine Scrn (Not Detect) Ur Amphetamines Screen (Not Detect) Urine Cocaine Screen (Not Detect) U Marijuana (THC) Screen (Not Detect) Ethyl Alcohol mg/dL COVID-19 (RUSTY) (Negative) COVID-19 Clin Com 04/03/22 04/03/22 04/03/22 Range/Units 13:11 13:26 13:26 WBC (4.8-10.8) X10*3/uL RBC (4.60-5.80) X10*6/uL Hgb (14.0-18.0) g/dl Hct (42.0-52.0) % MCV (80.0-98.0) fL MCH (27.0-33.0) pg MCHC (31.0-36.0) g/dl RDW (11.0-16.0) % Plt Count (160-400) X10*3/uL MPV (9.4-12.4) fL Immature Gran % (Auto) (0.0-0.4) % Neut % (Auto) (45-73) % Lymph % (Auto) (20-40) % [place] % (Auto) (2-11) % Eos % (Auto) (0-4) % Baso % (Auto) (0-2) % Lymph # (Auto) (1.2-4.9) X10*3/uL [place] # (Auto) (0.1-1.2) X10*3/uL Eos # (Auto) (0.0-0.4) X10*3/uL Baso # (Auto) (0.0-0.2) X10*3/uL Abs Immat Gran (auto) (0.00-0.03) X10*3/uL Absolute Neuts (auto) (2.0-8.3) x10*3/uL Absolute Nucleated RBC (0.0-0.012) X10*3/uL Nucleated RBC % (auto) (0.0-0.2) /100WBC PT (10.0-13.1) SEC INR (0.9-1.1) D-Dimer High Sensitivty NG/ML Sodium (135-145) mmol/L Potassium (3.3-5.1) mmol/L Chloride (96-108) mmol/L Carbon Dioxide (22-29) mmol/L Anion Gap (12-20) BUN (9-16) mg/dL Creatinine (0.5-1.4) mg/dL Estim Creat Clear Calc Estimated GFR Random Glucose (60-115) mg/dL Calcium (8.4-10.2) mg/dL Magnesium (1.6-2.6) mg/dL Total Bilirubin (0.0-1.0) mg/dL Direct Bilirubin (0.0-0.5) mg/dL AST (5-37) U/L ALT (0-40) U/L Alkaline Phosphatase (39-117) U/L Troponin I High Sens < 3.5 (<3.5-35.0) ng/L Total Protein (6.5-8.0) g/dL Albumin (3.5-5.0) g/dL Urine Color YELLOW Urine Appearance CLEAR Urine pH 7.5 (5.0-8.0) Ur Specific [place] 1.010 (1.005-1.025) Urine Protein NEG (NEG-TRACE) MG/DL Urine Glucose (UA) NEG (NEG) MG/DL Urine Ketones NEG (NEG) MG/DL Urine Blood TRACE (NEG) Urine Nitrite NEG (NEG) Ur Leukocyte Esterase NEG (NEG) Urine RBC 1-4 (0) /HPF Urine WBC 0 (0-4) /HPF Ur Squamous Epith Cells NONE /LPF Urine Bacteria NONE /LPF Urine Opiates Screen Not Detected (Not Detect) Urine Fentanyl Screen Not Detected (Not Detect) Ur Barbiturates Screen Not Detected (Not Detect) Ur Phencyclidine Scrn Not Detected (Not Detect) Ur Amphetamines Screen Not Detected (Not Detect) Urine Cocaine Screen Not Detected (Not Detect) U Marijuana (THC) Screen Not Detected (Not Detect) Ethyl Alcohol mg/dL COVID-19 (RUSTY) (Negative) COVID-19 Clin Com 04/03/22 Range/Units 15:53 WBC (4.8-10.8) X10*3/uL RBC (4.60-5.80) X10*6/uL Hgb (14.0-18.0) g/dl Hct (42.0-52.0) % MCV (80.0-98.0) fL MCH (27.0-33.0) pg MCHC (31.0-36.0) g/dl RDW (11.0-16.0) % Plt Count (160-400) X10*3/uL MPV (9.4-12.4) fL Immature Gran % (Auto) (0.0-0.4) % Neut % (Auto) (45-73) % Lymph % (Auto) (20-40) % [place] % (Auto) (2-11) % Eos % (Auto) (0-4) % Baso % (Auto) (0-2) % Lymph # (Auto) (1.2-4.9) X10*3/uL [place] # (Auto) (0.1-1.2) X10*3/uL Eos # (Auto) (0.0-0.4) X10*3/uL Baso # (Auto) (0.0-0.2) X10*3/uL Abs Immat Gran (auto) (0.00-0.03) X10*3/uL Absolute Neuts (auto) (2.0-8.3) x10*3/uL Absolute Nucleated RBC (0.0-0.012) X10*3/uL Nucleated RBC % (auto) (0.0-0.2) /100WBC PT (10.0-13.1) SEC INR (0.9-1.1) D-Dimer High Sensitivty NG/ML Sodium (135-145) mmol/L Potassium (3.3-5.1) mmol/L Chloride (96-108) mmol/L Carbon Dioxide (22-29) mmol/L Anion Gap (12-20) BUN (9-16) mg/dL Creatinine (0.5-1.4) mg/dL Estim Creat Clear Calc Estimated GFR Random Glucose (60-115) mg/dL Calcium (8.4-10.2) mg/dL Magnesium (1.6-2.6) mg/dL Total Bilirubin (0.0-1.0) mg/dL Direct Bilirubin (0.0-0.5) mg/dL AST (5-37) U/L ALT (0-40) U/L Alkaline Phosphatase (39-117) U/L Troponin I High Sens < 3.5 (<3.5-35.0) ng/L Total Protein (6.5-8.0) g/dL Albumin (3.5-5.0) g/dL Urine Color Urine Appearance Urine pH (5.0-8.0) Ur Specific [place] (1.005-1.025) Urine Protein (NEG-TRACE) MG/DL Urine Glucose (UA) (NEG) MG/DL Urine Ketones (NEG) MG/DL Urine Blood (NEG) Urine Nitrite (NEG) Ur Leukocyte Esterase (NEG) Urine RBC (0) /HPF Urine WBC (0-4) /HPF Ur Squamous Epith Cells /LPF Urine Bacteria /LPF Urine Opiates Screen (Not Detect) Urine Fentanyl Screen (Not Detect) Ur Barbiturates Screen (Not Detect) Ur Phencyclidine Scrn (Not Detect) Ur Amphetamines Screen (Not Detect) Urine Cocaine Screen (Not Detect) U Marijuana (THC) Screen (Not Detect) Ethyl Alcohol mg/dL COVID-19 (RUSTY) (Negative) COVID-19 Clin Com Discharge Plan Discharge Clinical Impression: Near syncope, Dizziness Patient Disposition: Home, Self-Care Instructions: Dizziness (ED) Additional Instructions: Please follow-up with your primary care physician tomorrow. If you have any worsening or new symptoms, please return to the emergency room or call 911 Prescriptions: No Action gabapentin 300 mg capsule 300 mg PO BID Qty: 60 0RF amlodipine 5 mg Tablet 5 mg PO DAILY Qty: 30 0RF Protocol: Hold for SBP< HOLD for SBP < : 90 divalproex 500 mg Tablet Extended Release 24 Hr 500 mg PO BEDTIME Qty: 30 0RF gabapentin 100 mg capsule 200 mg PO BID Qty: 120 0RF trazodone 50 mg Tablet 50 mg PO BEDTIME PRN (Reason: Insomnia) Qty: 30 0RF cyanocobalamin (vitamin B-12) [Vitamin B-12] 1,000 mcg Tablet 1,000 mcg PO DAILY Qty: 30 0RF olanzapine 2.5 mg Tablet 2.5 mg PO BEDTIME Qty: 30 0RF Referrals: Damon Dela Cruz MD [Physician] - 2 days
[2022-04-03 12:40] VITALS: BP 155/65; BP 190/88; PULSE 59; PULSE 60; RESP 16; TEMP 36.5; O2SAT 94; O2SAT 98; BMI 25.7
[2022-04-03 12:54] VITALS: BP 155/73; PULSE 54
[2022-04-03 12:55] VITALS: BP 138/71; BP 150/64; PULSE 56
[2022-04-03 13:19] LABS: MANUAL DIFF FLAG NO
[2022-04-03 13:21] LABS: Basophils Percent Auto 0.5 % (0-2); Eosinophils Absolute Auto 0.3 X10*3/uL (0.0-0.4); Eosinophils Percent Auto 4.6 % (0-4); Hematocrit 38.8 % (42.0-52.0); Hemoglobin 12.8 g/dl (14.0-18.0); Imm Gran Abs Auto 0.01 X10*3/uL (0.00-0.03); Imm Gran Pct Auto 0.2 % (0.0-0.4); Lymphocytes Absolute Auto 1.5 X10*3/uL (1.2-4.9); Lymphocytes Percent Auto 26.7 % (20-40); Mean Corpuscular Hemoglobin 31.7 pg (27.0-33.0); Mean Platelet Volume 11.3 fL (9.4-12.4); Monocytes Absolute Auto 0.5 X10*3/uL (0.1-1.2); Monocytes Percent Auto 8.8 % (2-11); Neutrophils Absolute Auto 3.2 x10*3/uL (2.0-8.3); Neutrophils Percent Auto 59.2 % (45-73); Platelet Count 152 X10*3/uL (160-400); Red Blood Count 4.04 X10*6/uL (4.60-5.80); Red Cell Distribution Width 14.9 % (11.0-16.0); White Blood Count 5.5 X10*3/uL (4.8-10.8)
[2022-04-03 13:30] LABS: Prothrombin Time 11.1 SEC (10.0-13.1)
[2022-04-03 13:32] LABS: D Dimer High Sensitivity 169 NG/ML
[2022-04-03 13:35] LABS: Ethanol < 10 mg/dL
[2022-04-03 13:40] LABS: Appearance Urine CLEAR; Color Urine YELLOW; Glucose Urine UA NEG (NEG); Leukocyte Esterase Urine NEG (NEG); Nitrite Urine NEG (NEG); PH 7.5 (5.0-8.0); UACC Culture Trigger NO; Urine Blood TRACE (NEG); Urine Ketones NEG (NEG); Urine Protein NEG (NEG-TRACE)
[2022-04-03 13:40] LABS: COVID-19 Test Negative (Negative); IDNOW Serial# 55D5AD1C
[2022-04-03 13:41] LABS: Alanine Aminotransferase 17 U/L (0-40); Albumin Level 4.3 g/dL (3.5-5.0); Alkaline Phosphatase 39 U/L (39-117); Anion Gap 9 (12-20); Aspartate Amino Transferase 22 U/L (5-37); Bilirubin Direct 0.2 mg/dL (0.0-0.5); Bilirubin Total 0.4 mg/dL (0.0-1.0); Blood Urea Nitrogen 17 mg/dL (9-16); Calcium 9.3 mg/dL (8.4-10.2); Carbon Dioxide 32 mmol/L (22-29); Chloride 104 mmol/L (96-108); Creatinine Clr Calc Pharmacy 60.2; Estimated Glomerular Filt Rate > 60; Glucose Random 101 mg/dL (60-115); Potassium 4.7 mmol/L (3.3-5.1); Sodium 140 mmol/L (135-145); Total Protein 6.7 g/dL (6.5-8.0)
[2022-04-03 13:45] LABS: Troponin-I High Sensitivity < 3.5 ng/L (<3.5-35.0)
[2022-04-03 13:55] LABS: WBC Urine 0 /HPF (0-4)
[2022-04-03 14:04] LABS: Fentanyl, urine Not Detected (Not Detect)
[2022-04-03 14:12] LABS: Amphetamine Screen Urine Not Detected (Not Detect); Barbiturates, Urine Not Detected (Not Detect); Cannabinoid Screen Urine Not Detected (Not Detect); Cocaine Screen Urine Not Detected (Not Detect); Opiate Screen Urine Not Detected (Not Detect); Phencyclidine Screen Urine Not Detected (Not Detect)
[2022-04-03 14:43] VITALS: BP 148/64; PULSE 47; RESP 12; O2SAT 100
[2022-04-03 16:17] LABS: Troponin-I High Sensitivity < 3.5 ng/L (<3.5-35.0)
[2022-04-04 07:03] LABS: Benzodiazepines Screen Urine Not Detected (Not Detect)
== END 2022-04-03 18:36 | disposition home or self-care (01) ==
PROVIDERS: Emergency Provider Emergency Medicine
DX: R55 Syncope and collapse (principal); R42 Dizziness and giddiness; Z20.822 Contact with and (suspected) exposure to COVID-19
CPT/HCPCS: 36415; 70450; 80048; 80076; 80307; 81001; 82077; 83735; 84484; 85025; 85379; 85610; 87635; 93005; 99284; 99285

== ENCOUNTER 2022-07-11 09:03 | Emergency (ER) | payer OTHER, SELFPAY ==
--- NOTE | ~2022-07-11 | XR_ITS ---
EXAMINATION: XR LUMBOSACRAL SPINE CLINICAL INFORMATION: Lower back pain COMPARISON: CT abdomen and pelvis 02/28/2022 TECHNIQUE: Three views of the lumbosacral spine. FINDINGS: 5 nonrib-bearing lumbar vertebral bodies are visualized. There is moderate levoscoliosis of the lumbar spine centered at L3. Alignment is otherwise unremarkable. Lumbar vertebral body heights are maintained. There is mild to moderate narrowing of the L5/S1 disc space height. Moderate-sized osteophytes are scattered throughout the lumbar spine. There are degenerative changes of the posterior elements of the lower lumbar spine. Sacroiliac joints are symmetric. XR/XR lumbar spine 2-3V IMPRESSION: Degenerative changes of the lumbar spine without compression deformity.
[2022-07-11 09:11] VITALS: BP 128/56; BP 144/78; PULSE 65; RESP 16; TEMP 36.4; O2SAT 95; BMI 23.2
[2022-07-11] MEDS: Ketorolac Tromethamine 30 MG/ML VIAL IM (10:34)
[2022-07-11] MEDS: predniSONE 20 MG TABLET 60 MG PO (10:34)
[2022-07-11 10:38] VITALS: BP 118/52; PULSE 59; RESP 16; O2SAT 99
--- NOTE | 2022-07-11 10:45 | ED.GENADULT ---
HPI - General Adult General Chief complaint: Back Pain/Injury Stated complaint: BACK PAIN Time Seen by Provider: 07/11/22 09:09 Source: patient Mode of arrival: ambulatory Limitations: no limitations History of Present Illness HPI narrative: 77-year-old male history of high blood pressure chronic back pain, slight dementia presents to ED for back pain radiating down left leg. Patient states back pain is worse on walking and movement. Patient states having his back pain for long time. Patient denies any recent trauma, urinary/bowel incontinence, dysuria, hematuria, abdominal pain, nausea, vomiting, flank pain, fever, or chills. Patient denies any history of IV drug use or auto/immuno compromised diseases Related Data Previous Rx's Medication Instructions Recorded amlodipine 5 mg tablet 5 mg PO DAILY #30 tabs 10/09/21 cyanocobalamin (vitamin B-12) 1,000 mcg PO DAILY #30 tabs 10/09/21 1,000 mcg tablet (Vitamin B-12) divalproex 500 mg tablet,extended 500 mg PO BEDTIME #30 tabs 10/09/21 release 24 hr gabapentin 100 mg capsule 200 mg PO BID #120 caps 10/09/21 olanzapine 2.5 mg tablet 2.5 mg PO BEDTIME #30 tabs 10/09/21 trazodone 50 mg tablet 50 mg PO BEDTIME PRN Insomnia #30 10/09/21 tabs gabapentin 300 mg capsule 300 mg PO BID #60 caps 10/19/21 ketorolac 10 mg tablet 10 mg PO QID PRN pain 5 days #20 07/11/22 tabs prednisone 20 mg tablet 40 mg PO DAILY 5 days #10 tabs 07/11/22 Allergies Allergy/AdvReac Type Severity Reaction Status Date / Time No Known Allergies Allergy Unknown NONE Verified 02/28/22 22:17 [No Known Allergies*] Review of Systems Review of Systems: Back pain Yes all other systems are reviewed and are negative PMFSH Past Medical History Medical History (Updated 07/11/22 @ 13:50 by NIA Yeh) Ileus Major neurocognitive disorder No known health problems Radicular pain of both lower extremities Social History Social History Household Members: None Housing: Homeless Do you presently have visiting nurse or other home services: No Alcohol intake: never Patient Tobacco Use Status: Current someday Tobacco user Tobacco use type: Cigarette Smoked in Last 30 Days: Yes e-Cigarette/Vaping Use: Never Used Second Hand Smoke Exposure: Yes Use of substances other than those prescribed or required for medical reasons: No Advance Directives: No service: No Current occupational status: retired Sexual orientation: Px. was not available when called for this assessment, info is N/A Physical Exam ED Vital Signs: Vital Signs - 24 hr 07/11/22 09:11 07/11/22 10:38 Temperature 97.5 F Pulse Rate 65 59 Respiratory Rate 16 16 Blood Pressure 128/56 L 118/52 L Pulse Oximetry 95 99 Oxygen Delivery Method Room Air Room Air BMI result Body Mass Index 23.2 Const General: cooperative, healthy appearing, comfortable, no acute distress, well developed, alert, awake and Physically active Orientation/consciousness: oriented to time and patient oriented x3 HENMT Head: Yes normal to inspection, Yes No palpable skull fracture present, Yes normocephalic, Yes atraumatic and No abrasion Eyes General: appearance normal, both eyes and all related structures Neck Neck: Yes normal visual inspection, Yes full ROM, Yes no lymphadenopathy, Yes no meningeal signs, Yes trachea midline, Yes supple, No anterior neck swelling and No tender Chest Chest palpation & inspection: normal inspection of the chest and normal palpation of entire chest wall Resp Effort & Inspection: normal respiratory effort and able to speak in complete sentences Auscultation: clear to auscultation bilaterally Cardio Jugular venous distension: no JVD Heart sounds: S1 normal heart sound present and S2 normal heart sound present GI Inspection: Yes normal to inspection and No abdominal wall ecchymosis Palpation (GI): Soft to palpation, not firm, nontender, no guarding and not rigid General: No CVA tenderness and Yes no CVA tenderness Back/Spine/Pelvis Other: Positive for left-sided straight leg test Back: no CVA tenderness, No CVA tenderness and back tenderness (Lumbar spine) Skin General skin exam: no rashes or lesions noted, elasticity normal and turgor normal Neuro General: oriented to time, patient oriented x3, gait normal, no meningeal signs and CN's II-XI intact bilaterally Extrem General: Yes normal to inspection and Yes full ROM Psych Appearance: grossly normal, well kempt and not disheveled Course Course Course Narrative: Pain meds and lumbar x-ray ordered Reevaluation(s) Reevaluation #1: Patient walked around the ER on his own. Lumbar x-ray pending Time: 12:16 Reevaluation #2: X-ray shows lumbar radiculopathy. Not suspect epidural abscess or cauda equinus syndrome. Patient will chronic back pain and pain improved. Patient to be discharged. Time: 13:46 Medical Decision Making MDM Narrative Medical decision making narrative: Lumbar radiculopathy Discharge Plan Discharge Clinical Impression: Lumbar radiculopathy Patient Disposition: Home, Self-Care Instructions: Lumbar Radiculopathy (ED), Lower Back Exercises (ED) Additional Instructions: Lantigua radiograf?a muestra artritis lumbar grave. Ser? dado de roddy con analg?sicos y esteroides. Regrese al servicio de urgencias de inmediato si presenta incontinencia urinaria o intestinal, dolor testicular, hematuria, disuria, dolor abdominal, n?useas, v?mitos, fiebre, escalofr?os, par?lisis de las extremidades inferiores o cualquier otro s?ntoma preocupante. Por favor, pema un seguimiento con PCP. Prescriptions: New ketorolac 10 mg tablet 10 mg PO QID PRN (Reason: pain) 5 Days Qty: 20 0RF Rx Instructions: Patient received toradol 30mg IM in the ED. prednisone 20 mg tablet 40 mg PO DAILY 5 Days Qty: 10 0RF No Action gabapentin 300 mg capsule 300 mg PO BID Qty: 60 0RF amlodipine 5 mg Tablet 5 mg PO DAILY Qty: 30 0RF Protocol: Hold for SBP< HOLD for SBP < : 90 divalproex 500 mg Tablet Extended Release 24 Hr 500 mg PO BEDTIME Qty: 30 0RF gabapentin 100 mg capsule 200 mg PO BID Qty: 120 0RF trazodone 50 mg Tablet 50 mg PO BEDTIME PRN (Reason: Insomnia) Qty: 30 0RF cyanocobalamin (vitamin B-12) [Vitamin B-12] 1,000 mcg Tablet 1,000 mcg PO DAILY Qty: 30 0RF olanzapine 2.5 mg Tablet 2.5 mg PO BEDTIME Qty: 30 0RF Referrals: [facility] [Primary Care Provider] - (Lumbar radiculopathy) Interventions: ED Discharge Assessment Last Done: 07/11/22 14:54 Discharge Date/Time: 07/11/22 14:54 Print Language: Tajik
== END 2022-07-11 14:54 | disposition home or self-care (01) ==
PROVIDERS: Emergency Provider Emergency Medicine
DX: M54.16 Radiculopathy, lumbar region (principal); M54.50 Low back pain, unspecified; F03.90 Unspecified dementia, unspecified severity, without behavioral disturbance, psychotic disturbance, mood disturbance, and anxiety; F17.200 Nicotine dependence, unspecified, uncomplicated; Z71.6 Tobacco abuse counseling; Z79.899 Other long term (current) drug therapy
CPT/HCPCS: 72100; 96372; 99284; J1885

== ENCOUNTER 2022-07-16 11:17 | Emergency (ER) | payer OTHER, SELFPAY ==
--- NOTE | ~2022-07-16 | XR_ITS ---
EXAMINATION: XR LUMBOSACRAL SPINE CLINICAL INFORMATION: Pain COMPARISON: Previous x-ray 07/11/2022 TECHNIQUE: Three views of the lumbosacral spine. FINDINGS: There is curvature of the lumbar spine to the left. Bone alignment is otherwise normal. No fracture or dislocation. There is multilevel degenerative spondylosis and facet arthritis. There may be sacralization of the bilateral L5 transverse processes. Disc spaces are normal. XR/XR lumbar spine 2-3V IMPRESSION: Scoliosis and degenerative changes.
[2022-07-16 11:27] VITALS: BP 140/56; PULSE 72; RESP 16; TEMP 36.8; O2SAT 98; BMI 23.6
--- NOTE | 2022-07-16 11:51 | ED.LOWEXIN ---
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 Describes pain as cramping/burning but no associated weakness, numbness/tingling. No saddle anesthesia. No bowel or bladder incontinence. No fevers or chills. Patient tells me when he takes Tylenol the pain goes away. Related Data Previous Rx's Medication Instructions Recorded amlodipine 5 mg tablet 5 mg PO DAILY #30 tabs 10/09/21 cyanocobalamin (vitamin B-12) 1,000 mcg PO DAILY #30 tabs 10/09/21 1,000 mcg tablet (Vitamin B-12) divalproex 500 mg tablet,extended 500 mg PO BEDTIME #30 tabs 10/09/21 release 24 hr gabapentin 100 mg capsule 200 mg PO BID #120 caps 10/09/21 olanzapine 2.5 mg tablet 2.5 mg PO BEDTIME #30 tabs 10/09/21 trazodone 50 mg tablet 50 mg PO BEDTIME PRN Insomnia #30 10/09/21 tabs gabapentin 300 mg capsule 300 mg PO BID #60 caps 10/19/21 ketorolac 10 mg tablet 10 mg PO QID PRN pain 5 days #20 07/11/22 tabs prednisone 20 mg tablet 40 mg PO DAILY 5 days #10 tabs 07/11/22 acetaminophen 325 mg capsule 650 mg PO Q6H PRN pain #30 caps 07/16/22 (Tylenol) diclofenac sodium 1 % topical gel 4 g topical QID #100 grams 07/16/22 (Voltaren Arthritis Pain) lidocaine 5 % topical patch 1 patch topical DAILY #30 ea 07/16/22 (Lidoderm) Allergies Allergy/AdvReac Type Severity Reaction Status Date / Time No Known Allergies Allergy Unknown NONE Verified 02/28/22 22:17 [No Known Allergies*] Review of Systems Review of Systems: Yes all other systems are reviewed and are negative Constitutional: Constitutional: Reports no additional constitutional complaints, Denies body ache(s), Denies chills, Denies fever(s), Denies headache(s) and Denies weakness Eyes: Eyes: Reports no additional eye complaints and Denies change in vision ENT: Reports system reviewed and no additional complaints, except as documented, Denies dizziness, Denies headache(s), Denies nasal congestion, Denies nasal discharge and Denies neck pain Cardiovascular: Cardiovascular: Reports no additional cardiovascular complaints, Denies chest pain, Denies leg edema and Denies dyspnea Respiratory: Respiratory: Reports no additional respiratory complaints, Denies cough and Denies dyspnea Gastrointestinal: Gastrointestinal: Reports no additional gastrointestinal complaints, Denies abdominal pain, Denies diarrhea, Denies nausea and Denies vomiting Genitourinary: Genitourinary: Denies urinary incontinence Musculoskeletal: Musculoskeletal: Reports no additional musculoskeletal complaints, Reports back pain, Denies arthralgias, Denies joint swelling, Denies neck pain, Denies numbness, Reports radiating pain into limb and Denies tingling Integumentary/Breasts: Skin/Breast: Reports system reviewed and no additional complaints, except as docu and Denies rash Neurologic: Reports system reviewed and no additional complaints, except as documented, Denies Abnormal speech present, Denies dizziness, Denies headache(s), Denies numbness, Denies tingling and Denies weakness PMFSH Past Medical History Attestation statement: The following information was validated with the patient. Source: old records reviewed and nursing notes reviewed Medical History Ileus Major neurocognitive disorder No known health problems Radicular pain of both lower extremities Social History Social History Household Members: None Housing: Homeless Do you presently have visiting nurse or other home services: No Alcohol intake: never Patient Tobacco Use Status: Current someday Tobacco user Tobacco use type: Cigarette e-Cigarette/Vaping Use: Never Used Second Hand Smoke Exposure: Yes Advance Directives: Yes Advance Directives Information Provided: Yes Advance Directives on File: No service: No Current occupational status: retired Sexual orientation: Px. was not available when called for this assessment, info is N/A Physical Exam Vital Signs: Vital Signs: Last Vital Signs Temp 98.2 F 07/16/22 15:06 Pulse 58 07/16/22 15:06 Resp 12 07/16/22 15:06 BP 149/62 H 07/16/22 15:06 Pulse Ox 97 07/16/22 15:06 O2 Del Method 07/16/22 15:06 BMI result Body Mass Index 23.6 Const: General: cooperative, healthy appearing, comfortable and no acute distress Orientation/consciousness: patient oriented x3 Limitations: no limitations HEENT: Head: Yes normal to inspection Ears: hearing grossly normal bilaterally General nose exam: Normal external nose present Face and sinus: Yes normal facial exam Mouth: Normal oral and palatal mucosa present Throat: Yes posterior oropharynx normal Eyes: General: appearance normal, both eyes and all related structures Pupils: Equal, round and reactive pupils present Neck: Neck: Yes normal visual inspection Chest: Chest palpation & inspection: normal inspection of the chest Resp: Effort & Inspection: normal respiratory effort Auscultation: clear to auscultation bilaterally Cardio: Rate: regular rate Rhythm: regular rhythm Peripheral pulses: Peripheral pulses 2+ throughout GI: Inspection: Yes normal to inspection Palpation (GI): Soft to palpation and nontender Auscultation: normal bowel sounds Back/Spine/Pelvis: Other: Unable to elicit any midline lumbar tenderness on exam or step-offs deformities Patient able to lift both straight legs with no difficulty Thoracic/Lumbar Spine: thoracic and lumbar spine normal to inspection Skin: General skin exam: no rashes or lesions noted Neuro: General: patient oriented x3, moves all extremities, no focal motor deficits and normal sensation to monofilament Cranial nerves: Yes CN's II-XII intact bilaterally, Yes Equal, round and reactive pupils present, Yes Bilaterally intact EOM present, Yes Nystagmus not present, Yes Normal facial strength present and Yes Midline tongue present Cognition (Neuro): normal cognition Speech: No Abnormal speech present Gait exam (Neuro): Normal gait present Motor exam (neuro): 5/5 motor strength present throughout Sensory Exam: Normal double simultaneous stimulation for sensation Extrem: Other: Negative Stinson test bilaterally General: Yes normal to inspection, Yes no pedal edema and Yes no calf tenderness Course Course Course Narrative: X-ray show degenerative changes but no acute fracture. Likely lumbar radiculopathy. Low concern for epidural abscess with no neurological deficits, red flag symptoms, reports of immunocompromised state, fever. Lower concern for cord compression with no reports of saddle anesthesia, incontinence, no overt neurological deficit I spoke to the patient's [facility] worker. His prescriptions were sent to [facility] in [facility] and his worker will pick them up for the patient. Patient is currently residing in a motel but does have services due to his underlying neuro cognitive disorder. He tells me he does have resources that come into the hotel to help him. He is up and ambulatory with no difficulty. Reviewed worrisome signs and symptoms when to return to the emergency room. Comfortable discharge home. MDM - Extremity Injury (Lower) MDM Narrative Medical decision making narrative: 77-year-old male here will several weeks of lower back pain with radiation down the left leg. Patient denies any injury or trauma. No neurological deficits or red flag symptoms. Due to age and history of falls will check x-rays lower spine. Likely lumbar radiculopathy. Medical Records Attestation: I reviewed the patient's medical records. Lab Data Attestation: I reviewed the patient's lab results. Imaging Data lumbar x-ray: Attestation: I personally reviewed and interpreted this imaging study as follows: Radiologist's impression: Launch?Image [place] [id number] XRay Report Signed Patient: Hieu Dixon MR#: [id number] : 1945 Acct:[id number] Age/Sex: 77 / M ADM Date: 07/16/22 Loc: .ED Attending Dr: Ordering Physician: Melinda Fuentes NP Date of Service: 07/16/22 Procedure(s): XR lumbar spine 2-3V Accession Number(s): [id number] cc: Melinda Fuentes NP~ EXAMINATION: XR LUMBOSACRAL SPINE CLINICAL INFORMATION: Pain COMPARISON: Previous x-ray 07/11/2022 TECHNIQUE: Three views of the lumbosacral spine. FINDINGS: There is curvature of the lumbar spine to the left. Bone alignment is otherwise normal. No fracture or dislocation. There is multilevel degenerative spondylosis and facet arthritis. There may be sacralization of the bilateral L5 transverse processes. Disc spaces are normal. XR/XR lumbar spine 2-3V IMPRESSION: Scoliosis and degenerative changes. Discharge Plan Discharge Clinical Impression: Lumbar radiculopathy Patient Disposition: Home, Self-Care Instructions: Lumbar Radiculopathy (ED) Additional Instructions: Las radiograf?as de la columna inferior muestran artritis. Aplique calor o hielo en la dariana lumbar. Estiramiento suave. Seguimiento con whelan m?dico de atenci?n primaria y 1 semana por cualquier problema persistente. Prescriptions: New acetaminophen [Tylenol] 325 mg capsule 650 mg PO Q6H PRN (Reason: pain) Qty: 30 0RF lidocaine [Lidoderm] 5 % adhesive patch,medicated 1 patch topical DAILY Qty: 30 0RF Rx Instructions: leave on most painful area for up to 12 hrs diclofenac sodium [Voltaren Arthritis Pain] 1 % gel 4 g topical QID Qty: 100 0RF Rx Instructions: apply to single knee, ankle, foot; for foot includes sole/toes/top of foot No Action gabapentin 300 mg capsule 300 mg PO BID Qty: 60 0RF amlodipine 5 mg Tablet 5 mg PO DAILY Qty: 30 0RF Protocol: Hold for SBP< HOLD for SBP < : 90 divalproex 500 mg Tablet Extended Release 24 Hr 500 mg PO BEDTIME Qty: 30 0RF gabapentin 100 mg capsule 200 mg PO BID Qty: 120 0RF trazodone 50 mg Tablet 50 mg PO BEDTIME PRN (Reason: Insomnia) Qty: 30 0RF cyanocobalamin (vitamin B-12) [Vitamin B-12] 1,000 mcg Tablet 1,000 mcg PO DAILY Qty: 30 0RF olanzapine 2.5 mg Tablet 2.5 mg PO BEDTIME Qty: 30 0RF ketorolac 10 mg tablet 10 mg PO QID PRN (Reason: pain) 5 Days Qty: 20 0RF Rx Instructions: Patient received toradol 30mg IM in the ED. prednisone 20 mg tablet 40 mg PO DAILY 5 Days Qty: 10 0RF Referrals: [facility] [Primary Care Provider] - 1 week (as needed) Stand Alone Forms: Work/School Release Interventions: ED Discharge Assessment Last Done: 07/16/22 17:23 Discharge Date/Time: 07/16/22 17:24 Print Language: Greenlandic
[2022-07-16 15:06] VITALS: BP 149/62; PULSE 58; RESP 12; TEMP 36.8; O2SAT 97
== END 2022-07-16 17:24 | disposition home or self-care (01) ==
PROVIDERS: Emergency Provider Student in an Organized Health Care Education/Training Program
DX: M54.16 Radiculopathy, lumbar region (principal); F17.200 Nicotine dependence, unspecified, uncomplicated
CPT/HCPCS: 72100; 99283

== ENCOUNTER → 2022-07-25 10:56 | Outpatient (BNVA) | payer OTHER, SELFPAY | PROVIDERS: PCP Internal Medicine; Visit Provider Orthopaedic Surgery | DX: M21.512 Acquired clawhand, left hand (principal) | CPT/HCPCS: 99202 ==

== ENCOUNTER 2022-08-01 10:10 | Outpatient (REF) | payer OTHER, SELFPAY ==
[2022-08-01 12:04] LABS: Vitamin B12 331 pg/mL (200-900)
== END 2022-08-01 10:11 | disposition home or self-care (01) ==
LOC: HO.LAB 10:10
PROVIDERS: Visit Provider Psychiatry & Neurology Neurology
DX: F03.918 Unspecified dementia, unspecified severity, with other behavioral disturbance (principal)
CPT/HCPCS: 36415; 82607

== ENCOUNTER 2022-12-05 08:57 | Emergency (ER) | payer OTHER, SELFPAY ==
--- NOTE | ~2022-12-05 | XR_ITS ---
EXAMINATION: CR X-RAY HAND AND WRIST LEFT CLINICAL INFORMATION: Left hand and wrist pain. COMPARISON: None TECHNIQUE: 4 views of the left hand and wrist are obtained. An indicator arrow points to the lateral wrist. FINDINGS: There is no acute fracture or dislocation. The carpal bones are normally aligned. The distal radius and ulna are intact. A tiny radiopaque density overlies the dorsal/proximal aspect of the second metacarpal. The soft tissues are otherwise unremarkable. XR/XR hand wrist LT IMPRESSION: 1. No acute fracture or significant degenerative changes. 2. Tiny radiopaque density overlying the dorsal/proximal aspect of the second could represent a foreign body of indeterminate age. Correlate with physical exam. No surrounding associated abnormality.
[2022-12-05 09:17] VITALS: BP 158/90; BP 170/88; PULSE 80; PULSE 82; RESP 16; TEMP 36.6; O2SAT 100; O2SAT 98; BMI 25.0
--- NOTE | 2022-12-05 09:46 | ED_ITS ---
HPI - Fall General Chief Complaint: Fall Stated Complaint: Fall, R side pain, found outside in snow per EMS Time Seen by Provider: 12/05/22 09:20 Source: patient and EMS History of Present Illness HPI Narrative: Patient with a history of dementia today had assess lip in fall outside in the snow. It is unclear how long he was down but was not cold and is normothermic. He complains of pain to his left hand and right knee. He is able ambulate without difficulty. He denies headache or head injury. No neck back chest abdomen pain or discomfort. Related Data Home Medications Medication Instructions Recorded Confirmed acetaminophen 325 mg tablet 0 mg PO 07/25/22 rosuvastatin 5 mg tablet 5 mg PO DAILY 07/25/22 Previous Rx's Medication Instructions Recorded amlodipine 5 mg tablet 5 mg PO DAILY #30 tabs 10/09/21 cyanocobalamin (vitamin B-12) 1,000 mcg PO DAILY #30 tabs 10/09/21 1,000 mcg tablet (Vitamin B-12) divalproex 500 mg tablet,extended 500 mg PO BEDTIME #30 tabs 10/09/21 release 24 hr gabapentin 100 mg capsule 200 mg PO BID #120 caps 10/09/21 olanzapine 2.5 mg tablet 2.5 mg PO BEDTIME #30 tabs 10/09/21 trazodone 50 mg tablet 50 mg PO BEDTIME PRN Insomnia #30 10/09/21 tabs gabapentin 300 mg capsule 300 mg PO BID #60 caps 10/19/21 ketorolac 10 mg tablet 10 mg PO QID PRN pain 5 days #20 07/11/22 tabs prednisone 20 mg tablet 40 mg PO DAILY 5 days #10 tabs 07/11/22 acetaminophen 325 mg capsule 650 mg PO Q6H PRN pain #30 caps 07/16/22 (Tylenol) diclofenac sodium 1 % topical gel 4 g topical QID #100 grams 07/16/22 (Voltaren Arthritis Pain) lidocaine 5 % topical patch 1 patch topical DAILY #30 ea 07/16/22 (Lidoderm) Allergies Allergy/AdvReac Type Severity Reaction Status Date / Time No Known Allergies Allergy Unknown NONE Verified 07/25/22 11:12 [No Known Allergies*] Review of Systems Constitutional: Comments: Denies weakness ENT: Comments: Denies head injury Gastrointestinal: Comments: No abdominal pain Musculoskeletal: Comments: And knee pain as described Integumentary/Breasts: Comments: Abrasions to left dorsum of his hand and right knee Neurologic: Comments: No focal deficit PMFSH Past Medical History Medical History Ileus Major neurocognitive disorder No known health problems Radicular pain of both lower extremities Social History Social History Household Members: None Housing: Homeless Do you presently have visiting nurse or other home services: No Alcohol intake: never Patient Tobacco Use Status: Current someday Tobacco user Tobacco use type: Cigarette e-Cigarette/Vaping Use: Never Used Second Hand Smoke Exposure: Yes Advance Directives: No Advance Directives Information Provided: No service: No Current occupational status: retired Sexual orientation: Px. was not available when called for this assessment, info is N/A Physical Exam 2 Vital Signs: Vital Signs: Last Vital Signs Temp 97.9 F 12/05/22 09:17 Pulse 82 12/05/22 09:17 Resp 16 12/05/22 09:17 BP 170/88 H 12/05/22 09:17 Pulse Ox 98 12/05/22 09:17 O2 Del Method 12/05/22 09:17 BMI result Body Mass Index 25.0 Const: Other: Awake alert. No acute distress. Vital signs stable. Temperature normal HEENT: Other: Normocephalic atraumatic Neck: Other: No neck tenderness. Full range of motion Resp: Other: No respiratory distress GI: Other: Soft nontender nondistended Skin: Other: Superficial abrasion left dorsum of hand. Superficial abrasion right patella Neuro: Other: Chronic left hand contractures. Extrem: Other: Left hand with abrasions as mentioned. There is no focal bony tenderness. No focal scaphoid/snuffbox tenderness. No crepitus or deformity noted. Right knee with patellar abrasion as mentioned. There is no crepitus deformity or edema. Patient is ambulatory without difficulty or limp. Medical Decision Making Medical Decision Making MDM Narrative: Abrasion left hand and right knee. Rule out fracture of wrist or hand. No evidence for hypothermia or prolonged down time. Patient is otherwise comfortable in the emergency department further workup not needed. 09:50. X-ray without obvious fracture by my interpretation. He is stable for discharge home Discharge Plan Discharge Clinical Impression: Acquired clawhand, left hand, Abrasion Patient Disposition: Home, Self-Care Instructions: Abrasion (ED) Additional Instructions: Keep skin and abrasions clean and dry. Prescriptions: No Action gabapentin 300 mg capsule 300 mg PO BID Qty: 60 0RF acetaminophen [Tylenol] 325 mg capsule 650 mg PO Q6H PRN (Reason: pain) Qty: 30 0RF lidocaine [Lidoderm] 5 % adhesive patch,medicated 1 patch topical DAILY Qty: 30 0RF Rx Instructions: leave on most painful area for up to 12 hrs diclofenac sodium [Voltaren Arthritis Pain] 1 % gel 4 g topical QID Qty: 100 0RF Rx Instructions: apply to single knee, ankle, foot; for foot includes sole/toes/top of foot amlodipine 5 mg Tablet 5 mg PO DAILY Qty: 30 0RF Protocol: Hold for SBP< HOLD for SBP < : 90 divalproex 500 mg Tablet Extended Release 24 Hr 500 mg PO BEDTIME Qty: 30 0RF gabapentin 100 mg capsule 200 mg PO BID Qty: 120 0RF trazodone 50 mg Tablet 50 mg PO BEDTIME PRN (Reason: Insomnia) Qty: 30 0RF cyanocobalamin (vitamin B-12) [Vitamin B-12] 1,000 mcg Tablet 1,000 mcg PO DAILY Qty: 30 0RF olanzapine 2.5 mg Tablet 2.5 mg PO BEDTIME Qty: 30 0RF ketorolac 10 mg tablet 10 mg PO QID PRN (Reason: pain) 5 Days Qty: 20 0RF Rx Instructions: Patient received toradol 30mg IM in the ED. prednisone 20 mg tablet 40 mg PO DAILY 5 Days Qty: 10 0RF acetaminophen 325 mg tablet 0 mg PO rosuvastatin 5 mg tablet 5 mg PO DAILY
== END 2022-12-05 10:08 | disposition home or self-care (01) ==
PROVIDERS: Emergency Provider Emergency Medicine
DX: M21.512 Acquired clawhand, left hand (principal); S60.512A Abrasion of left hand, initial encounter; W00.0XXA Fall on same level due to ice and snow, initial encounter; F17.210 Nicotine dependence, cigarettes, uncomplicated; Z79.02 Long term (current) use of antithrombotics/antiplatelets; Z79.899 Other long term (current) drug therapy; Y93.9 Activity, unspecified; Y92.480 Sidewalk as the place of occurrence of the external cause; Y99.9 Unspecified external cause status
CPT/HCPCS: 73110; 73130; 99282; 99283

== ENCOUNTER 2023-03-29 12:07 | Emergency (ER) | payer OTHER, SELFPAY ==
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
[2023-03-29 12:17] VITALS: BP 106/48; BP 117/81; PULSE 76; PULSE 78; RESP 18; TEMP 37.2; O2SAT 95; O2SAT 96; BMI 23.9
[2023-03-29] MEDS: 0.9 % Sodium Chloride 1,000 ML 999 ML IV ×2 (13:14→13:15)
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
--- NOTE | 2023-03-29 13:23 | PC.NURSE ---
pt alert/oriented. reporting lower back pain. premium note interest calculator clerk on, IV inserted and labs drawn. fluids running per dec, pt off to CT scan. will ctm
[2023-03-29] MEDS: iohexoL 350 MG/ML 100 ML INFUS..BTL 85 ML IV (13:32)
[2023-03-29 13:36] LABS: MANUAL DIFF FLAG NO
[2023-03-29 13:46] LABS: Basophils Percent Auto 0.8 % (0-2); Eosinophils Absolute Auto 0.2 X10*3/uL (0.0-0.4); Eosinophils Percent Auto 4.6 % (0-4); Hematocrit 36.7 % (42.0-52.0); Hemoglobin 12.2 g/dl (14.0-18.0); Imm Gran Abs Auto 0.01 X10*3/uL (0.00-0.03); Imm Gran Pct Auto 0.2 % (0.0-0.4); Lymphocytes Absolute Auto 1.3 X10*3/uL (1.2-4.9); Lymphocytes Percent Auto 27.6 % (20-40); Mean Corpuscular HGB Conc 33.2 g/dl (31.0-36.0); Mean Corpuscular Hemoglobin 31.7 pg (27.0-33.0); Mean Corpuscular Volume 95.3 fL (80.0-98.0); Mean Platelet Volume 11.9 fL (9.4-12.4); Monocytes Absolute Auto 0.5 X10*3/uL (0.1-1.2); Monocytes Percent Auto 9.4 % (2-11); Neutrophils Absolute Auto 2.7 x10*3/uL (2.0-8.3); Neutrophils Percent Auto 57.4 % (45-73); Platelet Count 155 X10*3/uL (160-400); Red Blood Count 3.85 X10*6/uL (4.60-5.80); Red Cell Distribution Width 14.2 % (11.0-16.0); White Blood Count 4.8 X10*3/uL (4.8-10.8)
[2023-03-29 13:54] VITALS: BP 146/66; PULSE 63; RESP 15; O2SAT 95
[2023-03-29 13:54] LABS: Prothrombin Time 11.6 SEC (10.0-13.1)
[2023-03-29 13:56] LABS: Partial Thromboplastin Time 29.7 SEC (26.0-36.4)
[2023-03-29 13:57] LABS: Alanine Aminotransferase 19 U/L (0-40); Albumin Level 3.9 g/dL (3.5-5.0); Alkaline Phosphatase 41 U/L (39-117); Anion Gap 13 (12-20); Aspartate Amino Transferase 24 U/L (5-37); Bilirubin Total 0.6 mg/dL (0.0-1.0); Blood Urea Nitrogen 18 mg/dL (9-16); Calcium 9.1 mg/dL (8.4-10.2); Carbon Dioxide 29 mmol/L (22-29); Chloride 104 mmol/L (96-108); Creatinine Clr Calc Pharmacy 54.9; Estimated Glomerular Filt Rate > 60; Ethanol < 10 mg/dL; Glucose Random 159 mg/dL (60-115); Potassium 4.4 mmol/L (3.3-5.1); Sodium 142 mmol/L (135-145); Total Protein 6.2 g/dL (6.5-8.0)
== END 2023-03-29 16:18 | disposition home or self-care (01) ==
PROVIDERS: Physician Assistant; Emergency Provider Emergency Medicine
DX: S36.30XA Unspecified injury of stomach, initial encounter (principal); R51.9 Headache, unspecified; M54.2 Cervicalgia; R10.2 Pelvic and perineal pain; M25.571 Pain in right ankle and joints of right foot; V03.90XA Pedestrian on foot injured in collision with car, pick-up truck or van, unspecified whether traffic or nontraffic accident, initial encounter; Y93.9 Activity, unspecified; Y92.410 Unspecified street and highway as the place of occurrence of the external cause; Y99.9 Unspecified external cause status; Z79.899 Other long term (current) drug therapy
CPT/HCPCS: 36415; 70450; 71260; 72125; 73610; 73620; 74177; 80053; 80307; 85025; 85610; 85730; 96360; 96361; 99284; Q9967

== ENCOUNTER 2023-09-13 12:41 | Emergency (ER) | payer OTHER, SELFPAY ==
[2023-09-13 12:47] VITALS: BP 160/80; PULSE 98; O2SAT 97
--- NOTE | 2023-09-13 12:54 | ECG_ITS ---
Test Reason : EPIGASTRIC PAIN Blood Pressure : / mmHG Vent. Rate : 070 BPM Atrial Rate : 070 BPM P-R Int : 292 ms QRS Dur : 096 ms QT Int : 384 ms P-R-T Axes : -15 035 073 degrees QTc Int : 414 ms Sinus rhythm with 1st degree A-V block Minimal voltage criteria for LVH, may be normal variant ( Sokolow-Macdonald ) Nonspecific T wave abnormality Abnormal ECG When compared with ECG of 03-APR-2022 12:42, Nonspecific T wave abnormality now evident in Lateral leads Referred By: Gloria Frost Electronically Signed By:CHELY MAYORGA
[2023-09-13 12:58] VITALS: BP 146/65; PULSE 65; RESP 19; TEMP 36.6; O2SAT 98; BMI 22.6
--- NOTE | 2023-09-13 13:03 | ED_ITS ---
HPI - General Adult General Chief complaint: Nausea/Vomiting/Diarrhea Stated complaint: vausa vomiting Time Seen by Provider: 09/13/23 13:01 History of Present Illness HPI narrative: 78 y/o M patient; PMH HTN; presents from home with report of episodes of dark diarrhea for the last three days. He reports approx 3 episodes a day in which he has to run from his bedroom to the bathroom. He denies associated abdominal pain, nausea or vomiting, fever or chill. He denies any history of prior colonoscopy. He denies ASA, antiplatelet, or anticoagulant use. He denies: cough/congestion, lightheadedness, passing out, chest pain, SOB. He is a daily nicotine user. Denies ethanol intake or recreational drug use. He states he has had dark stools before but usually only when he eats green beans, and he has been eating green beans recently. Related Data Home Medications Medication Instructions Recorded Confirmed acetaminophen 325 mg tablet 0 mg PO 07/25/22 rosuvastatin 5 mg tablet 5 mg PO DAILY 07/25/22 Previous Rx's Medication Instructions Recorded amlodipine 5 mg tablet 5 mg PO DAILY #30 tabs 10/09/21 cyanocobalamin (vitamin B-12) 1,000 mcg PO DAILY #30 tabs 10/09/21 1,000 mcg tablet (Vitamin B-12) divalproex 500 mg tablet,extended 500 mg PO BEDTIME #30 tabs 10/09/21 release 24 hr gabapentin 100 mg capsule 200 mg (2 x 100 mg) PO BID #120 10/09/21 caps olanzapine 2.5 mg tablet 2.5 mg PO BEDTIME #30 tabs 10/09/21 trazodone 50 mg tablet 50 mg PO BEDTIME PRN Insomnia #30 10/09/21 tabs gabapentin 300 mg capsule 300 mg PO BID #60 caps 10/19/21 ketorolac 10 mg tablet 10 mg PO QID PRN pain 5 days #20 07/11/22 tabs prednisone 20 mg tablet 40 mg (2 x 20 mg) PO DAILY 5 days 07/11/22 #10 tabs acetaminophen 325 mg capsule 650 mg (2 x 325 mg) PO Q6H PRN 07/16/22 (Tylenol) pain #30 caps diclofenac sodium 1 % topical gel 4 g topical QID #100 grams 07/16/22 (Voltaren Arthritis Pain) lidocaine 5 % topical patch 1 patch topical DAILY #30 ea 07/16/22 (Lidoderm) naproxen 500 mg tablet 500 mg PO BID PRN pain 7 days #14 03/29/23 tabs Allergies Allergy/AdvReac Type Severity Reaction Status Date / Time No Known Allergies Allergy Unknown NONE Verified 09/13/23 12:53 [No Known Allergies*] Review of Systems 2 Review of Systems: Yes all other systems are reviewed and are negative PMFSH Past Medical History Attestation statement: The following information was validated with the patient. Source: old records reviewed Medical History Ileus Major neurocognitive disorder No known health problems Radicular pain of both lower extremities Social History Social History Household Members: None Housing: Homeless Do you presently have visiting nurse or other home services: No Alcohol intake: never Patient Tobacco Use Status: Current someday Tobacco user Tobacco use type: Cigarette Smoked in Last 30 Days: No e-Cigarette/Vaping Use: Never Used Second Hand Smoke Exposure: Yes Use of substances other than those prescribed or required for medical reasons: No Advance Directives: No Advance Directives Information Provided: Yes service: No Current occupational status: retired Sexual orientation: Px. was not available when called for this assessment, info is N/A Physical Exam ED Vital Signs: Vital Signs - 24 hr 09/13/23 12:58 09/13/23 14:23 Temperature 98 F Pulse Rate 65 66 Respiratory Rate 19 17 Blood Pressure 146/65 H 154/67 H Pulse Oximetry 98 98 BMI result Body Mass Index 22.6 Patient is afebrile and hemodynamically stable. Const General: cooperative and no acute distress Orientation/consciousness: patient oriented x3 HENMT Head: Yes normal to inspection and Yes atraumatic Eyes General: appearance normal, both eyes and all related structures Pupils: Equal, round and reactive pupils present EOM: EOMs intact bilaterally Neck Neck: Yes full ROM and Yes supple Chest Chest palpation & inspection: normal inspection of the chest and normal palpation of entire chest wall Resp Effort & Inspection: normal respiratory effort, able to speak in complete sentences and no cough Auscultation: clear to auscultation bilaterally Cardio Rate: regular rate Rhythm: regular rhythm Peripheral pulses: Peripheral pulses 2+ throughout GI Inspection: Yes normal to inspection and No distended Palpation (GI): Soft to palpation, not firm, nontender, no guarding and not rigid General: Yes no CVA tenderness Back/Spine/Pelvis Back: no CVA tenderness Neuro General: patient oriented x3 Cranial nerves: Yes Equal, round and reactive pupils present Course Course Course Narrative: Patient is afebrile and hemodynamically stable. Reviewed ordered EKG, basic laboratory studies. EKG: NSR 70BPM with 1st degree AV block. Reevaluation(s) Reevaluation #1: Laboratory studies reviewed. Hgb baseline. Troponin negative. Remainder of laboratory studies unremarkable. Time: 13:28 Reevaluation #2: Rectal performed. Patient without external hemorrhoids. Dark stool, guiaic negative. Discussed results with patient and explained rationale behind not recommending anti-diarrheal medications. Patient recommended to follow up with his PCP within the next 1 week to explain his recent stool difficulties and to schedule his first colonoscopy. Patient verbalized understanding. Plan: Discharge to home with PCP follow up Return precautions given Time: 14:29 Medical Decision Making Lab Data 09/13/23 13:39 09/13/23 13:38 Labs: Lab Results 09/13/23 09/13/23 09/13/23 Range/Units 13:38 13:39 13:46 WBC 5.5 (4.8-10.8) X10*3/uL RBC 4.14 L (4.60-5.80) X10*6/uL Hgb 13.0 L (14.0-18.0) g/dl Hct 39.4 L (42.0-52.0) % MCV 95.2 (80.0-98.0) fL MCH 31.4 (27.0-33.0) pg MCHC 33.0 (31.0-36.0) g/dl RDW 13.2 (11.0-16.0) % Plt Count 143 L (160-400) X10*3/uL MPV 12.0 (9.4-12.4) fL Immature Gran % (Auto) 0.2 (0.0-0.4) % Neut % (Auto) 64.5 (45-73) % Lymph % (Auto) 23.7 (20-40) % Cocke % (Auto) 7.1 (2-11) % Eos % (Auto) 3.8 (0-4) % Baso % (Auto) 0.7 (0-2) % Lymph # (Auto) 1.3 (1.2-4.9) X10*3/uL Cocke # (Auto) 0.4 (0.1-1.2) X10*3/uL Eos # (Auto) 0.2 (0.0-0.4) X10*3/uL Baso # (Auto) 0.0 (0.0-0.2) X10*3/uL Abs Immat Gran (auto) 0.01 (0.00-0.03) X10*3/uL Absolute Neuts (auto) 3.6 (2.0-8.3) x10*3/uL Absolute Nucleated RBC 0.000 (0.0-0.012) X10*3/uL Nucleated RBC % (auto) 0.0 (0.0-0.2) /100WBC PT 11.8 (11.1-13.3) SEC INR 1.0 (0.9-1.1) APTT 28.1 (26.0-36.4) SEC Sodium 140 (135-145) mmol/L Potassium 4.4 (3.3-5.1) mmol/L Chloride 103 (96-108) mmol/L Carbon Dioxide 32 H (22-29) mmol/L Anion Gap 9 L (12-20) BUN 15 (9-16) mg/dL Creatinine 0.88 (0.5-1.4) mg/dL Estim Creat Clear Calc 62.1 Estimated GFR > 60 Random Glucose 173 H (60-115) mg/dL Calcium 9.6 (8.4-10.2) mg/dL Magnesium 2.1 (1.6-2.6) mg/dL Total Bilirubin 0.3 (0.0-1.0) mg/dL AST 16 (5-37) U/L ALT 13 (0-40) U/L Alkaline Phosphatase 37 L (39-117) U/L Troponin I High Sens < 2.7 (<3.5-35.0) ng/L Total Protein 6.9 (6.5-8.0) g/dL Albumin 4.3 (3.5-5.0) g/dL Lipase 24 (8-78) U/L Urine Color Yellow Urine Appearance Clear Urine pH 6.5 (5.0-9.0) Ur Specific Sidell 1.010 (1.005-1.025) Urine Protein Negative (Neg-Trace) mg/dL Urine Glucose (UA) Negative (Negative) mg/dL Urine Ketones Negative (Negative) mg/dL Urine Blood Trace H (Negative) Urine Nitrite Negative (Negative) Ur Leukocyte Esterase Negative (Negative) Urine RBC 0-2 (0-2) /HPF Urine WBC 0-5 (0-5) /HPF Ur Squamous Epith Cells 0-2 (0-2) /HPF Urine Bacteria None Seen (None Seen) Hyaline Casts 0-2 (0-2) /LPF Influenza Type A (PCR) NEGATIVE (Negative) Influenza Type B (PCR) NEGATIVE (Negative) RSV RNA Qual (PCR) NEGATIVE (Negative) SARS-CoV-2 RNA (RT-PCR) NEGATIVE (Negative) Discharge Plan Discharge Clinical Impression: Diarrhea Patient Disposition: Home, Self-Care Instructions: Acute Diarrhea (ED) Additional Instructions: [place] comentamos, hoy lo atendieron por diarrea oscura. Betzy an?lisis fueron tranquilizadores. Betzy heces no ten?an penny a pesar de que estaban oscuras. Le recomendamos que pema un seguimiento con [facility] PCP dentro de 1 semana para analizar whelan reciente visita al departamento de emergencias. Regrese al departamento de emergencias si presenta dolor abdominal, fiebre o desmayo. Prescriptions: No Action gabapentin 300 mg capsule 300 mg PO BID Qty: 60 0RF acetaminophen [Tylenol] 325 mg capsule 650 mg PO Q6H PRN (Reason: pain) Qty: 30 0RF lidocaine [Lidoderm] 5 % adhesive patch,medicated 1 patch topical DAILY Qty: 30 0RF Rx Instructions: leave on most painful area for up to 12 hrs diclofenac sodium [Voltaren Arthritis Pain] 1 % gel 4 g topical QID Qty: 100 0RF Rx Instructions: apply to single knee, ankle, foot; for foot includes sole/toes/top of foot amlodipine 5 mg Tablet 5 mg PO DAILY Qty: 30 0RF Protocol: Hold for SBP< HOLD for SBP < : 90 divalproex 500 mg Tablet Extended Release 24 Hr 500 mg PO BEDTIME Qty: 30 0RF gabapentin 100 mg capsule 200 mg PO BID Qty: 120 0RF trazodone 50 mg Tablet 50 mg PO BEDTIME PRN (Reason: Insomnia) Qty: 30 0RF cyanocobalamin (vitamin B-12) [Vitamin B-12] 1,000 mcg Tablet 1,000 mcg PO DAILY Qty: 30 0RF olanzapine 2.5 mg Tablet 2.5 mg PO BEDTIME Qty: 30 0RF ketorolac 10 mg tablet 10 mg PO QID PRN (Reason: pain) 5 Days Qty: 20 0RF Rx Instructions: Patient received toradol 30mg IM in the ED. prednisone 20 mg tablet 40 mg PO DAILY 5 Days Qty: 10 0RF naproxen 500 mg tablet 500 mg PO BID PRN (Reason: pain) 7 Days Qty: 14 0RF acetaminophen 325 mg tablet 0 mg PO rosuvastatin 5 mg tablet 5 mg PO DAILY Print Language: Indonesian
[2023-09-13 13:45] LABS: MANUAL DIFF FLAG NO
[2023-09-13 13:46] LABS: Basophils Percent Auto 0.7 % (0-2); Eosinophils Absolute Auto 0.2 X10*3/uL (0.0-0.4); Eosinophils Percent Auto 3.8 % (0-4); Hematocrit 39.4 % (42.0-52.0); Imm Gran Abs Auto 0.01 X10*3/uL (0.00-0.03); Imm Gran Pct Auto 0.2 % (0.0-0.4); Lymphocytes Absolute Auto 1.3 X10*3/uL (1.2-4.9); Lymphocytes Percent Auto 23.7 % (20-40); Mean Corpuscular Hemoglobin 31.4 pg (27.0-33.0); Mean Corpuscular Volume 95.2 fL (80.0-98.0); Monocytes Absolute Auto 0.4 X10*3/uL (0.1-1.2); Monocytes Percent Auto 7.1 % (2-11); Neutrophils Absolute Auto 3.6 x10*3/uL (2.0-8.3); Neutrophils Percent Auto 64.5 % (45-73); Platelet Count 143 X10*3/uL (160-400); Red Blood Count 4.14 X10*6/uL (4.60-5.80); Red Cell Distribution Width 13.2 % (11.0-16.0); White Blood Count 5.5 X10*3/uL (4.8-10.8)
[2023-09-13 13:50] LABS: Prothrombin Time 11.8 SEC (11.1-13.3)
[2023-09-13 13:52] LABS: Appearance Urine Clear; Color Urine Yellow; Glucose Urine UA Negative (Negative); Leukocyte Esterase Urine Negative (Negative); Nitrite Urine Negative (Negative); PH 6.5 (5.0-9.0); UMIC TRIGGER UACC YES; Urine Blood Trace (Negative); Urine Ketones Negative (Negative); Urine Protein Negative (Neg-Trace)
[2023-09-13 13:53] LABS: Partial Thromboplastin Time 28.1 SEC (26.0-36.4)
[2023-09-13 13:55] LABS: Bacteria Urine None Seen (None Seen); Hyaline Casts Urine 0-2 /LPF (0-2); RBC Urine 0-2 /HPF (0-2); Squamous Epithelial Cell Urine 0-2 /HPF (0-2); WBC Urine 0-5 /HPF (0-5)
[2023-09-13 14:04] LABS: Alanine Aminotransferase 13 U/L (0-40); Albumin Level 4.3 g/dL (3.5-5.0); Alkaline Phosphatase 37 U/L (39-117); Anion Gap 9 (12-20); Aspartate Amino Transferase 16 U/L (5-37); Bilirubin Total 0.3 mg/dL (0.0-1.0); Blood Urea Nitrogen 15 mg/dL (9-16); Calcium 9.6 mg/dL (8.4-10.2); Carbon Dioxide 32 mmol/L (22-29); Chloride 103 mmol/L (96-108); Creatinine Clr Calc Pharmacy 62.1; Estimated Glomerular Filt Rate > 60; Glucose Random 173 mg/dL (60-115); Lipase 24 U/L (8-78); Magnesium 2.1 mg/dL (1.6-2.6); Potassium 4.4 mmol/L (3.3-5.1); Sodium 140 mmol/L (135-145); Total Protein 6.9 g/dL (6.5-8.0)
[2023-09-13 14:12] LABS: Troponin-I High Sensitivity < 2.7 ng/L (<3.5-35.0)
[2023-09-13 14:23] VITALS: BP 154/67; PULSE 66; RESP 17; O2SAT 98
[2023-09-13 14:23] LABS: Influenza A PCR NEGATIVE (Negative); Influenza B PCR NEGATIVE (Negative); Resp Syncy Virus RNA Qual PCR NEGATIVE (Negative); SARS COV2 PCR INHOUSE NEGATIVE (Negative)
== END 2023-09-13 14:45 | disposition home or self-care (01) ==
PROVIDERS: Physician Assistant Medical; Emergency Provider Emergency Medicine
DX: R11.2 Nausea with vomiting, unspecified (principal); R19.7 Diarrhea, unspecified; I44.30 Unspecified atrioventricular block; R10.13 Epigastric pain; F17.210 Nicotine dependence, cigarettes, uncomplicated; Z20.822 Contact with and (suspected) exposure to COVID-19; Z20.828 Contact with and (suspected) exposure to other viral communicable diseases; Z71.6 Tobacco abuse counseling; Z79.899 Other long term (current) drug therapy
CPT/HCPCS: 0241U; 80053; 81001; 83690; 83735; 84484; 85025; 85610; 85730; 93005; 99283; 99284

== ENCOUNTER → 2023-09-13 12:54 | Outpatient (BNV) | payer OTHER, SELFPAY | PROVIDERS: Emergency Provider Emergency Medicine; Visit Provider Internal Medicine | DX: I44.0 Atrioventricular block, first degree (principal); R94.31 Abnormal electrocardiogram [ECG] [EKG] | CPT/HCPCS: 93010 ==

== ENCOUNTER 2023-09-19 11:13 | Outpatient (REF) | payer OTHER, SELFPAY ==
[2023-09-19 14:05] LABS: Prostate Specific Antigen 9.71 ng/mL (<0.05-4.0)
== END 2023-09-19 11:14 | disposition home or self-care (01) ==
LOC: HO.HHCL 11:13
PROVIDERS: Visit Provider Internal Medicine Geriatric Medicine
DX: Z12.5 Encounter for screening for malignant neoplasm of prostate (principal); R97.20 Elevated prostate specific antigen [PSA]
CPT/HCPCS: 36415; 84153

== ENCOUNTER 2023-12-27 08:39 | Outpatient (AMB) | payer OTHER, SELFPAY ==
--- NOTE | 2023-12-27 08:50 | MHC.OFFVIS ---
Intake Intake Visit Reasons: Elevated PSA Intake Note: Patient presents today for a follow-up on elevated PSA Meds- None Allergies to Antibiotic- No Known Allergies Blood Thinner- None Turbine Engine Assembler Required: No Turbine Engine Assembler Name: MILLY SHULTZ-RAMOSThomas Allergies No Known Allergies [No Known Allergies*] Allergy (Unknown, Verified 12/27/23 09:36) NONE Medication List - Last Reconciled 12/27/23 by BOBBY Garrett-YIN acetaminophen (Tylenol) 650 mg (2 x 325 mg) PO Q6H PRN amlodipine 5 mg See Protocol PO DAILY cyanocobalamin (vitamin B-12) (Vitamin B-12) 1,000 mcg PO DAILY diclofenac sodium 1% (Voltaren Arthritis Pain) 4 grams topical QID divalproex ER 500 mg PO BEDTIME gabapentin 200 mg (2 x 100 mg) PO BID gabapentin 300 mg PO BID ketorolac 10 mg PO QID PRN 5 days lidocaine 5% (Lidoderm) 1 patch topical DAILY naproxen 500 mg PO BID PRN 7 days olanzapine 2.5 mg PO BEDTIME rosuvastatin 5 mg PO DAILY sulfamethoxazole-trimethoprim 800-160 mg (Bactrim DS) 1 tab PO BID 14 days trazodone 50 mg PO BEDTIME PRN HPI HPI Comments History of Present Illness Details Hieu is a 78-year-old [place]ivian-speaking male patient who was accompanied by his friend at today's office visit. He has a past medical history of major neurocognitive disorder and hypertension. He presents to the office today as a new patient for elevated PSA. In discussion with the patient today he reports noting ongoing intermittent episodes of dysuria with urinary leakage. He reports symptoms have been present for months. He otherwise denies nocturia, hematuria, foul smelling urine, flank pain, fever, and or chills. He also reports noting weak urinary stream at times. In office urinalysis results reviewed with the patient today 1+ microscopic hematuria noted. When asked he does report a smoking history of approximately 65 years. He reports to be smoking approximately 1 pack per day. Discussed at length potential causes of microscopic hematuria as well as elevated PSA. In review of patient's chart PSA 09/28--9.7. MIGDALIA performed left side of the prostate noted to be boggy otherwise no nodules or masses palpated. Discussed treatment for prostatitis with reassessment of PSA in 6 weeks status post completion of antibiotic therapy. Will also obtain retroperitoneal ultrasound for further assessment evaluation. Discussed further microscopic hematuria workup with CT urogram, urine cytology, and in office cystoscopy versus surveillance monitoring. He otherwise offers no other issues or concerns at this time. [facility] Medical History Radicular pain of both lower extremities Major neurocognitive disorder Ileus No known health problems Social History Household Members: None Housing: Homeless Do you presently have visiting nurse or other home services: No Alcohol intake: never Patient Tobacco Use Status: Current someday Tobacco user Tobacco use type: Cigarette e-Cigarette/Vaping Use: Never Used Second Hand Smoke Exposure: Yes service: No Current occupational status: retired Sexual orientation: Px. was not available when called for this assessment, info is N/A Review of Systems Const Reports as per HPI Eyes Reports no additional complaints ENT Reports no additional complaints Card Reports as per HPI Resp Reports no additional complaints GI Details: Patient reports to have been experiencing diarrhea over the last couple of days. Reports as per HPI Musc Reports no additional complaints Neuro Reports as per HPI Psych Reports as per HPI Endo Reports no additional complaints Danielito/Lymph Reports no additional complaints Aller/Immun Reports no additional complaints Physical Exam Const General: cooperative, comfortable, no acute distress, well developed, alert, awake and poor hygiene Nutritional Appearance: thin Orientation/consciousness: patient oriented x3 Limitations: no limitations HEENT Head: Yes normal to inspection Eyes General: appearance normal, both eyes and all related structures Neck Neck: Yes normal visual inspection Chest Chest palpation & inspection: normal inspection of the chest Resp Effort & Inspection: normal respiratory effort and able to speak in complete sentences Cardio Rate: regular rate GI Inspection: Yes normal to inspection General: Yes no CVA tenderness Back/Spine/Pelvis Back: no CVA tenderness Skin General skin exam: no rashes or lesions noted Neuro General: patient oriented x3 Extrem General: Yes normal to inspection Psych Appearance: disheveled Speech and movement: Normal speech and movement present and Clear speech present Affect: normal affect Attitude: cooperative Thought process: Normal thought process present Thought content: Normal thought content present Insight: Poor insight present (Psych) Judgement: Poor judgement present (Psych) Results AMB Urinalysis, Automated UA Leukoctes 0 Santiago/uL Last Edit by Marion Cummings [facility] on 12/27/23 09:04 UA Nitrite Negative Last Edit by Marion Cummings, [facility] on 12/27/23 09:04 UA Urobilinogen 0.2 mg/dL Last Edit by Marion Cummings, [facility] on 12/27/23 09:04 UA Protein 0 mg/dL Last Edit by Marion Cummings, [facility] on 12/27/23 09:04 UA pH 6.0 Last Edit by Marion Cummings, [facility] on 12/27/23 09:04 UA Blood 25 Kvng/uL Last Edit by Marion Cummingsivonne Cummings, [facility] on 12/27/23 09:04 UA Specific Hunter 1.010 Last Edit by Marion Cummings, [facility] on 12/27/23 09:04 UA Ketone Negative Last Edit by Marion Cummings, [facility] on 12/27/23 09:04 UA Bilirubin 0 mg/dL Last Edit by Marion Cummings, [facility] on 12/27/23 09:04 UA Glucose 0 mg/dL Last Edit by Marion Cummings [facility] on 12/27/23 09:04 Results Reviewed Results Reviewed: Laboratory Last Values Urine pH (Auto) 6.0 12/27/23 08:54 Specific Hunter (Auto) 1.010 12/27/23 08:54 Urine Protein (Auto) 0 mg/dL 12/27/23 08:54 Glucose (UA)(Auto) 0 mg/dL 12/27/23 08:54 Urine Ketones (Auto) Negative 12/27/23 08:54 Urine Blood (Auto) 25 Kvng/uL 12/27/23 08:54 Urine Nitrite (Auto) Negative 12/27/23 08:54 Urine Bilirubin (Auto) 0 mg/dL 12/27/23 08:54 Urine Urobilinogen (Auto) 0.2 mg/dL 12/27/23 08:54 Leukocyte Esterase (Auto) 0 Santiago/uL 12/27/23 08:54 Assessment & Plan Assessment & Plan (1) Microscopic hematuria: Code(s): R31.29 - Other microscopic hematuria (2) Elevated PSA: Code(s): R97.20 - Elevated prostate specific antigen [PSA] (3) Dysuria: Code(s): R30.0 - Dysuria (4) Lower urinary tract symptoms: Code(s): R39.9 - Unspecified symptoms and signs involving the genitourinary system (5) Prostatitis: Code(s): N41.9 - Inflammatory disease of prostate, unspecified (6) Nicotine dependence: Code(s): F17.200 - Nicotine dependence, unspecified, uncomplicated Plan In office urinalysis results reviewed with the patient today; as noted above; will send for urine cytology. Discussed obtaining retroperitoneal ultrasound for further assessment evaluation. Discussed further workup of microscopic hematuria workup given history of nicotine dependence; risks and benefits of surveillance monitoring verses further workup was discussed at length Discussed at length potential causes of elevated PSA. Start Bactrim as discussed and prescribed Discussed obtaining PSA 6 weeks status post completion of antibiotic therapy for presumed prostatitis given MIGDALIA noted with boggy prostate. Discussed, educated, and stressed the importance of drinking water daily. Follow-up in 2 months with imaging and redraw of PSA; or sooner with any issues, concerns, and or questions. Orders: Orders AMB Urinalysis Automated 12/27/23 R33.9 - Retention of urine, unspecified Urine Cytology 12/27/23 R31.29 - Other microscopic hematuria US retroperitoneal comp 12/27/23 R31.29 - Other microscopic hematuria, R39.9 - Unspecified symptoms and signs involving the genitourinary system PSA,Total (Free>4and<10) 6 Weeks R97.20 - Elevated prostate specific antigen [PSA] Medications: New sulfamethoxazole-trimethoprim 800-160 mg (Bactrim DS) 1 tab PO BID 28 tabs 0RF 14 days N39.0 - Urinary tract infection, site not specified Discontinued ketorolac Patient received toradol 30mg IM in the ED. Discontinued Reason: Patient Completed Course 10 mg PO QID 5 days PRN 20 tabs 0RF pain gabapentin Discontinued Reason: Patient no longer taking 300 mg PO BID 60 caps 0RF Patient Instructions: The patient had an opportunity to ask questions regarding the treatment plan. All questions were answered. Physical exam, labs, and imaging were discussed and reviewed in detail. As well as risks, benefits, and discussion of treatment choices. No major barriers to understanding were identified. The patient expressed understanding and agreement with the above treatment plan. The patient was made aware they should contact our office by phone for worsening of their current condition, the appearance of new symptoms, or with any questions or concerns. Compliance is encouraged with any medications and follow up testing that is ordered. It is a privilege to be allowed the opportunity to participate in? your urological care.? Again, if you have any questions or concerns If you have any questions or concerns please do not hesitate to contact me. The office is [phone]. This note is constructed using voice recognition software. While every effort has been made to ensure accuracy highway engineering technician errors may have been included. Yours sincerely, MARIANNE Garrett Coding Level of Care Code New Pt Level 4 (12584) Diagnoses Microscopic hematuria R31.29 Elevated PSA R97.20 Dysuria R30.0 Lower urinary tract symptoms R39.9 Prostatitis N41.9 Nicotine dependence F17.200
== END 2023-12-27 09:36 | disposition home or self-care (01) ==
PROVIDERS: Visit Provider Nurse Practitioner Family
DX: R31.29 Other microscopic hematuria (principal); R97.20 Elevated prostate specific antigen [PSA]; R30.0 Dysuria; R39.9 Unspecified symptoms and signs involving the genitourinary system; N41.9 Inflammatory disease of prostate, unspecified; F17.200 Nicotine dependence, unspecified, uncomplicated
CPT/HCPCS: 99204

== ENCOUNTER 2023-12-27 08:39 | Outpatient (REF) | payer OTHER, SELFPAY ==
[2023-12-27 17:06] LABS: Urine Cytology See Pathology rpt
== END 2023-12-27 08:40 | disposition home or self-care (01) ==
LOC: HO.LAB 08:39
PROVIDERS: Visit Provider Nurse Practitioner Family
DX: R31.29 Other microscopic hematuria (principal); R97.20 Elevated prostate specific antigen [PSA]; R30.0 Dysuria; R39.9 Unspecified symptoms and signs involving the genitourinary system; N41.9 Inflammatory disease of prostate, unspecified; F17.200 Nicotine dependence, unspecified, uncomplicated; Z79.899 Other long term (current) drug therapy
CPT/HCPCS: 81003; 88112; 99202

== ENCOUNTER 2024-06-25 12:14 | Observation (INO) | payer OTHER, SELFPAY ==
[2024-06-25] VITALS (12 sets, daily range): BP systolic 125–162; BP diastolic 54–79; PULSE 55–86; RESP 16–18; TEMP 36.7–37.1; O2SAT 95–99; BMI 20.1
--- NOTE | ~2024-06-25 | CT_ITS ---
EXAMINATION: CT HEAD WITHOUT CONTRAST CLINICAL INFORMATION: Altered mental status. COMPARISON: Head CTs dating between March 29, 2023 and January 18, 2008. TECHNIQUE: Contiguous axial imaging was performed from the skull base to vertex without intravenous administration of contrast. This CT examination was performed using dose optimization techniques as appropriate, variously including the following: *Automated exposure control *Adjustment of mA and/or kV according to patient size (this includes techniques or standardized protocols for targeted exams where dose is matched to indication/reason for exam; i.e. extremities or head) *Use of iterative reconstruction technique DLP: 661 mGy-cm FINDINGS: No intracranial hemorrhage, large infarction, or mass lesion is seen. Age-appropriate cortical atrophy and mild chronic bilateral periventricular white matter ischemic change. No extra-axial collection is appreciated. The ventricles are normal in size and configuration without evidence of hydrocephalus. Mild mucosal thickening involving bilateral ethmoid air cells. The mastoid air cells are clear. CT/CT head/brain wo IV con IMPRESSION: No acute intracranial finding. Electronically signed by: Neil Denney MD 06/25/2024 04:36 PM EDT
--- NOTE | ~2024-06-25 | XR_ITS ---
EXAMINATION: XR CHEST CLINICAL INFORMATION: Altered mental status. COMPARISON: None available. TECHNIQUE: Frontal view of the chest was obtained. FINDINGS: No significant abnormality is noted involving the heart, lungs, mediastinum, bony thorax or soft tissues. XR/XR chest 1V IMPRESSION: Unremarkable examination. Electronically signed by: Neil Denney MD 06/25/2024 03:59 PM EDT RP
--- NOTE | 2024-06-25 12:28 | ED_ITS ---
HPI - General Adult General Chief complaint: Weakness Stated complaint: WEAK,DIARRHEA,KAW,H/O DEMENTIA PER EMS Time Seen by Provider: 06/25/24 13:31 Source: patient, EMS, RN notes reviewed, old records reviewed and other ([facility] worker) History of Present Illness ED Provider: Khushi Francisco PA-C HPI narrative: 79-year-old male with a past medical history dementia presenting to the ED by EMS from [place] [address] ([facility]) s/p staff concern about increasing generalized fatigue/weakness, lethargy, decreased p.o. intake, diarrhea, and confusion x couple days. Patient with baseline dementia however report increasingly confused, does not know staff names, does not remember if he is eating/taking his medications and or showering which is not typical for him. No reported falls. Patient admits to diarrhea, and improving neck discomfort, denies other complaints at present. Denies fever/chills, CP/SOB, abdominal pain, nausea/vomiting, urinary symptoms. Related Data Home Medications ?Medication ?Instructions ?Recorded ?Confirmed rosuvastatin 5 mg tablet 5 mg PO DAILY 07/25/22 Previous Rx's ?Medication ?Instructions ?Recorded amlodipine 5 mg tablet 5 mg PO DAILY #30 tabs 10/09/21 cyanocobalamin (vitamin B-12) 1,000 mcg PO DAILY #30 tabs 10/09/21 1,000 mcg tablet (Vitamin B-12) divalproex 500 mg tablet,extended 500 mg PO BEDTIME #30 tabs 10/09/21 release 24 hr gabapentin 100 mg capsule 200 mg (2 x 100 mg) PO BID #120 10/09/21 caps olanzapine 2.5 mg tablet 2.5 mg PO BEDTIME #30 tabs 10/09/21 trazodone 50 mg tablet 50 mg PO BEDTIME PRN Insomnia #30 10/09/21 tabs acetaminophen 325 mg capsule 650 mg (2 x 325 mg) PO Q6H PRN 07/16/22 (Tylenol) pain #30 caps diclofenac sodium 1 % topical gel 4 g topical QID #100 grams 07/16/22 (Voltaren Arthritis Pain) lidocaine 5 % topical patch 1 patch topical DAILY #30 ea 07/16/22 (Lidoderm) naproxen 500 mg tablet 500 mg PO BID PRN pain 7 days #14 03/29/23 tabs sulfamethoxazole 800 1 tab PO BID 14 days #28 tabs 12/27/23 mg-trimethoprim 160 mg tablet (Bactrim DS) Allergies Allergy/AdvReac Type Severity Reaction Status Date / Time No Known Allergies Allergy Unknown NONE Verified 06/25/24 12:34 [No Known Allergies*] Review of Systems 2 Review of Systems: Yes all other systems are reviewed and are negative Constitutional: Constitutional: Reports as per HPI Neurologic: Denies Abnormal speech present [facility] Past Medical History Attestation statement: The following information was validated with the patient. Source: old records reviewed Medical History Radicular pain of both lower extremities Major neurocognitive disorder Ileus No known health problems Social History Social History Household Members: None Housing: Homeless Do you presently have visiting nurse or other home services: No Alcohol intake: never Patient Tobacco Use Status: Current someday Tobacco user Tobacco use type: Cigarette e-Cigarette/Vaping Use: Never Used Second Hand Smoke Exposure: Yes Advance Directives: No Advance Directives Information Provided: Yes service: No Current occupational status: retired Sexual orientation: Px. was not available when called for this assessment, info is N/A Physical Exam ED Vital Signs: Vital Signs - 24 hr 06/25/24 12:30 06/25/24 13:17 06/25/24 13:18 Temperature 98.2 F Pulse Rate 67 Respiratory Rate 18 17 16 Blood Pressure 142/63 H Pulse Oximetry 96 Oxygen Delivery Method Room Air Oxygen Flow Rate 06/25/24 13:20 06/25/24 13:21 06/25/24 13:25 Temperature Pulse Rate Respiratory Rate 16 16 Blood Pressure Pulse Oximetry Oxygen Delivery Method Venturi Mask Oxygen Flow Rate 06/25/24 13:25 06/25/24 13:33 06/25/24 13:38 Temperature 98.4 F Pulse Rate Respiratory Rate Blood Pressure Pulse Oximetry Oxygen Delivery Method Venturi Mask Venturi Mask Oxygen Flow Rate 06/25/24 13:40 06/25/24 13:43 06/25/24 14:00 Temperature 98.2 F Pulse Rate 86 Respiratory Rate 18 Blood Pressure 125/65 Pulse Oximetry 95 Oxygen Delivery Method Venturi Mask Venturi Mask Nasal Cannula Oxygen Flow Rate 2 BMI result Body Mass Index 20.1 Const Other: Pleasantly confused, A&Ox3 with baseline dementia General: cooperative, no acute distress, alert and awake Orientation/consciousness: patient oriented x3 HENMT Head: Yes normal to inspection and Yes atraumatic Ears: hearing grossly normal bilaterally General nose exam: Normal external nose present Face and sinus: Yes normal facial exam Mouth: Normal oral and palatal mucosa present Throat: Yes posterior oropharynx normal Eyes General: appearance normal, both eyes and all related structures Pupils: Equal, round and reactive pupils present EOM: EOMs intact bilaterally Neck Other: No midline cervical spinous tenderness or reproducible paraspinal tenderness Neck: Yes normal visual inspection and Yes no meningeal signs Resp Effort & Inspection: normal respiratory effort and no respiratory distress Auscultation: clear to auscultation bilaterally Cardio Rate: regular rate Heart sounds: S1 normal heart sound present and S2 normal heart sound present GI Inspection: Yes normal to inspection Palpation (GI): Soft to palpation, nontender, no guarding and not rigid General: Yes no CVA tenderness Back/Spine/Pelvis Other: No midline cervical/thoracic/lumbar spinous tenderness/step-off or deformity Back: no CVA tenderness Skin Rashes: no rashes Wounds: no wounds Neuro General: patient oriented x3, tone normal, moves all extremities, no meningeal signs, no focal motor deficits and CN's II-XI intact bilaterally Cranial nerves: Yes CN's II-XII intact bilaterally, Yes Equal, round and reactive pupils present and Yes Bilaterally intact EOM present Cognition (Neuro): normal cognition Speech: No Abnormal speech present Gait exam (Neuro): Normal gait present Motor exam (neuro): 5/5 motor strength present throughout Extrem General: Yes normal to inspection Course Course Course Narrative: -1331--no leukocytosis. H / H stable. Labs otherwise reassuring -ammonia WNL. Initial troponin 6.2 > will obtain repeat -1605--troponin x2 negative, mi unlikely. UA noninfected XR chest 1V IMPRESSION: Unremarkable examination. -1605--ED care transferred to N[facility] Mclean pending head CT, stool studies, & case management consult Medications Administered Discontinued Medications Generic Name Dose Route Start Last Admin Trade Name Freq PRN Reason Stop Dose Admin Sodium Chloride 500 mls @ 999 mls/hr 06/25/24 12:45 06/25/24 14:25 Ns IV 06/25/24 13:15 999 mls/hr .Q31M KELLY Administration Medical Decision Making Medical Decision Making [facility] Narrative: 79-year-old male with a past medical history dementia presenting to the ED by EMS from [place] [address] ([facility]) s/p staff concern about increasing generalized fatigue/weakness, lethargy, decreased p.o. intake, diarrhea, and confusion x couple days. On exam vital signs stable, NAD/nontoxic appearing, A&O x3 however pleasantly confused, abdomen soft/nontender, no focal neuro deficits. Concern for metabolic abnormalities and encephalopathy vs dehydration vs infectious diarrhea/C diff. low suspicion for CVA/TIA as patient is A&Ox3. Rule out pneumonia. Low suspicion for severe sepsis Plan: EKG, labs, UA, stool studies, CXR, head CT, IVF, re-evaluate Please refer to course for remaining clinical decision making, interpretation of labs/imaging results, and discussions with consultants and/or family members. Differential Diagnosis Differential Diagnoses: The differential diagnosis associated with the presentation includes As above Admission/Observation Consideration of admission/observation: Escalation of care including admission/observation considered Lab Data [facility] Lab Attestation statement: I reviewed the patient's lab results. 06/25/24 12:59 06/25/24 12:59 Labs: Lab Results 06/25/24 06/25/24 06/25/24 Range/Units 12:55 12:59 13:57 WBC 5.3 (4.8-10.8) X10*3/uL RBC 4.02 L (4.60-5.80) X10*6/uL Hgb 12.9 L (14.0-18.0) g/dl Hct 37.8 L (42.0-52.0) % MCV 94.0 (80.0-98.0) fL MCH 32.1 (27.0-33.0) pg MCHC 34.1 (31.0-36.0) g/dl RDW 13.7 (11.0-16.0) % Plt Count 166 (160-400) X10*3/uL MPV 11.4 (9.4-12.4) fL Immature Gran % (Auto) 0.2 (0.0-0.4) % Neut % (Auto) 60.5 (45-73) % Lymph % (Auto) 27.9 (20-40) % Woodruff % (Auto) 8.5 (2-11) % Eos % (Auto) 2.3 (0-4) % Baso % (Auto) 0.6 (0-2) % Lymph # (Auto) 1.5 (1.2-4.9) X10*3/uL Woodruff # (Auto) 0.5 (0.1-1.2) X10*3/uL Eos # (Auto) 0.1 (0.0-0.4) X10*3/uL Baso # (Auto) 0.0 (0.0-0.2) X10*3/uL Abs Immat Gran (auto) 0.01 (0.00-0.03) X10*3/uL Absolute Neuts (auto) 3.2 (2.0-8.3) x10*3/uL Absolute Nucleated RBC 0.000 (0.0-0.012) X10*3/uL Nucleated RBC % (auto) 0.0 (0.0-0.2) /100WBC Sodium 141 (135-145) mmol/L Potassium 4.3 (3.3-5.1) mmol/L Chloride 104 (96-108) mmol/L Carbon Dioxide 33 H (22-29) mmol/L Anion Gap 8 L (12-20) BUN 15 (9-16) mg/dL Creatinine 0.93 (0.5-1.4) mg/dL Estim Creat Clear Calc 57.7 Estimated GFR > 60 Random Glucose 118 H (60-115) mg/dL Calcium 9.8 (8.4-10.2) mg/dL Magnesium 2.1 (1.6-2.6) mg/dL Total Bilirubin 0.4 (0.0-1.0) mg/dL Direct Bilirubin 0.1 (0.0-0.5) mg/dL AST 21 (5-37) U/L ALT 20 (0-40) U/L Alkaline Phosphatase 38 L (39-117) U/L Ammonia 19 (13-55) umol/L Troponin I High Sens 6.2 D (<3.5-35.0) ng/L Total Protein 7.0 (6.5-8.0) g/dL Albumin 4.3 (3.5-5.0) g/dL Lipase 24 (8-78) U/L Urine Color Urine Appearance Urine pH (5.0-9.0) Ur Specific Kula (1.005-1.025) Urine Protein (Neg-Trace) mg/dL Urine Glucose (UA) (Negative) mg/dL Urine Ketones (Negative) mg/dL Urine Blood (Negative) Urine Nitrite (Negative) Ur Leukocyte Esterase (Negative) Urine RBC (0-2) /HPF Urine WBC (0-5) /HPF Ur Squamous Epith Cells (0-2) /HPF Urine Bacteria (None Seen) Hyaline Casts (0-2) /LPF Influenza Type A (PCR) NEGATIVE (Negative) Influenza Type B (PCR) NEGATIVE (Negative) RSV RNA Qual (PCR) NEGATIVE (Negative) SARS-CoV-2 RNA (RT-PCR) NEGATIVE (Negative) 06/25/24 Range/Units 14:35 WBC (4.8-10.8) X10*3/uL RBC (4.60-5.80) X10*6/uL Hgb (14.0-18.0) g/dl Hct (42.0-52.0) % MCV (80.0-98.0) fL MCH (27.0-33.0) pg MCHC (31.0-36.0) g/dl RDW (11.0-16.0) % Plt Count (160-400) X10*3/uL MPV (9.4-12.4) fL Immature Gran % (Auto) (0.0-0.4) % Neut % (Auto) (45-73) % Lymph % (Auto) (20-40) % Woodruff % (Auto) (2-11) % Eos % (Auto) (0-4) % Baso % (Auto) (0-2) % Lymph # (Auto) (1.2-4.9) X10*3/uL Woodruff # (Auto) (0.1-1.2) X10*3/uL Eos # (Auto) (0.0-0.4) X10*3/uL Baso # (Auto) (0.0-0.2) X10*3/uL Abs Immat Gran (auto) (0.00-0.03) X10*3/uL Absolute Neuts (auto) (2.0-8.3) x10*3/uL Absolute Nucleated RBC (0.0-0.012) X10*3/uL Nucleated RBC % (auto) (0.0-0.2) /100WBC Sodium (135-145) mmol/L Potassium (3.3-5.1) mmol/L Chloride (96-108) mmol/L Carbon Dioxide (22-29) mmol/L Anion Gap (12-20) BUN (9-16) mg/dL Creatinine (0.5-1.4) mg/dL Estim Creat Clear Calc Estimated GFR Random Glucose (60-115) mg/dL Calcium (8.4-10.2) mg/dL Magnesium (1.6-2.6) mg/dL Total Bilirubin (0.0-1.0) mg/dL Direct Bilirubin (0.0-0.5) mg/dL AST (5-37) U/L ALT (0-40) U/L Alkaline Phosphatase (39-117) U/L Ammonia (13-55) umol/L Troponin I High Sens 6.3 (<3.5-35.0) ng/L Total Protein (6.5-8.0) g/dL Albumin (3.5-5.0) g/dL Lipase (8-78) U/L Urine Color Yellow Urine Appearance Clear Urine pH 6.0 (5.0-9.0) Ur Specific Kula 1.020 (1.005-1.025) Urine Protein Negative (Neg-Trace) mg/dL Urine Glucose (UA) Negative (Negative) mg/dL Urine Ketones 40 (Negative) mg/dL Urine Blood Trace H (Negative) Urine Nitrite Negative (Negative) Ur Leukocyte Esterase Negative (Negative) Urine RBC 6-10 H (0-2) /HPF Urine WBC 0-5 (0-5) /HPF Ur Squamous Epith Cells 3-5 (0-2) /HPF Urine Bacteria None Seen (None Seen) Hyaline Casts 0-2 (0-2) /LPF Influenza Type A (PCR) (Negative) Influenza Type B (PCR) (Negative) RSV RNA Qual (PCR) (Negative) SARS-CoV-2 RNA (RT-PCR) (Negative) Independent Interpretation I performed an independent interpretation of an: EKG, Plain X-Ray and CT Scan Radiology Impression Discussion of test interpretation with radiology: I have reviewed the radiologist's reading. Independent Historian Clinical information obtained from an independent historian. History obtained from or confirmed by: EMS and Other External Record Review External record reviewed: Inpatient record, Office record, Outpatient record, Prior outpatient labs, Prior outpatient radiology, Primary care record and Outside ED record Tests considered The following testing was considered but not selected: As above Chronic Conditions Patient?s care impacted by: Other Discharge Plan Discharge Clinical Impression: Diarrhea, Weakness, Confusion Patient Disposition: Still a Patient Prescriptions: No Action acetaminophen [Tylenol] 325 mg capsule 650 mg PO Q6H PRN (Reason: pain) Qty: 30 0RF lidocaine [Lidoderm] 5 % adhesive patch,medicated 1 patch topical DAILY Qty: 30 0RF Rx Instructions: leave on most painful area for up to 12 hrs diclofenac sodium [Voltaren Arthritis Pain] 1 % gel 4 g topical QID Qty: 100 0RF Rx Instructions: apply to single knee, ankle, foot; for foot includes sole/toes/top of foot amlodipine 5 mg Tablet 5 mg PO DAILY Qty: 30 0RF Protocol: Hold for SBP< HOLD for SBP < : 90 divalproex 500 mg Tablet Extended Release 24 Hr 500 mg PO BEDTIME Qty: 30 0RF gabapentin 100 mg capsule 200 mg PO BID Qty: 120 0RF trazodone 50 mg Tablet 50 mg PO BEDTIME PRN (Reason: Insomnia) Qty: 30 0RF cyanocobalamin (vitamin B-12) [Vitamin B-12] 1,000 mcg Tablet 1,000 mcg PO DAILY Qty: 30 0RF olanzapine 2.5 mg Tablet 2.5 mg PO BEDTIME Qty: 30 0RF naproxen 500 mg tablet 500 mg PO BID PRN (Reason: pain) 7 Days Qty: 14 0RF rosuvastatin 5 mg tablet 5 mg PO DAILY sulfamethoxazole-trimethoprim [Bactrim DS] 800-160 mg tablet 1 tab PO BID 14 Days Qty: 28 0RF Print Language: Nepali
--- NOTE | 2024-06-25 12:29 | ECG_ITS ---
Test Reason : FATIGUE Blood Pressure : / mmHG Vent. Rate : 063 BPM Atrial Rate : 063 BPM P-R Int : 292 ms QRS Dur : 092 ms QT Int : 408 ms P-R-T Axes : 039 029 053 degrees QTc Int : 417 ms Sinus rhythm with 1st degree A-V block Minimal voltage criteria for LVH, may be normal variant ( Sokolow-Macdonald ) Nonspecific T wave abnormality Abnormal ECG When compared with ECG of 13-SEP-2023 13:18, No significant change was found Referred By: Generic ED Physician Electronically Signed By:UMA WATERS
[2024-06-25 13:03] LABS: MANUAL DIFF FLAG NO
[2024-06-25 13:09] LABS: Basophils Percent Auto 0.6 % (0-2); Eosinophils Absolute Auto 0.1 X10*3/uL (0.0-0.4); Eosinophils Percent Auto 2.3 % (0-4); Hematocrit 37.8 % (42.0-52.0); Hemoglobin 12.9 g/dl (14.0-18.0); Imm Gran Abs Auto 0.01 X10*3/uL (0.00-0.03); Imm Gran Pct Auto 0.2 % (0.0-0.4); Lymphocytes Absolute Auto 1.5 X10*3/uL (1.2-4.9); Lymphocytes Percent Auto 27.9 % (20-40); Mean Corpuscular HGB Conc 34.1 g/dl (31.0-36.0); Mean Corpuscular Hemoglobin 32.1 pg (27.0-33.0); Mean Platelet Volume 11.4 fL (9.4-12.4); Monocytes Absolute Auto 0.5 X10*3/uL (0.1-1.2); Monocytes Percent Auto 8.5 % (2-11); Neutrophils Absolute Auto 3.2 x10*3/uL (2.0-8.3); Neutrophils Percent Auto 60.5 % (45-73); Platelet Count 166 X10*3/uL (160-400); Red Blood Count 4.02 X10*6/uL (4.60-5.80); Red Cell Distribution Width 13.7 % (11.0-16.0); White Blood Count 5.3 X10*3/uL (4.8-10.8)
[2024-06-25 13:27] LABS: Alanine Aminotransferase 20 U/L (0-40); Albumin Level 4.3 g/dL (3.5-5.0); Alkaline Phosphatase 38 U/L (39-117); Anion Gap 8 (12-20); Aspartate Amino Transferase 21 U/L (5-37); Bilirubin Direct 0.1 mg/dL (0.0-0.5); Bilirubin Total 0.4 mg/dL (0.0-1.0); Blood Urea Nitrogen 15 mg/dL (9-16); Calcium 9.8 mg/dL (8.4-10.2); Carbon Dioxide 33 mmol/L (22-29); Chloride 104 mmol/L (96-108); Creatinine Clr Calc Pharmacy 57.7; Estimated Glomerular Filt Rate > 60; Glucose Random 118 mg/dL (60-115); Lipase 24 U/L (8-78); Magnesium 2.1 mg/dL (1.6-2.6); Potassium 4.3 mmol/L (3.3-5.1); Sodium 141 mmol/L (135-145)
[2024-06-25 13:34] LABS: Troponin-I High Sensitivity 6.2 ng/L (<3.5-35.0)
[2024-06-25 13:44] LABS: Influenza A PCR NEGATIVE (Negative); Influenza B PCR NEGATIVE (Negative); Resp Syncy Virus RNA Qual PCR NEGATIVE (Negative); SARS COV2 PCR INHOUSE NEGATIVE (Negative)
[2024-06-25 14:14] LABS: Ammonia 19 umol/L (13-55)
[2024-06-25] MEDS: 0.9 % Sodium Chloride 500 ML 999 ML IV (14:25)
[2024-06-25 14:43] LABS: Appearance Urine Clear; Color Urine Yellow; Glucose Urine UA Negative (Negative); Leukocyte Esterase Urine Negative (Negative); Nitrite Urine Negative (Negative); UMIC TRIGGER UACC YES; Urine Blood Trace (Negative); Urine Ketones 40 mg/dL (Negative); Urine Protein Negative (Neg-Trace)
[2024-06-25 14:47] LABS: Bacteria Urine None Seen (None Seen); Hyaline Casts Urine 0-2 /LPF (0-2); WBC Urine 0-5 /HPF (0-5)
[2024-06-25 15:00] LABS: Troponin-I High Sensitivity 6.3 ng/L (<3.5-35.0)
--- NOTE | 2024-06-25 16:50 | PC.NURSE ---
Marily from [facility], supervisor reactor fueling. on phone, . states last couple days he's been sleeping, not wanting to get out of bed. baseline is ambulatory and out to smoke. hasn't been getting up, reports diarrhea x weeks followed by a week of constipation. Staff are concerned about worsening dementia and will eat old food b/c his judgement is poor. Has PUGGER HELPER 3x/week (total of 14 hrs/week) . States lots of the referals are declined d/t insurance ([facility]). Marily believes patient needs a higher level of care.
--- NOTE | 2024-06-25 17:48 | PC.NURSE ---
Pt is hard to orient to plan of care. calm. awaits case management.
--- NOTE | 2024-06-25 19:18 | PHA.MEDREC ---
Addendum entered by Tammy Bonilla RPh 06/25/24 19:34: Reviewed by [facility] Original Note: Pharmacy Consult ? Medication Reconciliation Pharmacy reviewed med rec done by nursing. Nurse states when she spoke to Marily from [facility] over the phone she got the medication list for the patient and all matched what we had in phamacy claims.
[2024-06-25] MEDS: Divalproex Sodium ER 500 MG TAB.ER.24H PO (22:14)
[2024-06-25] MEDS: Gabapentin 100 MG CAPSULE 200 MG PO (22:14)
[2024-06-25] MEDS: OLANZapine 2.5 MG TABLET PO (22:14)
[2024-06-25] MEDS: traZODone HCL 50 MG TABLET PO (22:15)
[2024-06-26 06:00] VITALS: BP 146/65; PULSE 60; RESP 18; TEMP 36.7; O2SAT 99
[2024-06-26 09:20] VITALS: BP 146/65
[2024-06-26] MEDS: amLODIPine Besylate 5 MG TABLET PO (09:20)
[2024-06-26] MEDS: Gabapentin 100 MG CAPSULE 200 MG PO ×2 (09:20→20:32)
[2024-06-26] MEDS: Atorvastatin Calcium 20 MG TABLET PO (09:20)
[2024-06-26] MEDS: Cyanocobalamin (Vitamin B-12) 1,000 MCG TABLET 1000 MCG PO (09:20)
[2024-06-26 10:00] VITALS: BP 121/62; PULSE 66; RESP 16; TEMP 36.7; O2SAT 96
--- NOTE | 2024-06-26 10:19 | PC.NURSE ---
Physical therapist and closing agent at bedside for evaluation.
[2024-06-26 10:25] VITALS: BP 146/65
--- NOTE | 2024-06-26 10:28 | MHC.EDTECH ---
assisted pt w urinal and back to bed
--- NOTE | 2024-06-26 11:53 | MHC.CM.ED ---
Addendum entered by Sindy Roberts 06/26/24 14:43: Received return telephone call from . Patient has been at their facility for 3 years after his . They do not have a HCP for him. He has no children. He is able to return to their facility after STR. Referral broadcasted in [facility] at this time to all facilities within 15 miles that are contracted with [facility]. Addendum entered by Sindy Roberts 06/26/24 12:00: Patient is active with [facility]. Per Thi at [facility], patient has [facility] for personal care and [facility] for Meals on Wheels. [facility] does not have a HCP on file. Original Note: Received case management consult from Khushi KRAMER. Physical therapy eval completed. Short term rehab is recommended. Patient is from [facility]. Attempted to speak to of [facility] at [phone]. Left voicemail requesting return telephone call. Patient has no HCP on [facility] at [facility], [facility] or [facility]. Copy of last PCP note requested from [facility]. Continue to monitor for d/c needs.
[2024-06-26 15:18] VITALS: BP 173/64; PULSE 64; RESP 16; TEMP 37.1; O2SAT 98
--- NOTE | 2024-06-26 18:23 | PC.NURSE ---
assumed care of patient at 1645. He is resting quietly in bed. He denies pain or any current needs. He demonstrates no s/s distress. Safety precautions mainained.
[2024-06-26] MEDS: Divalproex Sodium ER 500 MG TAB.ER.24H PO (20:32)
[2024-06-26] MEDS: OLANZapine 2.5 MG TABLET PO (20:32)
[2024-06-26] MEDS: traZODone HCL 50 MG TABLET PO (20:32)
[2024-06-27 05:54] VITALS: BP 139/62; PULSE 58; RESP 18; TEMP 36.6; O2SAT 98
[2024-06-27] MEDS: Lidocaine 4 % Patch ADH..PATCH 1 PATCH TRANSDERMA (08:13)
[2024-06-27] MEDS: Gabapentin 100 MG CAPSULE 200 MG PO ×2 (08:13→20:53)
[2024-06-27] MEDS: Atorvastatin Calcium 20 MG TABLET PO (08:13)
[2024-06-27] MEDS: amLODIPine Besylate 5 MG TABLET PO (08:13)
[2024-06-27] MEDS: Cyanocobalamin (Vitamin B-12) 1,000 MCG TABLET 1000 MCG PO (08:13)
[2024-06-27 13:45] VITALS: BP 128/60; PULSE 71; RESP 18; TEMP 36.6; O2SAT 96
[2024-06-27] MEDS: OLANZapine 2.5 MG TABLET PO (20:53)
[2024-06-27] MEDS: Divalproex Sodium ER 500 MG TAB.ER.24H PO (20:53)
--- NOTE | 2024-06-27 21:11 | PC.NURSE ---
Addendum entered by Migel Le 06/27/24 22:13: IV removed - no longer clinically indicated. Original Note: pt requesting food, dinner tray reheated and positioned in front of pt, pt eating independently. pt medicated per DEC, meds taken whole w water.
[2024-06-27 22:00] VITALS: BP 136/84; PULSE 63; RESP 18; TEMP 36.8; O2SAT 96
--- NOTE | 2024-06-28 01:18 | PC.NURSE ---
Assumed care of patient @2300. Patient 2 assist OOB, brief changed,assisted back to bed, bed alarm on. Occasionally getting OOB states I'm looking for my keys, Check over there com writer able to redirect patient back to bed w/o issues. Plan of care ongoing.
[2024-06-28 05:57] VITALS: BP 138/64; PULSE 58; RESP 16; TEMP 36.6; O2SAT 95
[2024-06-28] MEDS: Lidocaine 4 % Patch ADH..PATCH 1 PATCH TRANSDERMA (08:34)
[2024-06-28] MEDS: Gabapentin 100 MG CAPSULE 200 MG PO ×2 (08:35→22:17)
[2024-06-28] MEDS: amLODIPine Besylate 5 MG TABLET PO (08:35)
[2024-06-28] MEDS: Cyanocobalamin (Vitamin B-12) 1,000 MCG TABLET 1000 MCG PO (08:35)
--- NOTE | 2024-06-28 09:05 | MHC.EDTECH ---
pt was washed up with a complete bed change
[2024-06-28] MEDS: Atorvastatin Calcium 20 MG TABLET PO (09:08)
--- NOTE | 2024-06-28 09:47 | MHC.EDTECH ---
pt ate 25% of his breakfast
--- NOTE | 2024-06-28 10:39 | MHC.EDTECH ---
pt was 1 assisted to the commode and now is on the recliner
[2024-06-28] MEDS: OLANZapine 5 MG TABLET PO (13:35)
[2024-06-28 14:00] VITALS: BP 134/60; PULSE 65; RESP 16; TEMP 36.7; O2SAT 97
[2024-06-28 15:34] LABS: Alanine Aminotransferase 16 U/L (0-40); Albumin Level 4.4 g/dL (3.5-5.0); Alkaline Phosphatase 41 U/L (39-117); Anion Gap 15 (12-20); Aspartate Amino Transferase 15 U/L (5-37); Bilirubin Total 0.3 mg/dL (0.0-1.0); Blood Urea Nitrogen 14 mg/dL (9-16); Calcium 9.8 mg/dL (8.4-10.2); Carbon Dioxide 27 mmol/L (22-29); Chloride 104 mmol/L (96-108); Creatinine Clr Calc Pharmacy 53.1; Estimated Glomerular Filt Rate > 60; Glucose Random 122 mg/dL (60-115); Potassium 4.1 mmol/L (3.3-5.1); Sodium 142 mmol/L (135-145); Total Protein 7.2 g/dL (6.5-8.0)
[2024-06-28 22:00] VITALS: BP 162/80; PULSE 65; RESP 16; TEMP 36.9; O2SAT 98
[2024-06-28] MEDS: OLANZapine 2.5 MG TABLET PO (22:17)
[2024-06-28] MEDS: Divalproex Sodium ER 500 MG TAB.ER.24H PO (22:17)
[2024-06-28] MEDS: traZODone HCL 50 MG TABLET PO (22:18)
--- NOTE | 2024-06-29 00:28 | PC.NURSE ---
Pt has dementia and is alert to self only. At the beginning of this RN's shift, there was a LENS EXAMINER who spoke Portuguese who could redirect pt. He would agree to stay in bed but then get up a few minutes later. Pt denies pain, needing any food or water or needing to use the bathroom. He is able to turn the bed alarm off, there is a camera in the room. Pst Manager services came down to instruct pt to stay in bed, showed him where the call maher was and how to use it. Pt agreed. He requested the door to be closed but it was explained it needed to stay open for safety reasons. Approx 5 minutes later he was OOB, standing, touching the wall. LENS EXAMINER was able to redirect him back to bed. Call maher within reach, bed alarm on, camera in room. Tigered nursing supervisor border department requesting a Portuguese speaking sitter for him d/t this RN's safety concerns. Waiting to hear back.
[2024-06-29 06:00] VITALS: BP 130/69; PULSE 77; RESP 16; TEMP 36.8; O2SAT 97
[2024-06-29 08:47] VITALS: BP 140/68; PULSE 62; RESP 18; TEMP 36.2; O2SAT 96
[2024-06-29] MEDS: amLODIPine Besylate 5 MG TABLET PO (10:18)
[2024-06-29] MEDS: Atorvastatin Calcium 20 MG TABLET PO (10:18)
[2024-06-29] MEDS: Lidocaine 4 % Patch ADH..PATCH 1 PATCH TRANSDERMA (10:19)
[2024-06-29] MEDS: Gabapentin 100 MG CAPSULE 200 MG PO ×2 (10:19→20:25)
[2024-06-29] MEDS: Cyanocobalamin (Vitamin B-12) 1,000 MCG TABLET 1000 MCG PO (10:19)
--- NOTE | 2024-06-29 14:51 | PC.NURSE ---
patient has been sleeping off and on during the day, patient checked, linens dry and clean. respirations equal and unlabored, skin dry and intact.
[2024-06-29 14:58] VITALS: BP 142/67; PULSE 67; RESP 19; TEMP 36.6; O2SAT 98
--- NOTE | 2024-06-29 17:20 | PC.NURSE ---
patient sat up with this RN and ate dinner. patient assisted to feed then he picked up banana and fed himself. patient shows no signs of acute distress, respirations equal and unlabored, skin dry and intact.
--- NOTE | 2024-06-29 20:00 | MHC.EDTECH ---
pt was assisted with using urinal, 150mL of yellow urine. RN aware
[2024-06-29] MEDS: Divalproex Sodium ER 500 MG TAB.ER.24H PO (20:25)
[2024-06-29] MEDS: OLANZapine 2.5 MG TABLET PO (20:25)
--- NOTE | 2024-06-29 20:51 | MHC.CM.ED ---
CM met with patient and medical office receptionist assistant, as pt is Tunisian speaking. Pt is very confused. Does not know why he is in the hospital. Does not know where he is. He is unable to answer questions. Does not appear to understand the explanation or concept of a HCP. Cannot name a HCP. CM was unable to complete a HCP at this time.
[2024-06-29 22:20] VITALS: BP 160/75; PULSE 62; RESP 17; TEMP 36.5; O2SAT 97
[2024-06-30 06:00] VITALS: BP 157/77; PULSE 81; RESP 18; TEMP 36.6; O2SAT 96
[2024-06-30 08:33] VITALS: BP 115/57; PULSE 66; RESP 16; TEMP 36.6; O2SAT 95
[2024-06-30] MEDS: Cyanocobalamin (Vitamin B-12) 1,000 MCG TABLET 1000 MCG PO (08:39)
[2024-06-30] MEDS: Atorvastatin Calcium 20 MG TABLET PO (08:39)
[2024-06-30] MEDS: amLODIPine Besylate 5 MG TABLET PO (08:39)
[2024-06-30] MEDS: Gabapentin 100 MG CAPSULE 200 MG PO ×2 (08:40→20:30)
[2024-06-30] MEDS: Lidocaine 4 % Patch ADH..PATCH 1 PATCH TRANSDERMA (08:41)
--- NOTE | 2024-06-30 12:11 | MHC.EDTECH ---
Complete bed change/clothing change. Sponge bathed patient.
--- NOTE | 2024-06-30 12:29 | MHC.CM.ED ---
Addendum entered by Sindy Roberts 07/01/24 10:12: Per Kaylee, psychologist research assistant, patient does not have capacity. Demetria Ruiz aware he will need a guardianship. Original Note: Patient remains in ER overflow. Psych consult ordered to evaluate if patient has the capacity to make his own decisions. No HCP has been found between [facility], [facility], [facility] and [facility]. If patient does not have capacity, guardianship will need to be pursued. Demetria Ruiz CM director aware. Continue to monitor for d/c needs.
[2024-06-30 14:17] VITALS: BP 115/60; PULSE 68; RESP 18; TEMP 36.9; O2SAT 97
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
[2024-06-30 20:11] VITALS: BP 129/66; PULSE 65; RESP 14; TEMP 36.2; O2SAT 97
[2024-06-30] MEDS: OLANZapine 2.5 MG TABLET PO (20:30)
[2024-06-30] MEDS: Divalproex Sodium ER 500 MG TAB.ER.24H PO (20:36)
[2024-07-01 06:51] VITALS: BP 143/77; PULSE 67; RESP 17; TEMP 36.9; O2SAT 97
--- NOTE | 2024-07-01 07:00 | PC.NURSE ---
report recieved from previous RN, patient resting comfortably on stretcher at this time, camera remains in room for safety, offering no complaints at this time, plan of care ongoing
[2024-07-01] MEDS: Gabapentin 100 MG CAPSULE 200 MG PO ×2 (08:54→20:29)
[2024-07-01 08:55] VITALS: BP 143/77
[2024-07-01] MEDS: Atorvastatin Calcium 20 MG TABLET PO (08:55)
[2024-07-01] MEDS: amLODIPine Besylate 5 MG TABLET PO (08:55)
[2024-07-01] MEDS: Cyanocobalamin (Vitamin B-12) 1,000 MCG TABLET 1000 MCG PO (08:55)
--- NOTE | 2024-07-01 11:58 | PC.NURSE ---
patient provided with lunch tray, sat up in bed, RETINAL SURGEON to assist with feeding due to eating small amount of breakfast
--- NOTE | 2024-07-01 13:55 | PC.NURSE ---
patient noted to be incontinent of urine, marlen care provided by this RN, chucks replaced, patient offered TV, declined, offered food or warm blankets, also denied at this time. repositioned in bed, lights turned off for comfort, all safety maintained
[2024-07-01 14:00] VITALS: BP 123/60; PULSE 66; RESP 16; TEMP 36; O2SAT 97
--- NOTE | 2024-07-01 17:07 | PC.NURSE ---
patient provided with dinner tray, ate about 30% of dinner, states he cannot eat anymore
--- NOTE | 2024-07-01 18:45 | PC.NURSE ---
patient requesting to have bowel movement, assisted to commode x1 assist with LEGAL TRANSCRIPTIONIST, all safety maintained
[2024-07-01] MEDS: Divalproex Sodium ER 500 MG TAB.ER.24H PO (20:29)
[2024-07-01] MEDS: OLANZapine 2.5 MG TABLET PO (20:29)
[2024-07-01 21:16] VITALS: BP 151/73; PULSE 68; RESP 18; TEMP 36.9; O2SAT 97
[2024-07-01 22:00] VITALS: BP 144/64; PULSE 58; TEMP 37.1; O2SAT 96
[2024-07-01] MEDS: traZODone HCL 50 MG TABLET PO (22:54)
[2024-07-02 08:02] VITALS: BP 127/61; PULSE 63; RESP 14; O2SAT 97
[2024-07-02] MEDS: Atorvastatin Calcium 20 MG TABLET PO (08:24)
[2024-07-02] MEDS: amLODIPine Besylate 5 MG TABLET PO (08:25)
[2024-07-02] MEDS: Gabapentin 100 MG CAPSULE 200 MG PO ×2 (08:25→20:55)
[2024-07-02] MEDS: Cyanocobalamin (Vitamin B-12) 1,000 MCG TABLET 1000 MCG PO (08:25)
[2024-07-02] MEDS: Lidocaine 4 % Patch ADH..PATCH 1 PATCH TRANSDERMA (08:27)
--- NOTE | 2024-07-02 08:32 | PC.NURSE ---
malagasy speaking only. pt seemingly confused at times and other times lucid. answers questions appropriately but continuously asking why he's here and states that he wants to go home. pt reoriented at this time. denies pain. has no complaints. pt incontinent of urine. bedding changed. new pads placed. pt turned/repositioned to comfort. sitting upright/watching tv. medication administered per provider order. swallows pills whole w/ water w/o complications. no sob/wob noted. respirations even/unlabored. bed alarm/camera in place for safety precautions. plan of care ongoing. call maher placed within reach.
--- NOTE | 2024-07-02 09:57 | PC.NURSE ---
this RN arrival at 8:45. pt has needed physial prompts to stay in bed x 2 since. is easily redirectable. camera in place.
--- NOTE | 2024-07-02 13:26 | MHC.CM.ED ---
Patient remains in ER overflow. Medical Certificate fo guardianship given to hospital optical instrument specialist by Deemtria Ruiz CM director. Continue to monitor for d/c needs.
[2024-07-02 14:10] VITALS: BP 120/58; PULSE 74; RESP 16; O2SAT 96
--- NOTE | 2024-07-02 17:32 | PC.NURSE ---
pt bengali speaking only. confused, easily redirectable. no acute complications this shift.
[2024-07-02] MEDS: OLANZapine 2.5 MG TABLET PO (20:55)
[2024-07-02] MEDS: traZODone HCL 50 MG TABLET PO (20:55)
[2024-07-02] MEDS: Divalproex Sodium ER 500 MG TAB.ER.24H PO (20:55)
[2024-07-02 21:01] VITALS: BP 153/72; PULSE 69; RESP 17; TEMP 36.3; O2SAT 94
[2024-07-03 06:00] VITALS: BP 137/64; PULSE 62; RESP 14; TEMP 36.2; O2SAT 95
--- NOTE | 2024-07-03 10:38 | PC.NURSE ---
Pt resting comfortably on bed, respirations equal and unlabored.
[2024-07-03 11:01] VITALS: BP 151/70; PULSE 82; RESP 14; TEMP 37; O2SAT 99
--- NOTE | 2024-07-03 13:15 | PC.NURSE ---
Pt resting comfortably on bed, respirations equal and unlabored.
[2024-07-03 18:36] VITALS: BP 159/68; PULSE 70; RESP 17; TEMP 36.9; O2SAT 97
[2024-07-03 19:13] VITALS: BP 165/81; PULSE 72; RESP 15; TEMP 37; O2SAT 98
--- NOTE | 2024-07-03 19:14 | PC.NURSE ---
this rn assumed care of pt, pt sitting in hospital bed, appears to be sleeping, respirations even and unlabored. vss.
--- NOTE | 2024-07-03 20:47 | PC.NURSE ---
pt medicated not available in [facility], pharmacy aware.
[2024-07-03] MEDS: Gabapentin 100 MG CAPSULE 200 MG PO (21:17)
[2024-07-03] MEDS: Divalproex Sodium ER 500 MG TAB.ER.24H PO (21:17)
[2024-07-03] MEDS: OLANZapine 2.5 MG TABLET PO (21:17)
--- NOTE | 2024-07-03 21:18 | PC.NURSE ---
pt medicated per mar, tolerated well with water.
[2024-07-03 22:46] VITALS: BP 148/68; PULSE 70; RESP 18; TEMP 36.3; O2SAT 97
[2024-07-04 05:43] VITALS: BP 132/68; PULSE 65; RESP 18; TEMP 36.2; O2SAT 97
--- NOTE | 2024-07-04 07:03 | PC.NURSE ---
Assumed care of patient at 0645, patient appears to be sleeping, respirations even and unlabored, no apparent distress noted. Camera sitter in place for safety. Continue plan of care for case management follow up
[2024-07-04] MEDS: Gabapentin 100 MG CAPSULE 200 MG PO ×2 (08:25→20:37)
[2024-07-04] MEDS: Atorvastatin Calcium 20 MG TABLET PO (08:25)
[2024-07-04] MEDS: Lidocaine 4 % Patch ADH..PATCH 1 PATCH TRANSDERMA (08:25)
[2024-07-04] MEDS: Cyanocobalamin (Vitamin B-12) 1,000 MCG TABLET 1000 MCG PO (08:25)
[2024-07-04] MEDS: amLODIPine Besylate 5 MG TABLET PO (08:25)
--- NOTE | 2024-07-04 10:50 | MHC.CM.ED ---
Pt is boarding in the ED awaiting guardianship and LTC placement. No court date as of this note. Anticipate pt will be holding until guardianship assigned and placement secured.
[2024-07-04 14:46] VITALS: BP 145/65; PULSE 68; RESP 16; TEMP 36.4; O2SAT 98
--- NOTE | 2024-07-04 19:32 | PC.NURSE ---
pt alert, cooperative, and lithuanian speaking. He denies complaint. Pt repositioned for comfort/skin. He was found to have mild blanchable pink buttocks and slow to josé miguel redness to bilateral shoulder blades. [place] foam applied to buttocks and bilateral shoulder areas and pt offloaded from site. Heels floated and pink foam applied protectively although no s/s breakdown or pressure. awaiting air loss bed device.
[2024-07-04] MEDS: OLANZapine 2.5 MG TABLET PO (20:37)
[2024-07-04] MEDS: Divalproex Sodium ER 500 MG TAB.ER.24H PO (20:37)
--- NOTE | 2024-07-04 21:48 | PC.NURSE ---
pt resting quietly in bed at this time, resp with ease, no s/s of acute distress,
[2024-07-05 05:24] VITALS: BP 129/74; PULSE 62; RESP 16; TEMP 36.8; O2SAT 96
[2024-07-05] MEDS: Cyanocobalamin (Vitamin B-12) 1,000 MCG TABLET 1000 MCG PO (08:37)
[2024-07-05 08:38] VITALS: BP 129/74
[2024-07-05] MEDS: amLODIPine Besylate 5 MG TABLET PO (08:38)
[2024-07-05] MEDS: Lidocaine 4 % Patch ADH..PATCH 1 PATCH TRANSDERMA (08:38)
[2024-07-05] MEDS: Gabapentin 100 MG CAPSULE 200 MG PO ×2 (08:38→20:25)
[2024-07-05] MEDS: Atorvastatin Calcium 20 MG TABLET PO (08:38)
--- NOTE | 2024-07-05 10:34 | PC.NURSE ---
Pt ate majority of breakfast, took pills whole. Was brought to sink and seater for full body bath which he tolerated well. Is able to follow simple commands. Alert only to person. Kinyarwanda speaking. No breakdown noted but new pink dressing to coxxyx as a precaution. Ambulatory with walker and one assist to recliner.
[2024-07-05 14:00] VITALS: BP 124/66; PULSE 66; RESP 18; TEMP 36.2; O2SAT 96
--- NOTE | 2024-07-05 17:01 | PC.NURSE ---
Pt has been in bed or recliner most of day. Did take a short walk with walker out of room and back. Needs 1 staff assist to ensure safety and reminders how to manage body mechanics. Is alert and oriented to person only. Doesn't make needs known easily even with building services coordinator present. Eating/drinking well.
--- NOTE | 2024-07-05 19:07 | PC.NURSE ---
received report from Gisele CHAPIN, assume care of pt at this time
[2024-07-05] MEDS: Divalproex Sodium ER 500 MG TAB.ER.24H PO (20:25)
[2024-07-05] MEDS: OLANZapine 2.5 MG TABLET PO (20:25)
--- NOTE | 2024-07-05 21:59 | PC.NURSE ---
resting quietly in bed, eyes closed, resp with ease, no s/s of acute distress
[2024-07-05] MEDS: traZODone HCL 50 MG TABLET PO (22:12)
--- NOTE | 2024-07-05 22:14 | PC.NURSE ---
pt awake and wanted to go walk around, pt given something to help him sleep
[2024-07-05 22:15] VITALS: BP 125/60; PULSE 67; RESP 16; TEMP 36.7; O2SAT 97
--- NOTE | 2024-07-05 22:51 | PC.NURSE ---
pt awake and need to use urinal, assistance provided by hospice registered nurse
[2024-07-06 06:00] VITALS: BP 122/60; PULSE 84; RESP 16; TEMP 36.7; O2SAT 93
--- NOTE | 2024-07-06 06:20 | PC.NURSE ---
pt awake, and warm blanket given resp with ease, no acute distress noted, will cont plan of care
[2024-07-06] MEDS: Gabapentin 100 MG CAPSULE 200 MG PO ×2 (08:41→20:30)
[2024-07-06] MEDS: Cyanocobalamin (Vitamin B-12) 1,000 MCG TABLET 1000 MCG PO (08:41)
[2024-07-06] MEDS: Lidocaine 4 % Patch ADH..PATCH 1 PATCH TRANSDERMA (08:41)
[2024-07-06] MEDS: Atorvastatin Calcium 20 MG TABLET PO (08:41)
[2024-07-06] MEDS: amLODIPine Besylate 5 MG TABLET PO (08:41)
--- NOTE | 2024-07-06 08:51 | MHC.CM.ED ---
Patient remains in ER overflow. Guardianship paperwork submitted to Derian by Demetria Ruiz. Waiting for court date. Continue to monitor for d/c needs.
[2024-07-06 14:31] VITALS: BP 137/69; PULSE 70; RESP 19; TEMP 36.7; O2SAT 97
[2024-07-06 20:29] VITALS: BP 157/75; PULSE 73; RESP 16; TEMP 36.8; O2SAT 97
[2024-07-06] MEDS: OLANZapine 2.5 MG TABLET PO (20:30)
[2024-07-06] MEDS: Divalproex Sodium ER 500 MG TAB.ER.24H PO (20:30)
[2024-07-06] MEDS: Melatonin 3 MG TABLET 6 MG PO (20:30)
[2024-07-06] MEDS: traZODone HCL 50 MG TABLET PO (20:30)
--- NOTE | 2024-07-06 20:35 | PC.NURSE ---
Patient has been either resting in bed or in recliner throughout the course of the day, patient orietned to name only, regularly trying to get OOB, easily redirectable back to bed, unsteady on feet, virtual sitter remains in room. VSS WNL, patient ate both lunch and dinner, voided x 1, BM x 1. Plan for acquiring guardianship/group home placement continues.
[2024-07-07 05:55] VITALS: BP 150/64; PULSE 67; RESP 17; TEMP 36.4; O2SAT 95
[2024-07-07 10:00] VITALS: BP 147/74; PULSE 62
[2024-07-07] MEDS: Atorvastatin Calcium 20 MG TABLET PO (10:11)
[2024-07-07] MEDS: amLODIPine Besylate 5 MG TABLET PO (10:11)
[2024-07-07] MEDS: Gabapentin 100 MG CAPSULE 200 MG PO ×2 (10:11→20:24)
[2024-07-07] MEDS: Cyanocobalamin (Vitamin B-12) 1,000 MCG TABLET 1000 MCG PO (10:11)
[2024-07-07] MEDS: Lidocaine 4 % Patch ADH..PATCH 1 PATCH TRANSDERMA (10:12)
--- NOTE | 2024-07-07 13:53 | PM.IMHP ---
History of Present Illness Date of Service: 07/07/24 Attending physician on admission: [facility] Chief Complaint: social admit, dementia/ftt 79-year-old male with history of advanced dementia, hyperlipidemia, hypertension, history of alcohol use disorder, polysubstance abuse who has been awaiting placement in the ED since 06/25 due to increasing generalized fatigue/weakness, lethargy, decreased appetite, diarrhea, and confusion. At baseline secondary to his dementia he is confused, does not know staff names nor does he remember if he is eating or taking his medications or showering per staff at [place] [id number] where he has been residing as part of [facility] housing. There was a question of alcohol and substance use however in the ED urine drug screen was not obtained. The patient is able to tell me his name and where he is located but does not know the date. On review of systems, he is reporting some dysuria intermittently and does state he has been having diarrhea chronically but feels this is improving. He has no other complaints. Since arrival, blood pressures have been intermittently elevated but vitals have otherwise been stable. Hematology studies checked on the day of arrival were unremarkable. Renal function is normal, electrolyte levels normal. Urinalysis on day of presentation was unremarkable. Chest x-ray was negative for any acute cardiopulmonary abnormality head CT was negative for any acute intracranial abnormality. At this time, he is being admitted to the hospitalist service as a social admit awaiting placement. Review of Systems Review of Systems: Yes all other systems are reviewed and are negative [facility] Medical History (Updated 07/07/24 @ 14:10 by NIA Houser) Alcohol use disorder HLD (hyperlipidemia) HTN (hypertension) Radicular pain of both lower extremities Major neurocognitive disorder Ileus Social History Household Members: None Housing: Homeless Do you presently have visiting nurse or other home services: No Alcohol intake: never Patient Tobacco Use Status: Current someday Tobacco user Tobacco use type: Cigarette Smoked in Last 30 Days: Yes e-Cigarette/Vaping Use: Never Used Second Hand Smoke Exposure: Yes Use of substances other than those prescribed or required for medical reasons: No Advance Directives: No Advance Directives Information Provided: Yes service: No Current occupational status: retired Sexual orientation: Px. was not available when called for this assessment, info is N/A Meds Allergies Allergy/AdvReac Type Severity Reaction Status Date / Time No Known Allergies Allergy Unknown NONE Verified 06/25/24 12:34 [No Known Allergies*] Active Medications: Current Medications Amlodipine Besylate (Amlodipine Besylate 5 Mg Tablet) 5 mg PO DAILY [facility]; Protocol Last Admin: 07/07/24 10:11 Dose: 5 mg Atorvastatin Calcium (Atorvastatin Calcium 20 Mg Tablet) 20 mg PO DAILY [facility] Last Admin: 07/07/24 10:11 Dose: 20 mg Cyanocobalamin (Cyanocobalamin (Vitamin B-12) 1,000 Mcg Tablet) 1,000 mcg PO DAILY [facility] Last Admin: 07/07/24 10:11 Dose: 1,000 mcg Divalproex Sodium (Divalproex Sodium Er 500 Mg Tab.Er.24h) 500 mg PO BEDTIME [facility] Last Admin: 07/06/24 20:30 Dose: 500 mg Gabapentin (Gabapentin 100 Mg Capsule) 200 mg PO BID [facility] Last Admin: 07/07/24 10:11 Dose: 200 mg Lidocaine (Lidocaine 4 % Patch Adh..Patch) 1 patch TRANSDERMA DAILY [facility] Last Admin: 07/07/24 10:12 Dose: 1 patch Melatonin (Melatonin 3 Mg Tablet) 6 mg PO BEDTIME PRN PRN Reason: Sleep Last Admin: 07/06/24 20:30 Dose: 6 mg Olanzapine (Olanzapine 2.5 Mg Tablet) 2.5 mg PO BEDTIME [facility] Last Admin: 07/06/24 20:30 Dose: 2.5 mg Trazodone HCl (Trazodone Hcl 50 Mg Tablet) 50 mg PO BEDTIME PRN PRN Reason: Insomnia Last Admin: 07/06/24 20:30 Dose: 50 mg Home Medications ?Medication ?Instructions ?Recorded ?Confirmed ?Last Taken ?Type rosuvastatin 5 mg tablet 5 mg PO DAILY 07/25/22 06/25/24 Unknown History melatonin 5 mg tablet 5 mg PO BEDTIME PRN Sleep 06/25/24 06/25/24 Unknown History Physical Exam Vital Signs and Narrative: Vital Signs: Last Vital Signs Temp 97.6 F 07/07/24 05:55 Pulse 62 07/07/24 10:00 Resp 17 07/07/24 05:55 BP 147/74 H 07/07/24 10:00 Pulse Ox 95 07/07/24 05:55 O2 Del Method Room Air 07/07/24 05:55 O2 Flow Rate 2 06/25/24 14:00 BMI result Body Mass Index 20.1 Constitutional - Awake and Alert, No apparent distress Eyes - PERRLA, EOMI Cardiovascular - S1S2, RRR, No edema Respiratory - Normal lung expansion, Normal respiratory effort, No respiratory distress, CTA bilaterally Gastrointestinal - NT / ND; +BS; No rebound or guarding Extremities - no calf tenderness bilaterally, no swelling Skin - Warm/Dry Neurological - Alert & oriented to self and place. CN II-XII in tact, 4/5 strength bue and ble Psychological - Appropriate affect Results Labs 06/25/24 12:59 06/28/24 15:07 Assessment and Plan (1) Major neurocognitive disorder: Status: Acute Plan 79-year-old male with history of advanced dementia, hyperlipidemia, hypertension, history of alcohol use disorder, polysubstance abuse who has been awaiting placement in the ED since 06/25 due to increasing generalized fatigue/weakness, lethargy, decreased appetite, diarrhea, and confusion coming in as a social admit awaiting placement #Unspecified dementia -awaiting gaurdianship/LTC -mentation baseline #Dysuria -check ua/uc, was negative on arrival #Chronic diarrhea -collect cdiff/gi panel as ordered on 06/25 -afebrile, renal function wnl when last checked 06/28. Repeat now #HTN -normotensive overall since arrival. Continue amlodipine #HLD -statin dvt prophylaxis- lovenox full code Regular diet Quality Stroke Does the patient have a stroke diagnosis?: No VTE Prior VTE?: No VTE Risk Level:: Medical - moderate - high VTE Device Contraindication: Treatment Not Indicated VTE Drug Contraindication: N/A - Med Ordered
[2024-07-07 14:15] LABS: MANUAL DIFF FLAG NO
[2024-07-07 14:18] LABS: Basophils Percent Auto 0.7 % (0-2); Eosinophils Absolute Auto 0.4 X10*3/uL (0.0-0.4); Eosinophils Percent Auto 6.3 % (0-4); Hematocrit 40.7 % (42.0-52.0); Hemoglobin 13.8 g/dl (14.0-18.0); Imm Gran Abs Auto 0.01 X10*3/uL (0.00-0.03); Imm Gran Pct Auto 0.2 % (0.0-0.4); Lymphocytes Absolute Auto 1.7 X10*3/uL (1.2-4.9); Lymphocytes Percent Auto 29.2 % (20-40); Mean Corpuscular HGB Conc 33.9 g/dl (31.0-36.0); Mean Corpuscular Hemoglobin 31.5 pg (27.0-33.0); Mean Corpuscular Volume 92.9 fL (80.0-98.0); Monocytes Absolute Auto 0.6 X10*3/uL (0.1-1.2); Monocytes Percent Auto 10.3 % (2-11); Neutrophils Absolute Auto 3.2 x10*3/uL (2.0-8.3); Neutrophils Percent Auto 53.3 % (45-73); Red Blood Count 4.38 X10*6/uL (4.60-5.80); Red Cell Distribution Width 13.6 % (11.0-16.0); White Blood Count 5.9 X10*3/uL (4.8-10.8)
[2024-07-07 14:31] LABS: Anion Gap 14 (12-20); Blood Urea Nitrogen 16 mg/dL (9-16); Calcium 9.9 mg/dL (8.4-10.2); Carbon Dioxide 31 mmol/L (22-29); Chloride 103 mmol/L (96-108); Creatinine Clr Calc Pharmacy 64.7; Estimated Glomerular Filt Rate > 60; Glucose Random 123 mg/dL (60-115); Potassium 3.7 mmol/L (3.3-5.1); Sodium 144 mmol/L (135-145)
[2024-07-07 14:43] VITALS: BP 158/67; PULSE 66; RESP 12; TEMP 36.3; O2SAT 96
[2024-07-07] MEDS: Enoxaparin Sodium 40 MG/0.4 ML SYRINGE SUBCUT (15:00)
[2024-07-07 15:14] LABS: Mean Platelet Volume 12.5 fL (9.4-12.4); Platelet Count 116 X10*3/uL (160-400)
--- NOTE | 2024-07-07 17:29 | PC.NURSE ---
Assumed care at 1630. Patient A&Ox1, no complaints, resting comfortably in bed. High fall risk precautions in place. Tele camera at bedside. No IV access. Ate 50% of dinner. Next bladder scan 1999 - patient rep[orts no urge to void at this time. Care ongoing.
--- NOTE | 2024-07-07 19:49 | PC.NURSE ---
at 1900, report received at this time, and assume care of pt
--- NOTE | 2024-07-07 20:05 | PC.NURSE ---
bladder scan pt, 73 cc of urine, pt has on a brief, that he has wet
[2024-07-07] MEDS: Divalproex Sodium ER 500 MG TAB.ER.24H PO (20:24)
--- NOTE | 2024-07-07 20:48 | PC.NURSE ---
with 2 assist, pt stood bedside the bed, and used a urinal, pt assisted back to bed, and up in the bed. Urine obtained and sent to lab
[2024-07-07 22:38] LABS: Appearance Urine Clear; Color Urine Dark Yellow; Glucose Urine UA Negative (Negative); Leukocyte Esterase Urine Negative (Negative); Nitrite Urine Negative (Negative); Specific Gravity - Urine 1.025 (1.005-1.025); Urine Blood Negative (Negative); Urine Ketones 15 mg/dL (Negative); Urine Protein Trace mg/dL (Neg-Trace)
[2024-07-07 23:22] VITALS: BP 151/67; PULSE 82; RESP 18; TEMP 36.9; O2SAT 94
[2024-07-08 05:19] VITALS: BP 134/72; PULSE 74; RESP 18; TEMP 37.4; O2SAT 96
[2024-07-08 08:00] VITALS: BP 131/69; PULSE 76; RESP 12; TEMP 37.3; O2SAT 93
--- NOTE | 2024-07-08 09:31 | HO.PM.IMPN ---
Subjective Subjective Date of Service: 07/08/24 Interval History: seen this morning laying comfortable in his bed no overnight events Review of Systems Review of Systems: Yes all other systems are reviewed and are negative Physical Exam Vital Signs: Vital Signs: Last Vital Signs Temp 99.2 F 07/08/24 08:00 Pulse 76 07/08/24 08:00 Resp 12 07/08/24 08:00 BP 131/69 07/08/24 08:00 Pulse Ox 93 07/08/24 08:00 O2 Del Method Room Air 07/08/24 08:00 O2 Flow Rate 2 06/25/24 14:00 BMI result Body Mass Index 20.1 Const: Other: Constitutional : interactive, not in distress Cardiovascular : no JVP, no lower extremity edema Respiratory : bilateral chest movement, not in resp distress Gastrointestinal: soft, lax, Non tender Skin : Warm, Dry Neurological : Alert and oriented to self only, No focal deficit Objective Data Active Medications Acetaminophen (Acetaminophen 325 Mg Tablet) 650 mg PO Q6H PRN PRN Reason: Pain, Mild (Pain Scale 1-3), fever or headache Amlodipine Besylate (Amlodipine Besylate 5 Mg Tablet) 5 mg PO DAILY [facility]; Protocol Last Admin: 07/07/24 10:11 Dose: 5 mg Documented By: ANAM Atorvastatin Calcium (Atorvastatin Calcium 20 Mg Tablet) 20 mg PO DAILY [facility] Last Admin: 07/07/24 10:11 Dose: 20 mg Documented By: ANAM Calcium Carbonate (Calcium Carbonate 750 Mg Tab.Chew) 750 mg PO Q4H PRN PRN Reason: Heartburn Cyanocobalamin (Cyanocobalamin (Vitamin B-12) 1,000 Mcg Tablet) 1,000 mcg PO DAILY [facility] Last Admin: 07/07/24 10:11 Dose: 1,000 mcg Documented By: ANAM Divalproex Sodium (Divalproex Sodium Er 500 Mg Tab.Er.24h) 500 mg PO BEDTIME [facility] Last Admin: 07/07/24 20:24 Dose: 500 mg Documented By: SUN Enoxaparin Sodium (Enoxaparin Sodium 40 Mg/0.4 Ml Syringe) 40 mg SUBCUT Q24H [facility] Last Admin: 07/07/24 15:00 Dose: 40 mg Documented By: DESTINEY Gabapentin (Gabapentin 100 Mg Capsule) 200 mg PO BID [facility] Last Admin: 07/07/24 20:24 Dose: 200 mg Documented By: SUN Lidocaine (Lidocaine 4 % Patch Adh..Patch) 1 patch TRANSDERMA DAILY [facility] Last Admin: 07/07/24 10:12 Dose: 1 patch Documented By: ANAM Magnesium Hydroxide (Milk Of Magnesia 30 Ml Oral.Susp) 30 ml PO DAILY PRN PRN Reason: Constipation Melatonin (Melatonin 3 Mg Tablet) 6 mg PO BEDTIME PRN PRN Reason: Sleep Last Admin: 07/06/24 20:30 Dose: 6 mg Documented By: MULU Melatonin (Melatonin 3 Mg Tablet) 6 mg PO BEDTIME PRN PRN Reason: Insomnia Sodium Chloride (0.9 % Sodium Chloride Flush 3 Ml Syringe) 3 ml IVFLUSH QSHIFT [facility] Last Admin: 07/08/24 08:40 Dose: Not Given Documented By: CALLY Non-Admin Reason: No Access Trazodone HCl (Trazodone Hcl 50 Mg Tablet) 50 mg PO BEDTIME PRN PRN Reason: Insomnia Last Admin: 07/06/24 20:30 Dose: 50 mg Documented By: MULU Labs 07/07/24 14:12 07/07/24 14:12 Labs: Laboratory Results - last 24 hr 07/07/24 07/07/24 14:12 20:46 MCV 92.9 MCH 31.5 MCHC 33.9 RDW 13.6 Plt Count 116 L D MPV 12.5 H Immature Gran % (Auto) 0.2 Neut % (Auto) 53.3 Lymph % (Auto) 29.2 [place] % (Auto) 10.3 Eos % (Auto) 6.3 H Baso % (Auto) 0.7 Lymph # (Auto) 1.7 [place] # (Auto) 0.6 Eos # (Auto) 0.4 Baso # (Auto) 0.0 Abs Immat Gran (auto) 0.01 Absolute Neuts (auto) 3.2 Absolute Nucleated RBC 0.000 Nucleated RBC % (auto) 0.0 Anion Gap 14 Estim Creat Clear Calc 64.7 Estimated GFR > 60 Random Glucose 123 H Calcium 9.9 Urine Color Dark Yellow Urine Appearance Clear Urine pH 6.0 Ur Specific [place] 1.025 Urine Protein Trace Urine Glucose (UA) Negative Urine Ketones 15 Urine Blood Negative Urine Nitrite Negative Ur Leukocyte Esterase Negative Assessment and Plan (1) Major neurocognitive disorder: Status: Acute Plan 79-year-old male with history of advanced dementia, hyperlipidemia, hypertension, history of alcohol use disorder, polysubstance abuse presented on 06/25 due to increasing generalized fatigue/weakness, lethargy, decreased appetite and confusion coming in as a social admit awaiting placement #Unspecified dementia awaiting gaurdianship/LTC mentation baseline #Dysuria No UTI, was negative on arrival #Chronic diarrhea collect cdiff/gi panel if develops diarrhea #HTN-normotensive overall since arrival. Continue amlodipine #HLD statin dvt prophylaxis- lovenox full code Patient has no capacity to make medical decisions and is waiting for Guardianship. Quality Stroke Does the patient have a stroke diagnosis?: No VTE Prior VTE?: No VTE Risk Level:: Medical - moderate - high VTE Device Contraindication: Treatment Not Indicated VTE Drug Contraindication: N/A - Med Ordered
[2024-07-08] MEDS: Cyanocobalamin (Vitamin B-12) 1,000 MCG TABLET 1000 MCG PO (09:59)
[2024-07-08] MEDS: Atorvastatin Calcium 20 MG TABLET PO (09:59)
[2024-07-08] MEDS: Gabapentin 100 MG CAPSULE 200 MG PO ×2 (09:59→20:10)
[2024-07-08] MEDS: amLODIPine Besylate 5 MG TABLET PO (09:59)
[2024-07-08] MEDS: Lidocaine 4 % Patch ADH..PATCH 1 PATCH TRANSDERMA (09:59)
--- NOTE | 2024-07-08 11:15 | PC.NURSE ---
Assumed care of this patient at 1100, patient resting quietly on hospital bed at this time, currently admitted, waiting for bed assignment.
[2024-07-08 14:00] VITALS: BMI 20.3
[2024-07-08 14:09] VITALS: BP 127/93; PULSE 82; RESP 18; TEMP 36.4; O2SAT 95
[2024-07-08 15:11] VITALS: BP 124/63; PULSE 68; RESP 16; TEMP 36.2; O2SAT 97
[2024-07-08] MEDS: Enoxaparin Sodium 40 MG/0.4 ML SYRINGE SUBCUT (15:33)
[2024-07-08 19:17] VITALS: BP 124/59; PULSE 73; RESP 16; TEMP 36.6; O2SAT 96
[2024-07-08] MEDS: Divalproex Sodium ER 500 MG TAB.ER.24H PO (20:10)
[2024-07-08] MEDS: Melatonin 3 MG TABLET 6 MG PO (20:10)
[2024-07-09 03:56] VITALS: BP 119/59; PULSE 69; RESP 15; TEMP 36.9; O2SAT 96
[2024-07-09 07:57] VITALS: BP 123/59; PULSE 62; RESP 16; TEMP 36.6; O2SAT 95
[2024-07-09] MEDS: Gabapentin 100 MG CAPSULE 200 MG PO ×2 (09:18→21:29)
[2024-07-09] MEDS: amLODIPine Besylate 5 MG TABLET PO (09:18)
[2024-07-09] MEDS: Cyanocobalamin (Vitamin B-12) 1,000 MCG TABLET 1000 MCG PO (09:18)
[2024-07-09] MEDS: Atorvastatin Calcium 20 MG TABLET PO (09:18)
[2024-07-09] MEDS: Enoxaparin Sodium 40 MG/0.4 ML SYRINGE SUBCUT (14:23)
--- NOTE | 2024-07-09 14:44 | P.PNIM_ITS ---
Subjective Subjective Date of Service: 07/09/24 Interval History: seen this morning laying comfortable in his bed no overnight events Physical Exam 2 Vital Signs: Vital Signs: Last Vital Signs Temp 97.9 F 07/09/24 07:57 Pulse 62 07/09/24 07:57 Resp 16 07/09/24 07:57 BP 123/59 L 07/09/24 07:57 Pulse Ox 95 07/09/24 07:57 O2 Del Method Room Air 07/09/24 07:57 O2 Flow Rate 2 06/25/24 14:00 BMI result Body Mass Index 20.3 Const: Other: Constitutional : interactive, not in distress Cardiovascular : no JVP, no lower extremity edema Respiratory : bilateral chest movement, not in resp distress Gastrointestinal: soft, lax, Non tender Skin : Warm, Dry Neurological : Alert and oriented to self only, No focal deficit Objective Data Active Medications Acetaminophen (Acetaminophen 325 Mg Tablet) 650 mg PO Q6H PRN PRN Reason: Pain, Mild (Pain Scale 1-3), fever or headache Amlodipine Besylate (Amlodipine Besylate 5 Mg Tablet) 5 mg PO DAILY [facility]; Protocol Last Admin: 07/09/24 09:18 Dose: 5 mg Documented By: NIRAV Atorvastatin Calcium (Atorvastatin Calcium 20 Mg Tablet) 20 mg PO DAILY [facility] Last Admin: 07/09/24 09:18 Dose: 20 mg Documented By: NIRAV Calcium Carbonate (Calcium Carbonate 750 Mg Tab.Chew) 750 mg PO Q4H PRN PRN Reason: Heartburn Cyanocobalamin (Cyanocobalamin (Vitamin B-12) 1,000 Mcg Tablet) 1,000 mcg PO DAILY [facility] Last Admin: 07/09/24 09:18 Dose: 1,000 mcg Documented By: NIRAV Divalproex Sodium (Divalproex Sodium Er 500 Mg Tab.Er.24h) 500 mg PO BEDTIME [facility] Last Admin: 07/08/24 20:10 Dose: 500 mg Documented By: TAIWO Enoxaparin Sodium (Enoxaparin Sodium 40 Mg/0.4 Ml Syringe) 40 mg SUBCUT Q24H [facility] Last Admin: 07/09/24 14:23 Dose: 40 mg Documented By: NIRAV Gabapentin (Gabapentin 100 Mg Capsule) 200 mg PO BID [facility] Last Admin: 07/09/24 09:18 Dose: 200 mg Documented By: NIRAV Lidocaine (Lidocaine 4 % Patch Adh..Patch) 1 patch TRANSDERMA DAILY [facility] Last Admin: 07/09/24 09:40 Dose: Not Given Documented By: NIRAV Non-Admin Reason: Patient Refused Magnesium Hydroxide (Milk Of Magnesia 30 Ml Oral.Susp) 30 ml PO DAILY PRN PRN Reason: Constipation Melatonin (Melatonin 3 Mg Tablet) 6 mg PO BEDTIME PRN PRN Reason: Sleep Last Admin: 07/08/24 20:10 Dose: 6 mg Documented By: TAIWO Melatonin (Melatonin 3 Mg Tablet) 6 mg PO BEDTIME PRN PRN Reason: Insomnia Sodium Chloride (0.9 % Sodium Chloride Flush 3 Ml Syringe) 3 ml IVFLUSH QSHIFT [facility] Last Admin: 07/09/24 14:25 Dose: Not Given Documented By: NIRAV Non-Admin Reason: No Access Trazodone HCl (Trazodone Hcl 50 Mg Tablet) 50 mg PO BEDTIME PRN PRN Reason: Insomnia Last Admin: 07/06/24 20:30 Dose: 50 mg Documented By: DITOLC Labs 07/07/24 14:12 07/07/24 14:12 Assessment and Plan (1) Major neurocognitive disorder: Status: Acute Plan 79-year-old male with history of advanced dementia, hyperlipidemia, hypertension, history of alcohol use disorder, polysubstance abuse presented on 06/25 due to increasing generalized fatigue/weakness, lethargy, decreased appetite and confusion coming in as a social admit awaiting placement #Unspecified dementia awaiting gaurdianship/LTC mentation baseline #Dysuria No UTI, was negative on arrival #Chronic diarrhea collect cdiff/gi panel if develops diarrhea #HTN-normotensive overall since arrival. Continue amlodipine #HLD statin dvt prophylaxis- lovenox full code Patient has no capacity to make medical decisions and is waiting for Guardianship. Quality Stroke Does the patient have a stroke diagnosis?: No VTE Prior VTE?: No VTE Risk Level:: Medical - moderate - high VTE Device Contraindication: Treatment Not Indicated VTE Drug Contraindication: N/A - Med Ordered
[2024-07-09 15:03] VITALS: BP 97/53; PULSE 64; RESP 18; TEMP 36; O2SAT 97
[2024-07-09 16:23] VITALS: BP 103/59; PULSE 66; RESP 18; TEMP 36; O2SAT 96
[2024-07-09 19:36] VITALS: BP 133/71; PULSE 67; RESP 16; TEMP 36.2; O2SAT 93
[2024-07-09] MEDS: Divalproex Sodium ER 500 MG TAB.ER.24H PO (21:29)
[2024-07-10 03:25] VITALS: BP 115/60; PULSE 68; RESP 16; TEMP 36.9; O2SAT 96
[2024-07-10 07:43] VITALS: BP 121/64; PULSE 65; RESP 18; TEMP 37; O2SAT 98
[2024-07-10] MEDS: Gabapentin 100 MG CAPSULE 200 MG PO ×2 (08:18→19:58)
[2024-07-10] MEDS: Cyanocobalamin (Vitamin B-12) 1,000 MCG TABLET 1000 MCG PO (08:19)
[2024-07-10] MEDS: Lidocaine 4 % Patch ADH..PATCH 1 PATCH TRANSDERMA (08:19)
[2024-07-10] MEDS: Atorvastatin Calcium 20 MG TABLET PO (08:19)
--- NOTE | 2024-07-10 12:10 | P.PNIM_ITS ---
Subjective Subjective Date of Service: 07/10/24 Interval History: seen this morning laying comfortable in his bed no overnight events Review of Systems Review of Systems: Yes all other systems are reviewed and are negative Physical Exam 2 Vital Signs: Vital Signs: Last Vital Signs Temp 98.6 F 07/10/24 07:43 Pulse 65 07/10/24 07:43 Resp 18 07/10/24 07:43 BP 121/64 07/10/24 07:43 Pulse Ox 98 07/10/24 07:43 O2 Del Method Room Air 07/10/24 07:43 O2 Flow Rate 2 06/25/24 14:00 BMI result Body Mass Index 20.3 Const: Other: Constitutional : interactive, not in distress Cardiovascular : no JVP, no lower extremity edema Respiratory : bilateral chest movement, not in resp distress Gastrointestinal: soft, lax, Non tender Skin : Warm, Dry Neurological : Alert and oriented to self only, No focal deficit Objective Data Active Medications Acetaminophen (Acetaminophen 325 Mg Tablet) 650 mg PO Q6H PRN PRN Reason: Pain, Mild (Pain Scale 1-3), fever or headache Amlodipine Besylate (Amlodipine Besylate 5 Mg Tablet) 5 mg PO DAILY [facility]; Protocol Last Admin: 07/09/24 09:18 Dose: 5 mg Documented By: NIRAV Atorvastatin Calcium (Atorvastatin Calcium 20 Mg Tablet) 20 mg PO DAILY [facility] Last Admin: 07/10/24 08:19 Dose: 20 mg Documented By: HEATHER Calcium Carbonate (Calcium Carbonate 750 Mg Tab.Chew) 750 mg PO Q4H PRN PRN Reason: Heartburn Cyanocobalamin (Cyanocobalamin (Vitamin B-12) 1,000 Mcg Tablet) 1,000 mcg PO DAILY [facility] Last Admin: 07/10/24 08:19 Dose: 1,000 mcg Documented By: HEATHER Divalproex Sodium (Divalproex Sodium Er 500 Mg Tab.Er.24h) 500 mg PO BEDTIME [facility] Last Admin: 07/09/24 21:29 Dose: 500 mg Documented By: ARIANA Enoxaparin Sodium (Enoxaparin Sodium 40 Mg/0.4 Ml Syringe) 40 mg SUBCUT Q24H [facility] Last Admin: 07/09/24 14:23 Dose: 40 mg Documented By: NIRAV Gabapentin (Gabapentin 100 Mg Capsule) 200 mg PO BID [facility] Last Admin: 07/10/24 08:18 Dose: 200 mg Documented By: HEATHER Lidocaine (Lidocaine 4 % Patch Adh..Patch) 1 patch TRANSDERMA DAILY [facility] Last Admin: 07/10/24 08:19 Dose: 1 patch Documented By: HEATHER Magnesium Hydroxide (Milk Of Magnesia 30 Ml Oral.Susp) 30 ml PO DAILY PRN PRN Reason: Constipation Melatonin (Melatonin 3 Mg Tablet) 6 mg PO BEDTIME PRN PRN Reason: Sleep Last Admin: 07/08/24 20:10 Dose: 6 mg Documented By: TAIWO Melatonin (Melatonin 3 Mg Tablet) 6 mg PO BEDTIME PRN PRN Reason: Insomnia Sodium Chloride (0.9 % Sodium Chloride Flush 3 Ml Syringe) 3 ml IVFLUSH QSHIFT [facility] Last Admin: 07/10/24 07:09 Dose: Not Given Documented By: PARMINDER Non-Admin Reason: No Access Trazodone HCl (Trazodone Hcl 50 Mg Tablet) 50 mg PO BEDTIME PRN PRN Reason: Insomnia Last Admin: 07/06/24 20:30 Dose: 50 mg Documented By: DITOLC Labs 07/07/24 14:12 07/07/24 14:12 Assessment and Plan (1) Major neurocognitive disorder: Status: Acute Plan 79-year-old male with history of advanced dementia, hyperlipidemia, hypertension, history of alcohol use disorder, polysubstance abuse presented on 06/25 due to increasing generalized fatigue/weakness, lethargy, decreased appetite and confusion coming in as a social admit awaiting placement #Unspecified dementia awaiting gaurdianship/LTC mentation baseline #Dysuria No UTI, was negative on arrival #Chronic diarrhea collect cdiff/gi panel if develops diarrhea #HTN-normotensive overall since arrival. Continue amlodipine #HLD statin dvt prophylaxis- lovenox full code Patient has no capacity to make medical decisions and is waiting for Guardianship. Quality Stroke Does the patient have a stroke diagnosis?: No VTE Prior VTE?: No VTE Risk Level:: Medical - moderate - high VTE Device Contraindication: Treatment Not Indicated VTE Drug Contraindication: N/A - Med Ordered
--- NOTE | 2024-07-10 12:37 | MHC.CM.PN ---
PER REVIEW OF CHART, PATIENT REMAINS WHILE AWAITING GUARDIANSHIP. NO COURT DATE OF THIS NOTE
[2024-07-10] MEDS: Enoxaparin Sodium 40 MG/0.4 ML SYRINGE SUBCUT (14:03)
[2024-07-10 15:27] VITALS: BP 139/68; PULSE 65; RESP 16; TEMP 36.7; O2SAT 96
[2024-07-10 19:45] VITALS: BP 133/76; PULSE 70; RESP 16; TEMP 36.8; O2SAT 97
[2024-07-10] MEDS: Divalproex Sodium ER 500 MG TAB.ER.24H PO (19:58)
[2024-07-11 03:21] VITALS: BP 159/78; PULSE 72; RESP 18; TEMP 36.8; O2SAT 97
[2024-07-11 07:37] VITALS: BP 123/82; PULSE 68; RESP 16; TEMP 36.2; O2SAT 94
[2024-07-11] MEDS: Gabapentin 100 MG CAPSULE 200 MG PO ×2 (10:17→21:14)
[2024-07-11] MEDS: Atorvastatin Calcium 20 MG TABLET PO (10:17)
[2024-07-11] MEDS: Cyanocobalamin (Vitamin B-12) 1,000 MCG TABLET 1000 MCG PO (10:17)
[2024-07-11] MEDS: Lidocaine 4 % Patch ADH..PATCH 1 PATCH TRANSDERMA (10:17)
--- NOTE | 2024-07-11 10:39 | P.PNIM_ITS ---
Subjective Subjective Date of Service: 07/11/24 Interval History: seen this morning having breakfast no overnight events Review of Systems Review of Systems: Yes all other systems are reviewed and are negative Physical Exam 2 Vital Signs: Vital Signs: Last Vital Signs Temp 97.1 F 07/11/24 07:37 Pulse 68 07/11/24 07:37 Resp 16 07/11/24 07:37 BP 123/82 07/11/24 07:37 Pulse Ox 94 07/11/24 07:37 O2 Del Method Room Air 07/11/24 07:37 O2 Flow Rate 2 06/25/24 14:00 BMI result Body Mass Index 20.3 Const: Other: Constitutional : interactive, not in distress Cardiovascular : no JVP, no lower extremity edema Respiratory : bilateral chest movement, not in resp distress Gastrointestinal: soft, lax, Non tender Skin : Warm, Dry Neurological : Alert and oriented to self only, No focal deficit Objective Data Active Medications Acetaminophen (Acetaminophen 325 Mg Tablet) 650 mg PO Q6H PRN PRN Reason: Pain, Mild (Pain Scale 1-3), fever or headache Amlodipine Besylate (Amlodipine Besylate 5 Mg Tablet) 5 mg PO DAILY [facility]; Protocol Last Admin: 07/09/24 09:18 Dose: 5 mg Documented By: NIRAV Atorvastatin Calcium (Atorvastatin Calcium 20 Mg Tablet) 20 mg PO DAILY [facility] Last Admin: 07/11/24 10:17 Dose: 20 mg Documented By: FAYD Calcium Carbonate (Calcium Carbonate 750 Mg Tab.Chew) 750 mg PO Q4H PRN PRN Reason: Heartburn Cyanocobalamin (Cyanocobalamin (Vitamin B-12) 1,000 Mcg Tablet) 1,000 mcg PO DAILY [facility] Last Admin: 07/11/24 10:17 Dose: 1,000 mcg Documented By: COTKELLEN Divalproex Sodium (Divalproex Sodium Er 500 Mg Tab.Er.24h) 500 mg PO BEDTIME [facility] Last Admin: 07/10/24 19:58 Dose: 500 mg Documented By: MEGAN Enoxaparin Sodium (Enoxaparin Sodium 40 Mg/0.4 Ml Syringe) 40 mg SUBCUT Q24H [facility] Last Admin: 07/10/24 14:03 Dose: 40 mg Documented By: GRAZJOEY Gabapentin (Gabapentin 100 Mg Capsule) 200 mg PO BID [facility] Last Admin: 07/11/24 10:17 Dose: 200 mg Documented By: FADY Lidocaine (Lidocaine 4 % Patch Adh..Patch) 1 patch TRANSDERMA DAILY [facility] Last Admin: 07/11/24 10:17 Dose: 1 patch Documented By: FADY Magnesium Hydroxide (Milk Of Magnesia 30 Ml Oral.Susp) 30 ml PO DAILY PRN PRN Reason: Constipation Melatonin (Melatonin 3 Mg Tablet) 6 mg PO BEDTIME PRN PRN Reason: Sleep Last Admin: 07/08/24 20:10 Dose: 6 mg Documented By: TAIWO Melatonin (Melatonin 3 Mg Tablet) 6 mg PO BEDTIME PRN PRN Reason: Insomnia Sodium Chloride (0.9 % Sodium Chloride Flush 3 Ml Syringe) 3 ml IVFLUSH QSHIFT [facility] Last Admin: 07/11/24 10:16 Dose: Not Given Documented By: FADY Non-Admin Reason: No Access Trazodone HCl (Trazodone Hcl 50 Mg Tablet) 50 mg PO BEDTIME PRN PRN Reason: Insomnia Last Admin: 07/06/24 20:30 Dose: 50 mg Documented By: DITOLC Labs 07/07/24 14:12 07/07/24 14:12 Assessment and Plan (1) Major neurocognitive disorder: Status: Acute Plan 79-year-old male with history of advanced dementia, hyperlipidemia, hypertension, history of alcohol use disorder, polysubstance abuse presented on 06/25 due to increasing generalized fatigue/weakness, lethargy, decreased appetite and confusion coming in as a social admit awaiting placement #Unspecified dementia awaiting gaurdianship/LTC mentation baseline #Dysuria, resolved , No UTI, was negative on arrival #HTN-normotensive overall since arrival. Continue amlodipine #HLD, statin dvt prophylaxis- lovenox Patient has no capacity to make medical decisions and is waiting for Guardianship. Quality Stroke Does the patient have a stroke diagnosis?: No VTE Prior VTE?: No VTE Risk Level:: Medical - moderate - high VTE Device Contraindication: Treatment Not Indicated VTE Drug Contraindication: N/A - Med Ordered
[2024-07-11 15:11] VITALS: BP 124/66; PULSE 72; RESP 14; TEMP 36.2; O2SAT 96
[2024-07-11] MEDS: Milk of Magnesia 30 ML ORAL.SUSP PO (15:16)
[2024-07-11] MEDS: Enoxaparin Sodium 40 MG/0.4 ML SYRINGE SUBCUT (15:17)
[2024-07-11 19:21] VITALS: BP 136/69; PULSE 70; RESP 14; TEMP 36.2; O2SAT 97
[2024-07-11] MEDS: Divalproex Sodium ER 500 MG TAB.ER.24H PO (21:14)
[2024-07-12 03:24] VITALS: BP 130/70; PULSE 68; RESP 14; TEMP 36.3; O2SAT 96
[2024-07-12 07:36] VITALS: BP 135/69; PULSE 64; RESP 16; TEMP 36.3; O2SAT 96
[2024-07-12] MEDS: Acetaminophen 325 MG TABLET 650 MG PO (09:25)
[2024-07-12] MEDS: Atorvastatin Calcium 20 MG TABLET PO (09:25)
[2024-07-12] MEDS: Gabapentin 100 MG CAPSULE 200 MG PO ×2 (09:25→20:09)
[2024-07-12] MEDS: Cyanocobalamin (Vitamin B-12) 1,000 MCG TABLET 1000 MCG PO (09:25)
[2024-07-12] MEDS: Lidocaine 4 % Patch ADH..PATCH 1 PATCH TRANSDERMA (09:26)
[2024-07-12 15:36] VITALS: BP 169/78; PULSE 66; RESP 14; TEMP 36; O2SAT 99
[2024-07-12] MEDS: Enoxaparin Sodium 40 MG/0.4 ML SYRINGE SUBCUT (16:01)
[2024-07-12 19:45] VITALS: BP 135/69; PULSE 65; RESP 17; TEMP 36.5; O2SAT 96
[2024-07-12] MEDS: Divalproex Sodium ER 500 MG TAB.ER.24H PO (20:09)
[2024-07-13 02:53] VITALS: BP 123/74; PULSE 72; RESP 18; TEMP 36.4; O2SAT 97
[2024-07-13 07:54] VITALS: BP 149/72; PULSE 65; RESP 14; TEMP 36.3; O2SAT 97
--- NOTE | 2024-07-13 09:06 | PC.NURSE ---
Pt resting in bed, sleeping, will give medications when patient awakens.
[2024-07-13] MEDS: Cyanocobalamin (Vitamin B-12) 1,000 MCG TABLET 1000 MCG PO (09:28)
[2024-07-13] MEDS: Atorvastatin Calcium 20 MG TABLET PO (09:28)
[2024-07-13] MEDS: Lidocaine 4 % Patch ADH..PATCH 1 PATCH TRANSDERMA (09:28)
[2024-07-13] MEDS: Gabapentin 100 MG CAPSULE 200 MG PO ×2 (09:28→20:06)
--- NOTE | 2024-07-13 11:06 | MHC.CM.PN ---
PT AWAITING GUARDIANSHIP FOR LTC PLACEMENT NO COURT DATE SET AT THIS TIME
--- NOTE | 2024-07-13 12:01 | HO.PM.IMPN ---
Subjective Subjective Date of Service: 07/13/24 Interval History: seen this morning laying comfortable in his bed no overnight events Review of Systems Review of Systems: Yes all other systems are reviewed and are negative Physical Exam Vital Signs: Vital Signs: Last Vital Signs Temp 97.4 F 07/13/24 07:54 Pulse 65 07/13/24 07:54 Resp 14 07/13/24 07:54 BP 149/72 H 07/13/24 07:54 Pulse Ox 97 07/13/24 07:54 O2 Del Method Room Air 07/13/24 07:54 O2 Flow Rate 2 06/25/24 14:00 BMI result Body Mass Index 20.3 Const: Other: Constitutional : interactive, not in distress Cardiovascular : no JVP, no lower extremity edema Respiratory : bilateral chest movement, not in resp distress Gastrointestinal: soft, lax, Non tender Skin : Warm, Dry Neurological : Alert and oriented to self only, No focal deficit Objective Data Active Medications Acetaminophen (Acetaminophen 325 Mg Tablet) 650 mg PO Q6H PRN PRN Reason: Pain, Mild (Pain Scale 1-3), fever or headache Last Admin: 07/12/24 09:25 Dose: 650 mg Documented By: FADY Amlodipine Besylate (Amlodipine Besylate 5 Mg Tablet) 5 mg PO DAILY [facility]; Protocol Last Admin: 07/09/24 09:18 Dose: 5 mg Documented By: NIRAV Atorvastatin Calcium (Atorvastatin Calcium 20 Mg Tablet) 20 mg PO DAILY [facility] Last Admin: 07/13/24 09:28 Dose: 20 mg Documented By: ERICK Calcium Carbonate (Calcium Carbonate 750 Mg Tab.Chew) 750 mg PO Q4H PRN PRN Reason: Heartburn Cyanocobalamin (Cyanocobalamin (Vitamin B-12) 1,000 Mcg Tablet) 1,000 mcg PO DAILY [facility] Last Admin: 07/13/24 09:28 Dose: 1,000 mcg Documented By: ERICK Divalproex Sodium (Divalproex Sodium Er 500 Mg Tab.Er.24h) 500 mg PO BEDTIME [facility] Last Admin: 07/12/24 20:09 Dose: 500 mg Documented By: PIERO-ZARICARDO Enoxaparin Sodium (Enoxaparin Sodium 40 Mg/0.4 Ml Syringe) 40 mg SUBCUT Q24H [facility] Last Admin: 10/06/24 16:01 Dose: 40 mg Documented By: ROD Gabapentin (Gabapentin 100 Mg Capsule) 200 mg PO BID [facility] Last Admin: 07/13/24 09:28 Dose: 200 mg Documented By: ERICK Lidocaine (Lidocaine 4 % Patch Adh..Patch) 1 patch TRANSDERMA DAILY [facility] Last Admin: 07/13/24 09:28 Dose: 1 patch Documented By: ERICK Magnesium Hydroxide (Milk Of Magnesia 30 Ml Oral.Susp) 30 ml PO DAILY PRN PRN Reason: Constipation Last Admin: 07/11/24 15:16 Dose: 30 ml Documented By: COTEMA Melatonin (Melatonin 3 Mg Tablet) 6 mg PO BEDTIME PRN PRN Reason: Sleep Last Admin: 07/08/24 20:10 Dose: 6 mg Documented By: TAIWO Melatonin (Melatonin 3 Mg Tablet) 6 mg PO BEDTIME PRN PRN Reason: Insomnia Trazodone HCl (Trazodone Hcl 50 Mg Tablet) 50 mg PO BEDTIME PRN PRN Reason: Insomnia Last Admin: 07/06/24 20:30 Dose: 50 mg Documented By: DITOLC Labs 07/07/24 14:12 07/07/24 14:12 Assessment and Plan (1) Major neurocognitive disorder: Status: Acute Plan 79-year-old male with history of advanced dementia, hyperlipidemia, hypertension, history of alcohol use disorder, polysubstance abuse presented on 06/25 due to increasing generalized fatigue/weakness, lethargy, decreased appetite and confusion coming in as a social admit awaiting placement #Unspecified dementia awaiting gaurdianship/LTC mentation baseline #Dysuria, resolved , No UTI, was negative on arrival #HTN-normotensive overall since arrival. Continue amlodipine #HLD, statin dvt prophylaxis- lovenox Patient has no capacity to make medical decisions and is waiting for Guardianship. Quality Stroke Does the patient have a stroke diagnosis?: No VTE Prior VTE?: No VTE Risk Level:: Medical - moderate - high VTE Device Contraindication: Treatment Not Indicated VTE Drug Contraindication: N/A - Med Ordered
[2024-07-13] MEDS: Enoxaparin Sodium 40 MG/0.4 ML SYRINGE SUBCUT (14:07)
[2024-07-13 15:37] VITALS: BP 120/70; PULSE 67; RESP 20; TEMP 34.5; O2SAT 96
[2024-07-13 20:00] VITALS: BP 126/65; PULSE 62; RESP 16; TEMP 36.6; O2SAT 95
[2024-07-13] MEDS: Melatonin 3 MG TABLET 6 MG PO (20:06)
[2024-07-13] MEDS: Divalproex Sodium ER 500 MG TAB.ER.24H PO (20:06)
[2024-07-14 03:37] VITALS: BP 114/67; PULSE 66; RESP 18; TEMP 36.9; O2SAT 98
[2024-07-14 07:41] VITALS: BP 130/63; PULSE 59; RESP 17; TEMP 36.5; O2SAT 96
[2024-07-14] MEDS: Gabapentin 100 MG CAPSULE 200 MG PO ×2 (09:39→20:40)
[2024-07-14] MEDS: Atorvastatin Calcium 20 MG TABLET PO (09:39)
[2024-07-14] MEDS: Cyanocobalamin (Vitamin B-12) 1,000 MCG TABLET 1000 MCG PO (09:39)
[2024-07-14] MEDS: Acetaminophen 325 MG TABLET 650 MG PO (09:44)
[2024-07-14] MEDS: Lidocaine 4 % Patch ADH..PATCH 1 PATCH TRANSDERMA (09:55)
--- NOTE | 2024-07-14 11:03 | P.PNIM_ITS ---
Subjective Subjective Date of Service: 07/14/24 Interval History: seen this morning laying comfortable in his bed no overnight events Physical Exam 2 Vital Signs: Vital Signs: Last Vital Signs Temp 97.7 F 07/14/24 07:41 Pulse 59 07/14/24 07:41 Resp 17 07/14/24 07:41 BP 130/63 07/14/24 07:41 Pulse Ox 96 07/14/24 07:41 O2 Del Method Room Air 07/14/24 07:41 O2 Flow Rate 2 06/25/24 14:00 BMI result Body Mass Index 20.3 Const: Other: Constitutional : interactive, not in distress Cardiovascular : no JVP, no lower extremity edema Respiratory : bilateral chest movement, not in resp distress Gastrointestinal: soft, lax, Non tender Skin : Warm, Dry Neurological : Alert and oriented to self only, No focal deficit Objective Data Active Medications Acetaminophen (Acetaminophen 325 Mg Tablet) 650 mg PO Q6H PRN PRN Reason: Pain, Mild (Pain Scale 1-3), fever or headache Last Admin: 07/14/24 09:44 Dose: 650 mg Documented By: PRIYANK Amlodipine Besylate (Amlodipine Besylate 5 Mg Tablet) 5 mg PO DAILY [facility]; Protocol Last Admin: 07/09/24 09:18 Dose: 5 mg Documented By: NIRAV Atorvastatin Calcium (Atorvastatin Calcium 20 Mg Tablet) 20 mg PO DAILY [facility] Last Admin: 07/14/24 09:39 Dose: 20 mg Documented By: PRIYANK Calcium Carbonate (Calcium Carbonate 750 Mg Tab.Chew) 750 mg PO Q4H PRN PRN Reason: Heartburn Cyanocobalamin (Cyanocobalamin (Vitamin B-12) 1,000 Mcg Tablet) 1,000 mcg PO DAILY [facility] Last Admin: 07/14/24 09:39 Dose: 1,000 mcg Documented By: PRIYANK Divalproex Sodium (Divalproex Sodium Er 500 Mg Tab.Er.24h) 500 mg PO BEDTIME [facility] Last Admin: 07/13/24 20:06 Dose: 500 mg Documented By: DELFINA Enoxaparin Sodium (Enoxaparin Sodium 40 Mg/0.4 Ml Syringe) 40 mg SUBCUT Q24H [facility] Last Admin: 07/13/24 14:07 Dose: 40 mg Documented By: ERICK Gabapentin (Gabapentin 100 Mg Capsule) 200 mg PO BID [facility] Last Admin: 07/14/24 09:39 Dose: 200 mg Documented By: PRIYANK Lidocaine (Lidocaine 4 % Patch Adh..Patch) 1 patch TRANSDERMA DAILY [facility] Last Admin: 07/14/24 09:55 Dose: 1 patch Documented By: PRIYANK Magnesium Hydroxide (Milk Of Magnesia 30 Ml Oral.Susp) 30 ml PO DAILY PRN PRN Reason: Constipation Last Admin: 07/11/24 15:16 Dose: 30 ml Documented By: COTEMA Melatonin (Melatonin 3 Mg Tablet) 6 mg PO BEDTIME PRN PRN Reason: Sleep Last Admin: 07/13/24 20:06 Dose: 6 mg Documented By: TUMASY Melatonin (Melatonin 3 Mg Tablet) 6 mg PO BEDTIME PRN PRN Reason: Insomnia Trazodone HCl (Trazodone Hcl 50 Mg Tablet) 50 mg PO BEDTIME PRN PRN Reason: Insomnia Last Admin: 07/06/24 20:30 Dose: 50 mg Documented By: DITOLC Labs 07/07/24 14:12 07/07/24 14:12 Assessment and Plan (1) Major neurocognitive disorder: Status: Acute Plan 79-year-old male with history of advanced dementia, hyperlipidemia, hypertension, history of alcohol use disorder, polysubstance abuse presented on 06/25 due to increasing generalized fatigue/weakness, lethargy, decreased appetite and confusion coming in as a social admit awaiting placement #Unspecified dementia awaiting gaurdianship/LTC mentation baseline #Dysuria, resolved , No UTI, was negative on arrival #HTN-normotensive overall since arrival. Continue amlodipine #HLD, statin dvt prophylaxis- lovenox Patient has no capacity to make medical decisions and is waiting for Guardianship. Quality Stroke Does the patient have a stroke diagnosis?: No VTE Prior VTE?: No VTE Risk Level:: Medical - moderate - high VTE Device Contraindication: Treatment Not Indicated VTE Drug Contraindication: N/A - Med Ordered
[2024-07-14] MEDS: Enoxaparin Sodium 40 MG/0.4 ML SYRINGE SUBCUT (14:02)
[2024-07-14 16:00] VITALS: BP 119/71; PULSE 65; RESP 14; TEMP 36.6; O2SAT 95
[2024-07-14] MEDS: Milk of Magnesia 30 ML ORAL.SUSP PO (18:14)
[2024-07-14 19:18] VITALS: BP 113/55; PULSE 58; RESP 18; TEMP 36.6; O2SAT 95
[2024-07-14] MEDS: Divalproex Sodium ER 500 MG TAB.ER.24H PO (20:42)
[2024-07-15 03:30] VITALS: BP 135/61; PULSE 65; RESP 16; TEMP 36.5; O2SAT 96
[2024-07-15 06:45] LABS: Hematocrit 41.3 % (42.0-52.0); Hemoglobin 14.1 g/dl (14.0-18.0); Mean Corpuscular HGB Conc 34.1 g/dl (31.0-36.0); Mean Corpuscular Hemoglobin 31.4 pg (27.0-33.0); Mean Platelet Volume 12.4 fL (9.4-12.4); Platelet Count 144 X10*3/uL (160-400); Red Blood Count 4.49 X10*6/uL (4.60-5.80); Red Cell Distribution Width 13.6 % (11.0-16.0); White Blood Count 7.2 X10*3/uL (4.8-10.8)
[2024-07-15 06:59] LABS: Anion Gap 13 (12-20); Blood Urea Nitrogen 23 mg/dL (9-16); Calcium 10.2 mg/dL (8.4-10.2); Carbon Dioxide 32 mmol/L (22-29); Chloride 101 mmol/L (96-108); Creatinine Clr Calc Pharmacy 64.8; Estimated Glomerular Filt Rate > 60; Glucose Random 96 mg/dL (60-115); Potassium 4.2 mmol/L (3.3-5.1); Sodium 142 mmol/L (135-145)
[2024-07-15 07:05] VITALS: BP 148/73; PULSE 58; RESP 16; TEMP 36.5; O2SAT 95
[2024-07-15] MEDS: Atorvastatin Calcium 20 MG TABLET PO (08:28)
[2024-07-15] MEDS: Gabapentin 100 MG CAPSULE 200 MG PO ×2 (08:28→19:28)
[2024-07-15] MEDS: Lidocaine 4 % Patch ADH..PATCH 1 PATCH TRANSDERMA (08:28)
[2024-07-15] MEDS: Cyanocobalamin (Vitamin B-12) 1,000 MCG TABLET 1000 MCG PO (08:28)
--- NOTE | 2024-07-15 09:50 | P.PNIM_ITS ---
Subjective Subjective Date of Service: 07/15/24 Interval History: no complaints Physical Exam 2 Vital Signs: Vital Signs: Last Vital Signs Temp 97.7 F 07/15/24 07:05 Pulse 58 07/15/24 07:05 Resp 16 07/15/24 07:05 BP 148/73 H 07/15/24 07:05 Pulse Ox 95 07/15/24 07:05 O2 Del Method Room Air 07/15/24 07:05 O2 Flow Rate 2 06/25/24 14:00 BMI result Body Mass Index 20.3 Const: Other: Constitutional : interactive, not in distress Cardiovascular : no JVP, no lower extremity edema Respiratory : bilateral chest movement, not in resp distress Gastrointestinal: soft, lax, Non tender Skin : Warm, Dry Neurological : Alert and oriented to self only, No focal deficit Objective Data Active Medications Acetaminophen (Acetaminophen 325 Mg Tablet) 650 mg PO Q6H PRN PRN Reason: Pain, Mild (Pain Scale 1-3), fever or headache Last Admin: 07/14/24 09:44 Dose: 650 mg Documented By: PRIYANK Amlodipine Besylate (Amlodipine Besylate 5 Mg Tablet) 5 mg PO DAILY [facility]; Protocol Last Admin: 07/09/24 09:18 Dose: 5 mg Documented By: NIRAV Atorvastatin Calcium (Atorvastatin Calcium 20 Mg Tablet) 20 mg PO DAILY [facility] Last Admin: 07/15/24 08:28 Dose: 20 mg Documented By: CHARLIE Calcium Carbonate (Calcium Carbonate 750 Mg Tab.Chew) 750 mg PO Q4H PRN PRN Reason: Heartburn Cyanocobalamin (Cyanocobalamin (Vitamin B-12) 1,000 Mcg Tablet) 1,000 mcg PO DAILY [facility] Last Admin: 07/15/24 08:28 Dose: 1,000 mcg Documented By: CHARLIE Divalproex Sodium (Divalproex Sodium Er 500 Mg Tab.Er.24h) 500 mg PO BEDTIME [facility] Last Admin: 07/14/24 20:42 Dose: 500 mg Documented By: CASS Enoxaparin Sodium (Enoxaparin Sodium 40 Mg/0.4 Ml Syringe) 40 mg SUBCUT Q24H [facility] Last Admin: 07/14/24 14:02 Dose: 40 mg Documented By: PRIYANK Gabapentin (Gabapentin 100 Mg Capsule) 200 mg PO BID [facility] Last Admin: 07/15/24 08:28 Dose: 200 mg Documented By: CHARLIE Lidocaine (Lidocaine 4 % Patch Adh..Patch) 1 patch TRANSDERMA DAILY [facility] Last Admin: 07/15/24 08:28 Dose: 1 patch Documented By: CHARLIE Magnesium Hydroxide (Milk Of Magnesia 30 Ml Oral.Susp) 30 ml PO DAILY PRN PRN Reason: Constipation Last Admin: 07/14/24 18:14 Dose: 30 ml Documented By: MOHAMER Melatonin (Melatonin 3 Mg Tablet) 6 mg PO BEDTIME PRN PRN Reason: Sleep Last Admin: 07/13/24 20:06 Dose: 6 mg Documented By: TUMASY Melatonin (Melatonin 3 Mg Tablet) 6 mg PO BEDTIME PRN PRN Reason: Insomnia Trazodone HCl (Trazodone Hcl 50 Mg Tablet) 50 mg PO BEDTIME PRN PRN Reason: Insomnia Last Admin: 07/06/24 20:30 Dose: 50 mg Documented By: DITOLC Labs 07/15/24 05:30 07/15/24 05:30 Labs: Laboratory Results - last 24 hr 07/15/24 05:30 MCV 92.0 MCH 31.4 MCHC 34.1 RDW 13.6 Plt Count 144 L MPV 12.4 Absolute Nucleated RBC 0.000 Nucleated RBC % (auto) 0.0 Anion Gap 13 Estim Creat Clear Calc 64.8 Estimated GFR > 60 Random Glucose 96 Calcium 10.2 Assessment and Plan (1) Major neurocognitive disorder: Status: Acute Plan 79-year-old male with history of advanced dementia, hyperlipidemia, hypertension, history of alcohol use disorder, polysubstance abuse presented on 06/25 due to increasing generalized fatigue/weakness, lethargy, decreased appetite and confusion admitted 07/07/24 as a social admit awaiting placement Unspecified dementia awaiting gaurdianship/LTC mentation baseline Dysuria, resolved , No UTI, was negative on arrival HTN normotensive overall since arrival. Continue amlodipine HLD statin dvt prophylaxis- lovenox full code Patient has no capacity to make medical decisions and is waiting for Guardianship. Quality Stroke Does the patient have a stroke diagnosis?: No VTE Prior VTE?: No VTE Risk Level:: Medical - moderate - high VTE Device Contraindication: Treatment Not Indicated VTE Drug Contraindication: N/A - Med Ordered
--- NOTE | 2024-07-15 12:14 | MHC.CM.PN ---
EM[facility] REVIEWED AND PER COMPLEX ROUNDS , PT IS AWAITING GUARDIANSHIP /HEARING DATE. CM WILL CONTINUE TO FOLLOW FOR ANY CHANGE TO DC PLAN/NEEDS.
[2024-07-15] MEDS: Enoxaparin Sodium 40 MG/0.4 ML SYRINGE SUBCUT (15:19)
[2024-07-15 15:27] VITALS: BP 135/63; PULSE 63; RESP 19; TEMP 36.9; O2SAT 94
[2024-07-15 19:15] VITALS: BP 131/60; PULSE 71; RESP 14; TEMP 36.4; O2SAT 94
[2024-07-15] MEDS: Divalproex Sodium Sprinkles 125 MG CAP.DR.SPR 500 MG PO (23:02)
[2024-07-16 03:27] VITALS: BP 144/65; PULSE 65; RESP 18; TEMP 36.8; O2SAT 96
--- NOTE | 2024-07-16 08:55 | P.PNIM_ITS ---
Subjective Subjective Date of Service: 07/16/24 Interval History: no complaints Physical Exam 2 Vital Signs: Vital Signs: Last Vital Signs Temp 98.3 F 07/16/24 03:27 Pulse 65 07/16/24 03:27 Resp 18 07/16/24 03:27 BP 144/65 H 07/16/24 03:27 Pulse Ox 96 07/16/24 03:27 O2 Del Method Room Air 07/16/24 03:27 O2 Flow Rate 2 06/25/24 14:00 BMI result Body Mass Index 20.3 Const: Other: Constitutional : interactive, not in distress Cardiovascular : no JVP, no lower extremity edema Respiratory : bilateral chest movement, not in resp distress Gastrointestinal: soft, lax, Non tender Skin : Warm, Dry Neurological : Alert and oriented to self only, No focal deficit Objective Data Active Medications Acetaminophen (Acetaminophen 325 Mg Tablet) 650 mg PO Q6H PRN PRN Reason: Pain, Mild (Pain Scale 1-3), fever or headache Last Admin: 07/14/24 09:44 Dose: 650 mg Documented By: PRIYANK Amlodipine Besylate (Amlodipine Besylate 5 Mg Tablet) 5 mg PO DAILY [facility]; Protocol Last Admin: 07/09/24 09:18 Dose: 5 mg Documented By: NIRAV Atorvastatin Calcium (Atorvastatin Calcium 20 Mg Tablet) 20 mg PO DAILY [facility] Last Admin: 07/15/24 08:28 Dose: 20 mg Documented By: CHARLIE Calcium Carbonate (Calcium Carbonate 750 Mg Tab.Chew) 750 mg PO Q4H PRN PRN Reason: Heartburn Cyanocobalamin (Cyanocobalamin (Vitamin B-12) 1,000 Mcg Tablet) 1,000 mcg PO DAILY [facility] Last Admin: 07/15/24 08:28 Dose: 1,000 mcg Documented By: CHARLIE Divalproex Sodium (Divalproex Sodium Sprinkles 125 Mg ) 500 mg PO BEDTIME [facility] Last Admin: 07/15/24 23:02 Dose: 500 mg Documented By: SIMRAN Enoxaparin Sodium (Enoxaparin Sodium 40 Mg/0.4 Ml Syringe) 40 mg SUBCUT Q24H [facility] Last Admin: 07/15/24 15:19 Dose: 40 mg Documented By: CHARLIE Gabapentin (Gabapentin 100 Mg Capsule) 200 mg PO BID [facility] Last Admin: 07/15/24 19:28 Dose: 200 mg Documented By: SIMRAN Comments: pt is awake now Lidocaine (Lidocaine 4 % Patch Adh..Patch) 1 patch TRANSDERMA DAILY [facility] Last Admin: 07/15/24 08:28 Dose: 1 patch Documented By: CHARLIE Magnesium Hydroxide (Milk Of Magnesia 30 Ml Oral.Susp) 30 ml PO DAILY PRN PRN Reason: Constipation Last Admin: 07/14/24 18:14 Dose: 30 ml Documented By: MOHAMER Melatonin (Melatonin 3 Mg Tablet) 6 mg PO BEDTIME PRN PRN Reason: Sleep Last Admin: 07/13/24 20:06 Dose: 6 mg Documented By: TUMASY Melatonin (Melatonin 3 Mg Tablet) 6 mg PO BEDTIME PRN PRN Reason: Insomnia Trazodone HCl (Trazodone Hcl 50 Mg Tablet) 50 mg PO BEDTIME PRN PRN Reason: Insomnia Last Admin: 07/06/24 20:30 Dose: 50 mg Documented By: DITOLC Labs 07/15/24 05:30 07/15/24 05:30 Assessment and Plan (1) Major neurocognitive disorder: Status: Acute Plan 79-year-old male with history of advanced dementia, hyperlipidemia, hypertension, history of alcohol use disorder, polysubstance abuse presented on 06/25 due to increasing generalized fatigue/weakness, lethargy, decreased appetite and confusion admitted 07/07/24 as a social admit awaiting placement Unspecified dementia awaiting gaurdianship/LTC mentation baseline Dysuria, resolved , No UTI, was negative on arrival HTN normotensive overall since arrival. Continue amlodipine HLD statin dvt prophylaxis- lovenox full code Patient has no capacity to make medical decisions and is waiting for Guardianship. Quality Stroke Does the patient have a stroke diagnosis?: No VTE Prior VTE?: No VTE Risk Level:: Medical - moderate - high VTE Device Contraindication: Treatment Not Indicated VTE Drug Contraindication: N/A - Med Ordered
[2024-07-16] MEDS: Lidocaine 4 % Patch ADH..PATCH 1 PATCH TRANSDERMA (10:33)
[2024-07-16] MEDS: Atorvastatin Calcium 20 MG TABLET PO (10:34)
[2024-07-16] MEDS: Gabapentin 100 MG CAPSULE 200 MG PO ×2 (10:34→20:40)
[2024-07-16] MEDS: Cyanocobalamin (Vitamin B-12) 1,000 MCG TABLET 1000 MCG PO (10:34)
[2024-07-16] MEDS: Enoxaparin Sodium 40 MG/0.4 ML SYRINGE SUBCUT (14:26)
[2024-07-16 15:17] VITALS: BP 121/65; PULSE 60; RESP 18; TEMP 36.2; O2SAT 95
[2024-07-16 19:19] VITALS: BP 128/73; PULSE 69; RESP 18; TEMP 36.6; O2SAT 99
[2024-07-16] MEDS: Divalproex Sodium Sprinkles 125 MG CAP.DR.SPR 500 MG PO (20:40)
[2024-07-17 03:41] VITALS: BP 107/55; PULSE 65; RESP 16; TEMP 36.8; O2SAT 96
[2024-07-17 07:19] VITALS: BP 128/67; PULSE 65; RESP 18; TEMP 36.2; O2SAT 97
--- NOTE | 2024-07-17 08:27 | HO.PM.IMPN ---
Subjective Subjective Date of Service: 07/17/24 Interval History: no complaints Physical Exam Vital Signs: Vital Signs: Last Vital Signs Temp 97.2 F 07/17/24 07:19 Pulse 65 07/17/24 07:19 Resp 18 07/17/24 07:19 BP 128/67 07/17/24 07:19 Pulse Ox 97 07/17/24 07:19 O2 Del Method Room Air 07/17/24 07:19 O2 Flow Rate 2 06/25/24 14:00 BMI result Body Mass Index 20.3 Const: Other: Constitutional : interactive, not in distress Cardiovascular : no JVP, no lower extremity edema Respiratory : bilateral chest movement, not in resp distress Gastrointestinal: soft, lax, Non tender Skin : Warm, Dry Neurological : Alert and oriented to self only, No focal deficit Objective Data Active Medications Acetaminophen (Acetaminophen 325 Mg Tablet) 650 mg PO Q6H PRN PRN Reason: Pain, Mild (Pain Scale 1-3), fever or headache Last Admin: 07/14/24 09:44 Dose: 650 mg Documented By: PRIYANK Amlodipine Besylate (Amlodipine Besylate 5 Mg Tablet) 5 mg PO DAILY [facility]; Protocol Last Admin: 07/09/24 09:18 Dose: 5 mg Documented By: NIRAV Atorvastatin Calcium (Atorvastatin Calcium 20 Mg Tablet) 20 mg PO DAILY [facility] Last Admin: 07/16/24 10:34 Dose: 20 mg Documented By: CAIO Calcium Carbonate (Calcium Carbonate 750 Mg Tab.Chew) 750 mg PO Q4H PRN PRN Reason: Heartburn Cyanocobalamin (Cyanocobalamin (Vitamin B-12) 1,000 Mcg Tablet) 1,000 mcg PO DAILY [facility] Last Admin: 07/16/24 10:34 Dose: 1,000 mcg Documented By: CAIO Divalproex Sodium (Divalproex Sodium Sprinkles 125 Mg ) 500 mg PO BEDTIME [facility] Last Admin: 07/16/24 20:40 Dose: 500 mg Documented By: CHARLIE Enoxaparin Sodium (Enoxaparin Sodium 40 Mg/0.4 Ml Syringe) 40 mg SUBCUT Q24H [facility] Last Admin: 07/16/24 14:26 Dose: 40 mg Documented By: CAIO Gabapentin (Gabapentin 100 Mg Capsule) 200 mg PO BID [facility] Last Admin: 07/16/24 20:40 Dose: 200 mg Documented By: CHARLIE Lidocaine (Lidocaine 4 % Patch Adh..Patch) 1 patch TRANSDERMA DAILY [facility] Last Admin: 07/16/24 10:33 Dose: 1 patch Documented By: CAIO Magnesium Hydroxide (Milk Of Magnesia 30 Ml Oral.Susp) 30 ml PO DAILY PRN PRN Reason: Constipation Last Admin: 07/14/24 18:14 Dose: 30 ml Documented By: MOHAMER Melatonin (Melatonin 3 Mg Tablet) 6 mg PO BEDTIME PRN PRN Reason: Sleep Last Admin: 07/13/24 20:06 Dose: 6 mg Documented By: TUMASY Melatonin (Melatonin 3 Mg Tablet) 6 mg PO BEDTIME PRN PRN Reason: Insomnia Trazodone HCl (Trazodone Hcl 50 Mg Tablet) 50 mg PO BEDTIME PRN PRN Reason: Insomnia Last Admin: 07/06/24 20:30 Dose: 50 mg Documented By: DITOLC Labs 07/15/24 05:30 07/15/24 05:30 Assessment and Plan (1) Major neurocognitive disorder: Status: Acute Plan 79-year-old male with history of advanced dementia, hyperlipidemia, hypertension, history of alcohol use disorder, polysubstance abuse presented on 06/25 due to increasing generalized fatigue/weakness, lethargy, decreased appetite and confusion admitted 07/07/24 as a social admit awaiting placement Unspecified dementia awaiting gaurdianship/LTC mentation baseline Dysuria, resolved , No UTI, was negative on arrival HTN normotensive overall since arrival. Continue amlodipine HLD statin dvt prophylaxis- lovenox full code Patient has no capacity to make medical decisions and is waiting for Guardianship. Quality Stroke Does the patient have a stroke diagnosis?: No VTE Prior VTE?: No VTE Risk Level:: Medical - moderate - high VTE Device Contraindication: Treatment Not Indicated VTE Drug Contraindication: N/A - Med Ordered
--- NOTE | 2024-07-17 08:38 | MHC.CM.PN ---
PT AWAITING GUARDIANSHIP HEARING AND SUBSEQUENT LTC PLACEMENT NO HEARING DATE SET AT THIS TIME CM FOLLOWING
[2024-07-17] MEDS: Cyanocobalamin (Vitamin B-12) 1,000 MCG TABLET 1000 MCG PO (09:49)
[2024-07-17] MEDS: Gabapentin 100 MG CAPSULE 200 MG PO ×2 (09:49→20:39)
[2024-07-17] MEDS: Atorvastatin Calcium 20 MG TABLET PO (09:49)
[2024-07-17] MEDS: Enoxaparin Sodium 40 MG/0.4 ML SYRINGE SUBCUT (14:59)
[2024-07-17] MEDS: Nystatin Cream 15 GM TUBE 1 APPL TOPICAL ×2 (15:04→20:45)
[2024-07-17 15:35] VITALS: BP 122/65; PULSE 57; RESP 16; TEMP 36.3; O2SAT 95
[2024-07-17 19:44] VITALS: BP 101/55; PULSE 62; RESP 18; TEMP 36.2; O2SAT 93
[2024-07-17] MEDS: Divalproex Sodium Sprinkles 125 MG CAP.DR.SPR 500 MG PO (20:40)
[2024-07-18 03:07] VITALS: BP 118/59; PULSE 68; RESP 16; TEMP 36.9; O2SAT 96
--- NOTE | 2024-07-18 07:48 | HO.PM.IMPN ---
Subjective Subjective Date of Service: 07/18/24 Interval History: no new issues reported Physical Exam Vital Signs: Vital Signs: Last Vital Signs Temp 98.4 F 07/18/24 03:07 Pulse 68 07/18/24 03:07 Resp 16 07/18/24 03:07 BP 118/59 L 07/18/24 03:07 Pulse Ox 96 07/18/24 03:07 O2 Del Method Room Air 07/18/24 03:07 O2 Flow Rate 2 06/25/24 14:00 BMI result Body Mass Index 20.3 Const: Other: Constitutional : interactive, not in distress Cardiovascular : no JVP, no lower extremity edema Respiratory : bilateral chest movement, not in resp distress Gastrointestinal: soft, lax, Non tender Skin : Warm, Dry Neurological : Alert and oriented to self only, No focal deficit Objective Data Active Medications Acetaminophen (Acetaminophen 325 Mg Tablet) 650 mg PO Q6H PRN PRN Reason: Pain, Mild (Pain Scale 1-3), fever or headache Last Admin: 07/14/24 09:44 Dose: 650 mg Documented By: PRIYANK Amlodipine Besylate (Amlodipine Besylate 5 Mg Tablet) 5 mg PO DAILY [facility]; Protocol Last Admin: 07/09/24 09:18 Dose: 5 mg Documented By: NIRAV Atorvastatin Calcium (Atorvastatin Calcium 20 Mg Tablet) 20 mg PO DAILY [facility] Last Admin: 07/17/24 09:49 Dose: 20 mg Documented By: CAIO Calcium Carbonate (Calcium Carbonate 750 Mg Tab.Chew) 750 mg PO Q4H PRN PRN Reason: Heartburn Cyanocobalamin (Cyanocobalamin (Vitamin B-12) 1,000 Mcg Tablet) 1,000 mcg PO DAILY [facility] Last Admin: 07/17/24 09:49 Dose: 1,000 mcg Documented By: CAIO Divalproex Sodium (Divalproex Sodium Sprinkles 125 Mg ) 500 mg PO BEDTIME [facility] Last Admin: 07/17/24 20:40 Dose: 500 mg Documented By: KAITLYN Enoxaparin Sodium (Enoxaparin Sodium 40 Mg/0.4 Ml Syringe) 40 mg SUBCUT Q24H [facility] Last Admin: 07/17/24 14:59 Dose: 40 mg Documented By: HEATHER Gabapentin (Gabapentin 100 Mg Capsule) 200 mg PO BID [facility] Last Admin: 07/17/24 20:39 Dose: 200 mg Documented By: KAITLYN Lidocaine (Lidocaine 4 % Patch Adh..Patch) 1 patch TRANSDERMA DAILY [facility] Last Admin: 07/17/24 09:53 Dose: Not Given Documented By: CAIO Non-Admin Reason: Patient Refused Magnesium Hydroxide (Milk Of Magnesia 30 Ml Oral.Susp) 30 ml PO DAILY PRN PRN Reason: Constipation Last Admin: 07/14/24 18:14 Dose: 30 ml Documented By: CASS Melatonin (Melatonin 3 Mg Tablet) 6 mg PO BEDTIME PRN PRN Reason: Sleep Last Admin: 07/13/24 20:06 Dose: 6 mg Documented By: DELFINA Melatonin (Melatonin 3 Mg Tablet) 6 mg PO BEDTIME PRN PRN Reason: Insomnia Nystatin (Nystatin Cream 15 Gm Tube) 1 appl TOPICAL BID [facility]; Protocol Last Admin: 07/17/24 20:45 Dose: 1 appl Documented By: KAITLYN Trazodone HCl (Trazodone Hcl 50 Mg Tablet) 50 mg PO BEDTIME PRN PRN Reason: Insomnia Last Admin: 07/06/24 20:30 Dose: 50 mg Documented By: DITOLC Labs 07/15/24 05:30 07/15/24 05:30 Assessment and Plan (1) Major neurocognitive disorder: Status: Acute Plan 79-year-old male with history of advanced dementia, hyperlipidemia, hypertension, history of alcohol use disorder, polysubstance abuse presented on 06/25 due to increasing generalized fatigue/weakness, lethargy, decreased appetite and confusion admitted 07/07/24 as a social admit awaiting placement no new changes Unspecified dementia awaiting gaurdianship/LTC mentation baseline Dysuria, resolved , No UTI, was negative on arrival HTN normotensive overall since arrival. Continue amlodipine HLD statin dvt prophylaxis- lovenox full code Patient has no capacity to make medical decisions and is waiting for Guardianship. Quality Stroke Does the patient have a stroke diagnosis?: No VTE Prior VTE?: No VTE Risk Level:: Medical - moderate - high VTE Device Contraindication: Treatment Not Indicated VTE Drug Contraindication: N/A - Med Ordered
[2024-07-18 08:00] VITALS: BP 112/55; PULSE 67; RESP 20; TEMP 36.7; O2SAT 97
[2024-07-18] MEDS: Atorvastatin Calcium 20 MG TABLET PO (10:23)
[2024-07-18] MEDS: Gabapentin 100 MG CAPSULE 200 MG PO ×2 (10:23→22:10)
[2024-07-18] MEDS: Cyanocobalamin (Vitamin B-12) 1,000 MCG TABLET 1000 MCG PO (10:23)
[2024-07-18] MEDS: Lidocaine 4 % Patch ADH..PATCH 1 PATCH TRANSDERMA (10:23)
[2024-07-18] MEDS: Nystatin Cream 15 GM TUBE 1 APPL TOPICAL ×2 (10:29→22:11)
[2024-07-18] MEDS: Enoxaparin Sodium 40 MG/0.4 ML SYRINGE SUBCUT (13:01)
[2024-07-18 15:28] VITALS: BP 127/56; PULSE 66; RESP 18; TEMP 36.7; O2SAT 96
[2024-07-18 19:25] VITALS: BP 111/56; PULSE 59; RESP 20; TEMP 36.3; O2SAT 96
[2024-07-18] MEDS: Divalproex Sodium Sprinkles 125 MG CAP.DR.SPR 500 MG PO (22:11)
[2024-07-19 04:00] VITALS: BP 133/72; PULSE 64; RESP 16; TEMP 36.5; O2SAT 97
[2024-07-19] MEDS: Milk of Magnesia 30 ML ORAL.SUSP PO (05:11)
[2024-07-19 07:53] VITALS: BP 114/66; PULSE 77; RESP 17; TEMP 36.2; O2SAT 97
--- NOTE | 2024-07-19 08:55 | P.PNIM_ITS ---
Subjective Subjective Date of Service: 07/19/24 Interval History: no new issues reported Physical Exam 2 Vital Signs: Vital Signs: Last Vital Signs Temp 97.1 F 07/19/24 07:53 Pulse 77 07/19/24 07:53 Resp 17 07/19/24 07:53 BP 114/66 07/19/24 07:53 Pulse Ox 97 07/19/24 07:53 O2 Del Method Room Air 07/19/24 07:53 O2 Flow Rate 2 06/25/24 14:00 BMI result Body Mass Index 20.3 Const: Other: Constitutional : interactive, not in distress Cardiovascular : no JVP, no lower extremity edema Respiratory : bilateral chest movement, not in resp distress Gastrointestinal: soft, lax, Non tender Skin : Warm, Dry Neurological : Alert and oriented to self only, No focal deficit Objective Data Active Medications Acetaminophen (Acetaminophen 325 Mg Tablet) 650 mg PO Q6H PRN PRN Reason: Pain, Mild (Pain Scale 1-3), fever or headache Last Admin: 07/14/24 09:44 Dose: 650 mg Documented By: PRIYANK Amlodipine Besylate (Amlodipine Besylate 5 Mg Tablet) 5 mg PO DAILY [facility]; Protocol Last Admin: 07/09/24 09:18 Dose: 5 mg Documented By: NIRAV Atorvastatin Calcium (Atorvastatin Calcium 20 Mg Tablet) 20 mg PO DAILY [facility] Last Admin: 07/18/24 10:23 Dose: 20 mg Documented By: RAMESH Calcium Carbonate (Calcium Carbonate 750 Mg Tab.Chew) 750 mg PO Q4H PRN PRN Reason: Heartburn Cyanocobalamin (Cyanocobalamin (Vitamin B-12) 1,000 Mcg Tablet) 1,000 mcg PO DAILY [facility] Last Admin: 07/18/24 10:23 Dose: 1,000 mcg Documented By: RAMESH Divalproex Sodium (Divalproex Sodium Sprinkles 125 Mg ) 500 mg PO BEDTIME [facility] Last Admin: 07/18/24 22:11 Dose: 500 mg Documented By: KAITLYN Enoxaparin Sodium (Enoxaparin Sodium 40 Mg/0.4 Ml Syringe) 40 mg SUBCUT Q24H [facility] Last Admin: 07/18/24 13:01 Dose: 40 mg Documented By: HÉCTOR Gabapentin (Gabapentin 100 Mg Capsule) 200 mg PO BID [facility] Last Admin: 07/18/24 22:10 Dose: 200 mg Documented By: KAITLYN Lidocaine (Lidocaine 4 % Patch Adh..Patch) 1 patch TRANSDERMA DAILY [facility] Last Admin: 07/18/24 10:23 Dose: 1 patch Documented By: RAMESH Magnesium Hydroxide (Milk Of Magnesia 30 Ml Oral.Susp) 30 ml PO DAILY PRN PRN Reason: Constipation Last Admin: 07/19/24 05:11 Dose: 30 ml Documented By: KAITLYN Melatonin (Melatonin 3 Mg Tablet) 6 mg PO BEDTIME PRN PRN Reason: Sleep Last Admin: 07/13/24 20:06 Dose: 6 mg Documented By: TUMCANELO Melatonin (Melatonin 3 Mg Tablet) 6 mg PO BEDTIME PRN PRN Reason: Insomnia Nystatin (Nystatin Cream 15 Gm Tube) 1 appl TOPICAL BID [facility]; Protocol Last Admin: 07/18/24 22:11 Dose: 1 appl Documented By: KAITLYN Trazodone HCl (Trazodone Hcl 50 Mg Tablet) 50 mg PO BEDTIME PRN PRN Reason: Insomnia Last Admin: 07/06/24 20:30 Dose: 50 mg Documented By: DITOLC Labs 07/15/24 05:30 07/15/24 05:30 Assessment and Plan (1) Major neurocognitive disorder: Status: Acute Plan 79-year-old male with history of advanced dementia, hyperlipidemia, hypertension, history of alcohol use disorder, polysubstance abuse presented on 06/25 due to increasing generalized fatigue/weakness, lethargy, decreased appetite and confusion admitted 07/07/24 as a social admit awaiting placement no new changes Unspecified dementia awaiting gaurdianship/LTC mentation baseline Dysuria, resolved , No UTI, was negative on arrival HTN normotensive overall since arrival. Continue amlodipine HLD statin dvt prophylaxis- lovenox full code Patient has no capacity to make medical decisions and is waiting for Guardianship. Quality Stroke Does the patient have a stroke diagnosis?: No VTE Prior VTE?: No VTE Risk Level:: Medical - moderate - high VTE Device Contraindication: Treatment Not Indicated VTE Drug Contraindication: N/A - Med Ordered
[2024-07-19] MEDS: Gabapentin 100 MG CAPSULE 200 MG PO ×2 (09:30→19:55)
[2024-07-19] MEDS: Cyanocobalamin (Vitamin B-12) 1,000 MCG TABLET 1000 MCG PO (09:30)
[2024-07-19] MEDS: Acetaminophen 325 MG TABLET 650 MG PO (09:30)
[2024-07-19] MEDS: Lidocaine 4 % Patch ADH..PATCH 1 PATCH TRANSDERMA (09:31)
[2024-07-19] MEDS: Atorvastatin Calcium 20 MG TABLET PO (09:31)
[2024-07-19] MEDS: Nystatin Cream 15 GM TUBE 1 APPL TOPICAL (09:37)
[2024-07-19] MEDS: Enoxaparin Sodium 40 MG/0.4 ML SYRINGE SUBCUT (14:34)
[2024-07-19 15:33] VITALS: BP 125/58; PULSE 56; RESP 16; TEMP 36.8; O2SAT 97
[2024-07-19] MEDS: Divalproex Sodium Sprinkles 125 MG CAP.DR.SPR 500 MG PO (19:55)
[2024-07-19] MEDS: Melatonin 3 MG TABLET 6 MG PO (19:55)
[2024-07-19 20:00] VITALS: BP 108/52; PULSE 66; RESP 15; TEMP 36.6; O2SAT 96
[2024-07-20 03:43] VITALS: BP 128/68; PULSE 53; RESP 15; TEMP 36.6; O2SAT 96
[2024-07-20 07:15] VITALS: BP 117/63; PULSE 55; RESP 16; TEMP 36.7; O2SAT 96
[2024-07-20] MEDS: Cyanocobalamin (Vitamin B-12) 1,000 MCG TABLET 1000 MCG PO (07:18)
[2024-07-20] MEDS: Gabapentin 100 MG CAPSULE 200 MG PO ×2 (07:18→19:49)
[2024-07-20] MEDS: Atorvastatin Calcium 20 MG TABLET PO (07:18)
[2024-07-20] MEDS: Nystatin Cream 15 GM TUBE 1 APPL TOPICAL (07:18)
[2024-07-20] MEDS: Lidocaine 4 % Patch ADH..PATCH 1 PATCH TRANSDERMA (07:18)
--- NOTE | 2024-07-20 08:58 | P.PNIM_ITS ---
Subjective Subjective Date of Service: 07/20/24 Interval History: no new issues reported Physical Exam 2 Vital Signs: Vital Signs: Last Vital Signs Temp 98.1 F 07/20/24 07:15 Pulse 55 07/20/24 07:15 Resp 16 07/20/24 07:15 BP 117/63 07/20/24 07:15 Pulse Ox 96 07/20/24 07:15 O2 Del Method Room Air 07/20/24 07:15 O2 Flow Rate 2 06/25/24 14:00 BMI result Body Mass Index 20.3 Const: Other: Constitutional : interactive, not in distress Cardiovascular : no JVP, no lower extremity edema Respiratory : bilateral chest movement, not in resp distress Gastrointestinal: soft, lax, Non tender Skin : Warm, Dry Neurological : Alert and oriented to self only, No focal deficit Objective Data Active Medications Acetaminophen (Acetaminophen 325 Mg Tablet) 650 mg PO Q6H PRN PRN Reason: Pain, Mild (Pain Scale 1-3), fever or headache Last Admin: 07/19/24 09:30 Dose: 650 mg Documented By: HÉCTOR Amlodipine Besylate (Amlodipine Besylate 5 Mg Tablet) 5 mg PO DAILY [facility]; Protocol Last Admin: 07/09/24 09:18 Dose: 5 mg Documented By: NIRAV Atorvastatin Calcium (Atorvastatin Calcium 20 Mg Tablet) 20 mg PO DAILY [facility] Last Admin: 07/20/24 07:18 Dose: 20 mg Documented By: NYA Calcium Carbonate (Calcium Carbonate 750 Mg Tab.Chew) 750 mg PO Q4H PRN PRN Reason: Heartburn Cyanocobalamin (Cyanocobalamin (Vitamin B-12) 1,000 Mcg Tablet) 1,000 mcg PO DAILY [facility] Last Admin: 07/20/24 07:18 Dose: 1,000 mcg Documented By: NYA Divalproex Sodium (Divalproex Sodium Sprinkles 125 Mg ) 500 mg PO BEDTIME [facility] Last Admin: 07/19/24 19:55 Dose: 500 mg Documented By: MEGAN Enoxaparin Sodium (Enoxaparin Sodium 40 Mg/0.4 Ml Syringe) 40 mg SUBCUT Q24H [facility] Last Admin: 07/19/24 14:34 Dose: 40 mg Documented By: HÉCTOR Gabapentin (Gabapentin 100 Mg Capsule) 200 mg PO BID [facility] Last Admin: 07/20/24 07:18 Dose: 200 mg Documented By: NYA Lidocaine (Lidocaine 4 % Patch Adh..Patch) 1 patch TRANSDERMA DAILY [facility] Last Admin: 07/20/24 07:18 Dose: 1 patch Documented By: NYA Magnesium Hydroxide (Milk Of Magnesia 30 Ml Oral.Susp) 30 ml PO DAILY PRN PRN Reason: Constipation Last Admin: 07/19/24 05:11 Dose: 30 ml Documented By: KAITLYN Melatonin (Melatonin 3 Mg Tablet) 6 mg PO BEDTIME PRN PRN Reason: Sleep Last Admin: 07/19/24 19:55 Dose: 6 mg Documented By: MEGAN Melatonin (Melatonin 3 Mg Tablet) 6 mg PO BEDTIME PRN PRN Reason: Insomnia Nystatin (Nystatin Cream 15 Gm Tube) 1 appl TOPICAL BID [facility]; Protocol Last Admin: 07/20/24 07:18 Dose: 1 appl Documented By: NYA Trazodone HCl (Trazodone Hcl 50 Mg Tablet) 50 mg PO BEDTIME PRN PRN Reason: Insomnia Last Admin: 07/06/24 20:30 Dose: 50 mg Documented By: DITOLC Labs 07/15/24 05:30 07/15/24 05:30 Assessment and Plan (1) Major neurocognitive disorder: Status: Acute Plan 79-year-old male with history of advanced dementia, hyperlipidemia, hypertension, history of alcohol use disorder, polysubstance abuse presented on 06/25 due to increasing generalized fatigue/weakness, lethargy, decreased appetite and confusion admitted 07/07/24 as a social admit awaiting placement no new changes Unspecified dementia awaiting gaurdianship/LTC mentation baseline Dysuria, resolved , No UTI, was negative on arrival HTN normotensive overall since arrival. Continue amlodipine HLD statin dvt prophylaxis- lovenox full code Patient has no capacity to make medical decisions and is waiting for Guardianship. Quality Stroke Does the patient have a stroke diagnosis?: No VTE Prior VTE?: No VTE Risk Level:: Medical - moderate - high VTE Device Contraindication: Treatment Not Indicated VTE Drug Contraindication: N/A - Med Ordered
[2024-07-20] MEDS: Enoxaparin Sodium 40 MG/0.4 ML SYRINGE SUBCUT (13:49)
[2024-07-20 15:22] VITALS: BP 135/64; PULSE 56; RESP 18; TEMP 36.9; O2SAT 96
[2024-07-20 19:47] VITALS: BP 126/58; PULSE 65; RESP 18; TEMP 36.9; O2SAT 92
[2024-07-20] MEDS: Melatonin 3 MG TABLET 6 MG PO (19:49)
[2024-07-20] MEDS: Divalproex Sodium Sprinkles 125 MG CAP.DR.SPR 500 MG PO (19:49)
[2024-07-20 20:49] VITALS: RESP 18
[2024-07-21 03:21] VITALS: BP 134/64; PULSE 65; RESP 18; TEMP 36.2; O2SAT 98
[2024-07-21 07:37] VITALS: BP 120/60; PULSE 58; RESP 16; TEMP 37.5; O2SAT 96
--- NOTE | 2024-07-21 08:52 | HO.PM.IMPN ---
Subjective Subjective Date of Service: 07/21/24 Interval History: no new issues reported Physical Exam Vital Signs: Vital Signs: Last Vital Signs Temp 99.5 F 07/21/24 07:37 Pulse 58 07/21/24 07:37 Resp 16 07/21/24 07:37 BP 120/60 07/21/24 07:37 Pulse Ox 96 07/21/24 07:37 O2 Del Method Room Air 07/21/24 07:37 O2 Flow Rate 2 06/25/24 14:00 BMI result Body Mass Index 20.3 Const: Other: Constitutional : interactive, not in distress Cardiovascular : no JVP, no lower extremity edema Respiratory : bilateral chest movement, not in resp distress Gastrointestinal: soft, lax, Non tender Skin : Warm, Dry Neurological : Alert and oriented to self only, No focal deficit Objective Data Active Medications Acetaminophen (Acetaminophen 325 Mg Tablet) 650 mg PO Q6H PRN PRN Reason: Pain, Mild (Pain Scale 1-3), fever or headache Last Admin: 07/19/24 09:30 Dose: 650 mg Documented By: HÉCTOR Amlodipine Besylate (Amlodipine Besylate 5 Mg Tablet) 5 mg PO DAILY [facility]; Protocol Last Admin: 07/09/24 09:18 Dose: 5 mg Documented By: NIRAV Atorvastatin Calcium (Atorvastatin Calcium 20 Mg Tablet) 20 mg PO DAILY [facility] Last Admin: 07/20/24 07:18 Dose: 20 mg Documented By: NYA Calcium Carbonate (Calcium Carbonate 750 Mg Tab.Chew) 750 mg PO Q4H PRN PRN Reason: Heartburn Cyanocobalamin (Cyanocobalamin (Vitamin B-12) 1,000 Mcg Tablet) 1,000 mcg PO DAILY [facility] Last Admin: 07/20/24 07:18 Dose: 1,000 mcg Documented By: NYA Divalproex Sodium (Divalproex Sodium Sprinkles 125 Mg ) 500 mg PO BEDTIME [facility] Last Admin: 07/20/24 19:49 Dose: 500 mg Documented By: REBECA Enoxaparin Sodium (Enoxaparin Sodium 40 Mg/0.4 Ml Syringe) 40 mg SUBCUT Q24H [facility] Last Admin: 07/20/24 13:49 Dose: 40 mg Documented By: NYA Gabapentin (Gabapentin 100 Mg Capsule) 200 mg PO BID [facility] Last Admin: 07/20/24 19:49 Dose: 200 mg Documented By: REBECA Lidocaine (Lidocaine 4 % Patch Adh..Patch) 1 patch TRANSDERMA DAILY [facility] Last Admin: 07/20/24 07:18 Dose: 1 patch Documented By: NYA Magnesium Hydroxide (Milk Of Magnesia 30 Ml Oral.Susp) 30 ml PO DAILY PRN PRN Reason: Constipation Last Admin: 07/19/24 05:11 Dose: 30 ml Documented By: KAITLYN Melatonin (Melatonin 3 Mg Tablet) 6 mg PO BEDTIME PRN PRN Reason: Sleep Last Admin: 07/20/24 19:49 Dose: 6 mg Documented By: REBECA Melatonin (Melatonin 3 Mg Tablet) 6 mg PO BEDTIME PRN PRN Reason: Insomnia Nystatin (Nystatin Cream 15 Gm Tube) 1 appl TOPICAL BID [facility]; Protocol Last Admin: 07/20/24 19:49 Dose: Not Given Documented By: REBECA Non-Admin Reason: Patient Refused Trazodone HCl (Trazodone Hcl 50 Mg Tablet) 50 mg PO BEDTIME PRN PRN Reason: Insomnia Last Admin: 07/06/24 20:30 Dose: 50 mg Documented By: DITOLC Labs 07/15/24 05:30 07/15/24 05:30 Assessment and Plan (1) Major neurocognitive disorder: Status: Acute Plan 79-year-old male with history of advanced dementia, hyperlipidemia, hypertension, history of alcohol use disorder, polysubstance abuse presented on 06/25 due to increasing generalized fatigue/weakness, lethargy, decreased appetite and confusion admitted 07/07/24 as a social admit awaiting placement no new changes Unspecified dementia awaiting gaurdianship/LTC mentation baseline Dysuria, resolved , No UTI, was negative on arrival HTN normotensive overall since arrival. Continue amlodipine HLD statin dvt prophylaxis- lovenox full code Patient has no capacity to make medical decisions and is waiting for Guardianship. Quality Stroke Does the patient have a stroke diagnosis?: No VTE Prior VTE?: No VTE Risk Level:: Medical - moderate - high VTE Device Contraindication: Treatment Not Indicated VTE Drug Contraindication: N/A - Med Ordered
[2024-07-21] MEDS: Cyanocobalamin (Vitamin B-12) 1,000 MCG TABLET 1000 MCG PO (09:22)
[2024-07-21] MEDS: Gabapentin 100 MG CAPSULE 200 MG PO ×2 (09:22→20:52)
[2024-07-21] MEDS: Atorvastatin Calcium 20 MG TABLET PO (09:22)
[2024-07-21] MEDS: Nystatin Cream 15 GM TUBE 1 APPL TOPICAL ×2 (09:26→20:54)
[2024-07-21] MEDS: Lidocaine 4 % Patch ADH..PATCH 1 PATCH TRANSDERMA (09:40)
[2024-07-21 11:33] VITALS: BP 140/80; PULSE 77; O2SAT 99
--- NOTE | 2024-07-21 13:09 | MHC.CM.PN ---
EMR REVIEWED. PT IS AWAITING GUARDIANSHIP/HEARING. NO DATE HAS BEEN SECURED OF YET. CM WILL CONTINUE TO FOLLOW FOR PLAN.
[2024-07-21] MEDS: Enoxaparin Sodium 40 MG/0.4 ML SYRINGE SUBCUT (15:12)
[2024-07-21] MEDS: Acetaminophen 325 MG TABLET 650 MG PO (15:15)
[2024-07-21 15:36] VITALS: BP 112/57; PULSE 59; RESP 16; TEMP 36.2; O2SAT 98
[2024-07-21 19:19] VITALS: BP 132/58; PULSE 75; RESP 14; TEMP 36.3; O2SAT 97
[2024-07-21] MEDS: Divalproex Sodium Sprinkles 125 MG CAP.DR.SPR 500 MG PO (20:52)
[2024-07-22 03:19] VITALS: BP 126/61; PULSE 67; RESP 16; TEMP 36.2; O2SAT 96
[2024-07-22 07:39] VITALS: BP 120/59; PULSE 63; RESP 16; TEMP 36; O2SAT 96
[2024-07-22] MEDS: Acetaminophen 325 MG TABLET 650 MG PO (09:48)
[2024-07-22] MEDS: Lidocaine 4 % Patch ADH..PATCH 1 PATCH TRANSDERMA (09:48)
[2024-07-22] MEDS: Gabapentin 100 MG CAPSULE 200 MG PO ×2 (09:48→20:13)
[2024-07-22] MEDS: Atorvastatin Calcium 20 MG TABLET PO (09:48)
[2024-07-22] MEDS: Cyanocobalamin (Vitamin B-12) 1,000 MCG TABLET 1000 MCG PO (09:49)
[2024-07-22] MEDS: Nystatin Cream 15 GM TUBE 1 APPL TOPICAL ×2 (09:54→20:13)
--- NOTE | 2024-07-22 11:42 | P.PNIM_ITS ---
Subjective Subjective Date of Service: 07/22/24 Interval History: seen this morning laying comfortable in his bed concerns about decrease PO intake no overnight events Review of Systems Review of Systems: Yes all other systems are reviewed and are negative Physical Exam 2 Vital Signs: Vital Signs: Last Vital Signs Temp 96.8 F 07/22/24 07:39 Pulse 63 07/22/24 07:39 Resp 16 07/22/24 07:39 BP 120/59 L 07/22/24 07:39 Pulse Ox 96 07/22/24 07:39 O2 Del Method Room Air 07/22/24 07:39 O2 Flow Rate 2 06/25/24 14:00 BMI result Body Mass Index 20.3 Const: Other: Constitutional : interactive, not in distress Cardiovascular : no JVP, no lower extremity edema Respiratory : bilateral chest movement, not in resp distress Gastrointestinal: soft, lax, Non tender Skin : Warm, Dry Neurological : Alert and oriented to self only, No focal deficit Objective Data Active Medications Acetaminophen (Acetaminophen 325 Mg Tablet) 650 mg PO Q6H PRN PRN Reason: Pain, Mild (Pain Scale 1-3), fever or headache Last Admin: 07/22/24 09:48 Dose: 650 mg Documented By: CASS Amlodipine Besylate (Amlodipine Besylate 5 Mg Tablet) 5 mg PO DAILY [facility]; Protocol Last Admin: 07/09/24 09:18 Dose: 5 mg Documented By: NIRAV Atorvastatin Calcium (Atorvastatin Calcium 20 Mg Tablet) 20 mg PO DAILY [facility] Last Admin: 07/22/24 09:48 Dose: 20 mg Documented By: CASS Calcium Carbonate (Calcium Carbonate 750 Mg Tab.Chew) 750 mg PO Q4H PRN PRN Reason: Heartburn Cyanocobalamin (Cyanocobalamin (Vitamin B-12) 1,000 Mcg Tablet) 1,000 mcg PO DAILY [facility] Last Admin: 07/22/24 09:49 Dose: 1,000 mcg Documented By: CASS Divalproex Sodium (Divalproex Sodium Sprinkles 125 Mg ) 500 mg PO BEDTIME [facility] Last Admin: 07/21/24 20:52 Dose: 500 mg Documented By: KAITLYN Enoxaparin Sodium (Enoxaparin Sodium 40 Mg/0.4 Ml Syringe) 40 mg SUBCUT Q24H [facility] Last Admin: 07/21/24 15:12 Dose: 40 mg Documented By: CAIO Gabapentin (Gabapentin 100 Mg Capsule) 200 mg PO BID [facility] Last Admin: 07/22/24 09:48 Dose: 200 mg Documented By: CASS Lidocaine (Lidocaine 4 % Patch Adh..Patch) 1 patch TRANSDERMA DAILY [facility] Last Admin: 07/22/24 09:48 Dose: 1 patch Documented By: CASS Magnesium Hydroxide (Milk Of Magnesia 30 Ml Oral.Susp) 30 ml PO DAILY PRN PRN Reason: Constipation Last Admin: 07/19/24 05:11 Dose: 30 ml Documented By: KAITLYN Melatonin (Melatonin 3 Mg Tablet) 6 mg PO BEDTIME PRN PRN Reason: Sleep Last Admin: 07/20/24 19:49 Dose: 6 mg Documented By: REBECA Melatonin (Melatonin 3 Mg Tablet) 6 mg PO BEDTIME PRN PRN Reason: Insomnia Nystatin (Nystatin Cream 15 Gm Tube) 1 appl TOPICAL BID [facility]; Protocol Last Admin: 07/22/24 09:54 Dose: 1 appl Documented By: CASS Trazodone HCl (Trazodone Hcl 50 Mg Tablet) 50 mg PO BEDTIME PRN PRN Reason: Insomnia Last Admin: 07/06/24 20:30 Dose: 50 mg Documented By: DITOLC Labs 07/15/24 05:30 07/15/24 05:30 Assessment and Plan (1) Major neurocognitive disorder: Status: Acute Plan 79-year-old male with history of advanced dementia, hyperlipidemia, hypertension, history of alcohol use disorder, polysubstance abuse presented on 06/25 due to increasing generalized fatigue/weakness, lethargy, decreased appetite and confusion admitted 07/07/24 as a social admit awaiting placement no new changes 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 Continue amlodipine HLD statin dvt prophylaxis- lovenox full code Patient has no capacity to make medical decisions and is waiting for Guardianship. Quality Stroke Does the patient have a stroke diagnosis?: No VTE Prior VTE?: No VTE Risk Level:: Medical - moderate - high VTE Device Contraindication: Treatment Not Indicated VTE Drug Contraindication: N/A - Med Ordered
--- NOTE | 2024-07-22 13:10 | MHC.CLN ---
NUTRITION PATIENT WITH POOR PO X 5 DAYS. ADDING ENSURE TID TO INCREASE NUTRITIONAL INTAKE. SUPPLEMENT PROVIDES 1050 KCALS, 60 G PROTEIN. MAY REQUIRE ALTERNATE NUTRITION IF NO IMPROVEMENT IN PO INTAKE.
--- NOTE | 2024-07-22 13:47 | MHC.CM.PN ---
EMR REVIEWED. PT WITH DECREASED PO INTAKE X 5 DAYS. LASER TECHNICIAN FOLLOWING. PT IS AWAITING GUARDIANSHIP/HEARING DATE PENDING. CM WILL CONTINUE TO FOLLOW FOR ANY CHANGE TO DC PLAN/NEEDS.
[2024-07-22] MEDS: Enoxaparin Sodium 40 MG/0.4 ML SYRINGE SUBCUT (14:47)
[2024-07-22 15:02] VITALS: BP 120/67; PULSE 57; RESP 18; TEMP 36.2; O2SAT 97
[2024-07-22 19:37] VITALS: BP 118/59; PULSE 64; RESP 18; TEMP 36.6; O2SAT 97
[2024-07-22] MEDS: Divalproex Sodium Sprinkles 125 MG CAP.DR.SPR 500 MG PO (20:13)
[2024-07-23 02:57] VITALS: BP 128/70; PULSE 61; RESP 16; TEMP 36.1; O2SAT 98
[2024-07-23 07:39] VITALS: BP 130/69; PULSE 58; RESP 16; TEMP 36.8; O2SAT 96
[2024-07-23] MEDS: Lidocaine 4 % Patch ADH..PATCH 1 PATCH TRANSDERMA (09:21)
[2024-07-23] MEDS: Cyanocobalamin (Vitamin B-12) 1,000 MCG TABLET 1000 MCG PO (09:21)
[2024-07-23] MEDS: Gabapentin 100 MG CAPSULE 200 MG PO ×2 (09:21→20:11)
[2024-07-23] MEDS: Atorvastatin Calcium 20 MG TABLET PO (09:21)
[2024-07-23] MEDS: Nystatin Cream 15 GM TUBE 1 APPL TOPICAL ×2 (09:22→20:12)
--- NOTE | 2024-07-23 14:18 | P.PNIM_ITS ---
Subjective Subjective Date of Service: 07/23/24 Interval History: seen this morning laying comfortable in his bed reported decreased PO intake , he said he likes to eat what he wants no overnight events Review of Systems Review of Systems: Yes all other systems are reviewed and are negative Physical Exam 2 Vital Signs: Vital Signs: Last Vital Signs Temp 98.3 F 07/23/24 07:39 Pulse 58 07/23/24 07:39 Resp 16 07/23/24 07:39 BP 130/69 07/23/24 07:39 Pulse Ox 96 07/23/24 07:39 O2 Del Method Room Air 07/23/24 07:39 O2 Flow Rate 2 06/25/24 14:00 BMI result Body Mass Index 20.3 Const: Other: Constitutional : interactive, not in distress Cardiovascular : no JVP, no lower extremity edema Respiratory : bilateral chest movement, not in resp distress Gastrointestinal: soft, lax, Non tender Skin : Warm, Dry Neurological : Alert and oriented to self only, No focal deficit Objective Data Active Medications Acetaminophen (Acetaminophen 325 Mg Tablet) 650 mg PO Q6H PRN PRN Reason: Pain, Mild (Pain Scale 1-3), fever or headache Last Admin: 07/22/24 09:48 Dose: 650 mg Documented By: CASS Amlodipine Besylate (Amlodipine Besylate 5 Mg Tablet) 5 mg PO DAILY [facility]; Protocol Last Admin: 07/09/24 09:18 Dose: 5 mg Documented By: NIRAV Atorvastatin Calcium (Atorvastatin Calcium 20 Mg Tablet) 20 mg PO DAILY [facility] Last Admin: 07/23/24 09:21 Dose: 20 mg Documented By: BEAR Calcium Carbonate (Calcium Carbonate 750 Mg Tab.Chew) 750 mg PO Q4H PRN PRN Reason: Heartburn Cyanocobalamin (Cyanocobalamin (Vitamin B-12) 1,000 Mcg Tablet) 1,000 mcg PO DAILY [facility] Last Admin: 07/23/24 09:21 Dose: 1,000 mcg Documented By: BEAR Divalproex Sodium (Divalproex Sodium Sprinkles 125 Mg ) 500 mg PO BEDTIME [facility] Last Admin: 07/22/24 20:13 Dose: 500 mg Documented By: ANGELIKA Enoxaparin Sodium (Enoxaparin Sodium 40 Mg/0.4 Ml Syringe) 40 mg SUBCUT Q24H [facility] Last Admin: 07/22/24 14:47 Dose: 40 mg Documented By: CASS Gabapentin (Gabapentin 100 Mg Capsule) 200 mg PO BID [facility] Last Admin: 07/23/24 09:21 Dose: 200 mg Documented By: BEAR Lidocaine (Lidocaine 4 % Patch Adh..Patch) 1 patch TRANSDERMA DAILY [facility] Last Admin: 07/23/24 09:21 Dose: 1 patch Documented By: BEAR Magnesium Hydroxide (Milk Of Magnesia 30 Ml Oral.Susp) 30 ml PO DAILY PRN PRN Reason: Constipation Last Admin: 07/19/24 05:11 Dose: 30 ml Documented By: KAITLYN Melatonin (Melatonin 3 Mg Tablet) 6 mg PO BEDTIME PRN PRN Reason: Sleep Last Admin: 07/20/24 19:49 Dose: 6 mg Documented By: REBECA Melatonin (Melatonin 3 Mg Tablet) 6 mg PO BEDTIME PRN PRN Reason: Insomnia Nystatin (Nystatin Cream 15 Gm Tube) 1 appl TOPICAL BID [facility]; Protocol Last Admin: 07/23/24 09:22 Dose: 1 appl Documented By: BEAR Trazodone HCl (Trazodone Hcl 50 Mg Tablet) 50 mg PO BEDTIME PRN PRN Reason: Insomnia Last Admin: 07/06/24 20:30 Dose: 50 mg Documented By: SAWTOLC Labs 07/15/24 05:30 07/15/24 05:30 Assessment and Plan (1) Major neurocognitive disorder: Status: Acute Plan 79-year-old male with history of advanced dementia, hyperlipidemia, hypertension, history of alcohol use disorder, polysubstance abuse presented on 06/25 due to increasing generalized fatigue/weakness, lethargy, decreased appetite and confusion admitted 07/07/24 as a social admit awaiting placement 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 Continue amlodipine HLD statin dvt prophylaxis- lovenox full code Patient has no capacity to make medical decisions and is waiting for Guardianship. Quality Stroke Does the patient have a stroke diagnosis?: No VTE Prior VTE?: No VTE Risk Level:: Medical - moderate - high VTE Device Contraindication: Treatment Not Indicated VTE Drug Contraindication: N/A - Med Ordered
[2024-07-23] MEDS: Enoxaparin Sodium 40 MG/0.4 ML SYRINGE SUBCUT (14:54)
[2024-07-23 14:57] VITALS: BP 127/63; PULSE 65; RESP 18; TEMP 36.6; O2SAT 97
[2024-07-23 19:39] VITALS: BP 108/58; PULSE 59; RESP 18; TEMP 36.5; O2SAT 94
[2024-07-23] MEDS: Divalproex Sodium Sprinkles 125 MG CAP.DR.SPR 500 MG PO (20:11)
[2024-07-24 03:41] VITALS: BP 120/60; PULSE 58; RESP 16; TEMP 36.9; O2SAT 97
[2024-07-24 07:00] LABS: Hematocrit 39.1 % (42.0-52.0); Hemoglobin 13.3 g/dl (14.0-18.0); Mean Corpuscular Hemoglobin 31.4 pg (27.0-33.0); Mean Corpuscular Volume 92.4 fL (80.0-98.0); Mean Platelet Volume 13.7 fL (9.4-12.4); PLT CLUMP 1; Red Blood Count 4.23 X10*6/uL (4.60-5.80); Red Cell Distribution Width 14.1 % (11.0-16.0)
[2024-07-24 07:11] LABS: Platelet Count 116 X10*3/uL (160-400)
[2024-07-24 07:16] LABS: Anion Gap 14 (12-20); Blood Urea Nitrogen 20 mg/dL (9-16); Calcium 9.6 mg/dL (8.4-10.2); Carbon Dioxide 28 mmol/L (22-29); Chloride 103 mmol/L (96-108); Creatinine Clr Calc Pharmacy 66.4; Estimated Glomerular Filt Rate > 60; Glucose Random 91 mg/dL (60-115); Potassium 3.8 mmol/L (3.3-5.1); Sodium 141 mmol/L (135-145)
[2024-07-24 08:00] VITALS: BP 130/73; PULSE 67; RESP 16; TEMP 36.3; O2SAT 97
--- NOTE | 2024-07-24 09:57 | P.PNIM_ITS ---
Subjective Subjective Date of Service: 07/24/24 Interval History: seen this morning laying comfortable in his bed decreased PO intake , he likes to eat what he wants and he is very picky no overnight events Review of Systems Review of Systems: Yes all other systems are reviewed and are negative Physical Exam 2 Vital Signs: Vital Signs: Last Vital Signs Temp 97.4 F 07/24/24 08:00 Pulse 67 07/24/24 08:00 Resp 16 07/24/24 08:00 BP 130/73 07/24/24 08:00 Pulse Ox 97 07/24/24 08:00 O2 Del Method Room Air 07/24/24 08:00 O2 Flow Rate 2 06/25/24 14:00 BMI result Body Mass Index 20.3 Const: Other: Constitutional : interactive, not in distress Cardiovascular : no JVP, no lower extremity edema Respiratory : bilateral chest movement, not in resp distress Gastrointestinal: soft, lax, Non tender Skin : Warm, Dry Neurological : Alert and oriented to self only, No focal deficit Objective Data Active Medications Acetaminophen (Acetaminophen 325 Mg Tablet) 650 mg PO Q6H PRN PRN Reason: Pain, Mild (Pain Scale 1-3), fever or headache Last Admin: 07/22/24 09:48 Dose: 650 mg Documented By: CASS Amlodipine Besylate (Amlodipine Besylate 5 Mg Tablet) 5 mg PO DAILY [facility]; Protocol Last Admin: 07/09/24 09:18 Dose: 5 mg Documented By: NIRAV Atorvastatin Calcium (Atorvastatin Calcium 20 Mg Tablet) 20 mg PO DAILY [facility] Last Admin: 07/23/24 09:21 Dose: 20 mg Documented By: BEAR Calcium Carbonate (Calcium Carbonate 750 Mg Tab.Chew) 750 mg PO Q4H PRN PRN Reason: Heartburn Cyanocobalamin (Cyanocobalamin (Vitamin B-12) 1,000 Mcg Tablet) 1,000 mcg PO DAILY [facility] Last Admin: 07/23/24 09:21 Dose: 1,000 mcg Documented By: BEAR Divalproex Sodium (Divalproex Sodium Sprinkles 125 Mg ) 500 mg PO BEDTIME [facility] Last Admin: 07/23/24 20:11 Dose: 500 mg Documented By: ANGELIKA Enoxaparin Sodium (Enoxaparin Sodium 40 Mg/0.4 Ml Syringe) 40 mg SUBCUT Q24H [facility] Last Admin: 07/23/24 14:54 Dose: 40 mg Documented By: BEAR Gabapentin (Gabapentin 100 Mg Capsule) 200 mg PO BID [facility] Last Admin: 07/23/24 20:11 Dose: 200 mg Documented By: ANGELIKA Lidocaine (Lidocaine 4 % Patch Adh..Patch) 1 patch TRANSDERMA DAILY [facility] Last Admin: 07/23/24 09:21 Dose: 1 patch Documented By: BEAR Magnesium Hydroxide (Milk Of Magnesia 30 Ml Oral.Susp) 30 ml PO DAILY PRN PRN Reason: Constipation Last Admin: 07/19/24 05:11 Dose: 30 ml Documented By: KAITLYN Melatonin (Melatonin 3 Mg Tablet) 6 mg PO BEDTIME PRN PRN Reason: Sleep Last Admin: 07/20/24 19:49 Dose: 6 mg Documented By: REBECA Melatonin (Melatonin 3 Mg Tablet) 6 mg PO BEDTIME PRN PRN Reason: Insomnia Nystatin (Nystatin Cream 15 Gm Tube) 1 appl TOPICAL BID [facility]; Protocol Last Admin: 07/23/24 20:12 Dose: 1 appl Documented By: ANGELIKA Trazodone HCl (Trazodone Hcl 50 Mg Tablet) 50 mg PO BEDTIME PRN PRN Reason: Insomnia Last Admin: 07/06/24 20:30 Dose: 50 mg Documented By: DITOLC Labs 07/24/24 05:26 07/24/24 05:26 Labs: Laboratory Results - last 24 hr 07/24/24 05:26 MCV 92.4 MCH 31.4 MCHC 34.0 RDW 14.1 Plt Count 116 L MPV 13.7 H Absolute Nucleated RBC 0.000 Nucleated RBC % (auto) 0.0 Anion Gap 14 Estim Creat Clear Calc 66.4 Estimated GFR > 60 Random Glucose 91 Calcium 9.6 Assessment and Plan (1) Major neurocognitive disorder: Status: Acute Plan 79-year-old male with history of advanced dementia, hyperlipidemia, hypertension, history of alcohol use disorder, polysubstance abuse presented on 06/25 due to increasing generalized fatigue/weakness, lethargy, decreased appetite and confusion admitted 07/07/24 as a social admit awaiting placement FTT in elderly Not eating much; he reports that he wants to eat whenever he wants and we can not force him to eat Encouraged to eat more 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 Continue amlodipine HLD statin dvt prophylaxis- lovenox full code Patient has no capacity to make medical decisions and is waiting for Guardianship. Quality Stroke Does the patient have a stroke diagnosis?: No VTE Prior VTE?: No VTE Risk Level:: Medical - moderate - high VTE Device Contraindication: Treatment Not Indicated VTE Drug Contraindication: N/A - Med Ordered
[2024-07-24] MEDS: Atorvastatin Calcium 20 MG TABLET PO (10:34)
[2024-07-24] MEDS: Gabapentin 100 MG CAPSULE 200 MG PO ×2 (10:34→20:18)
[2024-07-24] MEDS: Cyanocobalamin (Vitamin B-12) 1,000 MCG TABLET 1000 MCG PO (10:34)
[2024-07-24] MEDS: Lidocaine 4 % Patch ADH..PATCH 1 PATCH TRANSDERMA (10:35)
[2024-07-24] MEDS: Nystatin Cream 15 GM TUBE 1 APPL TOPICAL ×2 (10:35→20:18)
[2024-07-24 10:47] VITALS: BMI 20.3
--- NOTE | 2024-07-24 11:01 | MHC.CLN ---
F/U DIET=REGULAR. ENSURE TID PROVIDE ADDITIONAL 1050 KCALS, 60 G PROTEIN. POOR PO INTAKE GREATER THAN 5 DAYS. PATIENT AWAITING GUARDIANSHIP AND LTC PLACEMENT. MD AWARE OF POOR PO. NO ALTERNATE NUTRITION AT THIS TIME. FAMILY HAS BROUGHT IN FOODS THAT PATIENT MAY LIKE. CONTINUE TO FOLLOW FOR PO INTAKE AND PLAN OF CARE. SEE CLINICAL NUTRITION ASSESSMENT 07/24/24.
--- NOTE | 2024-07-24 11:51 | MHC.CM.PN ---
PT AWAITING GUARDIANSHIP FOR LTC PLACEMENT ONCE GUARDIANSHIP IS IN PLACE, SNF REFERRALS WILL BE PLACED
[2024-07-24] MEDS: Enoxaparin Sodium 40 MG/0.4 ML SYRINGE SUBCUT (13:12)
[2024-07-24 16:00] VITALS: BP 117/65; PULSE 68; RESP 12; TEMP 36.4; O2SAT 97
[2024-07-24 19:13] VITALS: BP 118/68; PULSE 65; RESP 18; TEMP 36.6; O2SAT 96
[2024-07-24] MEDS: Divalproex Sodium Sprinkles 125 MG CAP.DR.SPR 500 MG PO (20:18)
[2024-07-25 03:14] VITALS: BP 98/57; PULSE 87; RESP 16; TEMP 36.7; O2SAT 97
[2024-07-25 07:37] VITALS: BP 106/57; PULSE 65; RESP 16; TEMP 37.3; O2SAT 97
[2024-07-25] MEDS: Cyanocobalamin (Vitamin B-12) 1,000 MCG TABLET 1000 MCG PO (08:39)
[2024-07-25] MEDS: Acetaminophen 325 MG TABLET 650 MG PO (08:39)
[2024-07-25] MEDS: Atorvastatin Calcium 20 MG TABLET PO (08:39)
[2024-07-25] MEDS: Gabapentin 100 MG CAPSULE 200 MG PO ×2 (08:39→20:22)
[2024-07-25] MEDS: Nystatin Cream 15 GM TUBE 1 APPL TOPICAL ×2 (08:40→20:22)
[2024-07-25] MEDS: Lidocaine 4 % Patch ADH..PATCH 1 PATCH TRANSDERMA (08:41)
--- NOTE | 2024-07-25 10:33 | P.PNIM_ITS ---
Subjective Subjective Date of Service: 07/25/24 Interval History: seen this morning laying comfortable in his bed reported eating little more no overnight events Review of Systems Review of Systems: Yes all other systems are reviewed and are negative Physical Exam 2 Vital Signs: Vital Signs: Last Vital Signs Temp 99.1 F 07/25/24 07:37 Pulse 65 07/25/24 07:37 Resp 16 07/25/24 07:37 BP 106/57 L 07/25/24 07:37 Pulse Ox 97 07/25/24 07:37 O2 Del Method Room Air 07/25/24 07:37 O2 Flow Rate 2 06/25/24 14:00 BMI result Body Mass Index 20.3 Const: Other: Constitutional : interactive, not in distress Cardiovascular : no JVP, no lower extremity edema Respiratory : bilateral chest movement, not in resp distress Gastrointestinal: soft, lax, Non tender Skin : Warm, Dry Neurological : Alert and oriented to self only, No focal deficit Objective Data Active Medications Acetaminophen (Acetaminophen 325 Mg Tablet) 650 mg PO Q6H PRN PRN Reason: Pain, Mild (Pain Scale 1-3), fever or headache Last Admin: 07/25/24 08:39 Dose: 650 mg Documented By: CASS Amlodipine Besylate (Amlodipine Besylate 5 Mg Tablet) 5 mg PO DAILY [facility]; Protocol Last Admin: 07/09/24 09:18 Dose: 5 mg Documented By: NIRAV Atorvastatin Calcium (Atorvastatin Calcium 20 Mg Tablet) 20 mg PO DAILY [facility] Last Admin: 07/25/24 08:39 Dose: 20 mg Documented By: CASS Calcium Carbonate (Calcium Carbonate 750 Mg Tab.Chew) 750 mg PO Q4H PRN PRN Reason: Heartburn Cyanocobalamin (Cyanocobalamin (Vitamin B-12) 1,000 Mcg Tablet) 1,000 mcg PO DAILY [facility] Last Admin: 07/25/24 08:39 Dose: 1,000 mcg Documented By: CASS Divalproex Sodium (Divalproex Sodium Sprinkles 125 Mg ) 500 mg PO BEDTIME [facility] Last Admin: 07/24/24 20:18 Dose: 500 mg Documented By: NIK Enoxaparin Sodium (Enoxaparin Sodium 40 Mg/0.4 Ml Syringe) 40 mg SUBCUT Q24H [facility] Last Admin: 07/24/24 13:12 Dose: 40 mg Documented By: BEAR Gabapentin (Gabapentin 100 Mg Capsule) 200 mg PO BID [facility] Last Admin: 07/25/24 08:39 Dose: 200 mg Documented By: CASS Lidocaine (Lidocaine 4 % Patch Adh..Patch) 1 patch TRANSDERMA DAILY [facility] Last Admin: 07/25/24 08:41 Dose: 1 patch Documented By: CASS Magnesium Hydroxide (Milk Of Magnesia 30 Ml Oral.Susp) 30 ml PO DAILY PRN PRN Reason: Constipation Last Admin: 07/19/24 05:11 Dose: 30 ml Documented By: KAITLYN Melatonin (Melatonin 3 Mg Tablet) 6 mg PO BEDTIME PRN PRN Reason: Sleep Last Admin: 07/20/24 19:49 Dose: 6 mg Documented By: REBECA Melatonin (Melatonin 3 Mg Tablet) 6 mg PO BEDTIME PRN PRN Reason: Insomnia Nystatin (Nystatin Cream 15 Gm Tube) 1 appl TOPICAL BID [facility]; Protocol Last Admin: 07/25/24 08:40 Dose: 1 appl Documented By: CASS Trazodone HCl (Trazodone Hcl 50 Mg Tablet) 50 mg PO BEDTIME PRN PRN Reason: Insomnia Last Admin: 07/06/24 20:30 Dose: 50 mg Documented By: DITOLC Labs 07/24/24 05:26 07/24/24 05:26 Assessment and Plan (1) Major neurocognitive disorder: Status: Acute Plan 79-year-old male with history of advanced dementia, hyperlipidemia, hypertension, history of alcohol use disorder, polysubstance abuse presented on 06/25 due to increasing generalized fatigue/weakness, lethargy, decreased appetite and confusion admitted 07/07/24 as a social admit awaiting placement FTT in elderly Not eating much; he reports that he wants to eat whenever he wants and we can not force him to eat Encouraged to eat more 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 Continue amlodipine HLD statin dvt prophylaxis- lovenox full code Patient has no capacity to make medical decisions and is waiting for Guardianship. Quality Stroke Does the patient have a stroke diagnosis?: No VTE Prior VTE?: No VTE Risk Level:: Medical - moderate - high VTE Device Contraindication: Treatment Not Indicated VTE Drug Contraindication: N/A - Med Ordered
[2024-07-25] MEDS: Enoxaparin Sodium 40 MG/0.4 ML SYRINGE SUBCUT (13:23)
[2024-07-25 15:01] VITALS: BP 119/69; PULSE 68; RESP 18; TEMP 36.9; O2SAT 97
[2024-07-25 19:45] VITALS: BP 118/65; PULSE 66; RESP 18; TEMP 37.5; O2SAT 97
[2024-07-25] MEDS: Divalproex Sodium Sprinkles 125 MG CAP.DR.SPR 500 MG PO (20:22)
[2024-07-26 03:07] VITALS: BP 114/61; PULSE 59; RESP 16; TEMP 36; O2SAT 97
[2024-07-26 07:27] VITALS: BP 112/63; PULSE 65; RESP 16; TEMP 36.6; O2SAT 96
[2024-07-26] MEDS: Lidocaine 4 % Patch ADH..PATCH 1 PATCH TRANSDERMA (08:45)
[2024-07-26] MEDS: Nystatin Cream 15 GM TUBE 1 APPL TOPICAL ×2 (08:48→20:17)
[2024-07-26] MEDS: Cyanocobalamin (Vitamin B-12) 1,000 MCG TABLET 1000 MCG PO (08:48)
[2024-07-26] MEDS: Gabapentin 100 MG CAPSULE 200 MG PO ×2 (08:48→20:16)
[2024-07-26] MEDS: Atorvastatin Calcium 20 MG TABLET PO (08:48)
--- NOTE | 2024-07-26 11:18 | HO.PM.IMPN ---
Subjective Subjective Date of Service: 07/26/24 Interval History: seen this morning laying comfortable in his bed eating little more no overnight events Review of Systems Review of Systems: Yes all other systems are reviewed and are negative Physical Exam Vital Signs: Vital Signs: Last Vital Signs Temp 97.9 F 07/26/24 07:27 Pulse 65 07/26/24 07:27 Resp 16 07/26/24 07:27 BP 112/63 07/26/24 07:27 Pulse Ox 96 07/26/24 07:27 O2 Del Method Room Air 07/26/24 07:27 O2 Flow Rate 2 06/25/24 14:00 BMI result Body Mass Index 20.3 Const: Other: Constitutional : interactive, not in distress Cardiovascular : no JVP, no lower extremity edema Respiratory : bilateral chest movement, not in resp distress Gastrointestinal: soft, lax, Non tender Skin : Warm, Dry Neurological : Alert and oriented to self only, No focal deficit Objective Data Active Medications Acetaminophen (Acetaminophen 325 Mg Tablet) 650 mg PO Q6H PRN PRN Reason: Pain, Mild (Pain Scale 1-3), fever or headache Last Admin: 07/25/24 08:39 Dose: 650 mg Documented By: CASS Amlodipine Besylate (Amlodipine Besylate 5 Mg Tablet) 5 mg PO DAILY [facility]; Protocol Last Admin: 07/09/24 09:18 Dose: 5 mg Documented By: NIRAV Atorvastatin Calcium (Atorvastatin Calcium 20 Mg Tablet) 20 mg PO DAILY [facility] Last Admin: 07/26/24 08:48 Dose: 20 mg Documented By: ANGELINA Calcium Carbonate (Calcium Carbonate 750 Mg Tab.Chew) 750 mg PO Q4H PRN PRN Reason: Heartburn Cyanocobalamin (Cyanocobalamin (Vitamin B-12) 1,000 Mcg Tablet) 1,000 mcg PO DAILY [facility] Last Admin: 07/26/24 08:48 Dose: 1,000 mcg Documented By: ANGELINA Divalproex Sodium (Divalproex Sodium Sprinkles 125 Mg ) 500 mg PO BEDTIME [facility] Last Admin: 07/25/24 20:22 Dose: 500 mg Documented By: MANISHA Enoxaparin Sodium (Enoxaparin Sodium 40 Mg/0.4 Ml Syringe) 40 mg SUBCUT Q24H [facility] Last Admin: 07/25/24 13:23 Dose: 40 mg Documented By: CASS Gabapentin (Gabapentin 100 Mg Capsule) 200 mg PO BID [facility] Last Admin: 07/26/24 08:48 Dose: 200 mg Documented By: ANGELINA Lidocaine (Lidocaine 4 % Patch Adh..Patch) 1 patch TRANSDERMA DAILY [facility] Last Admin: 07/26/24 08:45 Dose: 1 patch Documented By: ANGELINA Magnesium Hydroxide (Milk Of Magnesia 30 Ml Oral.Susp) 30 ml PO DAILY PRN PRN Reason: Constipation Last Admin: 07/19/24 05:11 Dose: 30 ml Documented By: KAITLYN Melatonin (Melatonin 3 Mg Tablet) 6 mg PO BEDTIME PRN PRN Reason: Sleep Last Admin: 07/20/24 19:49 Dose: 6 mg Documented By: REBECA Melatonin (Melatonin 3 Mg Tablet) 6 mg PO BEDTIME PRN PRN Reason: Insomnia Nystatin (Nystatin Cream 15 Gm Tube) 1 appl TOPICAL BID [facility]; Protocol Last Admin: 07/26/24 08:48 Dose: 1 appl Documented By: ANGELINA Trazodone HCl (Trazodone Hcl 50 Mg Tablet) 50 mg PO BEDTIME PRN PRN Reason: Insomnia Last Admin: 07/06/24 20:30 Dose: 50 mg Documented By: DITOLC Labs 07/24/24 05:26 07/24/24 05:26 Assessment and Plan (1) Major neurocognitive disorder: Status: Acute Plan 79-year-old male with history of advanced dementia, hyperlipidemia, hypertension, history of alcohol use disorder, polysubstance abuse presented on 06/25 due to increasing generalized fatigue/weakness, lethargy, decreased appetite and confusion admitted 07/07/24 as a social admit awaiting placement FTT in elderly Not eating much; he reports that he wants to eat whenever he wants and we can not force him to eat Encouraged to eat more 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 Continue amlodipine HLD statin dvt prophylaxis- lovenox full code Patient has no capacity to make medical decisions and is waiting for Guardianship. Quality Stroke Does the patient have a stroke diagnosis?: No VTE Prior VTE?: No VTE Risk Level:: Medical - moderate - high VTE Device Contraindication: Treatment Not Indicated VTE Drug Contraindication: N/A - Med Ordered
[2024-07-26] MEDS: Enoxaparin Sodium 40 MG/0.4 ML SYRINGE SUBCUT (13:09)
[2024-07-26 15:03] VITALS: BP 109/69; PULSE 65; RESP 18; TEMP 36.3; O2SAT 98
[2024-07-26 20:00] VITALS: BP 112/67; PULSE 67; RESP 16; TEMP 36.7; O2SAT 98
[2024-07-26] MEDS: Divalproex Sodium Sprinkles 125 MG CAP.DR.SPR 500 MG PO (20:16)
[2024-07-27 04:00] VITALS: BP 100/51; PULSE 58; RESP 15; TEMP 36.5; O2SAT 96
[2024-07-27 07:07] VITALS: BP 122/61; PULSE 70; RESP 15; TEMP 36.6; O2SAT 97
[2024-07-27 07:19] VITALS: BP 122/61; PULSE 69; RESP 16; TEMP 36.3; O2SAT 96
[2024-07-27] MEDS: Lidocaine 4 % Patch ADH..PATCH 1 PATCH TRANSDERMA (08:40)
[2024-07-27] MEDS: Gabapentin 100 MG CAPSULE 200 MG PO ×2 (08:40→20:23)
[2024-07-27] MEDS: Cyanocobalamin (Vitamin B-12) 1,000 MCG TABLET 1000 MCG PO (08:40)
[2024-07-27] MEDS: Atorvastatin Calcium 20 MG TABLET PO (08:40)
[2024-07-27] MEDS: Nystatin Cream 15 GM TUBE 1 APPL TOPICAL ×2 (08:44→20:27)
--- NOTE | 2024-07-27 09:20 | MHC.CLN ---
F/U DIET=REGULAR. ENSURE TID PROVIDE ADDITIONAL 1050 KCALS, 60 G PROTEIN. CONTINUES WITH USUALLY POOR PO. PATIENT AWAITING GUARDIANSHIP AND LTC PLACEMENT. NO ALTERNATE NUTRITION AT THIS TIME PER MD. FAMILY HAS BROUGHT IN FOODS THAT PATIENT MAY LIKE. CONTINUE TO FOLLOW FOR PO INTAKE AND PLAN OF CARE.
--- NOTE | 2024-07-27 10:49 | P.PNIM_ITS ---
Subjective Subjective Date of Service: 07/27/24 Interval History: seen this morning laying comfortable in his bed eating little more no overnight events Review of Systems Review of Systems: Yes all other systems are reviewed and are negative Physical Exam 2 Vital Signs: Vital Signs: Last Vital Signs Temp 97.4 F 07/27/24 07:19 Pulse 69 07/27/24 07:19 Resp 16 07/27/24 07:19 BP 122/61 07/27/24 07:19 Pulse Ox 96 07/27/24 07:19 O2 Del Method Room Air 07/27/24 07:19 O2 Flow Rate 2 06/25/24 14:00 BMI result Body Mass Index 20.3 Const: Other: Constitutional : interactive, not in distress Cardiovascular : no JVP, no lower extremity edema Respiratory : bilateral chest movement, not in resp distress Gastrointestinal: soft, lax, Non tender Skin : Warm, Dry Neurological : Alert and oriented to self only, No focal deficit Objective Data Active Medications Acetaminophen (Acetaminophen 325 Mg Tablet) 650 mg PO Q6H PRN PRN Reason: Pain, Mild (Pain Scale 1-3), fever or headache Last Admin: 07/25/24 08:39 Dose: 650 mg Documented By: CASS Amlodipine Besylate (Amlodipine Besylate 5 Mg Tablet) 5 mg PO DAILY [facility]; Protocol Last Admin: 07/09/24 09:18 Dose: 5 mg Documented By: NIRAV Atorvastatin Calcium (Atorvastatin Calcium 20 Mg Tablet) 20 mg PO DAILY [facility] Last Admin: 07/27/24 08:40 Dose: 20 mg Documented By: GERI Calcium Carbonate (Calcium Carbonate 750 Mg Tab.Chew) 750 mg PO Q4H PRN PRN Reason: Heartburn Cyanocobalamin (Cyanocobalamin (Vitamin B-12) 1,000 Mcg Tablet) 1,000 mcg PO DAILY [facility] Last Admin: 07/27/24 08:40 Dose: 1,000 mcg Documented By: GERI Divalproex Sodium (Divalproex Sodium Sprinkles 125 Mg ) 500 mg PO BEDTIME [facility] Last Admin: 07/26/24 20:16 Dose: 500 mg Documented By: SIMRAN Enoxaparin Sodium (Enoxaparin Sodium 40 Mg/0.4 Ml Syringe) 40 mg SUBCUT Q24H [facility] Last Admin: 07/26/24 13:09 Dose: 40 mg Documented By: ANGELINA Gabapentin (Gabapentin 100 Mg Capsule) 200 mg PO BID [facility] Last Admin: 07/27/24 08:40 Dose: 200 mg Documented By: GERI Lidocaine (Lidocaine 4 % Patch Adh..Patch) 1 patch TRANSDERMA DAILY [facility] Last Admin: 07/27/24 08:40 Dose: 1 patch Documented By: GERI Magnesium Hydroxide (Milk Of Magnesia 30 Ml Oral.Susp) 30 ml PO DAILY PRN PRN Reason: Constipation Last Admin: 07/19/24 05:11 Dose: 30 ml Documented By: KAITLYN Melatonin (Melatonin 3 Mg Tablet) 6 mg PO BEDTIME PRN PRN Reason: Sleep Last Admin: 07/20/24 19:49 Dose: 6 mg Documented By: REBECA Melatonin (Melatonin 3 Mg Tablet) 6 mg PO BEDTIME PRN PRN Reason: Insomnia Nystatin (Nystatin Cream 15 Gm Tube) 1 appl TOPICAL BID [facility]; Protocol Last Admin: 07/27/24 08:44 Dose: 1 appl Documented By: GERI Trazodone HCl (Trazodone Hcl 50 Mg Tablet) 50 mg PO BEDTIME PRN PRN Reason: Insomnia Last Admin: 07/06/24 20:30 Dose: 50 mg Documented By: DITOLC Labs 07/24/24 05:26 07/24/24 05:26 Assessment and Plan (1) Major neurocognitive disorder: Status: Acute Plan 79-year-old male with history of advanced dementia, hyperlipidemia, hypertension, history of alcohol use disorder, polysubstance abuse presented on 06/25 due to increasing generalized fatigue/weakness, lethargy, decreased appetite and confusion admitted 07/07/24 as a social admit awaiting placement FTT in elderly Not eating much; he reports that he wants to eat whenever he wants and we can not force him to eat Encouraged to eat more Ensure added and he is drinking some Equine Intern following Unspecified dementia awaiting gaurdianship/LTC mentation baseline Dysuria resolved , No UTI, was negative on arrival HTN normotensive overall since arrival. Continue amlodipine HLD statin dvt prophylaxis- lovenox full code Patient has no capacity to make medical decisions and is waiting for Guardianship. Quality Stroke Does the patient have a stroke diagnosis?: No VTE Prior VTE?: No VTE Risk Level:: Medical - moderate - high VTE Device Contraindication: Treatment Not Indicated VTE Drug Contraindication: N/A - Med Ordered
--- NOTE | 2024-07-27 13:18 | MHC.CM.PN ---
PER CM DIRECTOR, PT'S GUARDIANSHIP HEARING WILL BE 08/05/24 AT 10 AM.
[2024-07-27] MEDS: Enoxaparin Sodium 40 MG/0.4 ML SYRINGE SUBCUT (14:41)
[2024-07-27 14:51] VITALS: BP 103/59; PULSE 60; RESP 16; TEMP 36.2; O2SAT 96
[2024-07-27 19:10] VITALS: BP 106/60; PULSE 57; RESP 18; TEMP 36.6; O2SAT 97
[2024-07-27] MEDS: Divalproex Sodium Sprinkles 125 MG CAP.DR.SPR 500 MG PO (20:23)
[2024-07-28 03:05] VITALS: BP 105/57; PULSE 55; RESP 16; TEMP 37.1; O2SAT 97
[2024-07-28 07:48] VITALS: BP 109/53; PULSE 56; RESP 16; TEMP 36.4; O2SAT 99
[2024-07-28 08:03] VITALS: BP 143/73; PULSE 64; RESP 20; TEMP 36.1; O2SAT 100
[2024-07-28] MEDS: Cyanocobalamin (Vitamin B-12) 1,000 MCG TABLET 1000 MCG PO (08:37)
[2024-07-28] MEDS: Atorvastatin Calcium 20 MG TABLET PO (08:37)
[2024-07-28] MEDS: Lidocaine 4 % Patch ADH..PATCH 1 PATCH TRANSDERMA (08:37)
[2024-07-28] MEDS: Gabapentin 100 MG CAPSULE 200 MG PO ×2 (08:37→19:24)
--- NOTE | 2024-07-28 09:56 | HO.PM.IMPN ---
Subjective Subjective Date of Service: 07/28/24 Interval History: seen this morning laying comfortable in his bed eating little more no overnight events Review of Systems Review of Systems: Yes all other systems are reviewed and are negative Physical Exam Vital Signs: Vital Signs: Last Vital Signs Temp 96.9 F 07/28/24 08:03 Pulse 64 07/28/24 08:03 Resp 20 07/28/24 08:03 BP 143/73 H 07/28/24 08:03 Pulse Ox 100 07/28/24 08:03 O2 Del Method Nasal Cannula 07/28/24 08:03 O2 Flow Rate 2 07/28/24 08:03 BMI result Body Mass Index 20.3 Const: Other: Constitutional : interactive, not in distress Cardiovascular : no JVP, no lower extremity edema Respiratory : bilateral chest movement, not in resp distress Gastrointestinal: soft, lax, Non tender Skin : Warm, Dry Neurological : Alert and oriented to self only, No focal deficit Objective Data Active Medications Acetaminophen (Acetaminophen 325 Mg Tablet) 650 mg PO Q6H PRN PRN Reason: Pain, Mild (Pain Scale 1-3), fever or headache Last Admin: 07/25/24 08:39 Dose: 650 mg Documented By: CASS Amlodipine Besylate (Amlodipine Besylate 5 Mg Tablet) 5 mg PO DAILY [facility]; Protocol Last Admin: 07/09/24 09:18 Dose: 5 mg Documented By: NIRAV Atorvastatin Calcium (Atorvastatin Calcium 20 Mg Tablet) 20 mg PO DAILY [facility] Last Admin: 07/28/24 08:37 Dose: 20 mg Documented By: GERI Calcium Carbonate (Calcium Carbonate 750 Mg Tab.Chew) 750 mg PO Q4H PRN PRN Reason: Heartburn Cyanocobalamin (Cyanocobalamin (Vitamin B-12) 1,000 Mcg Tablet) 1,000 mcg PO DAILY [facility] Last Admin: 07/28/24 08:37 Dose: 1,000 mcg Documented By: GERI Divalproex Sodium (Divalproex Sodium Sprinkles 125 Mg ) 500 mg PO BEDTIME [facility] Last Admin: 07/27/24 20:23 Dose: 500 mg Documented By: KAITLYN Enoxaparin Sodium (Enoxaparin Sodium 40 Mg/0.4 Ml Syringe) 40 mg SUBCUT Q24H [facility] Last Admin: 07/27/24 14:41 Dose: 40 mg Documented By: GERI Gabapentin (Gabapentin 100 Mg Capsule) 200 mg PO BID [facility] Last Admin: 07/28/24 08:37 Dose: 200 mg Documented By: GERI Lidocaine (Lidocaine 4 % Patch Adh..Patch) 1 patch TRANSDERMA DAILY [facility] Last Admin: 07/28/24 08:37 Dose: 1 patch Documented By: GERI Magnesium Hydroxide (Milk Of Magnesia 30 Ml Oral.Susp) 30 ml PO DAILY PRN PRN Reason: Constipation Last Admin: 07/19/24 05:11 Dose: 30 ml Documented By: KAITLYN Melatonin (Melatonin 3 Mg Tablet) 6 mg PO BEDTIME PRN PRN Reason: Sleep Last Admin: 07/20/24 19:49 Dose: 6 mg Documented By: REBECA Melatonin (Melatonin 3 Mg Tablet) 6 mg PO BEDTIME PRN PRN Reason: Insomnia Nystatin (Nystatin Cream 15 Gm Tube) 1 appl TOPICAL BID [facility]; Protocol Last Admin: 07/27/24 20:27 Dose: 1 appl Documented By: KAITLYN Trazodone HCl (Trazodone Hcl 50 Mg Tablet) 50 mg PO BEDTIME PRN PRN Reason: Insomnia Last Admin: 07/06/24 20:30 Dose: 50 mg Documented By: DITOLC Labs 07/24/24 05:26 07/24/24 05:26 Assessment and Plan (1) Major neurocognitive disorder: Status: Acute Plan 79-year-old male with history of advanced dementia, hyperlipidemia, hypertension, history of alcohol use disorder, polysubstance abuse presented on 06/25 due to increasing generalized fatigue/weakness, lethargy, decreased appetite and confusion admitted 07/07/24 as a social admit awaiting placement FTT in elderly Not eating much; he reports that he wants to eat whenever he wants and we can not force him to eat Encouraged to eat more Ensure added and he is drinking some Liner Reroll Tender following Unspecified dementia awaiting gaurdianship/LTC mentation baseline Dysuria resolved , No UTI, was negative on arrival HTN normotensive overall since arrival. Continue amlodipine HLD statin dvt prophylaxis- lovenox full code Patient has no capacity to make medical decisions and is waiting for Guardianship. Quality Stroke Does the patient have a stroke diagnosis?: No VTE Prior VTE?: No VTE Risk Level:: Medical - moderate - high VTE Device Contraindication: Treatment Not Indicated VTE Drug Contraindication: N/A - Med Ordered
[2024-07-28] MEDS: Nystatin Cream 15 GM TUBE 1 APPL TOPICAL ×2 (10:06→19:27)
[2024-07-28] MEDS: Enoxaparin Sodium 40 MG/0.4 ML SYRINGE SUBCUT (14:18)
[2024-07-28] MEDS: Milk of Magnesia 30 ML ORAL.SUSP PO (14:18)
[2024-07-28 15:03] VITALS: BP 144/59; PULSE 58; RESP 18; TEMP 36.3; O2SAT 96
[2024-07-28] MEDS: Acetaminophen 325 MG TABLET 650 MG PO (15:10)
[2024-07-28] MEDS: Divalproex Sodium Sprinkles 125 MG CAP.DR.SPR 500 MG PO (19:24)
[2024-07-28] MEDS: Melatonin 3 MG TABLET 6 MG PO (19:24)
[2024-07-28 19:37] VITALS: BP 132/62; PULSE 60; RESP 16; TEMP 36.3; O2SAT 97
[2024-07-29 03:15] VITALS: BP 111/58; PULSE 55; RESP 14; TEMP 36; O2SAT 98
[2024-07-29 07:46] VITALS: BP 117/61; PULSE 63; RESP 18; TEMP 36.7; O2SAT 99
--- NOTE | 2024-07-29 08:14 | HO.PM.IMPN ---
Subjective Subjective Date of Service: 07/29/24 Interval History: no complaints Review of Systems Review of Systems: Yes all other systems are reviewed and are negative Physical Exam Vital Signs: Vital Signs: Last Vital Signs Temp 98.0 F 07/29/24 07:46 Pulse 63 07/29/24 07:46 Resp 18 07/29/24 07:46 BP 117/61 07/29/24 07:46 Pulse Ox 99 07/29/24 07:46 O2 Del Method Room Air 07/29/24 07:46 O2 Flow Rate 2 07/28/24 08:03 BMI result Body Mass Index 20.3 Const: Other: Constitutional : interactive, not in distress Cardiovascular : no JVP, no lower extremity edema Respiratory : bilateral chest movement, not in resp distress Gastrointestinal: soft, lax, Non tender Skin : Warm, Dry Neurological : Alert and oriented to self only, No focal deficit Objective Data Active Medications Acetaminophen (Acetaminophen 325 Mg Tablet) 650 mg PO Q6H PRN PRN Reason: Pain, Mild (Pain Scale 1-3), fever or headache Last Admin: 07/28/24 15:10 Dose: 650 mg Documented By: GERI Amlodipine Besylate (Amlodipine Besylate 5 Mg Tablet) 5 mg PO DAILY [facility]; Protocol Last Admin: 07/09/24 09:18 Dose: 5 mg Documented By: NIRAV Atorvastatin Calcium (Atorvastatin Calcium 20 Mg Tablet) 20 mg PO DAILY [facility] Last Admin: 07/28/24 08:37 Dose: 20 mg Documented By: GERI Calcium Carbonate (Calcium Carbonate 750 Mg Tab.Chew) 750 mg PO Q4H PRN PRN Reason: Heartburn Cyanocobalamin (Cyanocobalamin (Vitamin B-12) 1,000 Mcg Tablet) 1,000 mcg PO DAILY [facility] Last Admin: 07/28/24 08:37 Dose: 1,000 mcg Documented By: GERI Divalproex Sodium (Divalproex Sodium Sprinkles 125 Mg ) 500 mg PO BEDTIME [facility] Last Admin: 07/28/24 19:24 Dose: 500 mg Documented By: WILBERT Enoxaparin Sodium (Enoxaparin Sodium 40 Mg/0.4 Ml Syringe) 40 mg SUBCUT Q24H [facility] Last Admin: 07/28/24 14:18 Dose: 40 mg Documented By: GERI Gabapentin (Gabapentin 100 Mg Capsule) 200 mg PO BID [facility] Last Admin: 07/28/24 19:24 Dose: 200 mg Documented By: WILBERT Lidocaine (Lidocaine 4 % Patch Adh..Patch) 1 patch TRANSDERMA DAILY [facility] Last Admin: 07/28/24 08:37 Dose: 1 patch Documented By: GERI Magnesium Hydroxide (Milk Of Magnesia 30 Ml Oral.Susp) 30 ml PO DAILY PRN PRN Reason: Constipation Last Admin: 07/28/24 14:18 Dose: 30 ml Documented By: GERI Melatonin (Melatonin 3 Mg Tablet) 6 mg PO BEDTIME PRN PRN Reason: Sleep Last Admin: 07/28/24 19:24 Dose: 6 mg Documented By: WILBERT Melatonin (Melatonin 3 Mg Tablet) 6 mg PO BEDTIME PRN PRN Reason: Insomnia Nystatin (Nystatin Cream 15 Gm Tube) 1 appl TOPICAL BID [facility]; Protocol Last Admin: 07/28/24 19:27 Dose: 1 appl Documented By: WILBERT Trazodone HCl (Trazodone Hcl 50 Mg Tablet) 50 mg PO BEDTIME PRN PRN Reason: Insomnia Last Admin: 07/06/24 20:30 Dose: 50 mg Documented By: DITOLC Labs 07/24/24 05:26 07/24/24 05:26 Assessment and Plan (1) Major neurocognitive disorder: Status: Acute Plan 79-year-old male with history of advanced dementia, hyperlipidemia, hypertension, history of alcohol use disorder, polysubstance abuse presented on 06/25 due to increasing generalized fatigue/weakness, lethargy, decreased appetite and confusion admitted 07/07/24 as a social admit awaiting placement FTT in elderly Not eating much; he reports that he wants to eat whenever he wants and we can not force him to eat Encouraged to eat more Ensure added and he is drinking some Contract Clerk following Unspecified dementia awaiting gaurdianship/LTC mentation baseline Dysuria resolved , No UTI, was negative on arrival HTN normotensive overall since arrival. Continue amlodipine HLD statin dvt prophylaxis- lovenox full code Patient has no capacity to make medical decisions and is waiting for Guardianship. Quality Stroke Does the patient have a stroke diagnosis?: No VTE Prior VTE?: No VTE Risk Level:: Medical - moderate - high VTE Device Contraindication: Treatment Not Indicated VTE Drug Contraindication: N/A - Med Ordered
[2024-07-29] MEDS: Cyanocobalamin (Vitamin B-12) 1,000 MCG TABLET 1000 MCG PO (10:16)
[2024-07-29] MEDS: Gabapentin 100 MG CAPSULE 200 MG PO ×2 (10:16→21:29)
[2024-07-29] MEDS: Atorvastatin Calcium 20 MG TABLET PO (10:16)
[2024-07-29] MEDS: Nystatin Cream 15 GM TUBE 1 APPL TOPICAL ×2 (10:23→21:29)
[2024-07-29 15:08] VITALS: BP 113/62; PULSE 59; RESP 18; TEMP 36.6; O2SAT 98
[2024-07-29] MEDS: Enoxaparin Sodium 40 MG/0.4 ML SYRINGE SUBCUT (15:17)
--- NOTE | 2024-07-29 15:18 | MHC.CM.PN ---
EMR REVIEWED AND PER MD ROUNDS, PT REMAINS MEDICALLY CLEARED FOR DC PENDING GUARDIANSHIP/LTC PLACEMENT. GUARDIANSHIP HEARING 08/05 10 AM.
[2024-07-29 19:06] VITALS: BP 118/63; PULSE 60; RESP 20; TEMP 36.9; O2SAT 96
[2024-07-29] MEDS: Divalproex Sodium Sprinkles 125 MG CAP.DR.SPR 500 MG PO (21:28)
[2024-07-30 03:23] VITALS: BP 102/51; PULSE 52; RESP 16; TEMP 36.4; O2SAT 96
[2024-07-30 07:45] VITALS: BP 100/54; PULSE 58; RESP 18; TEMP 36.1; O2SAT 97
--- NOTE | 2024-07-30 08:34 | HO.PM.IMPN ---
Subjective Subjective Date of Service: 07/30/24 Interval History: no complaints Review of Systems Review of Systems: Yes all other systems are reviewed and are negative Physical Exam Vital Signs: Vital Signs: Last Vital Signs Temp 96.9 F 07/30/24 07:45 Pulse 58 07/30/24 07:45 Resp 18 07/30/24 07:45 BP 100/54 L 07/30/24 07:45 Pulse Ox 97 07/30/24 07:45 O2 Del Method Room Air 07/30/24 07:45 O2 Flow Rate 2 07/28/24 08:03 BMI result Body Mass Index 20.3 Const: Other: Constitutional : interactive, not in distress Cardiovascular : no JVP, no lower extremity edema Respiratory : bilateral chest movement, not in resp distress Gastrointestinal: soft, lax, Non tender Skin : Warm, Dry Neurological : Alert and oriented to self only, No focal deficit Objective Data Active Medications Acetaminophen (Acetaminophen 325 Mg Tablet) 650 mg PO Q6H PRN PRN Reason: Pain, Mild (Pain Scale 1-3), fever or headache Last Admin: 07/28/24 15:10 Dose: 650 mg Documented By: GERI Amlodipine Besylate (Amlodipine Besylate 5 Mg Tablet) 5 mg PO DAILY [facility]; Protocol Last Admin: 07/09/24 09:18 Dose: 5 mg Documented By: NIRAV Atorvastatin Calcium (Atorvastatin Calcium 20 Mg Tablet) 20 mg PO DAILY [facility] Last Admin: 07/29/24 10:16 Dose: 20 mg Documented By: CAIO Calcium Carbonate (Calcium Carbonate 750 Mg Tab.Chew) 750 mg PO Q4H PRN PRN Reason: Heartburn Cyanocobalamin (Cyanocobalamin (Vitamin B-12) 1,000 Mcg Tablet) 1,000 mcg PO DAILY [facility] Last Admin: 07/29/24 10:16 Dose: 1,000 mcg Documented By: CAIO Divalproex Sodium (Divalproex Sodium Sprinkles 125 Mg ) 500 mg PO BEDTIME [facility] Last Admin: 07/29/24 21:28 Dose: 500 mg Documented By: ZOILA Enoxaparin Sodium (Enoxaparin Sodium 40 Mg/0.4 Ml Syringe) 40 mg SUBCUT Q24H [facility] Last Admin: 07/29/24 15:17 Dose: 40 mg Documented By: CAIO Gabapentin (Gabapentin 100 Mg Capsule) 200 mg PO BID [facility] Last Admin: 07/29/24 21:29 Dose: 200 mg Documented By: ZOILA Lidocaine (Lidocaine 4 % Patch Adh..Patch) 1 patch TRANSDERMA DAILY [facility] Last Admin: 07/29/24 10:18 Dose: Not Given Documented By: CAIO Non-Admin Reason: Patient Refused Magnesium Hydroxide (Milk Of Magnesia 30 Ml Oral.Susp) 30 ml PO DAILY PRN PRN Reason: Constipation Last Admin: 07/28/24 14:18 Dose: 30 ml Documented By: LAPOINFederico Melatonin (Melatonin 3 Mg Tablet) 6 mg PO BEDTIME PRN PRN Reason: Sleep Last Admin: 07/28/24 19:24 Dose: 6 mg Documented By: CASTILFederico Melatonin (Melatonin 3 Mg Tablet) 6 mg PO BEDTIME PRN PRN Reason: Insomnia Nystatin (Nystatin Cream 15 Gm Tube) 1 appl TOPICAL BID [facility]; Protocol Last Admin: 07/29/24 21:29 Dose: 1 appl Documented By: ZOILA Trazodone HCl (Trazodone Hcl 50 Mg Tablet) 50 mg PO BEDTIME PRN PRN Reason: Insomnia Last Admin: 07/06/24 20:30 Dose: 50 mg Documented By: DITOLC Labs 07/24/24 05:26 07/24/24 05:26 Assessment and Plan (1) Major neurocognitive disorder: Status: Acute Plan 79-year-old male with history of advanced dementia, hyperlipidemia, hypertension, history of alcohol use disorder, polysubstance abuse presented on 06/25 due to increasing generalized fatigue/weakness, lethargy, decreased appetite and confusion admitted 07/07/24 as a social admit awaiting placement FTT in elderly Not eating much; he reports that he wants to eat whenever he wants and we can not force him to eat Encouraged to eat more Ensure added and he is drinking some Prison Guard following Unspecified dementia awaiting gaurdianship/LTC mentation baseline Dysuria resolved , No UTI, was negative on arrival HTN normotensive overall since arrival. Continue amlodipine HLD statin dvt prophylaxis- lovenox full code Patient has no capacity to make medical decisions and is waiting for Guardianship. Quality Stroke Does the patient have a stroke diagnosis?: No VTE Prior VTE?: No VTE Risk Level:: Medical - moderate - high VTE Device Contraindication: Treatment Not Indicated VTE Drug Contraindication: N/A - Med Ordered
[2024-07-30] MEDS: Atorvastatin Calcium 20 MG TABLET PO (10:35)
[2024-07-30] MEDS: Cyanocobalamin (Vitamin B-12) 1,000 MCG TABLET 1000 MCG PO (10:35)
[2024-07-30] MEDS: Gabapentin 100 MG CAPSULE 200 MG PO ×2 (10:35→21:17)
[2024-07-30] MEDS: Enoxaparin Sodium 40 MG/0.4 ML SYRINGE SUBCUT (14:51)
[2024-07-30 15:21] VITALS: BP 108/56; PULSE 57; RESP 20; TEMP 36.4; O2SAT 98
[2024-07-30 19:50] VITALS: BP 121/58; PULSE 60; RESP 18; TEMP 36.4; O2SAT 98
[2024-07-30] MEDS: Divalproex Sodium Sprinkles 125 MG CAP.DR.SPR 500 MG PO (21:16)
[2024-07-30] MEDS: Nystatin Cream 15 GM TUBE 1 APPL TOPICAL (21:17)
[2024-07-31 04:00] VITALS: BP 118/59; PULSE 52; RESP 16; TEMP 36.6; O2SAT 98
[2024-07-31 07:20] VITALS: BP 128/84; PULSE 63; RESP 16; TEMP 36.4; O2SAT 94
[2024-07-31] MEDS: Atorvastatin Calcium 20 MG TABLET PO (07:34)
[2024-07-31] MEDS: Cyanocobalamin (Vitamin B-12) 1,000 MCG TABLET 1000 MCG PO (07:34)
[2024-07-31] MEDS: Gabapentin 100 MG CAPSULE 200 MG PO ×2 (07:34→21:25)
--- NOTE | 2024-07-31 09:14 | HO.PM.IMPN ---
Subjective Subjective Date of Service: 07/31/24 Interval History: no complaints Review of Systems Review of Systems: Yes all other systems are reviewed and are negative Physical Exam Vital Signs: Vital Signs: Last Vital Signs Temp 97.5 F 07/31/24 07:20 Pulse 63 07/31/24 07:20 Resp 16 07/31/24 07:20 BP 128/84 07/31/24 07:20 Pulse Ox 94 07/31/24 07:20 O2 Del Method Room Air 07/31/24 07:20 O2 Flow Rate 2 07/28/24 08:03 BMI result Body Mass Index 20.3 Const: Other: Constitutional : interactive, not in distress Cardiovascular : no JVP, no lower extremity edema Respiratory : bilateral chest movement, not in resp distress Gastrointestinal: soft, lax, Non tender Skin : Warm, Dry Neurological : Alert and oriented to self only, No focal deficit Objective Data Active Medications Acetaminophen (Acetaminophen 325 Mg Tablet) 650 mg PO Q6H PRN PRN Reason: Pain, Mild (Pain Scale 1-3), fever or headache Last Admin: 07/28/24 15:10 Dose: 650 mg Documented By: GERI Amlodipine Besylate (Amlodipine Besylate 5 Mg Tablet) 5 mg PO DAILY [facility]; Protocol Last Admin: 07/09/24 09:18 Dose: 5 mg Documented By: NIRAV Atorvastatin Calcium (Atorvastatin Calcium 20 Mg Tablet) 20 mg PO DAILY [facility] Last Admin: 07/31/24 07:34 Dose: 20 mg Documented By: NYA Calcium Carbonate (Calcium Carbonate 750 Mg Tab.Chew) 750 mg PO Q4H PRN PRN Reason: Heartburn Cyanocobalamin (Cyanocobalamin (Vitamin B-12) 1,000 Mcg Tablet) 1,000 mcg PO DAILY [facility] Last Admin: 07/31/24 07:34 Dose: 1,000 mcg Documented By: NYA Divalproex Sodium (Divalproex Sodium Sprinkles 125 Mg ) 500 mg PO BEDTIME [facility] Last Admin: 07/30/24 21:16 Dose: 500 mg Documented By: ZOILA Enoxaparin Sodium (Enoxaparin Sodium 40 Mg/0.4 Ml Syringe) 40 mg SUBCUT Q24H [facility] Last Admin: 07/30/24 14:51 Dose: 40 mg Documented By: CAIO Gabapentin (Gabapentin 100 Mg Capsule) 200 mg PO BID [facility] Last Admin: 07/31/24 07:34 Dose: 200 mg Documented By: NYA Lidocaine (Lidocaine 4 % Patch Adh..Patch) 1 patch TRANSDERMA DAILY [facility] Last Admin: 07/31/24 07:34 Dose: Not Given Documented By: NYA Non-Admin Reason: Patient Refused Magnesium Hydroxide (Milk Of Magnesia 30 Ml Oral.Susp) 30 ml PO DAILY PRN PRN Reason: Constipation Last Admin: 07/28/24 14:18 Dose: 30 ml Documented By: ROLYOINFederico Melatonin (Melatonin 3 Mg Tablet) 6 mg PO BEDTIME PRN PRN Reason: Sleep Last Admin: 07/28/24 19:24 Dose: 6 mg Documented By: CASTILFederico Melatonin (Melatonin 3 Mg Tablet) 6 mg PO BEDTIME PRN PRN Reason: Insomnia Nystatin (Nystatin Cream 15 Gm Tube) 1 appl TOPICAL BID [facility]; Protocol Last Admin: 07/31/24 07:34 Dose: Not Given Documented By: NYA Non-Admin Reason: Patient Refused Trazodone HCl (Trazodone Hcl 50 Mg Tablet) 50 mg PO BEDTIME PRN PRN Reason: Insomnia Last Admin: 07/06/24 20:30 Dose: 50 mg Documented By: DITOLC Labs 07/24/24 05:26 07/24/24 05:26 Assessment and Plan (1) Major neurocognitive disorder: Status: Acute Plan 79-year-old male with history of advanced dementia, hyperlipidemia, hypertension, history of alcohol use disorder, polysubstance abuse presented on 06/25 due to increasing generalized fatigue/weakness, lethargy, decreased appetite and confusion admitted 07/07/24 as a social admit awaiting placement FTT in elderly Not eating much; he reports that he wants to eat whenever he wants and we can not force him to eat Encouraged to eat more Ensure added and he is drinking some Post Closing Specialist following Unspecified dementia awaiting gaurdianship/LTC mentation baseline Dysuria resolved , No UTI, was negative on arrival HTN normotensive overall since arrival. Continue amlodipine HLD statin dvt prophylaxis- lovenox full code Patient has no capacity to make medical decisions and is waiting for Guardianship. Quality Stroke Does the patient have a stroke diagnosis?: No VTE Prior VTE?: No VTE Risk Level:: Medical - moderate - high VTE Device Contraindication: Treatment Not Indicated VTE Drug Contraindication: N/A - Med Ordered
--- NOTE | 2024-07-31 09:15 | MHC.CLN ---
F/U DIET=REGULAR. ENSURE TID PROVIDES ADDITIONAL 1050 KCALS, 60 G PROTEIN. INTAKE USUALLY 25% OR LESS, OCCASIONALLY HIGHER. PATIENT AWAITING GUARDIANSHIP AND LTC PLACEMENT. NO ALTERNATE NUTRITION AT THIS TIME PER MD. CONTINUE TO FOLLOW FOR PO INTAKE AND PLAN OF CARE.
--- NOTE | 2024-07-31 12:48 | MHC.CM.PN ---
EMR REVIEWED AND PER MD ROUNDS, PT REMAINS MEDICALLY CLEARED. AWAITING GUARDIANSHIP HEARING/LTC PLACEMENT. HEARING ON 08/05/24 AT 10 AM
[2024-07-31] MEDS: Enoxaparin Sodium 40 MG/0.4 ML SYRINGE SUBCUT (12:57)
[2024-07-31 15:54] VITALS: BP 99/56; PULSE 66; RESP 18; TEMP 37; O2SAT 96
[2024-07-31 19:24] VITALS: BP 144/79; PULSE 100; RESP 16; TEMP 36.8; O2SAT 94
[2024-07-31 19:29] LABS: Glucose, Whole Blood 123 mg/dL (60-115)
[2024-07-31] MEDS: Milk of Magnesia 30 ML ORAL.SUSP PO (19:33)
[2024-07-31] MEDS: Divalproex Sodium Sprinkles 125 MG CAP.DR.SPR 500 MG PO (21:25)
[2024-08-01 03:39] VITALS: BP 108/57; PULSE 57; RESP 18; TEMP 36.3; O2SAT 96
[2024-08-01 07:49] VITALS: BP 124/62; PULSE 72; RESP 17; TEMP 36.2; O2SAT 97
--- NOTE | 2024-08-01 08:42 | HO.PM.IMPN ---
Subjective Subjective Date of Service: 08/01/24 Interval History: no complaints Review of Systems Review of Systems: Yes all other systems are reviewed and are negative Physical Exam Vital Signs: Vital Signs: Last Vital Signs Temp 97.1 F 08/01/24 07:49 Pulse 72 08/01/24 07:49 Resp 17 08/01/24 07:49 BP 124/62 08/01/24 07:49 Pulse Ox 97 08/01/24 07:49 O2 Del Method Room Air 08/01/24 07:49 O2 Flow Rate 2 07/28/24 08:03 BMI result Body Mass Index 20.3 Const: Other: Constitutional : interactive, not in distress Cardiovascular : no JVP, no lower extremity edema Respiratory : bilateral chest movement, not in resp distress Gastrointestinal: soft, lax, Non tender Skin : Warm, Dry Neurological : Alert and oriented to self only, No focal deficit Objective Data Active Medications Acetaminophen (Acetaminophen 325 Mg Tablet) 650 mg PO Q6H PRN PRN Reason: Pain, Mild (Pain Scale 1-3), fever or headache Last Admin: 07/28/24 15:10 Dose: 650 mg Documented By: GERI Amlodipine Besylate (Amlodipine Besylate 5 Mg Tablet) 5 mg PO DAILY [facility]; Protocol Last Admin: 07/09/24 09:18 Dose: 5 mg Documented By: NIRAV Atorvastatin Calcium (Atorvastatin Calcium 20 Mg Tablet) 20 mg PO DAILY [facility] Last Admin: 07/31/24 07:34 Dose: 20 mg Documented By: NYA Calcium Carbonate (Calcium Carbonate 750 Mg Tab.Chew) 750 mg PO Q4H PRN PRN Reason: Heartburn Cyanocobalamin (Cyanocobalamin (Vitamin B-12) 1,000 Mcg Tablet) 1,000 mcg PO DAILY [facility] Last Admin: 07/31/24 07:34 Dose: 1,000 mcg Documented By: NYA Divalproex Sodium (Divalproex Sodium Sprinkles 125 Mg ) 500 mg PO BEDTIME [facility] Last Admin: 07/31/24 21:25 Dose: 500 mg Documented By: KAITLYN Enoxaparin Sodium (Enoxaparin Sodium 40 Mg/0.4 Ml Syringe) 40 mg SUBCUT Q24H [facility] Last Admin: 07/31/24 12:57 Dose: 40 mg Documented By: NYA Gabapentin (Gabapentin 100 Mg Capsule) 200 mg PO BID [facility] Last Admin: 07/31/24 21:25 Dose: 200 mg Documented By: KAITLYN Lidocaine (Lidocaine 4 % Patch Adh..Patch) 1 patch TRANSDERMA DAILY [facility] Last Admin: 07/31/24 07:34 Dose: Not Given Documented By: NYA Non-Admin Reason: Patient Refused Magnesium Hydroxide (Milk Of Magnesia 30 Ml Oral.Susp) 30 ml PO DAILY PRN PRN Reason: Constipation Last Admin: 07/31/24 19:33 Dose: 30 ml Documented By: KAITLYN Melatonin (Melatonin 3 Mg Tablet) 6 mg PO BEDTIME PRN PRN Reason: Sleep Last Admin: 07/28/24 19:24 Dose: 6 mg Documented By: CASTILFederico Melatonin (Melatonin 3 Mg Tablet) 6 mg PO BEDTIME PRN PRN Reason: Insomnia Nystatin (Nystatin Cream 15 Gm Tube) 1 appl TOPICAL BID [facility]; Protocol Last Admin: 07/31/24 21:28 Dose: Not Given Documented By: KAITLYN Non-Admin Reason: Patient Refused Trazodone HCl (Trazodone Hcl 50 Mg Tablet) 50 mg PO BEDTIME PRN PRN Reason: Insomnia Last Admin: 07/06/24 20:30 Dose: 50 mg Documented By: DITOLC Labs 07/24/24 05:26 07/24/24 05:26 Labs: Laboratory Results - last 24 hr 07/31/24 19:20 POC Glucose 123 H Assessment and Plan (1) Major neurocognitive disorder: Status: Acute Plan 79-year-old male with history of advanced dementia, hyperlipidemia, hypertension, history of alcohol use disorder, polysubstance abuse presented on 06/25 due to increasing generalized fatigue/weakness, lethargy, decreased appetite and confusion admitted 07/07/24 as a social admit awaiting placement FTT in elderly Not eating much; he reports that he wants to eat whenever he wants and we can not force him to eat Encouraged to eat more Ensure added and he is drinking some User Experience Researcher following Unspecified dementia awaiting gaurdianship/LTC mentation baseline Dysuria resolved , No UTI, was negative on arrival HTN normotensive overall since arrival. Continue amlodipine HLD statin dvt prophylaxis- lovenox full code Patient has no capacity to make medical decisions and is waiting for Guardianship. Quality Stroke Does the patient have a stroke diagnosis?: No VTE Prior VTE?: No VTE Risk Level:: Medical - moderate - high VTE Device Contraindication: Treatment Not Indicated VTE Drug Contraindication: N/A - Med Ordered
[2024-08-01] MEDS: Lidocaine 4 % Patch ADH..PATCH 1 PATCH TRANSDERMA (09:14)
[2024-08-01] MEDS: Gabapentin 100 MG CAPSULE 200 MG PO ×2 (09:14→19:49)
[2024-08-01] MEDS: Atorvastatin Calcium 20 MG TABLET PO (09:14)
[2024-08-01] MEDS: Cyanocobalamin (Vitamin B-12) 1,000 MCG TABLET 1000 MCG PO (09:14)
[2024-08-01] MEDS: Nystatin Cream 15 GM TUBE 1 APPL TOPICAL ×2 (09:18→19:57)
[2024-08-01] MEDS: Milk of Magnesia 30 ML ORAL.SUSP PO (10:05)
[2024-08-01] MEDS: Primidone 50 MG TABLET 25 MG PO (10:31)
[2024-08-01] MEDS: Acetaminophen 325 MG TABLET 650 MG PO (10:34)
[2024-08-01] MEDS: Enoxaparin Sodium 40 MG/0.4 ML SYRINGE SUBCUT (14:53)
[2024-08-01 15:34] VITALS: BP 111/66; PULSE 61; RESP 18; TEMP 37.3; O2SAT 96
[2024-08-01 19:20] VITALS: BP 123/62; PULSE 63; RESP 20; TEMP 36.8; O2SAT 99
[2024-08-01] MEDS: Divalproex Sodium Sprinkles 125 MG CAP.DR.SPR 500 MG PO (19:49)
[2024-08-02 03:27] VITALS: BP 106/60; PULSE 57; RESP 16; TEMP 36.9; O2SAT 98
[2024-08-02 08:00] VITALS: BP 124/68; PULSE 68; RESP 17; TEMP 36.4; O2SAT 97
[2024-08-02] MEDS: Lidocaine 4 % Patch ADH..PATCH 1 PATCH TRANSDERMA (08:14)
[2024-08-02] MEDS: Atorvastatin Calcium 20 MG TABLET PO (08:15)
[2024-08-02] MEDS: Gabapentin 100 MG CAPSULE 200 MG PO ×2 (08:15→21:55)
[2024-08-02] MEDS: Cyanocobalamin (Vitamin B-12) 1,000 MCG TABLET 1000 MCG PO (08:15)
[2024-08-02] MEDS: Nystatin Cream 15 GM TUBE 1 APPL TOPICAL ×2 (08:18→21:59)
--- NOTE | 2024-08-02 08:21 | HO.PM.IMPN ---
Subjective Subjective Date of Service: 08/02/24 Interval History: Tremor resolved Physical Exam Vital Signs: Vital Signs: Last Vital Signs Temp 97.6 F 08/02/24 08:00 Pulse 68 08/02/24 08:00 Resp 17 08/02/24 08:00 BP 124/68 08/02/24 08:00 Pulse Ox 97 08/02/24 08:00 O2 Del Method Room Air 08/02/24 08:00 O2 Flow Rate 2 07/28/24 08:03 BMI result Body Mass Index 20.3 Const: Other: Constitutional : interactive, not in distress Cardiovascular : no JVP, no lower extremity edema Respiratory : bilateral chest movement, not in resp distress Gastrointestinal: soft, lax, Non tender Skin : Warm, Dry Neurological : Alert and oriented to self only, No focal deficit Objective Data Active Medications Acetaminophen (Acetaminophen 325 Mg Tablet) 650 mg PO Q6H PRN PRN Reason: Pain, Mild (Pain Scale 1-3), fever or headache Last Admin: 08/01/24 10:34 Dose: 650 mg Documented By: GERI Amlodipine Besylate (Amlodipine Besylate 5 Mg Tablet) 5 mg PO DAILY [facility]; Protocol Last Admin: 07/09/24 09:18 Dose: 5 mg Documented By: NIRAV Atorvastatin Calcium (Atorvastatin Calcium 20 Mg Tablet) 20 mg PO DAILY [facility] Last Admin: 08/02/24 08:15 Dose: 20 mg Documented By: GERI Calcium Carbonate (Calcium Carbonate 750 Mg Tab.Chew) 750 mg PO Q4H PRN PRN Reason: Heartburn Cyanocobalamin (Cyanocobalamin (Vitamin B-12) 1,000 Mcg Tablet) 1,000 mcg PO DAILY [facility] Last Admin: 08/02/24 08:15 Dose: 1,000 mcg Documented By: GERI Divalproex Sodium (Divalproex Sodium Sprinkles 125 Mg ) 500 mg PO BEDTIME [facility] Last Admin: 08/01/24 19:49 Dose: 500 mg Documented By: KAITLYN Enoxaparin Sodium (Enoxaparin Sodium 40 Mg/0.4 Ml Syringe) 40 mg SUBCUT Q24H [facility] Last Admin: 08/01/24 14:53 Dose: 40 mg Documented By: GERI Gabapentin (Gabapentin 100 Mg Capsule) 200 mg PO BID [facility] Last Admin: 08/02/24 08:15 Dose: 200 mg Documented By: GERI Lidocaine (Lidocaine 4 % Patch Adh..Patch) 1 patch TRANSDERMA DAILY [facility] Last Admin: 08/02/24 08:14 Dose: 1 patch Documented By: GERI Magnesium Hydroxide (Milk Of Magnesia 30 Ml Oral.Susp) 30 ml PO DAILY PRN PRN Reason: Constipation Last Admin: 08/01/24 10:05 Dose: 30 ml Documented By: GERI Melatonin (Melatonin 3 Mg Tablet) 6 mg PO BEDTIME PRN PRN Reason: Sleep Last Admin: 07/28/24 19:24 Dose: 6 mg Documented By: CASTILFederico Melatonin (Melatonin 3 Mg Tablet) 6 mg PO BEDTIME PRN PRN Reason: Insomnia Nystatin (Nystatin Cream 15 Gm Tube) 1 appl TOPICAL BID [facility]; Protocol Last Admin: 08/02/24 08:18 Dose: 1 appl Documented By: GERI Trazodone HCl (Trazodone Hcl 50 Mg Tablet) 50 mg PO BEDTIME PRN PRN Reason: Insomnia Last Admin: 07/06/24 20:30 Dose: 50 mg Documented By: DITOLC Labs 07/24/24 05:26 07/24/24 05:26 Assessment and Plan (1) Major neurocognitive disorder: Status: Acute Plan 79-year-old male with history of advanced dementia, hyperlipidemia, hypertension, history of alcohol use disorder, polysubstance abuse presented on 06/25 due to increasing generalized fatigue/weakness, lethargy, decreased appetite and confusion admitted 07/07/24 as a social admit awaiting placement FTT in elderly Not eating much; he reports that he wants to eat whenever he wants and we can not force him to eat Encouraged to eat more Ensure added and he is drinking some 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 Continue amlodipine HLD statin dvt prophylaxis- lovenox full code Patient has no capacity to make medical decisions and is waiting for Guardianship. Quality Stroke Does the patient have a stroke diagnosis?: No VTE Prior VTE?: No VTE Risk Level:: Medical - moderate - high VTE Device Contraindication: Treatment Not Indicated VTE Drug Contraindication: N/A - Med Ordered
[2024-08-02] MEDS: Milk of Magnesia 30 ML ORAL.SUSP PO (10:56)
[2024-08-02] MEDS: Mineral OiL enema 133 ML ENEMA PR (13:10)
[2024-08-02] MEDS: Primidone 50 MG TABLET 25 MG PO (13:47)
[2024-08-02] MEDS: Enoxaparin Sodium 40 MG/0.4 ML SYRINGE SUBCUT (13:47)
[2024-08-02 15:33] VITALS: BP 115/55; PULSE 69; RESP 17; TEMP 36.6; O2SAT 96
[2024-08-02] MEDS: polyethylene glycoL 3350 17 GM POWD.PACK PO (17:43)
[2024-08-02] MEDS: bisacodyL 10 MG SUPP.RECT PR (17:59)
[2024-08-02 20:00] VITALS: BP 127/60; PULSE 71; RESP 16; TEMP 36.4; O2SAT 95
[2024-08-02] MEDS: Melatonin 3 MG TABLET 6 MG PO (21:55)
[2024-08-02] MEDS: Divalproex Sodium Sprinkles 125 MG CAP.DR.SPR 500 MG PO (21:55)
[2024-08-03 04:00] VITALS: BP 110/59; PULSE 62; RESP 18; TEMP 36.8; O2SAT 98
[2024-08-03 08:00] VITALS: BP 119/68; PULSE 68; RESP 16; TEMP 36.6; O2SAT 96
--- NOTE | 2024-08-03 08:29 | HO.PM.IMPN ---
Subjective Subjective Date of Service: 08/03/24 Interval History: Tremor resolved Physical Exam Vital Signs: Vital Signs: Last Vital Signs Temp 97.8 F 08/03/24 08:00 Pulse 68 08/03/24 08:00 Resp 16 08/03/24 08:00 BP 119/68 08/03/24 08:00 Pulse Ox 96 08/03/24 08:00 O2 Del Method Room Air 08/03/24 08:00 O2 Flow Rate 2 07/28/24 08:03 BMI result Body Mass Index 20.3 Const: Other: Constitutional : interactive, not in distress Cardiovascular : no JVP, no lower extremity edema Respiratory : bilateral chest movement, not in resp distress Gastrointestinal: soft, lax, Non tender Skin : Warm, Dry Neurological : Alert and oriented to self only, No focal deficit Objective Data Active Medications Acetaminophen (Acetaminophen 325 Mg Tablet) 650 mg PO Q6H PRN PRN Reason: Pain, Mild (Pain Scale 1-3), fever or headache Last Admin: 08/01/24 10:34 Dose: 650 mg Documented By: GERI Amlodipine Besylate (Amlodipine Besylate 5 Mg Tablet) 5 mg PO DAILY [facility] B[facility]S [facility]; Protocol Last Admin: 07/09/24 09:18 Dose: 5 mg Documented By: NIRAV Atorvastatin Calcium (Atorvastatin Calcium 20 Mg Tablet) 20 mg PO DAILY [facility] 234 BEDS AT [facility] Last Admin: 08/02/24 08:15 Dose: 20 mg Documented By: GERI Bisacodyl (Bisacodyl 10 Mg Supp.Rect) 10 mg AL BEDTIME PRN PRN Reason: Constipation Last Admin: 08/02/24 17:59 Dose: 10 mg Documented By: FELICIANO Calcium Carbonate (Calcium Carbonate 750 Mg Tab.Chew) 750 mg PO Q4H PRN PRN Reason: Heartburn Cyanocobalamin (Cyanocobalamin (Vitamin B-12) 1,000 Mcg Tablet) 1,000 mcg PO DAILY [facility]S [facility]CLUDE 234 BEDS AT [facility] Last Admin: 08/02/24 08:15 Dose: 1,000 mcg Documented By: GERI Divalproex Sodium (Divalproex Sodium Sprinkles 125 Mg ) 500 mg PO BEDTIME COUNTS [facility]CLUDE 234 BEDS AT [facility] Last Admin: 08/02/24 21:55 Dose: 500 mg Documented By: DELFINA Enoxaparin Sodium (Enoxaparin Sodium 40 Mg/0.4 Ml Syringe) 40 mg SUBCUT Q24H COUNTS [facility]CLUDE 234 BEDS AT [facility] Last Admin: 08/02/24 13:47 Dose: 40 mg Documented By: GERI Gabapentin (Gabapentin 100 Mg Capsule) 200 mg PO BID [facility]S [facility]CLUDE 234 BEDS AT [facility] Last Admin: 08/02/24 21:55 Dose: 200 mg Documented By: DELFINA Lidocaine (Lidocaine 4 % Patch Adh..Patch) 1 patch TRANSDERMA DAILY [facility] 234 BEDS AT [facility] Last Admin: 08/02/24 08:14 Dose: 1 patch Documented By: GERI Magnesium Hydroxide (Milk Of Magnesia 30 Ml Oral.Susp) 30 ml PO DAILY PRN PRN Reason: Constipation Last Admin: 08/02/24 10:56 Dose: 30 ml Documented By: GERI Melatonin (Melatonin 3 Mg Tablet) 6 mg PO BEDTIME PRN PRN Reason: Sleep Last Admin: 08/02/24 21:55 Dose: 6 mg Documented By: DELFINA Melatonin (Melatonin 3 Mg Tablet) 6 mg PO BEDTIME PRN PRN Reason: Insomnia Nystatin (Nystatin Cream 15 Gm Tube) 1 appl TOPICAL BID [facility]S [facility]CLUDE 234 BEDS AT [facility]; Protocol Last Admin: 08/02/24 21:59 Dose: 1 appl Documented By: DELFINA Polyethylene Glycol (Polyethylene Glycol 3350 17 Gm Powd.Pack) 17 gm PO DAILY PRN PRN Reason: Constipation Last Admin: 08/02/24 17:43 Dose: 17 gm Documented By: FELICIANO Primidone (Primidone 50 Mg Tablet) 25 mg PO DAILY [facility] 234 BEDS AT [facility] Last Admin: 08/02/24 13:47 Dose: 25 mg Documented By: GERI Trazodone HCl (Trazodone Hcl 50 Mg Tablet) 50 mg PO BEDTIME PRN PRN Reason: Insomnia Last Admin: 07/06/24 20:30 Dose: 50 mg Documented By: DITOLC Labs 07/24/24 05:26 07/24/24 05:26 Assessment and Plan (1) Major neurocognitive disorder: Status: Acute Plan 79-year-old male with history of advanced dementia, hyperlipidemia, hypertension, history of alcohol use disorder, polysubstance abuse presented on 06/25 due to increasing generalized fatigue/weakness, lethargy, decreased appetite and confusion admitted 07/07/24 as a social admit awaiting placement FTT in elderly Not eating much; he reports that he wants to eat whenever he wants and we can not force him to eat Encouraged to eat more Ensure added and he is drinking some Tool Design Checker following tremor start primidone to good effect Unspecified dementia awaiting gaurdianship/LTC mentation baseline Dysuria resolved , No UTI, was negative on arrival HTN normotensive overall since arrival. Continue amlodipine HLD statin dvt prophylaxis- lovenox full code Patient has no capacity to make medical decisions and is waiting for Guardianship. Quality Stroke Does the patient have a stroke diagnosis?: No VTE Prior VTE?: No VTE Risk Level:: Medical - moderate - high VTE Device Contraindication: Treatment Not Indicated VTE Drug Contraindication: N/A - Med Ordered
[2024-08-03] MEDS: Atorvastatin Calcium 20 MG TABLET PO (08:47)
[2024-08-03] MEDS: Lidocaine 4 % Patch ADH..PATCH 1 PATCH TRANSDERMA (08:47)
[2024-08-03] MEDS: Primidone 50 MG TABLET 25 MG PO (08:47)
[2024-08-03] MEDS: Cyanocobalamin (Vitamin B-12) 1,000 MCG TABLET 1000 MCG PO (08:47)
[2024-08-03] MEDS: Gabapentin 100 MG CAPSULE 200 MG PO ×2 (08:47→21:06)
[2024-08-03] MEDS: Nystatin Cream 15 GM TUBE 1 APPL TOPICAL ×2 (08:51→21:07)
--- NOTE | 2024-08-03 09:18 | MHC.CLN ---
F/U DIET=REGULAR. ENSURE TID PROVIDES ADDITIONAL 1050 KCALS, 60 G PROTEIN. INTAKE USUALLY 25% OR LESS. PATIENT AWAITING GUARDIANSHIP HEARING 08/05. NO ALTERNATE NUTRITION AT THIS TIME PER MD. CONTINUE TO FOLLOW FOR PO INTAKE AND PLAN OF CARE.
--- NOTE | 2024-08-03 10:41 | MHC.CM.PN ---
EMR REVIEWED AND PER MD ROUNDS, PT REMAINS MEDICALLY CLEARED. PT IS PENDING GUARDIANSHIP HEARING ON 08/05 AT 10 AM. MD AWARE WILL NEED A NEW P.T. CONSULT. CM WILL CONTINUE TO FOLLOW FOR ANY CHANGE TO DC PLAN/NEEDS.
[2024-08-03] MEDS: Enoxaparin Sodium 40 MG/0.4 ML SYRINGE SUBCUT (13:57)
[2024-08-03 15:12] VITALS: BP 105/51; PULSE 80; RESP 16; TEMP 36.7; O2SAT 97
[2024-08-03 19:39] VITALS: BP 136/69; PULSE 71; RESP 18; TEMP 36.4; O2SAT 99
[2024-08-03] MEDS: traZODone HCL 50 MG TABLET PO (21:05)
[2024-08-03] MEDS: Divalproex Sodium Sprinkles 125 MG CAP.DR.SPR 500 MG PO (21:06)
[2024-08-03] MEDS: Melatonin 3 MG TABLET 6 MG PO (21:06)
[2024-08-04 04:00] VITALS: BP 99/58; PULSE 60; RESP 18; TEMP 36.2; O2SAT 98
[2024-08-04 07:43] VITALS: BP 125/58; PULSE 80; RESP 14; TEMP 36.3; O2SAT 97
[2024-08-04] MEDS: Primidone 50 MG TABLET 25 MG PO (09:11)
[2024-08-04] MEDS: Cyanocobalamin (Vitamin B-12) 1,000 MCG TABLET 1000 MCG PO (09:12)
[2024-08-04] MEDS: Gabapentin 100 MG CAPSULE 200 MG PO ×2 (09:12→20:59)
[2024-08-04] MEDS: Atorvastatin Calcium 20 MG TABLET PO (09:12)
--- NOTE | 2024-08-04 11:43 | HO.PM.IMPN ---
Subjective Subjective Date of Service: 08/04/24 Interval History: seen this morning sitting in his bed, comfortable no overnight events Review of Systems Review of Systems: Yes all other systems are reviewed and are negative Physical Exam Vital Signs: Vital Signs: Last Vital Signs Temp 97.3 F 08/04/24 07:43 Pulse 80 08/04/24 07:43 Resp 14 08/04/24 07:43 BP 125/58 L 08/04/24 07:43 Pulse Ox 97 08/04/24 07:43 O2 Del Method Room Air 08/04/24 07:43 O2 Flow Rate 2 07/28/24 08:03 BMI result Body Mass Index 20.3 Const: Other: Constitutional : interactive, not in distress Cardiovascular : no JVP, no lower extremity edema Respiratory : bilateral chest movement, not in resp distress Gastrointestinal: soft, lax, Non tender Skin : Warm, Dry Neurological : Alert and oriented to self only, No focal deficit Objective Data Active Medications Acetaminophen (Acetaminophen 325 Mg Tablet) 650 mg PO Q6H PRN PRN Reason: Pain, Mild (Pain Scale 1-3), fever or headache Last Admin: 08/01/24 10:34 Dose: 650 mg Documented By: GERI Amlodipine Besylate (Amlodipine Besylate 5 Mg Tablet) 5 mg PO DAILY [facility]; Protocol Last Admin: 07/09/24 09:18 Dose: 5 mg Documented By: NIRAV Atorvastatin Calcium (Atorvastatin Calcium 20 Mg Tablet) 20 mg PO DAILY [facility] Last Admin: 08/04/24 09:12 Dose: 20 mg Documented By: CAIO Bisacodyl (Bisacodyl 10 Mg Supp.Rect) 10 mg AL BEDTIME PRN PRN Reason: Constipation Last Admin: 08/02/24 17:59 Dose: 10 mg Documented By: FELICIANO Calcium Carbonate (Calcium Carbonate 750 Mg Tab.Chew) 750 mg PO Q4H PRN PRN Reason: Heartburn Cyanocobalamin (Cyanocobalamin (Vitamin B-12) 1,000 Mcg Tablet) 1,000 mcg PO DAILY [facility] Last Admin: 08/04/24 09:12 Dose: 1,000 mcg Documented By: CAIO Divalproex Sodium (Divalproex Sodium Sprinkles 125 Mg ) 500 mg PO BEDTIME [facility] Last Admin: 08/03/24 21:06 Dose: 500 mg Documented By: DUSTIN Enoxaparin Sodium (Enoxaparin Sodium 40 Mg/0.4 Ml Syringe) 40 mg SUBCUT Q24H [facility] Last Admin: 08/03/24 13:57 Dose: 40 mg Documented By: CHARLIE Gabapentin (Gabapentin 100 Mg Capsule) 200 mg PO BID [facility] Last Admin: 08/04/24 09:12 Dose: 200 mg Documented By: CAIO Lidocaine (Lidocaine 4 % Patch Adh..Patch) 1 patch TRANSDERMA DAILY [facility] Last Admin: 08/04/24 09:12 Dose: Not Given Documented By: CAIO Non-Admin Reason: Patient Refused Magnesium Hydroxide (Milk Of Magnesia 30 Ml Oral.Susp) 30 ml PO DAILY PRN PRN Reason: Constipation Last Admin: 08/02/24 10:56 Dose: 30 ml Documented By: GERI Melatonin (Melatonin 3 Mg Tablet) 6 mg PO BEDTIME PRN PRN Reason: Sleep Last Admin: 08/03/24 21:06 Dose: 6 mg Documented By: DUSTIN Melatonin (Melatonin 3 Mg Tablet) 6 mg PO BEDTIME PRN PRN Reason: Insomnia Nystatin (Nystatin Cream 15 Gm Tube) 1 appl TOPICAL BID [facility]; Protocol Last Admin: 08/04/24 09:12 Dose: Not Given Documented By: CAIO Non-Admin Reason: rash healed Polyethylene Glycol (Polyethylene Glycol 3350 17 Gm Powd.Pack) 17 gm PO DAILY PRN PRN Reason: Constipation Last Admin: 08/02/24 17:43 Dose: 17 gm Documented By: FELICIANO Primidone (Primidone 50 Mg Tablet) 25 mg PO DAILY [facility] Last Admin: 08/04/24 09:11 Dose: 25 mg Documented By: CAIO Trazodone HCl (Trazodone Hcl 50 Mg Tablet) 50 mg PO BEDTIME PRN PRN Reason: Insomnia Last Admin: 08/03/24 21:05 Dose: 50 mg Documented By: DUSTIN Labs 07/24/24 05:26 07/24/24 05:26 Assessment and Plan (1) Major neurocognitive disorder: Status: Acute Plan 79-year-old male with history of advanced dementia, hyperlipidemia, hypertension, history of alcohol use disorder, polysubstance abuse presented on 06/25 due to increasing generalized fatigue/weakness, lethargy, decreased appetite and confusion admitted 07/07/24 as a social admit awaiting placement FTT in elderly Not eating much; he reports that he wants to eat whenever he wants and we can not force him to eat Encouraged to eat more Ensure added and he is drinking some Hosiery Bagger following tremor start primidone to good effect Unspecified dementia awaiting gaurdianship/LTC mentation baseline Dysuria resolved , No UTI, was negative on arrival HTN normotensive overall since arrival. Continue amlodipine HLD statin dvt prophylaxis- lovenox full code Patient has no capacity to make medical decisions and is waiting for Guardianship. Quality Stroke Does the patient have a stroke diagnosis?: No VTE Prior VTE?: No VTE Risk Level:: Medical - moderate - high VTE Device Contraindication: Treatment Not Indicated VTE Drug Contraindication: N/A - Med Ordered
[2024-08-04] MEDS: Enoxaparin Sodium 40 MG/0.4 ML SYRINGE SUBCUT (15:02)
[2024-08-04 15:34] VITALS: BP 104/56; PULSE 65; RESP 14; TEMP 36.3; O2SAT 96
[2024-08-04 19:43] VITALS: BP 114/53; PULSE 69; RESP 17; TEMP 36.4; O2SAT 97
[2024-08-04] MEDS: Divalproex Sodium Sprinkles 125 MG CAP.DR.SPR 500 MG PO (21:00)
--- NOTE | 2024-08-04 23:19 | PC.NURSE ---
Assumed care of patient at 19:00. Please see shift assessment, tasks, and MAR for full details. In-room camera and high-fall safety measures including bed alarm continue. Handoff report given to oncoming RN at 23:15.
[2024-08-05 02:15] VITALS: BP 122/60; PULSE 64; RESP 18; TEMP 36.4; O2SAT 97
[2024-08-05 07:17] VITALS: BP 120/64; PULSE 64; RESP 16; TEMP 36.8; O2SAT 98
[2024-08-05] MEDS: Atorvastatin Calcium 20 MG TABLET PO (08:03)
[2024-08-05] MEDS: Lidocaine 4 % Patch ADH..PATCH 1 PATCH TRANSDERMA (08:03)
[2024-08-05] MEDS: Cyanocobalamin (Vitamin B-12) 1,000 MCG TABLET 1000 MCG PO (08:03)
[2024-08-05] MEDS: Primidone 50 MG TABLET 25 MG PO (08:03)
[2024-08-05] MEDS: Gabapentin 100 MG CAPSULE 200 MG PO ×2 (08:03→20:03)
--- NOTE | 2024-08-05 10:05 | MHC.CLN ---
F/U DIET=REGULAR. ENSURE TID PROVIDES ADDITIONAL 1050 KCALS, 60 G PROTEIN. CONTINUES WITH INTAKE USUALLY 25% OR LESS. PATIENT AWAITING GUARDIANSHIP HEARING TODAY. NO ALTERNATE NUTRITION AT THIS TIME PER MD. CONTINUE TO FOLLOW FOR PO INTAKE AND PLAN OF CARE.
--- NOTE | 2024-08-05 11:28 | MHC.CM.PN ---
EMR reviewed and per MD rounds, pt not able to safely discharge at this time due to awaiting results of guardianship hearing taking place today, pt will then need LTC placement.
[2024-08-05] MEDS: Enoxaparin Sodium 40 MG/0.4 ML SYRINGE SUBCUT (13:29)
[2024-08-05 15:37] VITALS: BP 120/57; PULSE 76; RESP 14; TEMP 36.6; O2SAT 97
[2024-08-05 19:21] VITALS: BP 104/55; PULSE 65; RESP 16; TEMP 36.4; O2SAT 96
[2024-08-05] MEDS: Divalproex Sodium Sprinkles 125 MG CAP.DR.SPR 500 MG PO (20:03)
[2024-08-06] MEDS: Melatonin 3 MG TABLET 6 MG PO (00:51)
[2024-08-06 04:00] VITALS: BP 103/59; PULSE 59; RESP 16; TEMP 36.2; O2SAT 99
[2024-08-06 07:06] VITALS: BP 108/59; PULSE 57; RESP 14; TEMP 36.8; O2SAT 99
[2024-08-06] MEDS: Lidocaine 4 % Patch ADH..PATCH 1 PATCH TRANSDERMA (08:28)
[2024-08-06] MEDS: Gabapentin 100 MG CAPSULE 200 MG PO ×2 (08:30→20:10)
[2024-08-06] MEDS: Cyanocobalamin (Vitamin B-12) 1,000 MCG TABLET 1000 MCG PO (08:30)
[2024-08-06] MEDS: Atorvastatin Calcium 20 MG TABLET PO (08:30)
[2024-08-06] MEDS: Primidone 50 MG TABLET 25 MG PO (08:31)
[2024-08-06] MEDS: Nystatin Cream 15 GM TUBE 1 APPL TOPICAL ×2 (08:33→20:13)
--- NOTE | 2024-08-06 11:26 | P.PNIM_ITS ---
Subjective Subjective Date of Service: 08/06/24 Interval History: seen this morning sitting in his bed, comfortable no overnight events Review of Systems Review of Systems: Yes all other systems are reviewed and are negative Physical Exam 2 Vital Signs: Vital Signs: Last Vital Signs Temp 98.2 F 08/06/24 07:06 Pulse 57 08/06/24 07:06 Resp 14 08/06/24 07:06 BP 108/59 L 08/06/24 07:06 Pulse Ox 99 08/06/24 07:06 O2 Del Method Room Air 08/06/24 07:06 O2 Flow Rate 2 07/28/24 08:03 BMI result Body Mass Index 20.3 Const: Other: Constitutional : interactive, not in distress Cardiovascular : no JVP, no lower extremity edema Respiratory : bilateral chest movement, not in resp distress Gastrointestinal: soft, lax, Non tender Skin : Warm, Dry Neurological : Alert and oriented to self only, No focal deficit Objective Data Active Medications Acetaminophen (Acetaminophen 325 Mg Tablet) 650 mg PO Q6H PRN PRN Reason: Pain, Mild (Pain Scale 1-3), fever or headache Last Admin: 08/01/24 10:34 Dose: 650 mg Documented By: GERI Amlodipine Besylate (Amlodipine Besylate 5 Mg Tablet) 5 mg PO DAILY [facility]; Protocol Last Admin: 07/09/24 09:18 Dose: 5 mg Documented By: NIRAV Atorvastatin Calcium (Atorvastatin Calcium 20 Mg Tablet) 20 mg PO DAILY [facility] Last Admin: 08/06/24 08:30 Dose: 20 mg Documented By: PARMINDER Bisacodyl (Bisacodyl 10 Mg Supp.Rect) 10 mg NM BEDTIME PRN PRN Reason: Constipation Last Admin: 08/02/24 17:59 Dose: 10 mg Documented By: FELICIANO Calcium Carbonate (Calcium Carbonate 750 Mg Tab.Chew) 750 mg PO Q4H PRN PRN Reason: Heartburn Cyanocobalamin (Cyanocobalamin (Vitamin B-12) 1,000 Mcg Tablet) 1,000 mcg PO DAILY [facility] Last Admin: 08/06/24 08:30 Dose: 1,000 mcg Documented By: PARMINDER Divalproex Sodium (Divalproex Sodium Sprinkles 125 Mg ) 500 mg PO BEDTIME [facility] Last Admin: 08/05/24 20:03 Dose: 500 mg Documented By: ANGELIKA Enoxaparin Sodium (Enoxaparin Sodium 40 Mg/0.4 Ml Syringe) 40 mg SUBCUT Q24H [facility] Last Admin: 08/05/24 13:29 Dose: 40 mg Documented By: CHARLIE Gabapentin (Gabapentin 100 Mg Capsule) 200 mg PO BID [facility] Last Admin: 08/06/24 08:30 Dose: 200 mg Documented By: PARMINDER Lidocaine (Lidocaine 4 % Patch Adh..Patch) 1 patch TRANSDERMA DAILY [facility] Last Admin: 08/06/24 08:28 Dose: 1 patch Documented By: PARMINDER Magnesium Hydroxide (Milk Of Magnesia 30 Ml Oral.Susp) 30 ml PO DAILY PRN PRN Reason: Constipation Last Admin: 08/02/24 10:56 Dose: 30 ml Documented By: GERI Melatonin (Melatonin 3 Mg Tablet) 6 mg PO BEDTIME PRN PRN Reason: Sleep Last Admin: 08/06/24 00:51 Dose: 6 mg Documented By: MIK Melatonin (Melatonin 3 Mg Tablet) 6 mg PO BEDTIME PRN PRN Reason: Insomnia Nystatin (Nystatin Cream 15 Gm Tube) 1 appl TOPICAL BID [facility]; Protocol Last Admin: 08/06/24 08:33 Dose: 1 appl Documented By: PARMINDER Polyethylene Glycol (Polyethylene Glycol 3350 17 Gm Powd.Pack) 17 gm PO DAILY PRN PRN Reason: Constipation Last Admin: 08/02/24 17:43 Dose: 17 gm Documented By: FELICIANO Primidone (Primidone 50 Mg Tablet) 25 mg PO DAILY [facility] Last Admin: 08/06/24 08:31 Dose: 25 mg Documented By: PARMINDER Trazodone HCl (Trazodone Hcl 50 Mg Tablet) 50 mg PO BEDTIME PRN PRN Reason: Insomnia Last Admin: 08/03/24 21:05 Dose: 50 mg Documented By: DUSTIN Labs 07/24/24 05:26 07/24/24 05:26 Assessment and Plan (1) Major neurocognitive disorder: Status: Acute Plan 79-year-old male with history of advanced dementia, hyperlipidemia, hypertension, history of alcohol use disorder, polysubstance abuse presented on 06/25 due to increasing generalized fatigue/weakness, lethargy, decreased appetite and confusion admitted 07/07/24 as a social admit awaiting placement FTT in elderly Not eating much; he reports that he wants to eat whenever he wants and we can not force him to eat Encouraged to eat more Ensure added and he is drinking some 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 Continue amlodipine HLD statin dvt prophylaxis- lovenox full code Patient has no capacity to make medical decisions and is waiting for Guardianship. Quality Stroke Does the patient have a stroke diagnosis?: No VTE Prior VTE?: No VTE Risk Level:: Medical - moderate - high VTE Device Contraindication: Treatment Not Indicated VTE Drug Contraindication: N/A - Med Ordered
[2024-08-06] MEDS: Enoxaparin Sodium 40 MG/0.4 ML SYRINGE SUBCUT (13:09)
[2024-08-06 15:28] VITALS: BP 110/57; PULSE 69; RESP 16; TEMP 37.3; O2SAT 98
[2024-08-06 19:31] VITALS: BP 122/56; PULSE 68; RESP 14; TEMP 37.1; O2SAT 96
[2024-08-06] MEDS: Divalproex Sodium Sprinkles 125 MG CAP.DR.SPR 500 MG PO (20:10)
[2024-08-07 02:53] VITALS: BP 139/66; PULSE 60; RESP 14; TEMP 36.1; O2SAT 99
[2024-08-07 07:42] VITALS: BP 126/62; PULSE 63; RESP 18; TEMP 36.4; O2SAT 97
[2024-08-07] MEDS: Cyanocobalamin (Vitamin B-12) 1,000 MCG TABLET 1000 MCG PO (08:26)
[2024-08-07] MEDS: Atorvastatin Calcium 20 MG TABLET PO (08:27)
[2024-08-07] MEDS: Gabapentin 100 MG CAPSULE 200 MG PO ×2 (08:27→23:17)
[2024-08-07] MEDS: Lidocaine 4 % Patch ADH..PATCH 1 PATCH TRANSDERMA (08:29)
[2024-08-07] MEDS: Nystatin Cream 15 GM TUBE 1 APPL TOPICAL ×2 (08:31→23:18)
[2024-08-07] MEDS: Primidone 50 MG TABLET 25 MG PO (08:34)
--- NOTE | 2024-08-07 11:38 | P.PNIM_ITS ---
Subjective Subjective Date of Service: 08/07/24 Interval History: seen this morning sitting in his bed, comfortable no overnight events Physical Exam 2 Vital Signs: Vital Signs: Last Vital Signs Temp 97.6 F 08/07/24 07:42 Pulse 63 08/07/24 07:42 Resp 18 08/07/24 07:42 BP 126/62 08/07/24 07:42 Pulse Ox 97 08/07/24 07:42 O2 Del Method Room Air 08/07/24 07:42 O2 Flow Rate 2 07/28/24 08:03 BMI result Body Mass Index 20.3 Const: Other: Constitutional : interactive, not in distress Cardiovascular : no JVP, no lower extremity edema Respiratory : bilateral chest movement, not in resp distress Gastrointestinal: soft, lax, Non tender Skin : Warm, Dry Neurological : Alert and oriented to self only, No focal deficit Objective Data Active Medications Acetaminophen (Acetaminophen 325 Mg Tablet) 650 mg PO Q6H PRN PRN Reason: Pain, Mild (Pain Scale 1-3), fever or headache Last Admin: 08/01/24 10:34 Dose: 650 mg Documented By: GERI Amlodipine Besylate (Amlodipine Besylate 5 Mg Tablet) 5 mg PO DAILY [facility]; Protocol Last Admin: 07/09/24 09:18 Dose: 5 mg Documented By: NIRAV Atorvastatin Calcium (Atorvastatin Calcium 20 Mg Tablet) 20 mg PO DAILY [facility] Last Admin: 08/07/24 08:27 Dose: 20 mg Documented By: PARMINDER Bisacodyl (Bisacodyl 10 Mg Supp.Rect) 10 mg [place] BEDTIME PRN PRN Reason: Constipation Last Admin: 08/02/24 17:59 Dose: 10 mg Documented By: FELICIANO Calcium Carbonate (Calcium Carbonate 750 Mg Tab.Chew) 750 mg PO Q4H PRN PRN Reason: Heartburn Cyanocobalamin (Cyanocobalamin (Vitamin B-12) 1,000 Mcg Tablet) 1,000 mcg PO DAILY [facility] Last Admin: 08/07/24 08:26 Dose: 1,000 mcg Documented By: PARMINDER Divalproex Sodium (Divalproex Sodium Sprinkles 125 Mg ) 500 mg PO BEDTIME [facility] Last Admin: 08/06/24 20:10 Dose: 500 mg Documented By: ANGELIKA Enoxaparin Sodium (Enoxaparin Sodium 40 Mg/0.4 Ml Syringe) 40 mg SUBCUT Q24H [facility] Last Admin: 08/06/24 13:09 Dose: 40 mg Documented By: PARMINDER Gabapentin (Gabapentin 100 Mg Capsule) 200 mg PO BID [facility] Last Admin: 08/07/24 08:27 Dose: 200 mg Documented By: PARMINDER Lidocaine (Lidocaine 4 % Patch Adh..Patch) 1 patch TRANSDERMA DAILY [facility] Last Admin: 08/07/24 08:29 Dose: 1 patch Documented By: PARMINDER Magnesium Hydroxide (Milk Of Magnesia 30 Ml Oral.Susp) 30 ml PO DAILY PRN PRN Reason: Constipation Last Admin: 08/02/24 10:56 Dose: 30 ml Documented By: GERI Melatonin (Melatonin 3 Mg Tablet) 6 mg PO BEDTIME PRN PRN Reason: Sleep Last Admin: 08/06/24 00:51 Dose: 6 mg Documented By: MIK Melatonin (Melatonin 3 Mg Tablet) 6 mg PO BEDTIME PRN PRN Reason: Insomnia Nystatin (Nystatin Cream 15 Gm Tube) 1 appl TOPICAL BID [facility]; Protocol Last Admin: 08/07/24 08:31 Dose: 1 appl Documented By: PARMINDER Polyethylene Glycol (Polyethylene Glycol 3350 17 Gm Powd.Pack) 17 gm PO DAILY PRN PRN Reason: Constipation Last Admin: 08/02/24 17:43 Dose: 17 gm Documented By: FELICIANO Primidone (Primidone 50 Mg Tablet) 25 mg PO DAILY [facility] Last Admin: 08/07/24 08:34 Dose: 25 mg Documented By: PARMINDER Trazodone HCl (Trazodone Hcl 50 Mg Tablet) 50 mg PO BEDTIME PRN PRN Reason: Insomnia Last Admin: 08/03/24 21:05 Dose: 50 mg Documented By: CARTYA Labs 07/24/24 05:26 07/24/24 05:26 Assessment and Plan (1) Major neurocognitive disorder: Status: Acute Plan 79-year-old male with history of advanced dementia, hyperlipidemia, hypertension, history of alcohol use disorder, polysubstance abuse presented on 06/25 due to increasing generalized fatigue/weakness, lethargy, decreased appetite and confusion admitted 07/07/24 as a social admit awaiting placement FTT in elderly Not eating much; he reports that he wants to eat whenever he wants and we can not force him to eat Encouraged to eat more Ensure added and he is drinking some [employer] following tremor start primidone to good effect Unspecified dementia awaiting gaurdianship/LTC mentation baseline Dysuria resolved , No UTI, was negative on arrival HTN normotensive overall since arrival. Continue amlodipine HLD statin dvt prophylaxis- lovenox full code Patient has no capacity to make medical decisions and is waiting for Guardianship. Quality Stroke Does the patient have a stroke diagnosis?: No VTE Prior VTE?: No VTE Risk Level:: Medical - moderate - high VTE Device Contraindication: Treatment Not Indicated VTE Drug Contraindication: N/A - Med Ordered
--- NOTE | 2024-08-07 11:51 | MHC.CLN ---
F/U DIET=REGULAR. ENSURE TID PROVIDES ADDITIONAL 1050 KCALS, 60 G PROTEIN. MOST RECENT INTAKE 25%. AWAITING RESULTS OF GUARDIANSHIP HEARING. NO ALTERNATE NUTRITION AT THIS TIME PER MD. CONTINUE TO FOLLOW FOR PO INTAKE AND PLAN OF CARE.
[2024-08-07] MEDS: Enoxaparin Sodium 40 MG/0.4 ML SYRINGE SUBCUT (13:58)
[2024-08-07 15:10] VITALS: BP 108/55; PULSE 89; RESP 17; TEMP 36.5; O2SAT 95
[2024-08-07 19:50] VITALS: BP 123/64; PULSE 85; RESP 16; TEMP 36.8; O2SAT 96
[2024-08-07] MEDS: Divalproex Sodium Sprinkles 125 MG CAP.DR.SPR 500 MG PO (23:17)
[2024-08-08 04:00] VITALS: BP 106/57; PULSE 64; RESP 14; TEMP 36.7; O2SAT 97
[2024-08-08 07:39] VITALS: BP 110/55; PULSE 62; RESP 18; TEMP 36.3; O2SAT 97
[2024-08-08] MEDS: Primidone 50 MG TABLET 25 MG PO (09:22)
[2024-08-08] MEDS: Cyanocobalamin (Vitamin B-12) 1,000 MCG TABLET 1000 MCG PO (09:22)
[2024-08-08] MEDS: Atorvastatin Calcium 20 MG TABLET PO (09:22)
[2024-08-08] MEDS: Gabapentin 100 MG CAPSULE 200 MG PO ×2 (09:22→20:50)
--- NOTE | 2024-08-08 13:29 | HO.PM.IMPN ---
Subjective Subjective Date of Service: 08/08/24 Interval History: seen this morning sitting in his bed, comfortable no overnight events Physical Exam Vital Signs: Vital Signs: Last Vital Signs Temp 97.3 F 08/08/24 07:39 Pulse 62 08/08/24 07:39 Resp 18 08/08/24 07:39 BP 110/55 L 08/08/24 07:39 Pulse Ox 97 08/08/24 07:39 O2 Del Method Room Air 08/08/24 07:39 O2 Flow Rate 2 07/28/24 08:03 BMI result Body Mass Index 20.3 Const: Other: Constitutional : interactive, not in distress Cardiovascular : no JVP, no lower extremity edema Respiratory : bilateral chest movement, not in resp distress Gastrointestinal: soft, lax, Non tender Skin : Warm, Dry Neurological : Alert and oriented to self only, No focal deficit Objective Data Active Medications Acetaminophen (Acetaminophen 325 Mg Tablet) 650 mg PO Q6H PRN PRN Reason: Pain, Mild (Pain Scale 1-3), fever or headache Last Admin: 08/01/24 10:34 Dose: 650 mg Documented By: GERI Amlodipine Besylate (Amlodipine Besylate 5 Mg Tablet) 5 mg PO DAILY [facility]; Protocol Last Admin: 07/09/24 09:18 Dose: 5 mg Documented By: NIRAV Atorvastatin Calcium (Atorvastatin Calcium 20 Mg Tablet) 20 mg PO DAILY [facility] Last Admin: 08/08/24 09:22 Dose: 20 mg Documented By: CAIO Bisacodyl (Bisacodyl 10 Mg Supp.Rect) 10 mg [place] BEDTIME PRN PRN Reason: Constipation Last Admin: 08/02/24 17:59 Dose: 10 mg Documented By: FELICIANO Calcium Carbonate (Calcium Carbonate 750 Mg Tab.Chew) 750 mg PO Q4H PRN PRN Reason: Heartburn Cyanocobalamin (Cyanocobalamin (Vitamin B-12) 1,000 Mcg Tablet) 1,000 mcg PO DAILY [facility] Last Admin: 08/08/24 09:22 Dose: 1,000 mcg Documented By: CAIO Divalproex Sodium (Divalproex Sodium Sprinkles 125 Mg ) 500 mg PO BEDTIME [facility] Last Admin: 08/07/24 23:17 Dose: 500 mg Documented By: HO.LYSZ Enoxaparin Sodium (Enoxaparin Sodium 40 Mg/0.4 Ml Syringe) 40 mg SUBCUT Q24H [facility] Last Admin: 08/07/24 13:58 Dose: 40 mg Documented By: PARMINDER Gabapentin (Gabapentin 100 Mg Capsule) 200 mg PO BID [facility] Last Admin: 08/08/24 09:22 Dose: 200 mg Documented By: CAIO Lidocaine (Lidocaine 4 % Patch Adh..Patch) 1 patch TRANSDERMA DAILY [facility] Last Admin: 08/08/24 09:22 Dose: Not Given Documented By: CAIO Non-Admin Reason: Patient Refused Magnesium Hydroxide (Milk Of Magnesia 30 Ml Oral.Susp) 30 ml PO DAILY PRN PRN Reason: Constipation Last Admin: 08/02/24 10:56 Dose: 30 ml Documented By: GERI Melatonin (Melatonin 3 Mg Tablet) 6 mg PO BEDTIME PRN PRN Reason: Sleep Last Admin: 08/06/24 00:51 Dose: 6 mg Documented By: MIK Melatonin (Melatonin 3 Mg Tablet) 6 mg PO BEDTIME PRN PRN Reason: Insomnia Nystatin (Nystatin Cream 15 Gm Tube) 1 appl TOPICAL BID [facility]; Protocol Last Admin: 08/08/24 09:22 Dose: Not Given Documented By: CAIO Non-Admin Reason: rash healed Polyethylene Glycol (Polyethylene Glycol 3350 17 Gm Powd.Pack) 17 gm PO DAILY PRN PRN Reason: Constipation Last Admin: 08/02/24 17:43 Dose: 17 gm Documented By: FELICIANO Primidone (Primidone 50 Mg Tablet) 25 mg PO DAILY [facility] Last Admin: 08/08/24 09:22 Dose: 25 mg Documented By: CAIO Trazodone HCl (Trazodone Hcl 50 Mg Tablet) 50 mg PO BEDTIME PRN PRN Reason: Insomnia Last Admin: 08/03/24 21:05 Dose: 50 mg Documented By: DUSTIN Labs 07/24/24 05:26 07/24/24 05:26 Assessment and Plan (1) Major neurocognitive disorder: Status: Acute Plan 79-year-old male with history of advanced dementia, hyperlipidemia, hypertension, history of alcohol use disorder, polysubstance abuse presented on 06/25 due to increasing generalized fatigue/weakness, lethargy, decreased appetite and confusion admitted 07/07/24 as a social admit awaiting placement FTT in elderly Not eating much; he reports that he wants to eat whenever he wants and we can not force him to eat Encouraged to eat more Ensure added and he is drinking some [place] [employer] following tremor start primidone to good effect Unspecified dementia awaiting gaurdianship/LTC mentation baseline Dysuria resolved , No UTI, was negative on arrival HTN normotensive overall since arrival. Continue amlodipine HLD statin dvt prophylaxis- lovenox full code Patient has no capacity to make medical decisions and is waiting for Guardianship. Quality Stroke Does the patient have a stroke diagnosis?: No VTE Prior VTE?: No VTE Risk Level:: Medical - moderate - high VTE Device Contraindication: Treatment Not Indicated VTE Drug Contraindication: N/A - Med Ordered
[2024-08-08] MEDS: Enoxaparin Sodium 40 MG/0.4 ML SYRINGE SUBCUT (14:56)
--- NOTE | 2024-08-08 15:15 | PC.NURSE ---
Petersen removed per order of Dr Nelson @ 2567. DTV #1 @ 4169. NG tube clamped @ [address] Nelson. To check residual in 4 hours and possibly remove.
[2024-08-08 15:46] VITALS: BP 106/50; PULSE 70; RESP 18; TEMP 36.6; O2SAT 98
[2024-08-08 19:23] VITALS: BP 122/60; PULSE 70; RESP 16; TEMP 37; O2SAT 98
[2024-08-08] MEDS: Divalproex Sodium Sprinkles 125 MG CAP.DR.SPR 500 MG PO (20:49)
[2024-08-08] MEDS: Nystatin Cream 15 GM TUBE 1 APPL TOPICAL (20:50)
[2024-08-09 03:54] VITALS: BP 104/51; PULSE 59; RESP 16; TEMP 36.4; O2SAT 97
[2024-08-09 08:18] VITALS: BP 118/58; PULSE 57; RESP 12; TEMP 36.1; O2SAT 98
[2024-08-09] MEDS: Atorvastatin Calcium 20 MG TABLET PO (08:45)
[2024-08-09] MEDS: Gabapentin 100 MG CAPSULE 200 MG PO ×2 (08:45→20:33)
[2024-08-09] MEDS: Cyanocobalamin (Vitamin B-12) 1,000 MCG TABLET 1000 MCG PO (08:45)
[2024-08-09] MEDS: Primidone 50 MG TABLET 25 MG PO (08:45)
[2024-08-09] MEDS: polyethylene glycoL 3350 17 GM POWD.PACK PO (11:46)
--- NOTE | 2024-08-09 14:02 | P.PNIM_ITS ---
Subjective Subjective Date of Service: 08/09/24 Interval History: seen this morning sitting in his bed, comfortable no overnight events Physical Exam 2 Vital Signs: Vital Signs: Last Vital Signs Temp 96.9 F 08/09/24 08:18 Pulse 57 08/09/24 08:18 Resp 12 08/09/24 08:18 BP 118/58 L 08/09/24 08:18 Pulse Ox 98 08/09/24 08:18 O2 Del Method Room Air 08/09/24 08:18 O2 Flow Rate 2 07/28/24 08:03 BMI result Body Mass Index 20.3 Const: Other: Constitutional : interactive, not in distress Cardiovascular : no JVP, no lower extremity edema Respiratory : bilateral chest movement, not in resp distress Gastrointestinal: soft, lax, Non tender Skin : Warm, Dry Neurological : Alert and oriented to self only, No focal deficit Objective Data Active Medications Acetaminophen (Acetaminophen 325 Mg Tablet) 650 mg PO Q6H PRN PRN Reason: Pain, Mild (Pain Scale 1-3), fever or headache Last Admin: 08/01/24 10:34 Dose: 650 mg Documented By: GERI Amlodipine Besylate (Amlodipine Besylate 5 Mg Tablet) 5 mg PO DAILY [facility]; Protocol Last Admin: 07/09/24 09:18 Dose: 5 mg Documented By: NIRAV Atorvastatin Calcium (Atorvastatin Calcium 20 Mg Tablet) 20 mg PO DAILY [facility] Last Admin: 08/09/24 08:45 Dose: 20 mg Documented By: CAIO Bisacodyl (Bisacodyl 10 Mg Supp.Rect) 10 mg [place] BEDTIME PRN PRN Reason: Constipation Last Admin: 08/02/24 17:59 Dose: 10 mg Documented By: FELICIANO Calcium Carbonate (Calcium Carbonate 750 Mg Tab.Chew) 750 mg PO Q4H PRN PRN Reason: Heartburn Cyanocobalamin (Cyanocobalamin (Vitamin B-12) 1,000 Mcg Tablet) 1,000 mcg PO DAILY [facility] Last Admin: 08/09/24 08:45 Dose: 1,000 mcg Documented By: CAIO Divalproex Sodium (Divalproex Sodium Sprinkles 125 Mg ) 500 mg PO BEDTIME [facility] Last Admin: 08/08/24 20:49 Dose: 500 mg Documented By: HO.LYSZ Enoxaparin Sodium (Enoxaparin Sodium 40 Mg/0.4 Ml Syringe) 40 mg SUBCUT Q24H [facility] Last Admin: 08/08/24 14:56 Dose: 40 mg Documented By: CAIO Gabapentin (Gabapentin 100 Mg Capsule) 200 mg PO BID [facility] Last Admin: 08/09/24 08:45 Dose: 200 mg Documented By: CAIO Lidocaine (Lidocaine 4 % Patch Adh..Patch) 1 patch TRANSDERMA DAILY [facility] Last Admin: 08/09/24 08:48 Dose: Not Given Documented By: CAIO Non-Admin Reason: Patient Refused Magnesium Hydroxide (Milk Of Magnesia 30 Ml Oral.Susp) 30 ml PO DAILY PRN PRN Reason: Constipation Last Admin: 08/02/24 10:56 Dose: 30 ml Documented By: GERI Melatonin (Melatonin 3 Mg Tablet) 6 mg PO BEDTIME PRN PRN Reason: Sleep Last Admin: 08/06/24 00:51 Dose: 6 mg Documented By: MIK Melatonin (Melatonin 3 Mg Tablet) 6 mg PO BEDTIME PRN PRN Reason: Insomnia Nystatin (Nystatin Cream 15 Gm Tube) 1 appl TOPICAL BID [facility]; Protocol Last Admin: 08/09/24 08:48 Dose: Not Given Documented By: CAIO Non-Admin Reason: rash healed Polyethylene Glycol (Polyethylene Glycol 3350 17 Gm Powd.Pack) 17 gm PO DAILY PRN PRN Reason: Constipation Last Admin: 08/09/24 11:46 Dose: 17 gm Documented By: CAIO Primidone (Primidone 50 Mg Tablet) 25 mg PO DAILY [facility] Last Admin: 08/09/24 08:45 Dose: 25 mg Documented By: CAIO Trazodone HCl (Trazodone Hcl 50 Mg Tablet) 50 mg PO BEDTIME PRN PRN Reason: Insomnia Last Admin: 08/03/24 21:05 Dose: 50 mg Documented By: DUSTIN Labs 07/24/24 05:26 07/24/24 05:26 Assessment and Plan (1) Major neurocognitive disorder: Status: Acute Plan 79-year-old male with history of advanced dementia, hyperlipidemia, hypertension, history of alcohol use disorder, polysubstance abuse presented on 06/25 due to increasing generalized fatigue/weakness, lethargy, decreased appetite and confusion admitted 07/07/24 as a social admit awaiting placement FTT in elderly Not eating much; he reports that he wants to eat whenever he wants and we can not force him to eat Encouraged to eat more Ensure added and he is drinking some [employer] following tremor start primidone to good effect Unspecified dementia awaiting gaurdianship/LTC mentation baseline Dysuria resolved , No UTI, was negative on arrival HTN normotensive overall since arrival. Continue amlodipine HLD statin dvt prophylaxis- lovenox full code Patient has no capacity to make medical decisions and is waiting for Guardianship. Quality Stroke Does the patient have a stroke diagnosis?: No VTE Prior VTE?: No VTE Risk Level:: Medical - moderate - high VTE Device Contraindication: Treatment Not Indicated VTE Drug Contraindication: N/A - Med Ordered
[2024-08-09] MEDS: Enoxaparin Sodium 40 MG/0.4 ML SYRINGE SUBCUT (14:52)
[2024-08-09 15:27] VITALS: BP 116/56; PULSE 66; RESP 18; TEMP 36.3; O2SAT 98
[2024-08-09 19:27] VITALS: BP 122/60; PULSE 70; RESP 16; TEMP 36.1; O2SAT 98
[2024-08-09] MEDS: Divalproex Sodium Sprinkles 125 MG CAP.DR.SPR 500 MG PO (20:33)
[2024-08-09] MEDS: Nystatin Cream 15 GM TUBE 1 APPL TOPICAL (20:40)
[2024-08-10 03:13] VITALS: BP 124/66; PULSE 55; RESP 16; TEMP 36.2; O2SAT 94
[2024-08-10] MEDS: Nystatin Cream 15 GM TUBE 1 APPL TOPICAL ×2 (07:19→20:11)
[2024-08-10] MEDS: Primidone 50 MG TABLET 25 MG PO (07:22)
[2024-08-10] MEDS: Gabapentin 100 MG CAPSULE 200 MG PO ×2 (07:22→20:10)
[2024-08-10] MEDS: Cyanocobalamin (Vitamin B-12) 1,000 MCG TABLET 1000 MCG PO (07:22)
[2024-08-10] MEDS: Atorvastatin Calcium 20 MG TABLET PO (07:22)
[2024-08-10 07:52] VITALS: BP 127/71; PULSE 69; RESP 16; TEMP 36.1; O2SAT 98
--- NOTE | 2024-08-10 10:32 | HO.PM.IMPN ---
Subjective Subjective Date of Service: 08/10/24 Interval History: seen this morning sitting in his bed, comfortable no overnight events Review of Systems Review of Systems: Yes all other systems are reviewed and are negative Physical Exam Vital Signs: Vital Signs: Last Vital Signs Temp 96.9 F 08/10/24 07:52 Pulse 69 08/10/24 07:52 Resp 16 08/10/24 07:52 BP 127/71 08/10/24 07:52 Pulse Ox 98 08/10/24 07:52 O2 Del Method Room Air 08/10/24 07:52 O2 Flow Rate 2 07/28/24 08:03 BMI result Body Mass Index 20.3 Const: Other: Constitutional : interactive, not in distress Cardiovascular : no JVP, no lower extremity edema Respiratory : bilateral chest movement, not in resp distress Gastrointestinal: soft, lax, Non tender Skin : Warm, Dry Neurological : Alert and oriented to self only, No focal deficit Objective Data Active Medications Acetaminophen (Acetaminophen 325 Mg Tablet) 650 mg PO Q6H PRN PRN Reason: Pain, Mild (Pain Scale 1-3), fever or headache Last Admin: 08/01/24 10:34 Dose: 650 mg Documented By: GERI Amlodipine Besylate (Amlodipine Besylate 5 Mg Tablet) 5 mg PO DAILY [facility]; Protocol Last Admin: 07/09/24 09:18 Dose: 5 mg Documented By: NIRAV Atorvastatin Calcium (Atorvastatin Calcium 20 Mg Tablet) 20 mg PO DAILY [facility] Last Admin: 08/10/24 07:22 Dose: 20 mg Documented By: NYA Bisacodyl (Bisacodyl 10 Mg Supp.Rect) 10 mg [place] BEDTIME PRN PRN Reason: Constipation Last Admin: 08/02/24 17:59 Dose: 10 mg Documented By: FELICIANO Calcium Carbonate (Calcium Carbonate 750 Mg Tab.Chew) 750 mg PO Q4H PRN PRN Reason: Heartburn Cyanocobalamin (Cyanocobalamin (Vitamin B-12) 1,000 Mcg Tablet) 1,000 mcg PO DAILY [facility] Last Admin: 08/10/24 07:22 Dose: 1,000 mcg Documented By: NYA Divalproex Sodium (Divalproex Sodium Sprinkles 125 Mg ) 500 mg PO BEDTIME [facility] Last Admin: 08/09/24 20:33 Dose: 500 mg Documented By: SIMRAN Enoxaparin Sodium (Enoxaparin Sodium 40 Mg/0.4 Ml Syringe) 40 mg SUBCUT Q24H [facility] Last Admin: 08/09/24 14:52 Dose: 40 mg Documented By: CAIO Gabapentin (Gabapentin 100 Mg Capsule) 200 mg PO BID [facility] Last Admin: 08/10/24 07:22 Dose: 200 mg Documented By: NYA Lidocaine (Lidocaine 4 % Patch Adh..Patch) 1 patch TRANSDERMA DAILY [facility] Last Admin: 08/10/24 07:19 Dose: Not Given Documented By: NYA Non-Admin Reason: Patient Refused Magnesium Hydroxide (Milk Of Magnesia 30 Ml Oral.Susp) 30 ml PO DAILY PRN PRN Reason: Constipation Last Admin: 08/02/24 10:56 Dose: 30 ml Documented By: GERI Melatonin (Melatonin 3 Mg Tablet) 6 mg PO BEDTIME PRN PRN Reason: Sleep Last Admin: 08/06/24 00:51 Dose: 6 mg Documented By: MIK Melatonin (Melatonin 3 Mg Tablet) 6 mg PO BEDTIME PRN PRN Reason: Insomnia Nystatin (Nystatin Cream 15 Gm Tube) 1 appl TOPICAL BID [facility]; Protocol Last Admin: 08/10/24 07:19 Dose: 1 appl Documented By: NYA Polyethylene Glycol (Polyethylene Glycol 3350 17 Gm Powd.Pack) 17 gm PO DAILY PRN PRN Reason: Constipation Last Admin: 08/09/24 11:46 Dose: 17 gm Documented By: CAIO Primidone (Primidone 50 Mg Tablet) 25 mg PO DAILY [facility] Last Admin: 08/10/24 07:22 Dose: 25 mg Documented By: NYA Trazodone HCl (Trazodone Hcl 50 Mg Tablet) 50 mg PO BEDTIME PRN PRN Reason: Insomnia Last Admin: 08/03/24 21:05 Dose: 50 mg Documented By: DUSTIN Labs 07/24/24 05:26 07/24/24 05:26 Assessment and Plan (1) Major neurocognitive disorder: Status: Acute Plan 79-year-old male with history of advanced dementia, hyperlipidemia, hypertension, history of alcohol use disorder, polysubstance abuse presented on 06/25 due to increasing generalized fatigue/weakness, lethargy, decreased appetite and confusion admitted 07/07/24 as a social admit awaiting placement FTT in elderly Not eating much; he reports that he wants to eat whenever he wants and we can not force him to eat Encouraged to eat more Ensure added and he is drinking some [employer] following tremor start primidone to good effect Unspecified dementia awaiting gaurdianship/LTC mentation baseline Dysuria resolved , No UTI, was negative on arrival HTN normotensive overall since arrival. Continue amlodipine HLD statin dvt prophylaxis- lovenox full code Patient has no capacity to make medical decisions and is waiting for Guardianship. Quality Stroke Does the patient have a stroke diagnosis?: No VTE Prior VTE?: No VTE Risk Level:: Medical - moderate - high VTE Device Contraindication: Treatment Not Indicated VTE Drug Contraindication: N/A - Med Ordered
[2024-08-10] MEDS: Enoxaparin Sodium 40 MG/0.4 ML SYRINGE SUBCUT (13:19)
[2024-08-10 15:18] VITALS: BP 113/61; PULSE 67; RESP 16; TEMP 36.3; O2SAT 95
--- NOTE | 2024-08-10 16:11 | MHC.CM.NN ---
EMR REVIEWED, CM RECEIVED RESPONSE BACK FROM [facility]IAISON AT [facility] [place] REPORT THEY HAVE A LTC BED AND HAD QUESTIONS FOR CM WHICH WERE ANSWERED, THEY ALSO REQUESTED ADDITIONAL NOTES, WHICH HAVE BEEN SENT, NURSE REVIEWER REVIEWING AND CM WILL FOLLOW-UP.
--- NOTE | 2024-08-10 16:19 | MHC.CM.PN ---
EMR REVIEWED, CM RECEIVED RESPONSE BACK FROM LIAISON AT [facility], [place] REPORT THEY HAVE A LTC BED AND HAD QUESTIONS FOR CM WHICH WERE ANSWERED, THEY ALSO REQUESTED ADDITIONAL NOTES, WHICH HAVE BEEN SENT, NURSE REVIEWER REVIEWING AND CM WILL FOLLOW-UP.
[2024-08-10 19:15] VITALS: BP 135/80; PULSE 73; RESP 18; TEMP 36.6; O2SAT 98
[2024-08-10] MEDS: Divalproex Sodium Sprinkles 125 MG CAP.DR.SPR 500 MG PO (20:10)
[2024-08-11 04:00] VITALS: BP 107/54; PULSE 55; RESP 16; TEMP 36; O2SAT 98
[2024-08-11 07:47] VITALS: BP 100/53; PULSE 64; RESP 18; TEMP 36.2; O2SAT 98
[2024-08-11] MEDS: Cyanocobalamin (Vitamin B-12) 1,000 MCG TABLET 1000 MCG PO (08:58)
[2024-08-11] MEDS: Gabapentin 100 MG CAPSULE 200 MG PO ×2 (08:58→19:40)
[2024-08-11] MEDS: Atorvastatin Calcium 20 MG TABLET PO (08:58)
[2024-08-11] MEDS: Primidone 50 MG TABLET 25 MG PO (08:58)
[2024-08-11] MEDS: Nystatin Cream 15 GM TUBE 1 APPL TOPICAL ×2 (09:02→19:41)
--- NOTE | 2024-08-11 09:39 | HO.PM.IMPN ---
Subjective Subjective Date of Service: 08/11/24 Interval History: seen this morning comfortable in his bed no overnight events Review of Systems Review of Systems: Yes all other systems are reviewed and are negative Physical Exam Vital Signs: Vital Signs: Last Vital Signs Temp 97.1 F 08/11/24 07:47 Pulse 64 08/11/24 07:47 Resp 18 08/11/24 07:47 BP 100/53 L 08/11/24 07:47 Pulse Ox 98 08/11/24 07:47 O2 Del Method Room Air 08/11/24 07:47 O2 Flow Rate 2 07/28/24 08:03 BMI result Body Mass Index 20.3 Const: Other: Constitutional : interactive, not in distress Cardiovascular : no JVP, no lower extremity edema Respiratory : bilateral chest movement, not in resp distress Gastrointestinal: soft, lax, Non tender Skin : Warm, Dry Neurological : Alert and oriented to self only, No focal deficit Objective Data Active Medications Acetaminophen (Acetaminophen 325 Mg Tablet) 650 mg PO Q6H PRN PRN Reason: Pain, Mild (Pain Scale 1-3), fever or headache Last Admin: 08/01/24 10:34 Dose: 650 mg Documented By: GERI Amlodipine Besylate (Amlodipine Besylate 5 Mg Tablet) 5 mg PO DAILY [facility]; Protocol Last Admin: 07/09/24 09:18 Dose: 5 mg Documented By: NIRAV Atorvastatin Calcium (Atorvastatin Calcium 20 Mg Tablet) 20 mg PO DAILY [facility] Last Admin: 08/11/24 08:58 Dose: 20 mg Documented By: NORMA Bisacodyl (Bisacodyl 10 Mg Supp.Rect) 10 mg LA BEDTIME PRN PRN Reason: Constipation Last Admin: 08/02/24 17:59 Dose: 10 mg Documented By: FELICIANO Calcium Carbonate (Calcium Carbonate 750 Mg Tab.Chew) 750 mg PO Q4H PRN PRN Reason: Heartburn Cyanocobalamin (Cyanocobalamin (Vitamin B-12) 1,000 Mcg Tablet) 1,000 mcg PO DAILY [facility] Last Admin: 08/11/24 08:58 Dose: 1,000 mcg Documented By: NORMA Divalproex Sodium (Divalproex Sodium Sprinkles 125 Mg ) 500 mg PO BEDTIME [facility] Last Admin: 08/10/24 20:10 Dose: 500 mg Documented By: MEDARDO Enoxaparin Sodium (Enoxaparin Sodium 40 Mg/0.4 Ml Syringe) 40 mg SUBCUT Q24H [facility] Last Admin: 08/10/24 13:19 Dose: 40 mg Documented By: NYA Gabapentin (Gabapentin 100 Mg Capsule) 200 mg PO BID [facility] Last Admin: 08/11/24 08:58 Dose: 200 mg Documented By: NORMA Lidocaine (Lidocaine 4 % Patch Adh..Patch) 1 patch TRANSDERMA DAILY [facility] Last Admin: 08/11/24 08:54 Dose: Not Given Documented By: NORMA Non-Admin Reason: Patient Refused Magnesium Hydroxide (Milk Of Magnesia 30 Ml Oral.Susp) 30 ml PO DAILY PRN PRN Reason: Constipation Last Admin: 08/02/24 10:56 Dose: 30 ml Documented By: GERI Melatonin (Melatonin 3 Mg Tablet) 6 mg PO BEDTIME PRN PRN Reason: Sleep Last Admin: 08/06/24 00:51 Dose: 6 mg Documented By: MIK Melatonin (Melatonin 3 Mg Tablet) 6 mg PO BEDTIME PRN PRN Reason: Insomnia Nystatin (Nystatin Cream 15 Gm Tube) 1 appl TOPICAL BID [facility]; Protocol Last Admin: 08/11/24 09:02 Dose: 1 appl Documented By: NORMA Polyethylene Glycol (Polyethylene Glycol 3350 17 Gm Powd.Pack) 17 gm PO DAILY PRN PRN Reason: Constipation Last Admin: 08/09/24 11:46 Dose: 17 gm Documented By: CAIO Primidone (Primidone 50 Mg Tablet) 25 mg PO DAILY [facility] Last Admin: 08/11/24 08:58 Dose: 25 mg Documented By: NORMA Trazodone HCl (Trazodone Hcl 50 Mg Tablet) 50 mg PO BEDTIME PRN PRN Reason: Insomnia Last Admin: 08/03/24 21:05 Dose: 50 mg Documented By: DUSTIN Labs 07/24/24 05:26 07/24/24 05:26 Assessment and Plan (1) Major neurocognitive disorder: Status: Acute Plan 79-year-old male with history of advanced dementia, hyperlipidemia, hypertension, history of alcohol use disorder, polysubstance abuse presented on 06/25 due to increasing generalized fatigue/weakness, lethargy, decreased appetite and confusion admitted 07/07/24 as a social admit awaiting placement FTT in elderly Not eating much; he reports that he wants to eat whenever he wants and we can not force him to eat. 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 Continue amlodipine HLD statin dvt prophylaxis- lovenox full code Patient has no capacity to make medical decisions and is waiting for LTC Quality Stroke Does the patient have a stroke diagnosis?: No VTE Prior VTE?: No VTE Risk Level:: Medical - moderate - high VTE Device Contraindication: Treatment Not Indicated VTE Drug Contraindication: N/A - Med Ordered
--- NOTE | 2024-08-11 13:14 | MHC.CM.PN ---
PT HAS BEEN OFFERED A BED AT [facility] IN [place]. GUARDIAN FUNMILAYO DEVRIES UPDATED AND IS IN AGREEMENT TO THIS CENTER FOR PLACEMENT. [facility] HAS OBTAINED [facility] AUTH TO ADMIT. GUARDIAN WILL NEED TO COMPLETE FORMS AND EMAIL TO CENTER BEFORE ADMISSION, GUARDIAN AWARE. UPDATED. S TRANSPORT BOOKED FOR 9:30 AM VIA [facility]
[2024-08-11] MEDS: Enoxaparin Sodium 40 MG/0.4 ML SYRINGE SUBCUT (13:28)
--- NOTE | 2024-08-11 14:21 | P.DS_ITS ---
DS: Providers Provider Date of Service: 08/12/24 Date of admission: 07/07/24 14:15 Date of discharge: 08/12/24 Primary care physician: Alirio Whitley MD Consults: 06/30/24 08:17 Consult to Psychiatry Stat Consulting Provider: Kaylee Perea Reason for consultation: eval for capacity Has provider been notified: Yes DS: Diagnosis Discharge Diagnosis (1) Major neurocognitive disorder: Status: Acute DS: Summary Hospital Course Hospital Course: Admission note HPI 79-year-old male with history of advanced dementia, hyperlipidemia, hypertension, history of alcohol use disorder, polysubstance abuse who has been awaiting placement in the ED since 06/25 due to increasing generalized fatigue/weakness, lethargy, decreased appetite, diarrhea, and confusion. At baseline secondary to his dementia he is confused, does not know staff names nor does he remember if he is eating or taking his medications or showering per staff at [place] [id number] where he has been residing as part of [facility] housing. There was a question of alcohol and substance use however in the ED urine drug screen was not obtained. The patient is able to tell me his name and where he is located but does not know the date. On review of systems, he is reporting some dysuria intermittently and does state he has been having diarrhea chronically but feels this is improving. He has no other complaints. Since arrival, blood pressures have been intermittently elevated but vitals have otherwise been stable. Hematology studies checked on the day of arrival were unremarkable. Renal function is normal, electrolyte levels normal. Urinalysis on day of presentation was unremarkable. Chest x-ray was negative for any acute cardiopulmonary abnormality head CT was negative for any acute intracranial abnormality. At this time, he is being admitted to the hospitalist service as a social admit awaiting placement. Hospital course # FTT in elderly. Not eating much; he reports that he wants to eat whenever he wants and we can not force him to eat. Encouraged to eat more. Ensure added and Pss Delivery Professional followed during hospital stay. # tremor, improved On Primidone # Unspecified dementia and Neurocognitive disorder. Had guardiaship and was awaiting LTC. mentation at baseline. Discharge plan Primidone 25 mg daily Time Attestation Discharge Coordination Time (in mins): 35 Quality: Safe Use of Opioids Does Pt have an Active Cancer Diagnosis on the Problem List?: No Quality: Stroke Does the patient have a stroke diagnosis?: No Physical Exam Vital Signs: Vital Signs: Last Vital Signs Temp 97.1 F 08/11/24 07:47 Pulse 64 08/11/24 07:47 Resp 18 08/11/24 07:47 BP 100/53 L 08/11/24 07:47 Pulse Ox 98 08/11/24 07:47 O2 Del Method Room Air 08/11/24 07:47 O2 Flow Rate 2 07/28/24 08:03 BMI result Body Mass Index 20.3 Const: Other: Constitutional : interactive, not in distress Cardiovascular : no JVP, no lower extremity edema Respiratory : bilateral chest movement, not in resp distress Gastrointestinal: soft, lax, Non tender Skin : Warm, Dry Neurological : Alert and oriented to self only, No focal deficit DS: Data Imaging Chest x-ray: Radiologist's impression: ITS Impressions Chest X-Ray 06/25/24 13:25 IMPRESSION: Unremarkable examination. Electronically signed by: Neil Denney MD 06/25/2024 03:59 PM EDT RP Head CT 06/25/24 13:37 IMPRESSION: No acute intracranial finding. Electronically signed by: Neil Denney MD 06/25/2024 04:36 PM EDT RP Discharge Plan Discharge Anticipated Discharge Date/Time: 08/12/24 09:00 Patient Disposition: Xfer SNF Discharge Diagnosis: Neurocognitive disorder Referrals: Name,MD Aliiro [Primary Care Provider] - 1 Week Discharge Medications: New primidone 50 mg Tablet 25 mg PO DAILY Qty: 45 0RF Continued lidocaine [Lidoderm] 5 % adhesive patch,medicated 1 patch topical DAILY Qty: 30 0RF Rx Instructions: leave on most painful area for up to 12 hrs amlodipine 5 mg Tablet 5 mg PO DAILY Qty: 30 0RF Protocol: Hold for SBP< HOLD for SBP < : 90 divalproex 500 mg Tablet Extended Release 24 Hr 500 mg PO BEDTIME Qty: 30 0RF gabapentin 100 mg capsule 200 mg PO BID Qty: 120 0RF trazodone 50 mg Tablet 50 mg PO BEDTIME PRN (Reason: Insomnia) Qty: 30 0RF cyanocobalamin (vitamin B-12) [Vitamin B-12] 1,000 mcg Tablet 1,000 mcg PO DAILY Qty: 30 0RF olanzapine 2.5 mg Tablet 2.5 mg PO BEDTIME Qty: 30 0RF naproxen 500 mg tablet 500 mg PO BID PRN (Reason: pain) 7 Days Qty: 14 0RF melatonin 5 mg tablet 5 mg PO BEDTIME PRN (Reason: Sleep) rosuvastatin 5 mg tablet 5 mg PO DAILY Diet: Advance to usual diet Activity on Discharge: As tolerated Stand Alone Forms: Patient Portal Discharge page Print Language: Setswana Care Plan Goals: safe disposition Health Concerns: neurocognitive disorder Plan of Treatment: PRimidone Assessment: as above
[2024-08-11 15:01] VITALS: BP 100/54; PULSE 72; RESP 16; TEMP 36.9; O2SAT 97
[2024-08-11 19:09] VITALS: BP 109/54; PULSE 62; RESP 16; TEMP 36.4; O2SAT 96
[2024-08-11] MEDS: traZODone HCL 50 MG TABLET PO (19:40)
[2024-08-11] MEDS: Melatonin 3 MG TABLET 6 MG PO (19:40)
[2024-08-11] MEDS: Acetaminophen 325 MG TABLET 650 MG PO (19:41)
[2024-08-11] MEDS: Divalproex Sodium Sprinkles 125 MG CAP.DR.SPR 500 MG PO (19:41)
[2024-08-12 03:27] VITALS: BP 121/56; PULSE 60; RESP 16; TEMP 36.1; O2SAT 93
[2024-08-12] MEDS: Atorvastatin Calcium 20 MG TABLET PO (07:22)
[2024-08-12] MEDS: Primidone 50 MG TABLET 25 MG PO (07:22)
[2024-08-12] MEDS: Gabapentin 100 MG CAPSULE 200 MG PO (07:22)
[2024-08-12] MEDS: Cyanocobalamin (Vitamin B-12) 1,000 MCG TABLET 1000 MCG PO (07:23)
[2024-08-12] MEDS: Nystatin Cream 15 GM TUBE 1 APPL TOPICAL (07:23)
[2024-08-12 07:24] VITALS: BP 112/59; PULSE 62; RESP 14; TEMP 36.2; O2SAT 96
--- NOTE | 2024-08-12 09:34 | P.DS_ITS ---
DS: Providers Provider Date of Service: 08/12/24 Date of admission: 07/07/24 14:15 Date of discharge: 08/12/24 Primary care physician: Alirio Whitley MD Consults: 06/30/24 08:17 Consult to Psychiatry Stat Consulting Provider: Kaylee Perea Reason for consultation: eval for capacity Has provider been notified: Yes DS: Diagnosis Discharge Diagnosis (1) Major neurocognitive disorder: Status: Acute DS: Summary Hospital Course Hospital Course: Admission note HPI 79-year-old male with history of advanced dementia, hyperlipidemia, hypertension, history of alcohol use disorder, polysubstance abuse who has been awaiting placement in the ED since 06/25 due to increasing generalized fatigue/weakness, lethargy, decreased appetite, diarrhea, and confusion. At baseline secondary to his dementia he is confused, does not know staff names nor does he remember if he is eating or taking his medications or showering per staff at [place] [address] where he has been residing as part of [facility] housing. There was a question of alcohol and substance use however in the ED urine drug screen was not obtained. The patient is able to tell me his name and where he is located but does not know the date. On review of systems, he is reporting some dysuria intermittently and does state he has been having diarrhea chronically but feels this is improving. He has no other complaints. Since arrival, blood pressures have been intermittently elevated but vitals have otherwise been stable. Hematology studies checked on the day of arrival were unremarkable. Renal function is normal, electrolyte levels normal. Urinalysis on day of presentation was unremarkable. Chest x-ray was negative for any acute cardiopulmonary abnormality head CT was negative for any acute intracranial abnormality. At this time, he is being admitted to the hospitalist service as a social admit awaiting placement. Hospital course # FTT in elderly. Not eating much; he reports that he wants to eat whenever he wants and we can not force him to eat. Encouraged to eat more. Ensure added and Senior Staff Consultant followed during hospital stay. # tremor, improved On Primidone # Unspecified dementia and Neurocognitive disorder. Had guardiaship and was awaiting LTC. mentation at baseline. Discharge plan Primidone 25 mg daily Time Attestation Discharge Coordination Time (in mins): 38 Quality: Safe Use of Opioids Does Pt have an Active Cancer Diagnosis on the Problem List?: No Quality: Stroke Does the patient have a stroke diagnosis?: No Physical Exam Vital Signs: Vital Signs: Last Vital Signs Temp 97.2 F 08/12/24 07:24 Pulse 62 08/12/24 07:24 Resp 14 08/12/24 07:24 BP 112/59 L 08/12/24 07:24 Pulse Ox 96 08/12/24 07:24 O2 Del Method Room Air 08/12/24 07:24 O2 Flow Rate 2 07/28/24 08:03 BMI result Body Mass Index 20.3 Const: Other: Constitutional : interactive, not in distress Cardiovascular : no JVP, no lower extremity edema Respiratory : bilateral chest movement, not in resp distress Gastrointestinal: soft, lax, Non tender Skin : Warm, Dry Neurological : Alert and oriented to self only, No focal deficit Discharge Plan Discharge Anticipated Discharge Date/Time: 08/12/24 09:00 Patient Disposition: Xfer SNF Discharge Diagnosis: Neurocognitive disorder Referrals: [facility] [place] [Other] - 1 Week Name,MD Alirio [Primary Care Provider] - 1 Week Discharge Medications: New primidone 50 mg Tablet 25 mg PO DAILY Qty: 45 0RF Continued lidocaine [Lidoderm] 5 % adhesive patch,medicated 1 patch topical DAILY Qty: 30 0RF Rx Instructions: leave on most painful area for up to 12 hrs amlodipine 5 mg Tablet 5 mg PO DAILY Qty: 30 0RF Protocol: Hold for SBP< HOLD for SBP < : 90 divalproex 500 mg Tablet Extended Release 24 Hr 500 mg PO BEDTIME Qty: 30 0RF gabapentin 100 mg capsule 200 mg PO BID Qty: 120 0RF trazodone 50 mg Tablet 50 mg PO BEDTIME PRN (Reason: Insomnia) Qty: 30 0RF cyanocobalamin (vitamin B-12) [Vitamin B-12] 1,000 mcg Tablet 1,000 mcg PO DAILY Qty: 30 0RF olanzapine 2.5 mg Tablet 2.5 mg PO BEDTIME Qty: 30 0RF naproxen 500 mg tablet 500 mg PO BID PRN (Reason: pain) 7 Days Qty: 14 0RF melatonin 5 mg tablet 5 mg PO BEDTIME PRN (Reason: Sleep) rosuvastatin 5 mg tablet 5 mg PO DAILY Discharge Orders: Discharge Order (Routine); Ordered 08/12/24 Ordered By: Raymundo Kinsey Diet: Advance to usual diet Activity on Discharge: As tolerated Stand Alone Forms: Patient Portal Discharge page Print Language: [place] Care Plan Goals: safe disposition Health Concerns: neurocognitive disorder Plan of Treatment: PRimidone Assessment: as above
--- NOTE | 2024-08-12 09:41 | PC.NURSE ---
[employer] received from security, in a sealed bag, noted by staff Teri. Will be sent with EMS to facility.
--- NOTE | 2024-08-12 09:48 | MHC.CM.PN ---
Pt is being discharged to [facility] today via [facility].
== END 2024-08-12 10:23 | disposition skilled nursing facility (03) ==
LOC: HO.ED 06-29 10:00 → HO.EDOVER 07-07 14:41 → HO.S3 07-08 12:48
PROVIDERS: Internal Medicine; Physician Assistant; Student in an Organized Health Care Education/Training Program; Admitting Provider Physician Assistant; Emergency Provider Emergency Medicine; PCP Internal Medicine Geriatric Medicine; Visit Provider Hospitalist
DX: F03.90 Unspecified dementia, unspecified severity, without behavioral disturbance, psychotic disturbance, mood disturbance, and anxiety (principal); R19.7 Diarrhea, unspecified; R53.1 Weakness; R62.7 Adult failure to thrive; R30.0 Dysuria; I10 Essential (primary) hypertension; E78.5 Hyperlipidemia, unspecified; Z68.20 Body mass index [BMI] 20.0-20.9, adult; Z03.818 Encounter for observation for suspected exposure to other biological agents ruled out
CPT/HCPCS: 0241U; 36415; 70450; 71045; 80048; 80053; 80076; 81001; 81003; 82140; 82947; 83690; 83735; 84484; 85025; 85027; 93005; 96360; 96361; 96372; 97162; 99221; 99285; J1650

== ENCOUNTER → 2024-06-25 14:06 | Outpatient (BNV) | payer OTHER, SELFPAY | PROVIDERS: Emergency Provider Emergency Medicine; PCP Internal Medicine Geriatric Medicine; Visit Provider Social Worker | DX: F03.90 Unspecified dementia, unspecified severity, without behavioral disturbance, psychotic disturbance, mood disturbance, and anxiety (principal) | CPT/HCPCS: 99285 ==

== ENCOUNTER → 2024-07-07 14:15 | Outpatient (BNV) | payer OTHER, SELFPAY | PROVIDERS: Admitting Provider Physician Assistant; Emergency Provider Emergency Medicine; PCP Internal Medicine Geriatric Medicine; Visit Provider Student in an Organized Health Care Education/Training Program | DX: F03.90 Unspecified dementia, unspecified severity, without behavioral disturbance, psychotic disturbance, mood disturbance, and anxiety (principal); I10 Essential (primary) hypertension; E78.5 Hyperlipidemia, unspecified; Z75.1 Person awaiting admission to adequate facility elsewhere | CPT/HCPCS: 99222; 99231; 99239 ==